=== PATIENT | male | born 1945 | race Caucasian/White ===

== ENCOUNTER 2016-04-04 10:36 | Emergency (ER) | payer OTHER, MEDICARE ==
[~2016-04-04] VITALS: Ht 185.4 cm; Wt 126.1 kg
[~2016-04-04 10:36] MED LIST: ACEPHEN650 MG PR; ALBUTEROL0.63 MG/3 INH/SOL; AMBIEN (MONOGRAP5 MG PO; AMBIEN10 M1 PO; AUGMENTIN 500M500 MG PO; AZITHROMYCIN250 M1 PO; CARBIDOPA AND L1 TA1 PO; CELEBREX200 M1 PO; CELEXA10 MG PO; COLACE100 M1 PO; COMTAN200 MG PO; COUMADIN 10 MG10 MG PO; COUMADIN 3 MG TA3 MG PO; COUMADIN 4MG TAB4 MG PO; COUMADIN 7.5 M7.5 MG PO; COUMADIN6 M1 PO; COUMADIN7.5 M1 PO; DILAUDID 4 MG TA4 MG PO; DILAUDID2 MG PO; DILAUDID4 MG PO; DULCOLAX10 MG PR; DULOXETINE HCL30 MG PO; DURAGESIC100 MCG TOP; FENOFIBRATE134 M1 PO; FLEET ENEMA 131 UNIT RC; FOLIC ACID 1 MG PO; FOLIC ACID1 M1 PO; FUROSEMIDE20 MG PO; GLUCAGON1 MG IV; GLUCOSE GEL15 GM TD; HYDROMORPHONE HC2 M1 PO; HYDROMORPHONE HC2 MG PO; HYDROMORPHONE HC4 M1 PO; KEFLEX 250MG C250 MG PO; KEPPRA250 M1 PO; LASIX20 M1 PO; LEVAQUIN500 MG PO; LEVEMIR 10100 UNITS/ SC; LEVEMIR FL100 UNIT/1 SC; LEVEMIR SC; LEVEMIR100 U/ML SC; LIDODERM 5% PAT1 PAT EXT; LIDODERM 5% PAT1 PAT TOP; LIPITOR 40MG40 MG PO; LIPITOR40 M1 PO; LOVENOX 10100 MG/1 M SC; LOVENOX 4040 MG/0.4 SC; LOVENOX 8080 MG/0.8 SC; LOVENOX SC; LOVENOX120 MG/0.8 SC; LYRICA100 M1 PO; MAG-OX 400400 MG PO; MAGNESIUM OXID400 MG PO; METFORMIN HCL500 MG PO; MILK OF MAGNESI30 ML PO; MIRALAX17 GM PO; MUCINEX ER600 MG PO; NASONEX0.05 MG/Ac INH; NEURONTIN600 M1 PO; NOVOLOG100 U/ML SC; OMEPRAZOLE40 M1 PO; OXYCONTIN15 MG PO; PERCOCET 325 MG1 TA2 PO; PREDNISONE10 M2 PO; PRILOSEC40 MG PO; PROPRANOLOL HCL20 M1 PO; ROXICODONE5 MG PO; SENNA8.6 M3 PO; SINEMET 10-1001 TAB PO; SINEMET 25-1001 EACH PO; SINEMET 25-1001 TAB PO; Senokot S PO; TESSALON PERLE100 MG PO; TOPROL XL50 M1 PO; TRAZODONE HCL50 M1 PO; TYLENOL TAB 32325 MG PO; VALIUM 10 MG. T10 MG PO; VANTIN200 MG PO; VITAMIN B650 MG PO; VITAMIN D1000 IU PO; VITAMIN D31000 UNI2 PO; WARFARIN SODIUM4 MG PO; ZOFRAN 4 MG TABL4 MG PO; ZOLOFT25 MG PO; ZOLPIDEM TARTRA10 MG PO
[2016-04-04] MEDS ORDERED: LYRICA50 M1 PO (11:09)
[2016-04-04] MEDS ORDERED: COLACE100 M1 PO (11:12)
[2016-04-04] MEDS ORDERED: SENNA8.6 M3 PO (11:13)
[2016-04-04] MEDS ORDERED: TOUJEO SOL300 UNIT/1 SC (11:17)
[2016-04-04] MEDS ORDERED: MIRALAX17 G1 PO (11:18)
[2016-04-04] MEDS ORDERED: TYLENOL325 M1 PO (11:19)
--- NOTE | 2016-04-04 12:08 | ED GI/GU/ABDOMINAL COMPLAINT ---
History of Present Illness General Chief Complaint: General Adult Stated Complaint: FALL/ABD PAIN Source: patient, old records Exam Limitations: no limitations Vital Signs & Intake/Output Vital Signs & Intake/Output Vital Signs Date Time Temp Pulse Resp B/P Pulse O2 O2 Flow FiO2 Ox Delivery Rate 04/04 1315 98.0 58 16 152/66 95 Room Air 04/04 1107 96 Room Air 04/04 1053 97.0 62 20 170/73 95 Room Air Allergies Coded Allergies: Penicillins (Intermediate, HIVES 05/03/15) morphine (Mild, PT SAYS IT "DOESNT BOTHER HIM" 05/03/15) Reconcile Medications Acetaminophen (Tylenol) 325 MG TABLET 2 TAB PO Q6-PRN PRN PAIN (Reported) Atorvastatin Calcium (Lipitor) 40 MG TABLET 1 TAB PO DAILY HYPERLIPIDEMIA ( Reported) Reason to Stop at ADM: DOSE INCREASED Carbidopa/Levodopa (Sinemet 25-100 MG Tablet) 25 MG-100 MG TABLET 1 TAB PO TID parkinsonism Celecoxib (Celebrex) 200 MG CAPSULE 1 CAP PO QHS PAIN CONTROL (Reported) Cholecalciferol (Vitamin D3) 1,000 UNIT TABLET 1 TAB PO DAILY BONE STRENGTH ( Reported) Docusate Sodium (Colace) 100 MG CAPSULE 1 CAP PO BID GI (Reported) Duloxetine HCl 60 MG CAPSULE.DR 1 CAP PO DAILY mood (Reported) Entacapone (Comtan) 200 MG TABLET 1 TAB PO TID PARKINSONS (Reported) Fenofibrate,Micronized (Fenofibrate) 134 MG CAPSULE 1 CAP PO DAILY TRIGLYCERIDES (Reported) Folic Acid 1 MG TABLET 1 TAB PO DAILY SUPPLEMENT (Reported) Furosemide (Lasix) 20 MG TABLET 1 TAB PO DAILY FLUID OVERLOAD (Reported) Gabapentin (Neurontin) 600 MG TABLET 1 TAB PO QPM NEUROPATHY (Reported) Hydromorphone HCl 2 MG TABLET 6 MG PO Q4-6 PRN PRN PAIN SCALE 7-10 (SEVERE) Insulin Aspart, Recombinant (Novolog) 100 U/ML MELIA 0 UNITS SC TIDAC/HS DM BEFORE MEALS Blood Insulin Sugar Units <80 0 81-100 6 101-120 6 121-150 6 151-200 7 201-250 8 251-300 10 301-350 12 351-400 14 >400 Call Doctor and give 16 units AT BEDTIME Blood Insulin Sugar Units <80 0 81-100 0 101-200 0 201-250 2 251-300 3 301-350 4 351-400 5 >400 Call Doctor Insulin Detemir (Levemir Flextouch) 100 UNIT/1 ML INSULN.PEN 40 U SC QPM DIABETES (Reported) Insulin Glargine,Hum.rec.anlog (Dwayne Segura) 300 UNIT/ML (1.5 ML) INSULN.PEN 30 U SC QPM DM (Reported) Levetiracetam (Keppra) 250 MG TABLET 1 TAB PO BID SEIZURES Metoprolol Succ XL (Toprol Xl 50MG Tab) 50 MG TAB.ER.24H 1 TAB PO QAM BLOOD PRESSURE (Reported) Omeprazole 40 MG CAPSULE.DR 1 CAP PO DAILY reflux (Reported) Polyethylene Glycol 3350 (Miralax) 17 GRAM POWD.PACK 1 PAC PO DAILY GI ( Reported) dissolve in water Pregabalin (Lyrica) 75 MG CAPSULE 1 CAP PO BID PAIN (Reported) Propranolol HCl 20 MG TABLET 1 TAB PO TID tremor titrate upwards as tolerated Sennosides (Senna) 8.6 MG TABLET 1 TAB PO BID GI (Reported) Trazodone HCl 50 MG TABLET 1 TAB PO QPM sleep disturbance (Reported) Warfarin Sodium (Coumadin) 6 MG TABLET 1 TAB PO DAILY blood thinner please check inr ON 01/19/2016 before dosing . Keep INR between 2-3 Zolpidem Tartrate (Ambien 10MG) 10 MG TABLET 1 TAB PO PRN SLEEP (Reported) Triage Note: 70 YEAR OLD MALE TO ER VIA AMBULANCE FROM [facility], PT STATES THAT HE HAS BEEN FALLING A LOT AND THAT HE WAS A [facility] FOR REHAB, HAS BEEN HOME FOR 3 WEEKS, PT HAS A PHYSICAL THERAPIST THAT COMES OUT TO HIS HOME 2X WEEK, STATES THAT ON FRIDAY HE TRIED TO WALK WITH CRUTCHES , HE SLIPPED AND FELL , STATES THAT WHEN HE FELL THE CRUTCH HANDLE PUSHED INTO HIS R SIDE GROIN, PT WAS ABLE TO GET UP ON OWN , WITH DIFFICULTY, STATES THAT HE LET THE NURSE KNOW. PT COMES IN TO ER TODAY DUE TO DIFFUSE ABD PAIN, NOTED WITH BRUISING TO R SIDE LOW ABD, ABD DISTENDED AND PAINFUL ON LIGHT PALPATION. PT WAS ON BLOOD THINNERS UP TO 4 DAYS AGO. DENIES URINARY PROBLEMS, DENIES BLOOD, STATES THAT LAST BM WAS 2 DAYS AGO AND DENIES BLOOD IN STOOL, STATES THAT HE HAS HAD A LOT OF FLATUS BUT THE PAIN IS UNBEARABLE WHEN HE PASSES GAS. COMPLAINS OF NAUSEA BUT DENIES VOMITTING, DENIES CP , NSR ON MONITOR WITH OCCASIONAL PVC NOTED, COMPLAINS OF SOB WHEN HE TAKES DEEP INSPIRATION, O2 SAT 96 % ON RA. PT IS IDDM , FS AT THIS TIME 240. PTS PHYSICAL THERAPIST CALLED AMBULANCE TODAY DUE TO PTS PAIN. PT STATES THAT HE TAKES DILAUDID 4MG EVERY 4-6 HOURS NEEDED FOR HIS CHRONIC BACK/NECK PAIN. LAST TOOK LAST PM. Triage Nurses Notes Reviewed? yes HPI: 70-year-old male with multiple medical comorbidities who is on Coumadin, last INR checked yesterday was 4.43 per patient, history of CVA who ambulates with crutches, had a mechanical slip and fall while using his crutches 4 days ago. The end of the crutch hit him in the right lower quadrant of the abdomen as he was falling. He has had pain in the right lower quadrant of the abdomen since and a hematoma in that area. He also injects insulin in that area as well and has bruising to both sides in various stages of healing. He denies any nausea or vomiting. He denies any urinary symptoms, no hematuria. He denies any shortness of breath or chest pain. He has chronic pain and usually takes Dilaudid for his pain 4 mg and he is requesting that at this time. His symptoms are moderate and worse with palpation of the lower abdomen region. No change in appetite. (HAMILTON BANSAL) Past History Travel History Traveled to [place] past 21 day No Medical History Any Pertinent Medical History? 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 Other Medical Hx: High cholesterol History of MRSA: Yes Active MRSA Infection: No History of VRE: No History of CDIFF: No Isolation History: Contact Tetanus Vaccine: 04/10/15 Surgical History Surgical History: knee replacement, laminectomy (L1 to L5), spinal fusion (C5 to C7), BICUSPID VALVE REPLACEMENT status post foot surgery status post hand surgery HAS STEEL PLATES R HAND Psychosocial History Who do you live with Patient/Self Services at Home Nursing, Physical Therapy What is your primary language Swedish Tobacco Use: Never used ETOH Use: denies use Illicit Drug Use: denies illicit drug use Family History Family History, If Any: MOTHER FH: myocardial infarction FATHER FH: myocardial infarction Hx Contributory? No (HAMILTON BANSAL) Review of Systems Review of Systems Constitutional: Reports: see HPI. EENTM: Reports: no symptoms. Respiratory: Reports: no symptoms. Cardiovascular: Reports: no symptoms. GI: Reports: see HPI. Genitourinary: Reports: no symptoms. Musculoskeletal: Reports: no symptoms. Skin: Reports: no symptoms. Neurological/Psychological: Reports: no symptoms. Hematologic/Endocrine: Reports: no symptoms. Immunologic/Allergic: Reports: no symptoms. All Other Systems: Reviewed and Negative (HAMILTON BANSAL) Physical Exam Physical Exam Gastrointestinal: normal bowel sounds Comments: Well-developed well-nourished no apparent distress. HEENT: Atraumatic, extraocular motion intact Neck: Supple, no lymphadenopathy, nontender Back: Nontender HEART: RRR NO MURMUR Respiratory: No respiratory distress clear to auscultation bilateral.Heart: Regular rate and rhythm no murmur abdomen: Morbidly Obese, focal area of tenderness to the right lower abdominal region. There is mild to moderate ecchymosis of the lower abdominal region bilaterally right greater than left with various stages of resolution. Extremities: No edema, full range of motion Neuro: Alert and oriented x3 Psych: Mood affect normal, normal memory normal judgment. Skin: Warm and dry, no rash on exposed skin Core Measures ACS in differential dx? No Severe Sepsis Present: No Septic Shock Present: No (HAMILTON BANSAL) Progress Differential Diagnosis: AAA, AMI, appendicitis, biliary colic, bowel obstruction , colon cancer, cholecystitis, diverticulitis, epididymitis, esophageal varices, gastritis, hepatitis, hernia, hemorrhoids, ischemic bowel, inflamm bowel dis, Renée-Suleman tear, orchitis, pancreatitis, prostatitis, peptic ulcer, PUD/GERD, perforated viscous, pyelonephritis, SBO, STD, testicular torsion, ureterolithiasis, urinary retention, urethritis, UTI/pyelo Plan of Care: Orders Procedure Date/time Status URINALYSIS 04/04 1214 Complete PROTHROMBIN TIME 04/04 113 Complete COMPREHENSIVE METABOLIC PANEL 04/04 113 Complete CBC WITHOUT DIFFERENTIAL 04/04 113 Complete Laboratory Tests 04/04/16 1215: Urinalysis LIGHT H, Urine Color YEL, Urine Clarity CLEAR, Urine pH 7.0, Ur Specific [place] 1.015, Urine Protein 100 H, Urine Ketones NEG, Urine Nitrite NEG, Urine Bilirubin NEG, Urine Urobilinogen 0.2, Ur Leukocyte Esterase NEG, Ur Microscopic SEDIMENT EXAMINED, Urine RBC 10-15 H, Urine Hemoglobin SMALL H, Urine Glucose >=1000 H 04/04/16 1150: Anion Gap 5, Estimated GFR 35 L, BUN/Creatinine Ratio 18.4, Glucose 202 H, Calcium 8.7, Total Bilirubin 0.6, AST 66 H, ALT 22, Alkaline Phosphatase 94, Total Protein 6.1 L, Albumin 3.5, Globulin 2.6, Albumin/Globulin Ratio 1.3, PT 43.1 *H, INR 4.16 *H, CBC w Diff NO MAN DIFF REQ, RBC 4.18 L, MCV 71.0 L, MCH 23.3 L, RDW 18.3 H, MPV 7.8, Gran % 71.2, Lymphocytes % 17.3 L, Monocytes % 9.9 H, Eosinophils % 1.3, Basophils % 0.3, Absolute Granulocytes 4.9, Absolute Lymphocytes 1.2, Absolute Monocytes 0.7 H, Absolute Eosinophils 0.1, Absolute Basophils 0, PUBS MCHC 32.8 L Diagnostic Imaging: Viewed by Me: CT Scan. Discussed w/RAD: CT Scan. Radiology Impression: PATIENT: DENNY VARGAS PRESENT AGE: 70 PATIENT ACCOUNT NO: [id number] : 45 LOCATION: [facility] ORDERING PHYSICIAN: HAMILTON BIRCH SERVICE DATE: 04/04/16 EXAM TYPE: CAT - CT ABD & PELVIS W/O IV CONTRAS EXAMINATION: CT ABDOMEN AND PELVIS WITHOUT CONTRAST CLINICAL INFORMATION: 70 year old male on Coumadin, history of fall, complaining of right lower abdominal pain. COMPARISON: CT of the abdomen and pelvis done on 01/15/2016. TECHNIQUE: Multidetector volumetric imaging was performed from the superior aspect of the liver through the pubic symphysis. Sagittal and coronal reformatted images were obtained on the technologist's workstation. DLP: 1453.01 mGy-cm. FINDINGS: The entire study is technically limited due to lack of intravenous contrast. Possibility of solid organ injury is, accordingly, not excluded. LUNG BASES: Persistent stable minimal compressive atelectatic changes versus pleural parenchymal scar-related changes are noted at left lung base. Atherosclerotic disease including coronary artery calcifications are noted, unchanged. LIVER, GALLBLADDER, AND BILIARY TREE: The liver is normal in size, shape, and attenuation. No focal hepatic lesion or biliary ductal dilatation is present. The gallbladder is unremarkable with no evidence of radiopaque gallstones, gallbladder wall thickening, or obvious pericholecystic inflammatory changes. PANCREAS: Calcifications are noted in the region of the tail of the pancreas, distal body and few scattered calcifications within the body and head, similar to prior study. SPLEEN: Unremarkable. ADRENAL GLANDS: Unremarkable. KIDNEYS AND URETERS: The kidneys are normal in size, shape, and attenuation. No hydronephrosis, hydroureter, or calculi seen. No perinephric stranding. BLADDER: The urinary bladder is markedly distended, possibly physiologic. GASTROINTESTINAL TRACT: The small and large bowel are unremarkable. The appendix is unremarkable. ABDOMINAL WALL: No significant hernia is appreciated. LYMPH NODES: Normal. VASCULAR: Diffuse atherosclerotic changes are noted within the aorta and its branches without aneurysm formation. PELVIC VISCERA: The prostate shows intraparenchymal macrocalcification, similar to prior study and measures approximately 4.6 x 3.8 cm, unchanged. There is no pelvic mass present. There is no free fluid and/or free air present. ADDITIONAL FINDINGS: Specifically, there is no evidence of any retroperitoneal, intrapelvic hematoma identified. OSSEOUS STRUCTURES: Stable post vertebral augmentation- related changes are noted at L1. Postop changes of laminectomy is noted at L3, L4 vertebral body level, unchanged. IMPRESSION: 1. The entire study is technically limited due to lack of intravenous contrast. Possibility of solid organ injury is not excluded. 2. The urinary bladder is markedly distended, new finding since prior study dated 01/15/2016, likely physiologic. 3. No other significant interval change is present since the prior noncontrast study dated 01/15/2016. 4. Specifically, no CT evidence of any intra-abdominal or intrapelvic hematoma is seen. DICTATED BY: LIDIA TOM MD DATE/TIME DICTATED :04/04/16 Initial ED EKG: none Comments: Patient given his usual dose of Dilaudid 4 mg and Zofran for nausea which she usually takes after the Dilaudid due to opiate-induced nausea. He was reevaluated and his pain has improved, he was resting comfortably with his eyes closed on the stretcher when I evaluated him. His laboratory values are unchanged from baseline, he has chronic anemia and chronic renal insufficiency which is unchanged. He states that he urinated after he returned from the CT scan machine which noted that he had an enlarged bladder however he has no other urinary symptoms. His CT scan was otherwise unremarkable for acute intra- abdominal trauma. His INR was still slightly elevated 4.1 I recommended that he not take his Coumadin for the next 2 days. He is stable for discharge home. (HAMILTON BANSAL) Departure Departure Disposition: HOME OR SELF CARE Condition: Stable Clinical Impression Primary Impression: Blunt trauma of abdominal wall Qualifiers: Encounter type: initial encounter Qualified Code: S39.81XA - Other specified injuries of abdomen, initial encounter Secondary Impressions: Supratherapeutic INR Referrals: KOFFI RODGERS MD (PCP/Family) Additional Instructions: Your INR was noted to be elevated to 4.1 today. Hold your Coumadin for the next 2 days, then restart regular normal dose Take your pain medication as needed. Return to the ER with worsening abdominal pain, nausea, vomiting. Departure Forms: Customer Survey General Discharge Information (HAMILTON BANSAL) PA/ANIMAL GROOMER Co-Sign Statement Statement: ED Attending supervision documentation- [x] I saw and evaluated the patient. I have also reviewed all the pertinent lab results and diagnostic results. I agree with the findings and the plan of care as documented in the PA's/ANIMAL GROOMER's documentation. [] I have reviewed the ED Record and agree with the PA's/ANIMAL GROOMER's documentation. [] Additions or exceptions (if any) to the PAs/ANIMAL GROOMER's note and plan are summarized below: [] (ARNEL VASQUES,JETHRO Painting)
[2016-04-04 12:16] LABS: PT 43.1 SEC (9.4-12.5)
[2016-04-04 12:21] LABS: ABSOLUTE BASOPHIL COUNT 0 /CUMM (0.0-0.2); ABSOLUTE EOSINOPHIL COUNT 0.1 /CUMM (0.0-0.7); ABSOLUTE GRANULOCYTE CT 4.9 /CUMM (1.4-6.5); ABSOLUTE LYMPH COUNT 1.2 /CUMM (1.2-3.4); ABSOLUTE MONOCYTE COUNT 0.7 /CUMM (0.10-0.60); BASOPHIL % 0.3 % (0.0-2.0); EOSINOPHIL % 1.3 % (0-5); GRANULOCYTE % 71.2 % (42.2-75.2); HEMATOCRIT 29.7 % (42-52); MEAN CORPUSCULAR HGB 23.3 PG (27.0-31.0); MEAN CORPUSCULAR HGB CONC 32.8 G/DL (33.0-37.0); MEAN PLATELET VOLUME 7.8 FL (7.4-10.4); PLATELET COUNT 323 /CUMM (130-400); RBC DISTRIBUTION WIDTH 18.3 % (11.5-14.5); RED BLOOD CELL CT 4.18 /CUMM (4.70-6.10); WHITE BLOOD CELL COUNT 6.9 /CUMM (4.8-10.8)
--- NOTE | 2016-04-04 12:29 | CT SCAN REPORT ---
EXAMINATION: CT ABDOMEN AND PELVIS WITHOUT CONTRAST CLINICAL INFORMATION: 70 year old male on Coumadin, history of fall, complaining of right lower abdominal pain. COMPARISON: CT of the abdomen and pelvis done on 01/15/2016. TECHNIQUE: Multidetector volumetric imaging was performed from the superior aspect of the liver through the pubic symphysis. Sagittal and coronal reformatted images were obtained on the technologist's workstation. DLP: 1453.01 mGy-cm. FINDINGS: The entire study is technically limited due to lack of intravenous contrast. Possibility of solid organ injury is, accordingly, not excluded. LUNG BASES: Persistent stable minimal compressive atelectatic changes versus pleural parenchymal scar-related changes are noted at left lung base. Atherosclerotic disease including coronary artery calcifications are noted, unchanged. LIVER, GALLBLADDER, AND BILIARY TREE: The liver is normal in size, shape, and attenuation. No focal hepatic lesion or biliary ductal dilatation is present. The gallbladder is unremarkable with no evidence of radiopaque gallstones, gallbladder wall thickening, or obvious pericholecystic inflammatory changes. PANCREAS: Calcifications are noted in the region of the tail of the pancreas, distal body and few scattered calcifications within the body and head, similar to prior study. SPLEEN: Unremarkable. ADRENAL GLANDS: Unremarkable. KIDNEYS AND URETERS: The kidneys are normal in size, shape, and attenuation. No hydronephrosis, hydroureter, or calculi seen. No perinephric stranding. BLADDER: The urinary bladder is markedly distended, possibly physiologic. GASTROINTESTINAL TRACT: The small and large bowel are unremarkable. The appendix is unremarkable. ABDOMINAL WALL: No significant hernia is appreciated. LYMPH NODES: Normal. VASCULAR: Diffuse atherosclerotic changes are noted within the aorta and its branches without aneurysm formation. PELVIC VISCERA: The prostate shows intraparenchymal macrocalcification, similar to prior study and measures approximately 4.6 x 3.8 cm, unchanged. There is no pelvic mass present. There is no free fluid and/or free air present. ADDITIONAL FINDINGS: Specifically, there is no evidence of any retroperitoneal, intrapelvic hematoma identified. OSSEOUS STRUCTURES: Stable post vertebral augmentation-related changes are noted at L1. Postop changes of laminectomy is noted at L3, L4 vertebral body level, unchanged. IMPRESSION: 1. The entire study is technically limited due to lack of intravenous contrast. Possibility of solid organ injury is not excluded. 2. The urinary bladder is markedly distended, new finding since prior study dated 01/15/2016, likely physiologic. 3. No other significant interval change is present since the prior noncontrast study dated 01/15/2016. 4. Specifically, no CT evidence of any intra-abdominal or intrapelvic hematoma is seen.
[2016-04-04 13:15] VITALS: BP 152/66
== END 2016-04-04 13:16 ==
LOC: ERH 10:36
PROVIDERS: Physician Assistant Surgical
DX: S39.91XA Unspecified injury of abdomen, initial encounter (principal); W01.0XXA Fall on same level from slipping, tripping and stumbling without subsequent striking against object, initial encounter; Z79.01 Long term (current) use of anticoagulants
CPT/HCPCS: 74176; 81001; J3101

== ENCOUNTER 2016-05-10 08:09 | Inpatient (IN) | payer OTHER, MEDICARE ==
[~2016-05-10] VITALS: Ht 185.4 cm; Wt 126.1 kg
[~2016-05-10 08:09] MED LIST changes: +LYRICA50 M1 PO; +MIRALAX17 G1 PO; +TOUJEO SOL300 UNIT/1 SC; +TYLENOL325 M1 PO
--- NOTE | 2016-05-10 08:12 | ED GENERAL ADULT ---
History of Present Illness General Chief Complaint: Fall Stated Complaint: BIBA FOR FALL Source: patient Exam Limitations: poor historian Vital Signs & Intake/Output Vital Signs & Intake/Output Vital Signs Date Time Temp Pulse Resp B/P Pulse O2 O2 Flow FiO2 Ox Delivery Rate 05/10 1841 Room Air Room Air 05/10 1836 98.9 65 20 143/70 93 Room Air 05/10 1736 97.2 68 18 135/64 95 Room Air Room Air 05/10 1433 97.0 70 20 133/62 94 Room Air 05/10 1115 56 20 141/66 94 Room Air 05/10 0827 Room Air Room Air 05/10 0812 96.8 58 22 139/92 93 Room Air Allergies Coded Allergies: Penicillins (Intermediate, HIVES 05/03/15) morphine (Mild, PT SAYS IT "DOESNT BOTHER HIM" 05/03/15) Reconcile Medications Acetaminophen (Tylenol) 325 MG TABLET 2 TAB PO Q6-PRN PRN PAIN (Reported) Albuterol Sulfate 2.5 MG/3 ML (0.083 %) VIAL.NEB 1 Vial INH/MELIA 4 TIMES/DAY BREATHING PROBLEMS (Reported) Atorvastatin Calcium (Lipitor) 40 MG TABLET 1 TAB PO DAILY HYPERLIPIDEMIA ( Reported) Reason to Stop at ADM: DOSE INCREASED Calcium Carbonate/Vitamin D3 (Calcium + Vitamin D Tablet) 600 MG-200 TABLET 1 TAB PO DAILY SUPPLEMENT (Reported) Carbidopa/Levodopa (Sinemet 25-100 MG Tablet) 25 MG-100 MG TABLET 1 TAB PO TID parkinsonism Celecoxib (Celebrex) 200 MG CAPSULE 1 CAP PO QHS PAIN CONTROL (Reported) Cholecalciferol (Vitamin D3) 1,000 UNIT TABLET 1 TAB PO DAILY BONE STRENGTH ( Reported) Docusate Sodium (Colace) 100 MG CAPSULE 1 CAP PO BID GI (Reported) Duloxetine HCl 30 MG CAPSULE.DR 1 CAP PO DAILY MOOD (Reported) Entacapone (Comtan) 200 MG TABLET 1 TAB PO TID PARKINSONS (Reported) Fenofibrate,Micronized (Fenofibrate) 134 MG CAPSULE 1 CAP PO DAILY TRIGLYCERIDES (Reported) Folic Acid 1 MG TABLET 1 TAB PO DAILY SUPPLEMENT (Reported) Furosemide (Lasix) 20 MG TABLET 1 TAB PO DAILY WATER PILL (Reported) Gabapentin (Neurontin) 600 MG TABLET 1 TAB PO TID NEUROPATHY (Reported) Hydromorphone HCl 2 MG TABLET 6 MG PO Q4-6 PRN PRN PAIN SCALE 7-10 (SEVERE) Insulin Aspart, Recombinant (Novolog Flexpen) (Unknown Strength) INSULN.PEN ( Unknown Dose) SEE SLIDING SCALE DIABETES (Reported) Insulin Detemir (Levemir Flextouch) 100 UNIT/ML (3 ML) INSULN.PEN 30 UNITS SC QPM DIABETES (Reported) Lidocaine (Lidoderm) 5 % ADH..PATCH 1 PAT TOP DAILY PAIN (Reported) may wear up to 12 hours Magnesium Oxide 400 MG TABLET 1 TAB PO DAILY SUPPLEMENT (Reported) Metoprolol Succ XL (Toprol Xl) 50 MG TAB 1 TAB PO DAILY BP (Reported) Omeprazole 40 MG CAPSULE.DR 1 CAP PO DAILY reflux (Reported) Polyethylene Glycol 3350 (Miralax) 17 GRAM POWD.PACK 1 PAC PO DAILY GI ( Reported) dissolve in water Pregabalin (Lyrica) 50 MG CAPSULE 1 CAP PO TID PAIN (Reported) Sennosides (Senna) 8.6 MG TABLET 1 TAB PO BID GI (Reported) Warfarin Sodium (Coumadin) 6 MG TABLET 1 TAB PO DAILY blood thinner please check inr ON 01/19/2016 before dosing . Keep INR between 2-3 Zolpidem Tartrate (Ambien) 10 MG TABLET 1 TAB PO QPMP PRN SLEEP (Reported) Triage Nurses Notes Reviewed? yes Onset: Abrupt Duration: hour(s): Timing: recent history HPI: 05/10/16 9 am 70-year-old man presents to the emergency department for a fall. The patient lives in assisted care and apparently felt weak and slid down today, he is complaining of severe right sided low back pain and right sided abdominal pain. He denies head injury. He does have a past medical history of valve replacement. He has a [employer] valve and is on Coumadin. The symptoms were abrupt, the duration was just today, the severity was significant as his symptoms required him to come to the emergency department for care Past medical history of pancreatitis, diabetes and Parkinson's disease also status post spinal fusion. Past History Travel History Traveled to [place] past 21 day No Medical History Any Pertinent Medical History? see below for history Neurological: CVA, Parkinson's disease, peripheral neuropathy, stroke 4 times after morphine EENT: NONE Cardiovascular: CAD, CHF, hypertension, [facility] [employer] VALVE Respiratory: PNA Gastrointestinal: GERD, pancreatitis, peptic ulcer disease, upper GI bleed Hepatic: NONE Renal: NONE Musculoskeletal: chronic back pain, osteoarthritis, osteoporosis, spinal fracture twice MRSA IN WOUND Psychiatric: depression Endocrine: diabetes, osteoporosis, vitamin D deficiency Blood Disorders: anemia Cancer(s): melanoma BACTERIOLOGIST SOIL/Reproductive: NONE Other Medical Hx: High cholesterol History of MRSA: Yes History of VRE: No History of CDIFF: No Tetanus Vaccine: 04/10/15 Surgical History Surgical History: knee replacement, laminectomy (L1 to L5), spinal fusion (C5 to C7), BICUSPID VALVE REPLACEMENT status post foot surgery status post hand surgery HAS STEEL PLATES R HAND Psychosocial History Who do you live with Patient/Self Services at Home Nursing, Physical Therapy What is your primary language Amharic Family History Family History, If Any: MOTHER FH: myocardial infarction FATHER FH: myocardial infarction Hx Contributory? No Review of Systems Review of Systems Constitutional: Denies: fever. EENTM: Denies: visual changes. Respiratory: Denies: short of breath. Cardiovascular: Denies: chest pain. GI: Reports: abdominal pain. Genitourinary: Reports: no symptoms. Musculoskeletal: Reports: back pain. Skin: Denies: rash. Neurological/Psychological: Denies: confusion. Hematologic/Endocrine: Denies: bruising, bleeding. Physical Exam Physical Exam General Appearance: alert, awake, anxious, moderate distress Head: atraumatic, normal appearance Eyes: Bilateral: normal appearance, PERRL, EOMI. Ears, Nose, Throat: normal pharynx, normal ENT inspection Neck: normal inspection, supple Respiratory: normal breath sounds, chest non-tender, no respiratory distress Cardiovascular: regular rate/rhythm Peripheral Pulses: 4+ radial (R), 4+ radial (L) Gastrointestinal: soft, tenderness, right upper quadrant Back: decreased range of motion, tenderness right lumbar Extremities: pedal edema Neurologic/Psych: awake, alert, oriented x 3, motor weakness, global weakness and tremors Skin: intact, normal color, warm/dry Core Measures ACS in differential dx? No CVA/TIA Diagnosis: No Severe Sepsis Present: No Septic Shock Present: No Progress Differential Diagnoses I considered the following diagnoses in my evaluation of the patient: [ Compression fracture, intra-abdominal injury, arthritis, disc herniation,] Plan of Care: Orders Procedure Date/time Status Consistent Carbohydrate 3 05/11 B Active PROTHROMBIN TIME 05/11 06 Active CBC WITHOUT DIFFERENTIAL 03/11 0600 Active BASIC ELECTROLYTES PLUS BUN&CR 05/11 0600 Active Heart Healthy Diet 05/10 D Complete Vital Signs 05/10 2013 Active Teach/Educate 05/10 2013 Active Pain Treatment and Response 05/10 2013 Active Nutritional Intake, Monitor 05/10 2013 Active Isolation 05/10 2013 Active Intake & Output 05/10 2013 Active Patient Care Conference 05/10 2013 Active Activity/Ambulation 05/10 2013 Active RT: Evaluation 05/10 1841 Active Add-on Test (ER Only) 05/10 1652 Active TRC EVALUATION (GEN) 05/10 1607 Complete PT Evaluate & Treat 05/10 1607 Active Pathway - chart 05/10 1607 Active House Staff 05/10 1607 Active Patient Data 05/10 1607 Active Code Status 05/10 1607 Active Admit to inpatient 05/10 1604 Active Vital Signs 05/10 1604 Complete Code Status 05/10 1604 Complete Add-on Test (ER Only) 05/10 1603 Active PROTHROMBIN TIME 05/10 1603 Active Patient Data 05/10 1534 Active Intake & Output 05/10 1525 Active EKG 05/10 1106 Active PROTHROMBIN TIME 05/10 1020 Complete VIT D 25 HYDROXY 05/10 1000 Complete FOLIC ACID 05/10 1000 Complete VITAMIN B12 05/10 1000 Complete TROPONIN LEVEL 05/10 0922 Complete COMPREHENSIVE METABOLIC PANEL 05/10 0922 Complete CBC WITHOUT DIFFERENTIAL 05/10 0922 Complete AMYLASE 05/10 0922 Complete THERAPIST ORDERS 05/10 UNK Complete VTE Mechanical Prophylaxis 05/10 UNK Active Vital Signs 05/10 UNK Active Precautions 05/10 UNK Active Heat/Cold Therapy 05/10 UNK Active FingerStick- Glucose 05/10 UNK Active Current Medications Sig/Leena Start time Last Medication Dose Stop Time Status Admin Atorvastatin Calcium 40 MG 1700 05/11 1700 AC (Lipitor) Duloxetine HCl 30 MG DAILY 05/11 1000 AC (Cymbalta) Fenofibrate 145 MG DAILY 05/11 1000 AC (Tricor) Furosemide 20 MG DAILY 05/11 1000 AC (Lasix) Metoprolol Succinate 50 MG DAILY 05/11 1000 AC (Toprol Xl) Polyethylene Glycol 17 GM DAILY 05/11 1000 AC (Miralax) Omeprazole 40 MG DAILY AC 05/11 0700 AC (Prilosec) Carbidopa/Levodopa 1 TAB TID 05/10 2200 AC (Sinemet 25/100MG) Docusate Sodium 100 MG BID 05/10 2199 AC (Colace) Entacapone 200 MG TID 05/10 2199 AC (Comtan) Gabapentin 600 MG TID 05/10 2199 AC (Neurontin) Insulin Detemir 30 UNITS AT BEDTIME 05/10 2199 AC (Levemir) Albuterol Sulfate 3 ML 4 TIMES/DAY 05/10 1800 AC (Proventil) Insulin Aspart 0 TIDAC 05/10 170 AC (NovoLOG) Acetaminophen 650 MG Q6P PRN 05/10 1614 AC (Tylenol) Oxycodone/ 1 TAB Q6P PRN 05/10 1614 AC Acetaminophen (Percocet) Senna/Docusate Sodium 1 TAB BID PRN 05/10 1614 AC (Senokot S) Zolpidem Tartrate 10 MG AT BEDTIME NEED.. 05/10 1614 AC (Ambien) Laboratory Tests 05/10/16 1020: PT 42.0 H, INR 4.06 *H 05/10/16 1000: Anion Gap 9, Estimated GFR 25 L, BUN/Creatinine Ratio 16.2, Glucose 83, Calcium 8.8, Total Bilirubin 0.4, AST 23, ALT 21, Alkaline Phosphatase 92, Troponin I 0.03, Total Protein 6.2 L, Albumin 3.6, Globulin 2.6, Albumin/Globulin Ratio 1.4, Amylase 58, Vitamin B12 423, 25-OH Vitamin D Total 34.0, Folate > 20.0 H, CBC w Diff MAN DIFF ORDERED, RBC 4.44 L, MCV 70.4 L, MCH 23.0 L, RDW 20.0 H, MPV 7.6, Gran % 73.5, Lymphocytes % 14.2 L, Monocytes % 8.3, Eosinophils % 3.5, Basophils % 0.5, Absolute Granulocytes 6.3, Absolute Lymphocytes 1.2, Absolute Monocytes 0.7 H, Absolute Eosinophils 0.3, Absolute Basophils 0, Platelet Estimate ADEQUATE, Hypochromic-Microcytic 1+, Poikilocytosis FEW, Anisocytosis 1 +, Microcytic Cells 2+, Elliptocytes 1+, PUBS MCHC 32.8 L Initial ED EKG: sinus bradycardia, no change from old Prior EKG: unchanged Comments: CT findings shown below PATIENT: DENNY VARGAS PRESENT AGE: 70 PATIENT ACCOUNT NO: [id number] : 45 LOCATION: [facility] ORDERING PHYSICIAN: JETHRO STAFFORD DO SERVICE DATE: 05/10/16 EXAM TYPE: CAT - CT LUMB SPINE WO IV CONTRAST EXAMINATION: CT LUMBAR SPINE WITHOUT CONTRAST CLINICAL INFORMATION: Fall with back pain. Evaluate for fracture. COMPARISON: Lumbar spine CT scan 09/04/2014. TECHNIQUE: Helical non-contrast CT images were obtained through the lumbar spine and 1.25 and 2.5 mm axial reconstructions were reviewed along with sagittal and coronal MPRs. DLP: 1288.87 mGy-cm FINDINGS: There are chronic postoperative changes of decompressive laminectomies at L3 and L4. There is slight grade 1 anterolisthesis of L3 on L4 and slight grade 1 anterolisthesis of L4 on L5 that appears be related to advanced facet degenerative changes at these 2 levels. There is a chronic wedge compression deformity of the L1 vertebral body with 50% vertebral body height loss anteriorly. There is a large Schmorl's node involving the upper T12 endplate that is new when compared to the most recent prior CT scan of the lumbar spine from 09/04/2014 that demonstrates chronic characteristics with sclerotic margins. There is no acute fracture. At T12-L1 there is a diffuse disc osteophyte complex that causes ventral flattening of the thecal sac. Advanced bilateral facet degenerative change. No canal or neuroforaminal compromise. At L1-L2 there is a diffusely bulging disc causing ventral flattening of the thecal sac. There is asymmetric ossification of the right ligamentum flavum. No canal stenosis. There is partial effacement of the perineural fat on the right side with no more than mild mass effect on the foraminal segment of the right L1 nerve root. At L2-L3 there is a diffusely bulging disc causing ventral flattening of the thecal sac. Advanced bilateral facet degenerative change with thickening of the ligamenta flava. Although the canal is not well assessed there is suspected to be at least moderate canal stenosis at this level. Moderate to severe compression of the foraminal segments of both L2 nerve roots. At L3-L4 the canal is decompressed. There is advanced bilateral facet degenerative change, greater on right side. Severe compression of the right L3 foraminal nerve root and moderate compression of the left L3 foraminal nerve root. At L4-L5 there is a diffuse annular bulge/pseudobulge causing ventral flattening of the thecal sac. Advanced bilateral facet degenerative change. The canal is not well assessed however it is suspected that there is at least mild canal stenosis at this level. There is severe compression of the left L4 foraminal nerve root and moderate compression of the right L4 foraminal nerve root. At L5-S1 there is a diffusely bulging disc. No canal or neuroforaminal compromise. Advanced bilateral facet degenerative change. Limited visualization of the retroperitoneal structures reveals no abnormal finding. Calcified atherosclerotic plaque involves the abdominal aorta and iliac vessels. Psoas and paraspinal muscle groups are grossly symmetric. IMPRESSION: There is multilevel degenerative spondylosis of the lumbar spine as described above with slight grade 1 anterolisthesis of L3 on L4 and slight grade 1 anterolisthesis of L4-L5 related to advanced facet degenerative changes at these 2 levels. Although the canal is not well assessed due to the absence of intrathecal contrast there is suspected to be at least moderate canal stenosis at the level of L2-L3 and mild canal stenosis at L4-L5. There are varying degrees of mass effect on the foraminal segments of the lumbar nerve roots as described above. No evidence of acute fracture. There is a chronic compression fracture of the L1 vertebral body with 50% loss of vertebral body height anteriorly. Chronic changes of a vertebral augmentation are noted at this level. There is also a prominent upper endplate disc herniation of the T12 vertebral body that demonstrates chronic characteristics but is new when compared to the lumbar spine CT scan from 09/04/2014. DICTATED BY: MELVIN WEBB MD DATE/TIME DICTATED:05/10/161102 LAMPS TESTER AND INSPECTOR:TYLER DATE/TIME TRANSCRIBED:05/10/161102 CONFIDENTIAL, DO NOT COPY WITHOUT APPROPRIATE AUTHORIZATION. <Electronically signed in Other Vendor System> SIGNED BY: MELVIN WEBB MD 05/10 1143 Departure Departure Disposition: HOME OR SELF CARE Condition: Stable Clinical Impression Primary Impression: Gait instability Secondary Impressions: Compression fracture, Intractable back pain, Parkinsons disease Referrals: KOFFI RODGERS MD (PCP/Family) Departure Forms: Customer Survey General Discharge Information Comments CT findings shown below PATIENT: DENNY VARGAS PRESENT AGE: 70 PATIENT ACCOUNT NO: [id number] : 45 LOCATION: [facility] ORDERING PHYSICIAN: JETHRO STAFFORD DO SERVICE DATE: 05/10/16 EXAM TYPE: CAT - CT LUMB SPINE WO IV CONTRAST EXAMINATION: CT LUMBAR SPINE WITHOUT CONTRAST CLINICAL INFORMATION: Fall with back pain. Evaluate for fracture. COMPARISON: Lumbar spine CT scan 09/04/2014. TECHNIQUE: Helical non-contrast CT images were obtained through the lumbar spine and 1.25 and 2.5 mm axial reconstructions were reviewed along with sagittal and coronal MPRs. DLP: 1288.87 mGy-cm FINDINGS: There are chronic postoperative changes of decompressive laminectomies at L3 and L4. There is slight grade 1 anterolisthesis of L3 on L4 and slight grade 1 anterolisthesis of L4 on L5 that appears be related to advanced facet degenerative changes at these 2 levels. There is a chronic wedge compression deformity of the L1 vertebral body with 50% vertebral body height loss anteriorly. There is a large Schmorl's node involving the upper T12 endplate that is new when compared to the most recent prior CT scan of the lumbar spine from 09/04/2014 that demonstrates chronic characteristics with sclerotic margins. There is no acute fracture. At T12-L1 there is a diffuse disc osteophyte complex that causes ventral flattening of the thecal sac. Advanced bilateral facet degenerative change. No canal or neuroforaminal compromise. At L1-L2 there is a diffusely bulging disc causing ventral flattening of the thecal sac. There is asymmetric ossification of the right ligamentum flavum. No canal stenosis. There is partial effacement of the perineural fat on the right side with no more than mild mass effect on the foraminal segment of the right L1 nerve root. At L2-L3 there is a diffusely bulging disc causing ventral flattening of the thecal sac. Advanced bilateral facet degenerative change with thickening of the ligamenta flava. Although the canal is not well assessed there is suspected to be at least moderate canal stenosis at this level. Moderate to severe compression of the foraminal segments of both L2 nerve roots. At L3-L4 the canal is decompressed. There is advanced bilateral facet degenerative change, greater on right side. Severe compression of the right L3 foraminal nerve root and moderate compression of the left L3 foraminal nerve root. At L4-L5 there is a diffuse annular bulge/pseudobulge causing ventral flattening of the thecal sac. Advanced bilateral facet degenerative change. The canal is not well assessed however it is suspected that there is at least mild canal stenosis at this level. There is severe compression of the left L4 foraminal nerve root and moderate compression of the right L4 foraminal nerve root. At L5-S1 there is a diffusely bulging disc. No canal or neuroforaminal compromise. Advanced bilateral facet degenerative change. Limited visualization of the retroperitoneal structures reveals no abnormal finding. Calcified atherosclerotic plaque involves the abdominal aorta and iliac vessels. Psoas and paraspinal muscle groups are grossly symmetric. IMPRESSION: There is multilevel degenerative spondylosis of the lumbar spine as described above with slight grade 1 anterolisthesis of L3 on L4 and slight grade 1 anterolisthesis of L4-L5 related to advanced facet degenerative changes at these 2 levels. Although the canal is not well assessed due to the absence of intrathecal contrast there is suspected to be at least moderate canal stenosis at the level of L2-L3 and mild canal stenosis at L4-L5. There are varying degrees of mass effect on the foraminal segments of the lumbar nerve roots as described above. No evidence of acute fracture. There is a chronic compression fracture of the L1 vertebral body with 50% loss of vertebral body height anteriorly. Chronic changes of a vertebral augmentation are noted at this level. There is also a prominent upper endplate disc herniation of the T12 vertebral body that demonstrates chronic characteristics but is new when compared to the lumbar spine CT scan from 09/04/2014. DICTATED BY: MELVIN WEBB MD DATE/TIME DICTATED:05/10/161102 LAMPS TESTER AND INSPECTOR:TYLER DATE/TIME TRANSCRIBED:05/10/161102 CONFIDENTIAL, DO NOT COPY WITHOUT APPROPRIATE AUTHORIZATION. <Electronically signed in Other Vendor System> SIGNED BY: MELVIN WEBB MD 05/10 1143 Admission Note Spoke With: KOFFI RODGERS MD Documentation of Exam: Documentation of any treatments & extenuating circumstances including Concerns Regarding Discharge (functional status, medication knowledge or non-compliance, living conditions, etc.) that warrant an admission rather than observation: [The patient needs admission as he is unable to ambulate without assistance, he fell again in the emergency department on attempts to ambulate, he has new findings on his CT scan concerning for disc herniation, he is requiring IV Dilaudid for pain control.] The patient has severe gait instability and this is a new change from his baseline. He is unable to function with his activities of daily living from this acute change. He will need case management and PT consultation. Critical Care Note Critical Care Note Critical Care Time: 30-74 min
[2016-05-10] MEDS ORDERED: ALBUTEROL2.5 MG/3 M INH/SOL (08:29)
[2016-05-10] MEDS ORDERED: MAGNESIUM OXID400 M1 PO (08:30)
[2016-05-10] MEDS ORDERED: LIDODERM1 EACH TOP (08:30)
[2016-05-10] MEDS ORDERED: CALCIUM + VITA1 EAC1 PO (08:31)
[2016-05-10] MEDS ORDERED: NOVOLOG FL100 UNIT/1 (08:32)
--- NOTE | 2016-05-10 10:03 | CT SCAN REPORT ---
EXAMINATION: CT HEAD WITHOUT CONTRAST CLINICAL INFORMATION: 70-year-old male status post fall. COMPARISON: CT head 01/15/2016 TECHNIQUE: Contiguous axial imaging was performed from the skull base to vertex without intravenous administration of contrast. Coronal reformatted images were provided. DLP: 115.35 mGy-cm FINDINGS: Slightly limited evaluation of the skull base secondary to streak artifact. There is no evidence of acute intracranial hemorrhage or territorial infarction. No abnormal mass effect or midline shift is seen. Thomas to white matter differentiation is well preserved. No extra-axial fluid collections are identified. Ventricles and sulci are prominent consistent with underlying atrophy. Mild patchy periventricular white matter hypodensities are nonspecific but likely representing chronic microvascular ischemic changes. The osseous structures and soft tissues are normal. The mastoid air cells and visualized portions of the paranasal sinuses are well aerated. Carotid siphon calcifications are present. IMPRESSION: No acute intracranial abnormality. No intracranial hemorrhage or mass effect.
--- NOTE | 2016-05-10 10:14 | RADIOLOGY REPORT ---
EXAMINATION: XR PORTABLE CHEST CLINICAL INFORMATION: 70-year-old male with right-sided pain status post fall. COMPARISON: None TECHNIQUE: Portable AP view of the chest was obtained. FINDINGS: Stable cardiomegaly. Patient status post median sternotomy. No focal consolidation, pleural effusions or pneumothorax. Partially imaged hardware noted within the proximal right humerus. Cervical fusion hardware is again seen. Old left-sided rib fractures again noted. No definite acute osseous abnormality. IMPRESSION: 1. No radiographic evidence of acute pulmonary disease. 2. Old left-sided rib fractures. No definite acute osseous abnormality identified.
[2016-05-10 10:16] LABS: ABSOLUTE BASOPHIL COUNT 0 /CUMM (0.0-0.2); ABSOLUTE EOSINOPHIL COUNT 0.3 /CUMM (0.0-0.7); ABSOLUTE GRANULOCYTE CT 6.3 /CUMM (1.4-6.5); ABSOLUTE LYMPH COUNT 1.2 /CUMM (1.2-3.4); ABSOLUTE MONOCYTE COUNT 0.7 /CUMM (0.10-0.60); BASOPHIL % 0.5 % (0.0-2.0); EOSINOPHIL % 3.5 % (0-5); GRANULOCYTE % 73.5 % (42.2-75.2); HEMATOCRIT 31.2 % (42-52); MEAN CORPUSCULAR HGB CONC 32.8 G/DL (33.0-37.0); MEAN CORPUSCULAR VOLUME 70.4 FL (80.0-94.0); MEAN PLATELET VOLUME 7.6 FL (7.4-10.4); PLATELET COUNT 370 /CUMM (130-400); RED BLOOD CELL CT 4.44 /CUMM (4.70-6.10); WHITE BLOOD CELL COUNT 8.6 /CUMM (4.8-10.8)
--- NOTE | 2016-05-10 10:53 | CT SCAN REPORT ---
EXAMINATION: ABDOMEN AND PELVIS WITHOUT CONTRAST CLINICAL INFORMATION: Right-sided pain status post fall. COMPARISON: Abdomen and pelvis 04/04/2016. Lumbar spine 09/04/2014. TECHNIQUE: Contiguous axial thin section helical images of the abdomen and pelvis were performed without contrast. The data set was reformatted in the coronal and sagittal planes and reviewed on an independent workstation DLP: 1598 mGy-cm FINDINGS ABDOMEN AND PELVIS: LUNG BASES: Heart is enlarged, predominately the left ventricle, lung bases are clear with minimal dependent atelectasis posteriorly. There is coronary and mitral annular calcification. LIVER AND SPLEEN: Unremarkable. PANCREAS GALLBLADDER AND BILIARY TREE: Unremarkable. KIDNEYS, URETERS, AND ADRENALS: Unremarkable. URINARY BLADDER: Unremarkable. GI TRACT: Stomach and small bowel appear unremarkable. Colon is stool-filled. Appendix is normal-appearing. PERITONEAL CAVITY: No intraperitoneal free fluid is identified. No focal masses or adenopathy. RETROPERITONEUM: No evidence of a retroperitoneal bleed, lymphadenopathy or aortic aneurysm. There is moderate atherosclerotic aortic calcification PELVIC ORGANS: Prostate remains mildly enlarged with central calcification. ANTERIOR ABDOMINAL WALL AND SOFT TISSUES: No significant hernia. No evidence of soft tissue hematoma. OSSEOUS STRUCTURES: No acute fractures. No focal destructive or sclerotic lesions are seen. There is a prominent Schmorl's node along the superior endplate of the T12 vertebral body unchanged from the most recent abdominal CT. This is new from the 2015 CT. L1 vertebroplasty changes appears stable. There are moderate to advanced degenerative with underlying postoperative changes in the spine. Please see separately dictated lumbar spine report for further information. IMPRESSION: No evidence of an acute process or fracture. Please see separately dictated lumbar spine CT report. No evidence of a soft tissue or retroperitoneal bleed.
--- NOTE | 2016-05-10 11:43 | CT SCAN REPORT ---
EXAMINATION: CT LUMBAR SPINE WITHOUT CONTRAST CLINICAL INFORMATION: Fall with back pain. Evaluate for fracture. COMPARISON: Lumbar spine CT scan 09/04/2014. TECHNIQUE: Helical non-contrast CT images were obtained through the lumbar spine and 1.25 and 2.5 mm axial reconstructions were reviewed along with sagittal and coronal MPRs. DLP: 1288.87 mGy-cm FINDINGS: There are chronic postoperative changes of decompressive laminectomies at L3 and L4. There is slight grade 1 anterolisthesis of L3 on L4 and slight grade 1 anterolisthesis of L4 on L5 that appears be related to advanced facet degenerative changes at these 2 levels. There is a chronic wedge compression deformity of the L1 vertebral body with 50% vertebral body height loss anteriorly. There is a large Schmorl's node involving the upper T12 endplate that is new when compared to the most recent prior CT scan of the lumbar spine from 09/04/2014 that demonstrates chronic characteristics with sclerotic margins. There is no acute fracture. At T12-L1 there is a diffuse disc osteophyte complex that causes ventral flattening of the thecal sac. Advanced bilateral facet degenerative change. No canal or neuroforaminal compromise. At L1-L2 there is a diffusely bulging disc causing ventral flattening of the thecal sac. There is asymmetric ossification of the right ligamentum flavum. No canal stenosis. There is partial effacement of the perineural fat on the right side with no more than mild mass effect on the foraminal segment of the right L1 nerve root. At L2-L3 there is a diffusely bulging disc causing ventral flattening of the thecal sac. Advanced bilateral facet degenerative change with thickening of the ligamenta flava. Although the canal is not well assessed there is suspected to be at least moderate canal stenosis at this level. Moderate to severe compression of the foraminal segments of both L2 nerve roots. At L3-L4 the canal is decompressed. There is advanced bilateral facet degenerative change, greater on right side. Severe compression of the right L3 foraminal nerve root and moderate compression of the left L3 foraminal nerve root. At L4-L5 there is a diffuse annular bulge/pseudobulge causing ventral flattening of the thecal sac. Advanced bilateral facet degenerative change. The canal is not well assessed however it is suspected that there is at least mild canal stenosis at this level. There is severe compression of the left L4 foraminal nerve root and moderate compression of the right L4 foraminal nerve root. At L5-S1 there is a diffusely bulging disc. No canal or neuroforaminal compromise. Advanced bilateral facet degenerative change. Limited visualization of the retroperitoneal structures reveals no abnormal finding. Calcified atherosclerotic plaque involves the abdominal aorta and iliac vessels. Psoas and paraspinal muscle groups are grossly symmetric. IMPRESSION: There is multilevel degenerative spondylosis of the lumbar spine as described above with slight grade 1 anterolisthesis of L3 on L4 and slight grade 1 anterolisthesis of L4-L5 related to advanced facet degenerative changes at these 2 levels. Although the canal is not well assessed due to the absence of intrathecal contrast there is suspected to be at least moderate canal stenosis at the level of L2-L3 and mild canal stenosis at L4-L5. There are varying degrees of mass effect on the foraminal segments of the lumbar nerve roots as described above. No evidence of acute fracture. There is a chronic compression fracture of the L1 vertebral body with 50% loss of vertebral body height anteriorly. Chronic changes of a vertebral augmentation are noted at this level. There is also a prominent upper endplate disc herniation of the T12 vertebral body that demonstrates chronic characteristics but is new when compared to the lumbar spine CT scan from 09/04/2014.
--- NOTE | 2016-05-10 15:52 | History & Physical ---
General Information and HPI MD Statement: I have seen and personally examined DENNY VARGAS and documented this H&P. The patient is a 70 year old M who presented with a patient stated chief complaint of [I fell and my back hurts]. Source of Information: patient, old records Exam Limitations: no limitations History of Present Illness: This is a 70-year-old gentleman with a history of hypertension, Parkinson's disease, frequent falls, history of TIA, multiple back surgeries, [facility] Peter's valve on Coumadin since 1996, hyperlipidemia, CKD and diabetes that presented to the emergency room with a chief complaint of a mechanical fall and back pain. Patient states that because of his advanced Parkinson's, his legs do give out at times and today while he was ambulating he felt like his knees buckled and he fell backwards in his right side hit the edge of the dresser. He denies any head strike or loss of consciousness. States he called the nursing aides as he lives at assisted living facility and was subsequently brought to the emergency room. At present his only complaint is musculoskeletal right lumbar pain. Denies any chest pain, shortness of breath, nausea, vomiting, diarrhea, fevers, chills, recent illnesses or sick contacts. Allergies/Medications Allergies: Coded Allergies: Penicillins (Intermediate, HIVES 05/03/15) morphine (Mild, PT SAYS IT "DOESNT BOTHER HIM" 05/03/15) Home Med list Acetaminophen (Tylenol) 325 MG TABLET 2 TAB PO Q6-PRN PRN PAIN (Reported) Albuterol Sulfate 2.5 MG/3 ML (0.083 %) VIAL.NEB 1 Vial INH/MELIA 4 TIMES/DAY BREATHING PROBLEMS (Reported) Atorvastatin Calcium (Lipitor) 40 MG TABLET 1 TAB PO DAILY HYPERLIPIDEMIA ( Reported) Reason to Stop at ADM: DOSE INCREASED Calcium Carbonate/Vitamin D3 (Calcium + Vitamin D Tablet) 600 MG-200 TABLET 1 TAB PO DAILY SUPPLEMENT (Reported) Carbidopa/Levodopa (Sinemet 25-100 MG Tablet) 25 MG-100 MG TABLET 1 TAB PO TID parkinsonism Celecoxib (Celebrex) 200 MG CAPSULE 1 CAP PO QHS PAIN CONTROL (Reported) Cholecalciferol (Vitamin D3) 1,000 UNIT TABLET 1 TAB PO DAILY BONE STRENGTH ( Reported) Docusate Sodium (Colace) 100 MG CAPSULE 1 CAP PO BID GI (Reported) Duloxetine HCl 30 MG CAPSULE.DR 1 CAP PO DAILY MOOD (Reported) Entacapone (Comtan) 200 MG TABLET 1 TAB PO TID PARKINSONS (Reported) Fenofibrate,Micronized (Fenofibrate) 134 MG CAPSULE 1 CAP PO DAILY TRIGLYCERIDES (Reported) Folic Acid 1 MG TABLET 1 TAB PO DAILY SUPPLEMENT (Reported) Furosemide (Lasix) 20 MG TABLET 1 TAB PO DAILY WATER PILL (Reported) Gabapentin (Neurontin) 600 MG TABLET 1 TAB PO TID NEUROPATHY (Reported) Hydromorphone HCl 2 MG TABLET 6 MG PO Q4-6 PRN PRN PAIN SCALE 7-10 (SEVERE) Insulin Aspart, Recombinant (Novolog Flexpen) (Unknown Strength) INSULN.PEN ( Unknown Dose) SEE SLIDING SCALE DIABETES (Reported) Insulin Detemir (Levemir Flextouch) 100 UNIT/1 ML INSULN.PEN 40 U SC QPM DIABETES (Reported) Lidocaine (Lidoderm) 5 % ADH..PATCH 1 PAT TOP DAILY PAIN (Reported) may wear up to 12 hours Magnesium Oxide 400 MG TABLET 1 TAB PO DAILY SUPPLEMENT (Reported) Metoprolol Succ XL (Toprol Xl) 50 MG TAB 1 TAB PO DAILY BP (Reported) Omeprazole 40 MG CAPSULE.DR 1 CAP PO DAILY reflux (Reported) Polyethylene Glycol 3350 (Miralax) 17 GRAM POWD.PACK 1 PAC PO DAILY GI ( Reported) dissolve in water Pregabalin (Lyrica) 50 MG CAPSULE 1 CAP PO TID PAIN (Reported) Sennosides (Senna) 8.6 MG TABLET 1 TAB PO BID GI (Reported) Warfarin Sodium (Coumadin) 6 MG TABLET 1 TAB PO DAILY blood thinner please check inr ON 01/19/2016 before dosing . Keep INR between 2-3 Zolpidem Tartrate (Ambien) 10 MG TABLET 1 TAB PO QPMP PRN SLEEP (Reported) Past History Travel History Traveled to [place] past 21 day No Medical History Neurological: CVA, Parkinson's disease, peripheral neuropathy, stroke 4 times after morphine EENT: NONE Cardiovascular: CAD, CHF, hypertension, [facility] PETER VALVE Respiratory: PNA Gastrointestinal: GERD, pancreatitis, peptic ulcer disease, upper GI bleed Hepatic: NONE Renal: NONE Musculoskeletal: chronic back pain, osteoarthritis, osteoporosis, spinal fracture twice MRSA IN WOUND Psychiatric: anxiety Endocrine: diabetes, osteoporosis, vitamin D deficiency Blood Disorders: anemia Cancer(s): melanoma ROVING FRAME TENDER/Reproductive: NONE Other Medical Hx: High cholesterol History of MRSA: Yes History of VRE: No History of CDIFF: No Tetanus Vaccine: 04/10/15 Surgical History Surgical History: knee replacement, laminectomy (L1 to L5), spinal fusion (C5 to C7), BICUSPID VALVE REPLACEMENT status post foot surgery status post hand surgery HAS STEEL PLATES R HAND Past Family/Social History Family History Relations & Conditions if any MOTHER FH: myocardial infarction FATHER FH: myocardial infarction Psychosocial History Who Do You Live With? self Services at Home: Nursing, Physical Therapy Primary Language: Khmer ETOH Use: denies use Illicit Drug Use: denies illicit drug use Power of General Accountant/HCP? yes Name of POA/HCP: dustin Holden Functional Ability ADLs Needs Assist: dressing, eating, toileting, bathing. Ambulation: cane, wheelchair bound IADLs Independent: telephone. Needs Assist: shopping, housework, finances, food prep, transportation, medication admin. Review of Systems Review of Systems Constitutional: Reports: see HPI. Exam & Diagnostic Data Last 24 Hrs of Vital Signs/I&O Vital Signs Date Time Temp Pulse Resp B/P Pulse O2 O2 Flow FiO2 Ox Delivery Rate 05/10 1433 97.0 70 20 133/62 94 Room Air 05/10 1115 56 20 141/66 94 Room Air 05/10 0827 Room Air Room Air 05/10 0812 96.8 58 22 139/92 93 Room Air Intake & Output 05/10 1600 05/10 0800 05/10 0000 Intake Total Output Total Balance Patient 280 lb Weight Physical Exam General Appearance Alert, Oriented X3, Cooperative HEENT Atraumatic, PERRLA, EOMI Cardiovascular Regular Rate, Normal S1, Normal S2, METALLIC VALVE CLICK APPRECIATED Lungs Clear to Auscultation, Normal Air Movement Abdomen Normal Bowel Sounds, Soft, No Tenderness, TENDERNESS TO PALPATION OVER RIGHT L-S REGION PARA-SPINAL Neurological Normal Speech, Strength at 5/5 X4 Ext, Sensation Intact, Cranial Nerves 3-12 NL, RESTING TREMORS B/L UE Extremities No Clubbing, No Cyanosis Diagnostic Data EKG Results Rate 55, NC 240, QRS 110, QTC 444 Sinus rhythm, first-degree AV block CXR Results IMPRESSION: 1. No radiographic evidence of acute pulmonary disease. 2. Old left-sided rib fractures. No definite acute osseous abnormality identified. Other Results CAT scan of the abdomen and pelvis IMPRESSION: No evidence of an acute process or fracture. Please see separately dictated lumbar spine CT report. No evidence of a soft tissue or retroperitoneal bleed. CAT scan of the lumbar spine IMPRESSION: There is multilevel degenerative spondylosis of the lumbar spine as described above with slight grade 1 anterolisthesis of L3 on L4 and slight grade 1 anterolisthesis of L4-L5 related to advanced facet degenerative changes at these 2 levels. Although the canal is not well assessed due to the absence of intrathecal contrast there is suspected to be at least moderate canal stenosis at the level of L2-L3 and mild canal stenosis at L4-L5. There are varying degrees of mass effect on the foraminal segments of the lumbar nerve roots as described above. No evidence of acute fracture. There is a chronic compression fracture of the L1 vertebral body with 50% loss of vertebral body height anteriorly. Chronic changes of a vertebral augmentation are noted at this level. There is also a prominent upper endplate disc herniation of the T12 vertebral body that demonstrates chronic characteristics but is new when compared to the lumbar spine CT scan from 09/04/2014. CAT scan of the head IMPRESSION: No acute intracranial abnormality. No intracranial hemorrhage or mass effect. Assessment/Plan Assessment: Assessment- 1. Mechanical fall 2. Parkinson's disease 3. Acute kidney injury on CKD 4. Chronic pancreatitis 5. Diabetes mellitus 6. Hypertension 7. Hyperlipidemia 8. GERD 9. Right flank pain, likely musculoskeletal secondary to the fall 10. History of [facility] metallic valve since 1996 on Coumadin 11. History of multiple back surgeries, spinal stenosis 12. History of diastolic heart failure Plan- GEN med admit Vitals per protocol PT evaluation and treatment IV fluids for one bag Check vitamin D, B12, folic acid Accu-Cheks, diabetic diet, insulin sliding scale Continue all other home meds DVT prophylaxis and addressed with Coumadin Pain pathway Full code As Ranked By This Provider Problem List: 1. Diabetes mellitus type 2 2. Dyslipidemia 3. GERD 4. Parkinsons disease Core Measures/Miscellaneous Acute Coronary Syndrome ACS Diagnosis: No Cerebrovascular Accident CVA/TIA Diagnosis: No Congestive Heart Failure CHF Diagnosis: No Venous Thromboembolism VTE Risk Factors: Age > 40 [facility] d/t: No contraindications No VTE Pharm Prophylaxis d/t: No contraindications VTE Diagnosis: No VTE Type: NONE VTE Confirmed by (Test): NONE Severe Sepsis Severe Sepsis Present: No Septic Shock Septic Shock Present: No Miscellaneous Documentation Attending Case Discussed With: DR. RODGERS Primary Care Physician: KOFFI RODGERS MD Patient sees these Specialists DR. ETHEL YOUSIF Level of Patient Care: General Medicine Resident Review Statement Resident Statement: examined this patient, discussed with customer marketing intern
--- NOTE | 2016-05-10 17:51 | Admission Certification ---
Admission Certification Certification Statement - As attending physician, I certify that at the time of - admission, based on clinical presentation, severity of - symptoms, need for further diagnostic testing and - therapeutic interventions, and risk of adverse outcomes - without in-hospital treatment, in my clinical assessment, - this patient requires an acute hospital stay for a minimum - of two nights or longer. I have also considered psychsocial - factors such as support system, advanced age, financial - issues, cognitive issues, and failed out-patient treatments, - past re-admission history, safety of patient, and lack of - compliance as applicable. Specific rationale supporting this admission is: MECHANICAL FALL,BACK PAIN UNABLE TO AMBULATE.
--- NOTE | 2016-05-10 17:57 | PN- Att Addend ---
Attending Addendum Attending Brief Note 70-year-old white male with many comorbidities one of them is parkinsonism. Had a mechanical fall. Could not get up and also started complaining of severe back pain came to the emergency room unable to ambulate also severe pain despite the pain medications x-rays apparently didn't show any acute fractures, but was admitted for pain management and physical therapy evaluation in the morning and he may need again short-term rehabilitation. Laboratory Tests 05/10 05/10 1020 1000 Chemistry Sodium (137 - 145 mmol/L) 139 Potassium (3.5 - 5.1 mmol/L) 5.2 H Chloride (98 - 107 mmol/L) 105 Carbon Dioxide (22 - 30 mmol/L) 25 Anion Gap (5 - 16) 9 BUN (9 - 20 mg/dL) 42 H Creatinine (0.7 - 1.2 mg/dL) 2.6 H Estimated GFR (>60 ml/min) 25 L BUN/Creatinine Ratio (7 - 25 %) 16.2 Glucose (65 - 99 mg/dL) 83 Calcium (8.4 - 10.2 mg/dL) 8.8 Total Bilirubin (0.2 - 1.3 mg/dL) 0.4 AST (17 - 59 U/L) 23 ALT (21 - 72 U/L) 21 Alkaline Phosphatase (< 127 U/L) 92 Troponin I (<0.11 ng/ml) 0.03 Total Protein (6.3 - 8.2 g/dL) 6.2 L Albumin (3.5 - 5.0 g/dL) 3.6 Globulin (1.9 - 4.2 gm/dL) 2.6 Albumin/Globulin Ratio (1.1 - 2.2 %) 1.4 Amylase (30 - 110 U/L) 58 Vitamin B12 (239 - 931 pg/mL) Pending 25-OH Vitamin D Total (30 - 100 ng/ml) Pending Folate (2.76 - 20.0 ng/mL) Pending Coagulation PT (9.4 - 12.5 SEC) 42.0 H INR (0.90 - 1.17) 4.06 *H Hematology CBC w Diff MAN DIFF ORDERED WBC (4.8 - 10.8 /CUMM) 8.6 RBC (4.70 - 6.10 /CUMM) 4.44 L Hgb (14.0 - 18.0 G/DL) 10.2 L Hct (42 - 52 %) 31.2 L MCV (80.0 - 94.0 FL) 70.4 L MCH (27.0 - 31.0 PG) 23.0 L RDW (11.5 - 14.5 %) 20.0 H Plt Count (130 - 400 /CUMM) 370 MPV (7.4 - 10.4 FL) 7.6 Gran % (42.2 - 75.2 %) 73.5 Lymphocytes % (20.5 - 51.1 %) 14.2 L Monocytes % (1.7 - 9.3 %) 8.3 Eosinophils % (0 - 5 %) 3.5 Basophils % (0.0 - 2.0 %) 0.5 Absolute Granulocytes (1.4 - 6.5 /CUMM) 6.3 Absolute Lymphocytes (1.2 - 3.4 /CUMM) 1.2 Absolute Monocytes (0.10 - 0.60 /CUMM) 0.7 H Absolute Eosinophils (0.0 - 0.7 /CUMM) 0.3 Absolute Basophils (0.0 - 0.2 /CUMM) 0 Platelet Estimate (ADEQUATE) ADEQUATE Hypochromic-Microcytic 1+ Poikilocytosis FEW Anisocytosis 1+ Microcytic Cells 2+ Elliptocytes 1+ PUBS MCHC (33.0 - 37.0 G/DL) 32.8 L Also monitor his INR is a little supratherapeutic.
[2016-05-10 18:36] VITALS: BP 143/70
[2016-05-10 23:11] VITALS: BP 179/91
[2016-05-11 04:08] VITALS: BP 160/76
[2016-05-11 07:31] VITALS: BP 160/81
--- NOTE | 2016-05-11 07:59 | PN- Housestaff ---
Subjective Follow-up For: Mechanical Fall Subjective: Mr. Escalona was seen and examined this morning. He was seated on the chair beside his bed. The patient appeared in mild distress and continued to complain of continued pain. Patient states that his pain was most prominent in the right hip area. Pain was rated at a 10 out of 10 in severity. Patient states that the pain is worse with ambulation and movement. Patient states that he feels that these pain medications have not been appropriately dose to ensure he has pain relief. Patient denies any fever, chills, nausea, vomiting. He is tolerating by mouth intake well. Review of Systems Constitutional: Reports: see HPI. Objective Last 24 Hrs of Vital Signs/I&O Vital Signs Date Time Temp Pulse Resp B/P Pulse O2 O2 Flow FiO2 Ox Delivery Rate 05/11 1406 98.2 71 20 150/70 97 Room Air 05/11 0955 96.8 65 20 160/81 05/11 0731 96.8 65 20 160/81 95 Room Air 05/11 0408 78 160/76 05/10 2311 98.8 70 20 179/91 96 Room Air 05/10 1841 Room Air Room Air 05/10 1836 98.9 65 20 143/70 93 Room Air 05/10 1736 97.2 68 18 135/64 95 Room Air Room Air Intake & Output 05/11 1600 05/11 0800 05/11 0000 Intake Total 950 840 480 Output Total 1000 550 350 Balance -50 290 130 Intake, IV 150 600 Intake, Oral 800 240 480 Number 1 Bowel Movements Output, Urine 1000 550 350 Patient 126.099 kg Weight Physical Exam General Appearance: Alert, Oriented X3, Cooperative Cardiovascular: Regular Rate, Normal S1, Normal S2 Lungs: Clear to Auscultation, Normal Air Movement Abdomen: Normal Bowel Sounds, Soft, No Tenderness Neurological: Normal Speech Current Medications: Current Medications Sig/Leena Start time Last Medication Dose Route Stop Time Status Admin Acetaminophen 650 MG Q6P PRN 05/10 1615 AC 05/11 PO 0406 Albuterol Sulfate 3 ML 4 TIMES/DAY 05/10 1800 AC INH Atorvastatin Calcium 40 MG 1700 05/11 1700 AC PO Carbidopa/Levodopa 1 TAB TID 05/10 2200 AC 05/11 PO 0955 Docusate Sodium 100 MG BID 05/10 220 AC 05/11 PO 0957 Duloxetine HCl 30 MG DAILY 05/11 1000 AC 05/11 PO 0955 Entacapone 200 MG TID 05/10 2200 AC 05/11 PO 0955 Fenofibrate 145 MG DAILY 05/11 1000 AC 05/11 PO 0955 Furosemide 20 MG DAILY 05/11 1000 AC 05/11 PO 0955 Gabapentin 600 MG TID 05/10 2200 AC 05/11 PO 0955 Hydromorphone HCl 1 MG Q4P PRN 05/11 1424 AC 05/11 IV 1428 Hydromorphone HCl 1 MG Q6P PRN 05/10 1615 DC 05/11 IV 1000 Insulin Aspart 1 UNITS ONCE ONE 05/10 2315 DC 05/10 SC 05/10 2316 2337 Insulin Aspart 0 TIDAC 05/10 1700 AC 05/11 SC 1206 Insulin Detemir 30 UNITS AT BEDTIME 05/10 2200 AC 05/10 SC 2238 Metoprolol Succinate 50 MG DAILY 05/11 1000 AC 05/11 PO 0955 Omeprazole 40 MG DAILY AC 05/11 0700 AC 05/11 PO 0655 Oxycodone/ 1 TAB Q6P PRN 05/10 1615 AC 05/11 Acetaminophen PO 0657 Polyethylene Glycol 17 GM DAILY 05/11 1000 AC 05/11 PO 0958 Senna/Docusate Sodium 1 TAB BID PRN 05/10 1615 AC PO Sodium Chloride 1,000 ML ONCE ONE 05/10 1615 DC 05/10 IV 05/11 0534 1600 Warfarin Sodium 7.5 MG COUMADIN 1700 ONE 05/11 1700 CAN PO 05/11 1701 Zolpidem Tartrate 10 MG AT BEDTIME NEED.. 05/10 1615 AC 05/10 PO 2337 Last 24 Hrs of Lab/Arpan Results Last 24 Hrs of Labs/Mics: Laboratory Tests 05/11/16 0635: Anion Gap 5, Estimated GFR 30 L, BUN/Creatinine Ratio 15.5, PT 25.3 H, INR 2.43 H, CBC w Diff NO MAN DIFF REQ, RBC 4.02 L, MCV 71.6 L, MCH 23.0 L, RDW 20.3 H, MPV 8.1, Gran % 65.4, Lymphocytes % 19.8 L, Monocytes % 11.3 H, Eosinophils % 3.0, Basophils % 0.5, Absolute Granulocytes 4.6, Absolute Lymphocytes 1.4, Absolute Monocytes 0.8 H, Absolute Eosinophils 0.2, Absolute Basophils 0, PUBS MCHC 32.2 L Assessment/Plan Assessment: This is a 70-year-old gentleman with past medical history of hypertension, Parkinson's disease and frequent falls who presented on 05/10 after a mechanical fall. Mechanical fall. Patient received IV fluids 1 bag. We had to readjust the patient's pain medication--> IV Dilaudid 1 mg every 4 hours as needed. Percocet 1 tab every 6 when necessary as needed for pain. Physical therapy evaluation and treatment. Check vitamin D, B12, folic acid History of Parkinson's disease Continue Sinemet Continue Comtan. History of diabetes Accu-Cheks, diabetic diet, insulin sliding scale Blood sugars ranging from 463 to 276. If still uncontrollable consider endocrinology consult consultation on Friday. Hemoglobin A1c for long-term glycemic control. Hyperkalemia Patient did have an elevated potassium level of 5.2. Repeat BEP shows level has been normalized. DVT prophylaxis INR today was 2.43 will dose Coumadin 5 mg. Check INR in the a.m. Maintain INR between 2.5 [address] [facility]'s valve. Code Full code Problem List: 1. Chronic back pain 2. H/O mitral valve replacement Pain Ratin Pain Location: Right Hip Pain Goal: Remain pain free Pain Plan: Dialudid Tomorrow's Labs & Rationales: INR: Coumadin Dosin BEP: Monitor Electrolytes Attending MD Review Statement Attending Statement Attending MD Statement: examined this patient, discuss w/resident/PA/TECHNICAL MANAGER, agreed w/resident/PA/TECHNICAL MANAGER, reviewed EMR data (avail), discussed with nursing, amended to note Attending Assessment/Plan: Mr. Escalona is complaining of breakthrough pain. I think we should adjust the frequency of his medications to every 4 hours and if that does not control his pain then we should consider parenteral analgesia. His other medication should be continued.
[2016-05-11 08:32] LABS: PT 25.3 SEC (9.4-12.5)
[2016-05-11 08:57] LABS: ABSOLUTE BASOPHIL COUNT 0 /CUMM (0.0-0.2); ABSOLUTE EOSINOPHIL COUNT 0.2 /CUMM (0.0-0.7); ABSOLUTE GRANULOCYTE CT 4.6 /CUMM (1.4-6.5); ABSOLUTE LYMPH COUNT 1.4 /CUMM (1.2-3.4); ABSOLUTE MONOCYTE COUNT 0.8 /CUMM (0.10-0.60); BASOPHIL % 0.5 % (0.0-2.0); GRANULOCYTE % 65.4 % (42.2-75.2); HEMATOCRIT 28.8 % (42-52); MEAN CORPUSCULAR HGB CONC 32.2 G/DL (33.0-37.0); MEAN CORPUSCULAR VOLUME 71.6 FL (80.0-94.0); MEAN PLATELET VOLUME 8.1 FL (7.4-10.4); PLATELET COUNT 317 /CUMM (130-400); RBC DISTRIBUTION WIDTH 20.3 % (11.5-14.5); RED BLOOD CELL CT 4.02 /CUMM (4.70-6.10); WHITE BLOOD CELL COUNT 7.1 /CUMM (4.8-10.8)
[2016-05-11 14:06] VITALS: BP 150/70
[2016-05-11 22:21] VITALS: BP 160/97
[2016-05-12 06:45] VITALS: BP 168/84
[2016-05-12 08:24] LABS: PT 19.5 SEC (9.4-12.5)
--- NOTE | 2016-05-12 08:38 | PN- Housestaff ---
RAKESH VASQUES,WILSON 05/12/16 0836: Subjective Follow-up For: Mechanical Fall intaractable pain Subjective: I saw and examined the patient today morning He is still in lot of pain and nausea. 12/10 between hip and back. no weakness, changes in urinary/bowel habits. Review of Systems Constitutional: Reports: see HPI. Comments: ROS negative except the above. Objective Last 24 Hrs of Vital Signs/I&O Vital Signs Date Time Temp Pulse Resp B/P Pulse O2 O2 Flow FiO2 Ox Delivery Rate 05/12 0645 98.6 60 20 168/84 93 05/11 2221 97.6 63 20 160/97 97 05/11 1406 98.2 71 20 150/70 97 Room Air 05/11 0955 96.8 65 20 160/81 Intake & Output 05/12 1600 05/12 0800 05/12 0000 Intake Total 400 Output Total 500 750 Balance -500 -350 Intake, Oral 400 Number 2 Bowel Movements Output, Urine 500 750 Physical Exam General Appearance: Alert, Oriented X3, Moderate Distress Skin: No Rashes, No Breakdown HEENT: Atraumatic, PERRLA Neck: Supple Cardiovascular: Normal S1, Normal S2 Lungs: Clear to Auscultation, Normal Air Movement Abdomen: Normal Bowel Sounds, Soft, No Tenderness Neurological: Normal Speech, Sensation Intact, decreased strength and tremulousness Extremities: No Clubbing, No Cyanosis, No Edema Vascular: Normal Pulses, Pulses Symmetrical Current Medications: Current Medications Sig/Leena Start time Last Medication Dose Route Stop Time Status Admin Acetaminophen 650 MG Q6P PRN 05/10 1615 AC 05/11 PO 0406 Albuterol Sulfate 3 ML 4 TIMES/DAY 05/10 1800 AC INH Atorvastatin Calcium 40 MG 1700 05/11 1700 AC 05/11 PO 1705 Carbidopa/Levodopa 1 TAB TID 05/10 2199 AC 05/11 PO 220 Docusate Sodium 100 MG BID 05/10 2199 AC 05/11 PO 2201 Duloxetine HCl 30 MG DAILY 05/11 1000 AC 05/11 PO 09 Entacapone 200 MG TID 05/10 2199 AC 05/11 PO 220 Fenofibrate 145 MG DAILY 05/11 1000 AC 05/11 PO 0955 Furosemide 20 MG DAILY 05/11 1000 AC 05/11 PO 09 Gabapentin 600 MG TID 05/10 2199 AC 05/11 PO 2202 Hydromorphone HCl 1 MG Q4P PRN 05/11 1424 AC 05/12 IV 0737 Hydromorphone HCl 1 MG Q6P PRN 05/10 1615 DC 05/11 IV 1000 Insulin Aspart 0 TIDAC 05/10 1700 AC 05/12 SC 0748 Insulin Detemir 30 UNITS AT BEDTIME 05/10 2200 AC 05/11 SC 2202 Metoprolol Succinate 50 MG DAILY 05/11 1000 AC 05/11 PO 0955 Omeprazole 40 MG DAILY AC 05/11 0700 AC 05/12 PO 0547 Oxycodone/ 1 TAB Q4 PRN 05/11 1824 AC 05/12 Acetaminophen PO 0548 Oxycodone/ 1 TAB Q6P PRN 05/10 1615 DC 05/11 Acetaminophen PO 1705 Polyethylene Glycol 17 GM DAILY 05/11 1000 AC 05/11 PO 0958 Senna/Docusate Sodium 1 TAB BID PRN 05/10 1615 AC PO Warfarin Sodium 7.5 MG COUMADIN 1700 ONE 05/11 1700 CAN PO 05/11 1701 Warfarin Sodium 5 MG COUMADIN 1700 ONE 05/11 1700 DC 05/11 PO 05/11 1701 1741 Zolpidem Tartrate 10 MG AT BEDTIME NEED.. 05/10 1615 AC 05/11 PO 2202 Last 24 Hrs of Lab/Arpan Results Last 24 Hrs of Labs/Mics: Laboratory Tests 05/12/16 0630: Anion Gap 8, Estimated GFR 35 L, BUN/Creatinine Ratio 16.3, PT 19.5 H, INR 1.87 H Assessment/Plan Assessment: This is a 70-year-old gentleman with past medical history of hypertension, Parkinson's disease and frequent falls who presented on 05/10 after a mechanical fall. Mechanical fall. Patient received IV fluids 1 bag. We had to readjust the patient's pain medication--> IV Dilaudid 1 mg every 4 hours as needed. Percocet 1 tab every 6 when necessary as needed for pain. He is in significant pain, requiring additional doses of dilaudid. Physical therapy evaluation and treatment. Check vitamin D, B12, folic acid History of Parkinson's disease Continue Sinemet Continue Comtan. History of diabetes Accu-Cheks, diabetic diet, insulin sliding scale Blood sugars ranging from 463 to 276. If still uncontrollable consider endocrinology consult consultation on Friday. Hemoglobin A1c for long-term glycemic control. Hyperkalemia Patient did have an elevated potassium level of 5.2. Repeat BEP shows level has been normalized. DVT prophylaxis INR today was 1.87 will dose Coumadin 7.5 mg. Check INR in the a.m. Maintain INR between 2.5 and 3[address] [facility] valve. Code Full code Problem List: 1. Compression fracture 2. H/O mitral valve replacement 3. Chronic back pain Pain Ratin Pain Location: back pain Pain Goal: Pain 4 or less Pain Plan: Dilaudid IV Q4 Percocet Q4 Tomorrow's Labs & Rationales: INR : coumadin dosing BEP : monitor electrolytes MELVIN MESSINA MD 05/12/16 1511: Attending MD Review Statement Attending Statement Attending MD Statement: examined this patient, discuss w/resident/PA/[employer], agreed w/resident/PA/[employer] OPER[employer], reviewed EMR data (avail), amended to note Attending Assessment/Plan: Mr. Escalona appears more comfortable at present. He is now receiving regular intravenous Dilaudid with when necessary parenteral doses. We have resolved his constipation. We should continue with her present pain management regimen. We should monitor to ensure that his constipation does not return. We are continuing a bed search.
[2016-05-12 14:59] VITALS: BP 160/98
[2016-05-12 22:38] VITALS: BP 120/62
--- NOTE | 2016-05-13 06:05 | PN- Housestaff ---
See Addendum Subjective Follow-up For: Mechanical Fall Parkinsons Disease Subjective: Mr. Escalona was seen and examined this morning. He was resting in bed. Patient continues to report continued pain. Pain is rated at 10 out of 10 in severity. Described as sharp pain more prominent at the right hip and right rib area. Patient states the pain is worse with movement. He does state that he receives occasional pain relief from medications and requests increase in these. Patient also endorses nausea. He denies any fever, chills. He reports a good appetite. He last had a bowel movement last evening. Review of Systems Constitutional: Reports: see HPI. Objective Last 24 Hrs of Vital Signs/I&O Vital Signs Date Time Temp Pulse Resp B/P Pulse O2 O2 Flow FiO2 Ox Delivery Rate 05/13 08 98.1 62 18 138/80 95 Room Air 05/13 0000 Room Air 05/12 2238 98.7 67 21 120/62 97 05/12 1459 98.1 62 18 160/98 93 Room Air 05/12 0937 60 168/84 Intake & Output 05/13 1600 05/13 0800 05/13 0000 Intake Total 200 800 Output Total 300 Balance -100 800 Intake, Oral 200 800 Output, Urine 300 Physical Exam General Appearance: Alert, Oriented X3, Mild Distress Cardiovascular: Regular Rate, Normal S1, Normal S2, No Murmurs Lungs: Clear to Auscultation Abdomen: Normal Bowel Sounds, Soft, No Tenderness Neurological: Normal Speech Extremities: No Clubbing, No Cyanosis Current Medications: Current Medications Sig/Leena Start time Last Medication Dose Route Stop Time Status Admin Acetaminophen 650 MG Q6P PRN 05/10 1615 AC 05/11 PO 0406 Albuterol Sulfate 3 ML 4 TIMES/DAY 05/10 1800 AC INH Atorvastatin Calcium 40 MG 1700 05/11 1700 AC 05/12 PO 1653 Carbidopa/Levodopa 1 TAB TID 05/10 2199 AC 05/12 PO 2114 Docusate Sodium 100 MG BID 05/10 2199 AC 05/12 PO 2114 Duloxetine HCl 30 MG DAILY 05/11 1000 AC 05/12 PO 936 Entacapone 200 MG TID 05/10 2199 AC 05/12 PO 2114 Fenofibrate 145 MG DAILY 05/11 1000 AC 05/12 PO 936 Furosemide 20 MG DAILY 05/11 1000 AC 05/12 PO 0937 Gabapentin 600 MG TID 05/10 2200 AC 05/12 PO 2115 Hydromorphone HCl 1 MG ONCE ONE 05/12 2215 DC 05/12 IV 05/12 2216 2213 Hydromorphone HCl 1 MG ONCE ONE 05/12 1230 DC 05/12 IV 05/12 1231 1228 Hydromorphone HCl 1 MG Q4P PRN 05/11 1424 AC 05/13 IV 0612 Insulin Aspart 0 TIDAC 05/10 1700 AC 05/13 SC 0822 Insulin Detemir 30 UNITS AT BEDTIME 05/10 2200 AC 05/12 SC 2115 Lidocaine 1 PAT DAILY 05/13 1000 UNVr EXT Metoprolol Succinate 50 MG DAILY 05/11 1000 AC 05/12 PO 0937 Omeprazole 40 MG DAILY AC 05/11 0700 AC 05/13 PO 0609 Ondansetron HCl 4 MG ONCE ONE 05/13 0715 DC 05/13 PO 05/13 0716 0714 Ondansetron HCl 4 MG ONCE ONE 05/12 0900 DC 05/12 PO 05/12 0901 0938 Oxycodone/ 1 TAB Q4 PRN 05/11 1824 AC 05/13 Acetaminophen PO 0823 Polyethylene Glycol 17 GM DAILY 05/11 1000 AC 05/12 PO 0937 Senna/Docusate Sodium 1 TAB BID PRN 05/10 1615 AC PO Trimethobenzamide HCl 200 MG ONCE PRN 05/12 1200 DC 05/12 IM 05/12 1201 1106 Warfarin Sodium 7.5 MG COUMADIN 1700 ONE 05/12 1700 DC 05/12 PO 05/12 1701 1653 Zolpidem Tartrate 10 MG AT BEDTIME NEED.. 05/10 1615 AC 05/11 PO 2202 Last 24 Hrs of Lab/Arpan Results Last 24 Hrs of Labs/Mics: Laboratory Tests 05/13/16 0730: Sodium Pending, Potassium Pending, Chloride Pending, Carbon Dioxide Pending, Anion Gap Pending, BUN Pending, Creatinine Pending, BUN/Creatinine Ratio Pending , PT Pending, INR Pending Orders Radiology Findings: IMPRESSION: - No evidence of an acute right rib fracture. - Cardiomegaly without pulmonary edema. - Surgical changes from open reduction and internal fixation of a displaced fracture of the proximal right humeral metadiaphysis. 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 DICTATED BY: OMAR SHAH MD Assessment/Plan Assessment: This is a 70-year-old gentleman with past medical history of hypertension, Parkinson's disease and frequent falls who presented on 05/10 after a mechanical fall. Mechanical fall. Patient received IV fluids 1 bag. We had to readjust the patient's pain medication--> IV Dilaudid 1 mg every 4 hours as needed (discontinued). Percocet 2 tab every 6 when necessary as needed for pain. Lidocaine Patch He is in significant pain, requiring additional doses of dilaudid. Physical therapy evaluation and treatment. Check vitamin D, B12, folic acid Right Rib X-ray has been ordered to rule out a fracture: No evidence of Fracture History of Parkinson's disease Continue Sinemet Continue Comtan. History of diabetes Accu-Cheks, diabetic diet, insulin sliding scale--> Medium Dose Blood sugars ranging from 463 to 276. Current Range: 248-->286-->275-->231 If still uncontrollable consider endocrinology consult consultation on Friday. Hemoglobin A1c for long-term glycemic control. Hyperkalemia Patient did have an elevated potassium level of 5.2-->4.9 Repeat BEP shows level has been normalized. DVT prophylaxis INR today was 2.32 will dose Coumadin 6.0 mg. Check INR in the a.m. Maintain INR between 2.5 and 3.[address] [facility] valve. Code Full code Problem List: 1. Chronic back pain Pain Ratin Pain Location: Right Rib Pain Goal: Remain pain free Pain Plan: Percocet and Lidoderm Tomorrow's Labs & Rationales: INR
[2016-05-13 08:13] VITALS: BP 138/80
[2016-05-13 08:41] LABS: PT 24.2 SEC (9.4-12.5)
--- NOTE | 2016-05-13 11:18 | PN- Att Addend ---
Attending Addendum Attending Brief Note Still in a lot of pain needed IV medications, sitting in thje chair PT eval pending Vital signs stable afebreile,no major changes nash physical. try to switch to PO analgesics and then send to STR again. 24 TOTALS 05/13 0000 05/12 0000 Intake Total 1040 2190 Output Total 750 2300 Balance 290 -110 Intake, IV 750 Intake, Oral 1040 1440 Number 1 2 Bowel Movements Output, Urine 750 2300 Current Medications Sig/Leena Start time Last Medication Dose Route Stop Time Status Admin Acetaminophen 650 MG Q6P PRN 05/10 1615 AC 05/11 PO 0406 Albuterol Sulfate 3 ML 4 TIMES/DAY 05/10 1800 AC INH Atorvastatin Calcium 40 MG 1700 05/11 1700 AC 05/12 PO 1653 Carbidopa/Levodopa 1 TAB TID 05/10 2200 AC 05/13 PO 0939 Docusate Sodium 100 MG BID 05/10 2200 AC 05/13 PO 0939 Duloxetine HCl 30 MG DAILY 05/11 1000 AC 05/13 PO 0939 Entacapone 200 MG TID 05/10 2200 AC 05/13 PO 0938 Fenofibrate 145 MG DAILY 05/11 1000 AC 05/13 PO 0939 Furosemide 20 MG DAILY 05/11 1000 AC 05/13 PO 0939 Gabapentin 600 MG TID 05/10 2200 AC 05/13 PO 0939 Hydromorphone HCl 1 MG ONCE ONE 05/12 2215 DC 05/12 IV 05/12 2216 2213 Hydromorphone HCl 1 MG ONCE ONE 05/12 1230 DC 05/12 IV 05/12 1231 1228 Hydromorphone HCl 1 MG Q4P PRN 05/11 1424 AC 05/13 IV 1031 Insulin Aspart 0 TIDAC 05/10 1700 AC 05/13 SC 0822 Insulin Detemir 30 UNITS AT BEDTIME 05/10 2200 AC 05/12 SC 2115 Lidocaine 1 PAT DAILY 05/13 1000 AC 05/13 EXT 1036 Metoprolol Succinate 50 MG DAILY 05/11 1000 AC 05/13 PO 0938 Omeprazole 40 MG DAILY AC 05/11 0700 AC 05/13 PO 0609 Ondansetron HCl 4 MG ONCE ONE 05/13 0715 DC 05/13 PO 05/13 0716 0714 Oxycodone/ 1 TAB Q4 PRN 05/11 1824 AC 05/13 Acetaminophen PO 0823 Polyethylene Glycol 17 GM DAILY 05/11 1000 AC 05/13 PO 0939 Senna/Docusate Sodium 1 TAB BID PRN 05/10 1615 AC PO Trimethobenzamide HCl 200 MG ONCE PRN 05/12 1200 DC 05/12 IM 05/12 1201 1106 Warfarin Sodium 7.5 MG COUMADIN 1700 ONE 05/12 1700 DC 05/12 PO 05/12 1701 1653 Zolpidem Tartrate 10 MG AT BEDTIME NEED.. 05/10 1615 05/11 PO 2202 Laboratory Tests 05/13/16 0730: Anion Gap 6, Estimated GFR 31 L, BUN/Creatinine Ratio 17.1, PT 24.2 H, INR 2.32 H 05/12/16 0630: Anion Gap 8, Estimated GFR 35 L, BUN/Creatinine Ratio 16.3, PT 19.5 H, INR 1.87 H
--- NOTE | 2016-05-13 12:17 | RADIOLOGY REPORT ---
EXAMINATION: XR RIBS, RIGHT CLINICAL INFORMATION: Pain after mechanical fall. COMPARISON: Chest radiograph from 05/10/2016 TECHNIQUE: Chest with right ribs, total of 5 views FINDINGS: Lungs are well expanded and clear. No acute pulmonary edema, focal consolidation, pleural effusion or pneumothorax. Stable cardiomegaly. Intact sternotomy wires in place. Again noted are multiple old, healed left rib fractures. No evidence of an acute, displaced right rib fracture. Old, comminuted fracture of the proximal metadiaphyseal region of the humerus with intact appearance of the visualized fixation plate-screws. There is a medially displaced butterfly fracture fragment. 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 No acute findings in the visualized proximal humerus compared to 01/15/2016. The visualized cervical spine fusion hardware is intact. IMPRESSION: - No evidence of an acute right rib fracture. - Cardiomegaly without pulmonary edema. - Surgical changes from open reduction and internal fixation of a displaced fracture of the proximal right humeral metadiaphysis. 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
--- NOTE | 2016-05-13 13:36 | Discharge Summary ---
See Addendum Visit Information Visit Dates Admission Date: 05/10/16 Discharge Date: 05/15/16 Hospital Course Course Attending Physician: KOFFI RODGERS MD Primary Care Physician: VISHAL VASQUES,KOFFI Hospital Course: This is a 70-year-old gentleman with a history of hypertension, Parkinson's disease, frequent falls, history of TIA, multiple back surgeries, [facility] Peter's valve on Coumadin since 1996, hyperlipidemia, CKD and diabetes that presented to the emergency room with a chief complaint of a mechanical fall and back pain. Vitals and admission blood pressure 139/72, respiration 22, pulse 58, temperature 96.8, oxygen saturation 93% on room air. Labs and admission: WBC 8.6, hemoglobin 10.2, hematocrit 31.2, platelets 370, sodium 139, potassium 5.2, BUN 42, creatinine 2.6 Imaging and admission: 1. CAT scan abdomen and pelvis without IV contrast: No evidence of an acute process or fracture. Please see separately dictated lumbar spine CT report. No evidence of a soft tissue or retroperitoneal bleed. 2. Chest x-ray: No radiographic evidence of acute pulmonary disease. Old left- sided rib fractures. 3. CT: No acute intracranial abnormality, no intracanal hemorrhage or mass effect 4. Lumbar spine CAT scan:There is multilevel degenerative spondylosis of the lumbar spine as described above with slight grade 1 anterolisthesis of L3 on L4 and slight grade 1 anterolisthesis of L4-L5 related to advanced facet degenerative changes at these 2 levels. Although the canal is not well assessed due to the absence of intrathecal contrast there is suspected to be at least moderate canal stenosis at the level of L2-L3 and mild canal stenosis at L4-L5. There are varying degrees of mass effect on the foraminal segments of the lumbar nerve roots as described above. No evidence of acute fracture. There is a chronic compression fracture of the L1 vertebral body with 50% loss of vertebral body height anteriorly. Chronic changes of a vertebral augmentation are noted at this level. There is also a prominent upper endplate disc herniation of the T12 vertebral body that demonstrates chronic characteristics but is new when compared to the lumbar spine CT scan from 09/04/2014. Hospital course 1. Mechanical fall: Patient was admitted to general medical floor. He was started on IV Dilaudid for pain control. X-ray did not show any evidence of acute fracture. His pain improved in severity after 40 dose of IV medications which was later transitioned to by mouth Dilaudid at his home dose. He was followed by physical therapist who recommended to continue therapy 2. Parkinson's disease: Stable He was continued on his home medications 3. Acute on chronic kidney injury: Creatinine improved to his baseline after mild hydration. Nephrotoxic medications were avoided and we will specific instructions to avoid NSAIDs in future. 4. Mechanical prosthetic aortic valve and patient was continued on his Coumadin to maintain an INR between 2-3. His INR was therapeutic and later stabilized to therapeutic range 5. Hypertension: Was continued on metoprolol 6. Diabetes mellitus: She was maintained on a NovoLog sliding scale and home dose of long-acting insulin. 7. Chronic back pain with history of multiple back surgeries: He was continued on home pain medications with better relief. Full CODE STATUS DVT prophylaxis with Coumadin Complications: None Allergies: Coded Allergies: Penicillins (Intermediate, HIVES 05/03/15) morphine (Mild, PT SAYS IT "DOESNT BOTHER HIM" 05/03/15) Significant Procedures: None Pertinent Lab Results: Laboratory Tests 05/15 05/14 05/13 0635 0655 0730 Chemistry Sodium (137 - 145 mmol/L) 137 136 L Potassium (3.5 - 5.1 mmol/L) 4.8 4.9 Chloride (98 - 107 mmol/L) 100 102 Carbon Dioxide (22 - 30 mmol/L) 27 27 Anion Gap (5 - 16) 9 6 BUN (9 - 20 mg/dL) 42 H 36 H Creatinine (0.7 - 1.2 mg/dL) 2.1 H 2.1 H Estimated GFR (>60 ml/min) 31 L 31 L BUN/Creatinine Ratio (7 - 25 %) 20.0 17.1 Coagulation PT (9.4 - 12.5 SEC) 39.4 H 29.9 H 24.2 H INR (0.90 - 1.17) 3.80 H 2.88 H 2.32 H Disposition Summary Disposition Principal Diagnosis: 1. Mechanical fall 2. Mechanical aortic valve Additional Diagnosis: 1. History of Parkinson's disease 2. History of diabetes mellitus 3. Chronic back pain Discharge Disposition: short-term rehabilitation Discharge Instructions General Discharge Information Code Status: Full Code Patient's Diet: Diabetic diet Patient's Activity: As tolerated with physical therapy Follow-Up Instructions/Appts: 1. Follow-up with your primary care physician a week upon discharge Medications at Discharge Discharge Medications: Continue taking these medications: Fenofibrate,Micronized (Fenofibrate) 134 MG CAPSULE 1 Capsule ORAL DAILY Comments: Last Taken:NOT GIVEN THIS ADMISSION Time: Folic Acid (Folic Acid) 1 MG TABLET 1 Tablet ORAL DAILY Metoprolol Succ XL (Toprol Xl) 50 MG TAB 1 Tablet ORAL DAILY Gabapentin (Neurontin) 600 MG TABLET 1 Tablet ORAL THREE TIMES DAILY Zolpidem Tartrate (Ambien) 10 MG TABLET 1 Tablet ORAL Every night as needed as needed for SLEEP Furosemide (Lasix) 20 MG TABLET 1 Tablet ORAL DAILY Atorvastatin Calcium (Lipitor) 40 MG TABLET 1 Tablet ORAL DAILY Instructions: Reason to Stop at ADM: DOSE INCREASED Comments: Last Taken:01/18/16 Time:8:47A.M Entacapone (Comtan) 200 MG TABLET 1 Tablet ORAL THREE TIMES DAILY Comments: TAKEN 12/14 AT 10AM Insulin Detemir (Levemir Flextouch) 100 UNIT/ML (3 ML) INSULN.PEN 30 Units Inject into fatty tissue Every night Comments: Last Taken:01/17/16 Time:10:12P.M Duloxetine HCl (Duloxetine HCl) 30 MG CAPSULE. 1 Capsule ORAL DAILY Comments: NOT GIVEN THIS ADMISSION Cholecalciferol (Vitamin D3) 1,000 UNIT TABLET 1 Tablet ORAL DAILY Comments: Last Taken:01/18/16 Time: 8:47A.M Hydromorphone HCl (Hydromorphone HCl) 2 MG TABLET 6 Milligram ORAL EVERY 4-6 HOURS NEEDED as needed for PAIN SCALE 7-10 ( SEVERE) Qty = 30 Comments: LAST TAKEN 01/18/16 AT 8:47A.M Celecoxib (Celebrex) 200 MG CAPSULE 1 Capsule ORAL TAKE AT BEDTIME Comments: Last Taken:NOT GIVEN THIS ADMISSION Time: Omeprazole (Omeprazole) 40 MG CAPSULE.DR 1 Capsule ORAL DAILY Qty = 90 Comments: Last Taken:01/18/16 Time:6:32A.M Carbidopa/Levodopa (Sinemet 25-100 MG Tablet) 25 MG-100 MG TABLET 1 Tablet ORAL THREE TIMES DAILY Qty = 90 Comments: Last Taken:01/18/16 Time: 8:47A.M Warfarin Sodium (Coumadin) 6 MG TABLET 1 Tablet ORAL DAILY Qty = 30 Instructions: please check inr ON 01/19/2016 before dosing . Keep INR between 2-3 Comments: Last Taken:01/18/16 Time: 13:17P.M Pregabalin (Lyrica) 50 MG CAPSULE 1 Capsule ORAL THREE TIMES DAILY Docusate Sodium (Colace) 100 MG CAPSULE 1 Capsule ORAL TWICE DAILY Sennosides (Senna) 8.6 MG TABLET 1 Tablet ORAL TWICE DAILY Polyethylene Glycol 3350 (Miralax) 17 GRAM POWD.PACK 1 Packet ORAL DAILY Instructions: dissolve in water Acetaminophen (Tylenol) 325 MG TABLET 2 Tablet ORAL EVERY 6 HOURS NEEDED as needed for PAIN Albuterol Sulfate (Albuterol Sulfate) 2.5 MG/3 ML (0.083 %) VIAL.NEB 1 Vial Inhale Solution 4 TIMES A DAY Magnesium Oxide (Magnesium Oxide) 400 MG TABLET 1 Tablet ORAL DAILY Lidocaine (Lidoderm) 5 % ADH..PATCH 1 Patch On the skin DAILY Instructions: may wear up to 12 hours Calcium Carbonate/Vitamin D3 (Calcium + Vitamin D Tablet) 600 MG-200 TABLET 1 Tablet ORAL DAILY Insulin Aspart, Recombinant (Novolog Flexpen) (Unknown Strength) INSULN.PEN Unknown Dose SEE SLIDING SCALE Copies To: VISHAL VASQUES,KOFIF
[2016-05-13 15:25] VITALS: BP 146/80
--- NOTE | 2016-05-13 18:26 | Patient Discharge Instructions ---
Discharge Instructions General Discharge Information You were seen/treated for: Aggrevation of Compression Fracture due to trauma Watch for these problems: Fever, nausea, vomiting, chills, weakness, increased generalized edema. Palpitations. Chest pain. Shortness of breath. If you have any adverse reactions from any of the medications prescribed please inform your primary care physician and you may be required to come back to the emergency department. Thank you for allowing us to be part of your care. Special Instructions: Please follow up with Dr Castellanos in one week. Please inform Dr Castellanos about the medication changes we have made. Diet Recommended Diet: Heart Healthy Activity Full Activity/No Limits: No Activity Self Limited: Yes (As Tolerated) Acute Coronary Syndrome Inclusion Criteria At DC or during hospital stay patient has or had the following: ACS DIAGNOSIS No Discharge Core Measures Meds if any: Prescribed or Continued at Discharge Meds if any: NOT Prescribed or Continued at Discharge Congestive Heart Failure Inclusion Criteria At DC or during hospital stay patient has or had the following: CHF DIAGNOSIS No Discharge Core Measures Meds if any: Prescribed or Continued at Discharge Meds if any: NOT Prescribed or Continued at Discharge Cerebrovascular accident Inclusion Criteria At DC or during hospital stay patient has or had the following: CVA/TIA Diagnosis No Discharge Core Measures Meds if any: Prescribed or Continued at Discharge Meds if any: NOT Prescribed or Continued at Discharge Venous thromboembolism Inclusion Criteria VTE Diagnosis No VTE Type NONE VTE Confirmed by (Test) NONE Discharge Core Measures - Per Current guidelines, there needs to be overlap - treatment for the first 5 days of Warfarin therapy. - If discharged on Warfarin prior to 5 days of - overlap therapy, the patient will need to be - assessed for post discharge needs including - *Post discharge parental anticoagulation - *Warfarin and/or parental anticoagulation education - *Follow up date to check INR post discharge At least 5 days overlap therapy as Inpatient No Meds if any: Prescribed or Continued at Discharge Note: Overlap Therapy is Warfarin and Anticoagulant Meds if any: NOT Prescribed or Continued at Discharge
[2016-05-13 21:55] VITALS: BP 160/100
[2016-05-14 07:05] VITALS: BP 147/76
--- NOTE | 2016-05-14 07:24 | PN- Housestaff ---
Subjective Follow-up For: Mechanical Fall Chronic pancreatitis Parkinson disease Chronic back pain Subjective: Patient was seen and examined, he is laying on bed looks relaxed uncomfortable, no acute overnight events reported. Patient still complaining of pain on the right lower back, he also reported feeling headache, the rest of review of systems was benign. Review of Systems Constitutional: Denies: chills, fever. Cardiovascular: Reports: no symptoms. Respiratory: Reports: no symptoms. Gastrointestinal: Reports: no symptoms. Genitourinary: Reports: no symptoms. Musculoskeletal: Reports: back pain (12/10). Objective Last 24 Hrs of Vital Signs/I&O Vital Signs Date Time Temp Pulse Resp B/P Pulse O2 O2 Flow FiO2 Ox Delivery Rate 05/14 0828 68 147/70 05/14 0705 97.7 68 18 147/76 92 Room Air 05/13 2155 98.2 62 20 160/100 96 05/13 1525 97.5 68 20 146/80 95 Room Air Intake & Output 05/14 1600 05/14 0800 05/14 0000 Intake Total 350 Output Total Balance 350 Intake, Oral 350 Physical Exam General Appearance: Alert, Oriented X3, Cooperative, Moderate Distress Skin: No Rashes HEENT: Atraumatic, PERRLA, EOMI, Mucous Membr. moist/pink Cardiovascular: Regular Rate, Normal S1, Normal S2, No Murmurs Lungs: decrease air-entry over lungs bilaterally Abdomen: mild diffuse tenderness since the fall Neurological: Normal Speech, decrease Rt LE ROM because of pain Extremities: No Clubbing, No Cyanosis, No Edema Current Medications: Current Medications Sig/Leena Start time Last Medication Dose Route Stop Time Status Admin Acetaminophen 650 MG Q6P PRN 05/10 1615 AC 05/14 PO 0824 Albuterol Sulfate 3 ML 4 TIMES/DAY 05/10 1800 DC INH Atorvastatin Calcium 40 MG 1700 05/11 1700 AC 05/13 PO 1633 Carbidopa/Levodopa 1 TAB TID 05/10 2199 AC 05/14 PO 0827 Docusate Sodium 100 MG BID 05/10 2199 AC 05/14 PO 0825 Duloxetine HCl 30 MG DAILY 05/11 1000 AC 05/14 PO 0826 Entacapone 200 MG TID 05/10 2199 AC 05/14 PO 0828 Fenofibrate 145 MG DAILY 05/11 1000 AC 05/14 PO 0826 Furosemide 20 MG DAILY 05/11 1000 AC 05/14 PO 0827 Gabapentin 600 MG TID 05/10 2200 AC 05/14 PO 0826 Hydromorphone HCl 4 MG Q3P PRN 05/14 1000 AC 05/14 PO 1040 Hydromorphone HCl 0.4 MG ONCE ONE 05/14 0915 DC 05/14 IV 05/14 0916 0912 Hydromorphone HCl 0.4 MG ONCE ONE 05/13 2130 DC 05/13 IV 05/13 2131 2140 Hydromorphone HCl 6 MG Q4-6 PRN PRN 05/13 1530 CAN PO Hydromorphone HCl 0.4 MG ONCE ONE 05/13 1530 DC 05/13 IV 05/13 1531 1631 Hydromorphone HCl 4 MG Q4P PRN 05/13 1445 DC 05/14 PO 0635 Hydromorphone HCl 1 MG Q4P PRN 05/11 1424 DC 05/13 IV 1031 Insulin Aspart 0 TIDAC 05/10 1700 AC 05/14 SC 0823 Insulin Detemir 30 UNITS AT BEDTIME 05/10 2200 AC 05/13 SC 2108 Lidocaine 2 PAT DAILY 05/14 1000 AC EXT Lidocaine 1 PAT DAILY 05/13 1000 DC 05/13 EXT 1036 Metoprolol Succinate 50 MG DAILY 05/11 1000 AC 05/14 PO 0828 Omeprazole 40 MG DAILY AC 05/11 0700 AC 05/14 PO 0635 Oxycodone/ 2 TAB Q6 05/13 1800 CAN Acetaminophen PO Oxycodone/ 1 TAB Q4 PRN 05/11 1824 DC 05/13 Acetaminophen PO 0823 Patient Medication 1 UNIT 1700 05/13 1700 [place] Teaching ED 05/13 1701 Patient Medication 1 ED .STK-MED ONE 05/13 1409 [place] Teaching ED 05/13 1410 Polyethylene Glycol 17 GM DAILY 05/11 1000 AC 05/13 PO 0939 Pregabalin 50 MG TID 05/14 1000 AC 05/14 PO 1041 Senna/Docusate Sodium 1 TAB BID PRN 05/10 1615 AC 05/14 PO 0826 Warfarin Sodium 6 MG COUMADIN 1700 05/13 1700 DC 05/13 PO 05/13 2359 1634 Zolpidem Tartrate 10 MG AT BEDTIME NEED.. 05/10 1615 AC 05/13 PO 2108 Last 24 Hrs of Lab/Arpan Results Last 24 Hrs of Labs/Mics: Laboratory Tests 05/14/16 0655: Anion Gap 9, Estimated GFR 31 L, BUN/Creatinine Ratio 20.0, PT 29.9 H, INR 2.88 H Assessment/Plan Assessment: This is a 70-year-old gentleman with past medical history of hypertension, Parkinson's disease and frequent falls who presented on May 10 after a mechanical fall. #Mechanical fall. CT ABDOMEN AND PELVIS on admission revealed No evidence of an acute process or fracture. Chest x-ray shows old left-sided rib fracture but no acute fractures. Head CT excluded intracranial abnormalities or hemorrhages. Lumbar spine CT shows chronic compression fracture on L1 vertebral body but no acute fractures. Patient pain was not controlled with 4 mg of Dilaudid every 4 * We will change 4 mg of Dilaudid to every 3 * We will continue Lidocaine Patch * He will receive 1 dose of IV Dilaudid 0.4 mg once #[facility] valve On warfarin with a target INR of 2.5-3.5. INR today is 2.88 * Will receive 5 mg of warfarin today. #History of Parkinson's disease * Continue Sinemet * Continue Comtan. History of diabetes Accu-Cheks, diabetic diet, insulin sliding scale--> Medium Dose * We'll continue current insulin sliding scale * We'll continue consistent Carbohydrate diet Hyperkalemia On admission potassium level was 5.2, now potassium within normal limits Diet consistent carbohydrate 3 DVT Ppx on Coumadin Full code Problem List: 1. Diabetes mellitus type 2 2. Back pain 3. Hip pain Pain Ratin Pain Location: left hip Pain Goal: Remain pain free Pain Plan: see A&P Tomorrow's Labs & Rationales: see A&P
[2016-05-14 08:23] LABS: PT 29.9 SEC (9.4-12.5)
--- NOTE | 2016-05-14 14:01 | PN- Att Addend ---
Attending Addendum Attending Brief Note Patient sitting in the chair. States that since the pain medications were adjusted this morning feels a little bit more comfortable with vital signs are stable no major changes on physical monitoring INRs. Continue pain management. If stable in a.m. then start disposition plans for short-term rehabilitation. Current Medications Sig/Leena Start time Last Medication Dose Route Stop Time Status Admin Acetaminophen 650 MG Q6P PRN 05/10 1615 AC 05/14 PO 0824 Albuterol Sulfate 3 ML 4 TIMES/DAY 05/10 1800 DC INH Atorvastatin Calcium 40 MG 1700 05/11 1700 AC 05/13 PO 1633 Carbidopa/Levodopa 1 TAB TID 05/10 2200 AC 05/14 PO 0827 Docusate Sodium 100 MG BID 05/10 2200 AC 05/14 PO 0825 Duloxetine HCl 30 MG DAILY 05/11 1000 AC 05/14 PO 0826 Entacapone 200 MG TID 05/10 2200 AC 05/14 PO 0828 Fenofibrate 145 MG DAILY 05/11 1000 AC 05/14 PO 0826 Furosemide 20 MG DAILY 05/11 1000 AC 05/14 PO 0827 Gabapentin 600 MG TID 05/10 2200 AC 05/14 PO 0826 Hydromorphone HCl 4 MG Q3P PRN 05/14 1000 AC 05/14 PO 1337 Hydromorphone HCl 0.4 MG ONCE ONE 05/14 0915 DC 05/14 IV 05/14 0916 0912 Hydromorphone HCl 0.4 MG ONCE ONE 05/13 2130 DC 05/13 IV 05/13 2131 2140 Hydromorphone HCl 6 MG Q4-6 PRN PRN 05/13 1530 CAN PO Hydromorphone HCl 0.4 MG ONCE ONE 05/13 1530 DC 05/13 IV 05/13 1531 1631 Hydromorphone HCl 4 MG Q4P PRN 05/13 1445 DC 05/14 PO 0635 Insulin Aspart 0 TIDAC 05/10 1700 AC 05/14 SC 1238 Insulin Detemir 30 UNITS AT BEDTIME 05/10 2200 AC 05/13 SC 2108 Lidocaine 2 PAT DAILY 05/14 1000 AC EXT Lidocaine 1 PAT DAILY 05/13 1000 DC 05/13 EXT 1036 Metoprolol Succinate 50 MG DAILY 05/11 1000 AC 05/14 PO 0828 Omeprazole 40 MG DAILY AC 05/11 0700 AC 05/14 PO 0635 Oxycodone/ 2 TAB Q6 05/13 1800 CAN Acetaminophen PO Patient Medication 1 UNIT 1700 05/13 1700 [place] Teaching ED 05/13 1701 Patient Medication 1 ED .STK-MED ONE 05/13 1409 [facility] ED 05/13 1410 Polyethylene Glycol 17 GM DAILY 05/11 1000 AC 05/13 PO 0939 Pregabalin 50 MG TID 05/14 1000 AC 05/14 PO 1041 Senna/Docusate Sodium 1 TAB BID PRN 05/10 1615 05/14 PO 0826 Warfarin Sodium 6 MG COUMADIN 1700 05/13 1700 CO 05/13 PO 05/13 2359 1634 Zolpidem Tartrate 10 MG AT BEDTIME NEED.. 05/10 1615 05/13 PO 2108 Laboratory Tests 05/14/16 0655: Anion Gap 9, Estimated GFR 31 L, BUN/Creatinine Ratio 20.0, PT 29.9 H, INR 2.88 H Vital Signs Date Time Temp Pulse Resp B/P Pulse O2 O2 Flow FiO2 Ox Delivery Rate 05/14 0828 68 147/70 05/14 0705 97.7 68 18 147/76 92 Room Air
[2016-05-14 14:28] VITALS: BP 151/102
[2016-05-14 15:51] VITALS: BP 138/90
[2016-05-14 23:10] VITALS: BP 140/73
[2016-05-15 07:15] VITALS: BP 156/97
--- NOTE | 2016-05-15 08:26 | PN- Housestaff ---
Subjective Follow-up For: Mechanical Fall Chronic pancreatitis Parkinson disease Chronic back pain Subjective: She was seen and examined, he is sitting eating breakfast and still complaining of right flank pain that started to radiate to his groin. He is also complaining of bad urine smell. He denies dysuria or hematuria. He pain medication Review of Systems Constitutional: Denies: chills, diaphoresis, fever. Cardiovascular: Denies: chest pain, orthopena, palpitations, peripheral edema. Respiratory: Denies: cough, short of breath, wheezing. Genitourinary: Reports: see HPI. Denies: discharge, dysuria. Musculoskeletal: Reports: back pain. Objective Last 24 Hrs of Vital Signs/I&O Vital Signs Date Time Temp Pulse Resp B/P Pulse O2 O2 Flow FiO2 Ox Delivery Rate 05/15 1426 98.0 71 20 142/64 93 Room Air 05/15 0715 97.8 67 18 156/97 94 Room Air 05/14 2310 98.9 67 20 140/73 94 Room Air Intake & Output 05/15 1600 05/15 0800 05/15 0000 Intake Total 450 Output Total Balance 450 Intake, Oral 450 Patient 126.099 kg Weight Physical Exam General Appearance: Alert, Oriented X3, Cooperative, Mild Distress Skin: No Rashes HEENT: Atraumatic, PERRLA, EOMI, Mucous Membr. moist/pink Cardiovascular: Regular Rate, Normal S1, Normal S2, No Murmurs Lungs: Clear to Auscultation, Normal Air Movement Abdomen: Soft, right lower quadrant tenderness Neurological: Normal Speech Other Physical Findings: Right flank tenderness Current Medications: Current Medications Sig/Leena Start time Last Medication Dose Route Stop Time Status Admin Acetaminophen 650 MG .STK-MED ONE 05/14 1936 DC PO 05/14 1937 Acetaminophen 650 MG Q6P PRN 05/10 1615 AC 05/14 PO 1950 Atorvastatin Calcium 40 MG 1700 05/11 1700 AC 05/15 PO 1601 Carbidopa/Levodopa 1 TAB TID 05/10 2199 AC 05/15 PO 1601 Docusate Sodium 100 MG BID 05/10 2199 AC 05/15 PO 0936 Duloxetine HCl 30 MG DAILY 05/11 1000 AC 05/15 PO 0936 Entacapone 200 MG TID 05/10 2199 AC 05/15 PO 1601 Fenofibrate 145 MG DAILY 03/11 1000 AC 05/15 PO 0936 Furosemide 20 MG DAILY 05/11 1000 AC 05/15 PO 0936 Gabapentin 600 MG TID 05/10 2200 AC 05/15 PO 1601 Hydromorphone HCl 0.2 MG ONCE ONE 05/15 1100 DC 05/15 IV 05/15 1101 1114 Hydromorphone HCl 0.4 MG ONCE ONE 05/14 1945 DC 05/14 IV 05/14 1946 1950 Hydromorphone HCl 4 MG Q3P PRN 05/14 1000 AC 05/15 PO 1523 Insulin Aspart 0 TIDAC 05/10 1700 AC 05/15 SC 1228 Insulin Detemir 30 UNITS AT BEDTIME 05/10 2200 AC 05/14 SC 2151 Lidocaine 2 PAT DAILY 05/14 1000 AC EXT Metoprolol Succinate 50 MG DAILY 05/11 1000 AC 05/15 PO 0936 Omeprazole 40 MG DAILY AC 05/11 0700 AC 05/15 PO 0625 Ondansetron HCl 4 MG .STK-MED ONE 05/15 1656 DC IV 05/15 1657 Ondansetron HCl 4 MG ONCE ONE 05/15 0800 DC 05/15 IV 05/15 0801 0809 Polyethylene Glycol 17 GM DAILY 05/11 1000 AC 05/15 PO 0941 Pregabalin 50 MG TID 05/14 1000 AC 05/15 PO 1601 Senna/Docusate Sodium 1 TAB BID PRN 05/10 1615 AC 05/14 PO 2149 Zolpidem Tartrate 10 MG AT BEDTIME NEED.. 05/10 1615 AC 05/14 PO 2150 Last 24 Hrs of Lab/Arpan Results Last 24 Hrs of Labs/Mics: Laboratory Tests 05/15/16 1020: Urinalysis LIGHT H, Urine Color YEL, Urine Clarity CLEAR, Urine pH 6.0, Ur Specific Jay 1.025, Urine Protein 100 H, Urine Ketones NEG, Urine Nitrite NEG, Urine Bilirubin NEG, Urine Urobilinogen 0.2, Ur Leukocyte Esterase NEG, Ur Microscopic SEDIMENT EXAMINED, Urine RBC 15-25 H, Urine WBC 3-5 H, Ur Epithelial Cells RARE, Urine Bacteria FEW H, Urine Mucus RARE, Urine Hemoglobin MOD H, Urine Glucose 500 H 05/15/16 0635: PT 39.4 H, INR 3.80 H Assessment/Plan Assessment: This is a 70-year-old gentleman with past medical history of hypertension, Parkinson's disease and frequent falls who presented on May 10 after a mechanical fall. #Mechanical fall. CT ABDOMEN AND PELVIS on admission revealed No evidence of an acute process or fracture. Chest x-ray shows old left-sided rib fracture but no acute fractures. Head CT excluded intracranial abnormalities or hemorrhages. Lumbar spine CT shows chronic compression fracture on L1 vertebral body but no acute fractures. * We will continue 4 mg of Dilaudid every 3 hours * We will continue Lidocaine Patch * Patient is safe to be discharged tomorrow morning for a short-term rehabilitation #Right flank pain Today patient is complaining of right flank pain that radiates to the abdominal right lower quadrant and right groin area. Patient also had a bad urine smell. Renal ultrasound;No evidence of nephrolithiasis or hydronephrosis. Urinalysis is negative for UTI * We will continue pain management as mentioned above #[facility] valve On warfarin with a target INR of 2.5-3.5. INR today is 3.8 * We will hold today warfarin dose * We will order INR for tomorrow and dose accordingly #History of Parkinson's disease * Continue Sinemet * Continue Comtan. History of diabetes Accu-Cheks, diabetic diet, insulin sliding scale--> Medium Dose * We'll continue current insulin sliding scale * We'll continue consistent Carbohydrate diet Diet consistent carbohydrate 3 DVT Ppx on Coumadin Full code Problem List: 1. Aortic valve prosthesis present 2. Supratherapeutic INR Pain Ratin Pain Location: Right flank radiated to the right lower quadrant abdomen Pain Goal: Pain 4 or less Pain Plan: See assessment and plan Tomorrow's Labs & Rationales: See assessment and plan
[2016-05-15 08:34] LABS: PT 39.4 SEC (9.4-12.5)
--- NOTE | 2016-05-15 10:28 | PN- Att Addend ---
Attending Addendum Attending Brief Note Patient states he had a bad night the pain was severe and now seems to be radiating anteriorly. Also was told that his urine is a little smelly and dark, will check the urine and also rule out that the pain is caused by a kidney stone , if all this is negative then will be able to start disposition plans to short- term rehabilitation . Continue analgesics. Current Medications Sig/Leena Start time Last Medication Dose Route Stop Time Status Admin Acetaminophen 650 MG .STK-MED ONE 05/14 193 DC PO 05/14 193 Acetaminophen 650 MG Q6P PRN 05/10 1615 AC 05/14 PO 1950 Atorvastatin Calcium 40 MG 1700 05/11 1700 AC 05/14 PO 1604 Carbidopa/Levodopa 1 TAB TID 05/10 2200 AC 05/15 PO 0935 Docusate Sodium 100 MG BID 05/10 2200 AC 05/15 PO 0936 Duloxetine HCl 30 MG DAILY 05/11 1000 AC 05/15 PO 0936 Entacapone 200 MG TID 05/10 2200 AC 05/15 PO 0936 Fenofibrate 145 MG DAILY 05/11 1000 AC 05/15 PO 0936 Furosemide 20 MG DAILY 05/11 1000 AC 05/15 PO 0936 Gabapentin 600 MG TID 05/10 2200 AC 05/15 PO 0936 Hydromorphone HCl 0.4 MG ONCE ONE 05/14 1945 DC 05/14 IV 05/14 1946 1950 Hydromorphone HCl 4 MG Q3P PRN 05/14 1000 AC 05/15 PO 0934 Insulin Aspart 0 TIDAC 05/10 1700 AC 05/15 SC 0939 Insulin Detemir 30 UNITS AT BEDTIME 05/10 2200 AC 05/14 SC 2151 Lidocaine 2 PAT DAILY 05/14 1000 AC EXT Metoprolol Succinate 50 MG DAILY 05/11 1000 AC 05/15 PO 0936 Omeprazole 40 MG DAILY AC 05/11 0700 AC 05/15 PO 0625 Ondansetron HCl 4 MG ONCE ONE 05/15 0800 DC 05/15 IV 05/15 0801 0809 Polyethylene Glycol 17 GM DAILY 05/11 1000 AC 05/15 PO 0941 Pregabalin 50 MG .STK-MED ONE 05/14 1033 DC PO 05/14 1034 Pregabalin 50 MG TID 05/14 1000 AC 05/15 PO 0936 Senna/Docusate Sodium 1 TAB BID PRN 05/10 161 AC 05/14 PO 2149 Warfarin Sodium 5 MG COUMADIN 1700 ONE 05/14 1700 DC 05/14 PO 05/14 1701 1819 Zolpidem Tartrate 10 MG AT BEDTIME NEED.. 05/10 161 AC 05/14 PO 2150 Laboratory Tests 05/15/16 0635: PT 39.4 H, INR 3.80 H Vital Signs Date Time Temp Pulse Resp B/P Pulse O2 O2 Flow FiO2 Ox Delivery Rate 05/15 0715 97.8 67 18 156/97 94 Room Air 05/14 2310 98.9 67 20 140/73 94 Room Air 05/14 1551 60 138/90 05/14 1428 98.1 101 20 151/102 97 Room Air Adjust the Coumadin INR a little bit supratherapeutic.
--- NOTE | 2016-05-15 12:38 | ULTRASOUND REPORT ---
EXAMINATION: US RETROPERITONEAL COMPLETE (RENAL) CLINICAL INFORMATION: Right flank pain radiating to the groin. Evaluate for kidney stone.. COMPARISON: Abdominal CT exams from 10/22/2014 and 05/10/2016. TECHNIQUE: Real-time imaging of the kidneys and bladder. FINDINGS: RIGHT KIDNEY: 10.2 x 5.3 x 5 cm (SAG x AP x TRV). The kidney is normal in size, contour, and echogenicity. Renal cortical thickness is normal. No calculi or focal parenchymal lesions. No hydronephrosis. LEFT KIDNEY: 10.8 x 5 x 5 cm (SAG x AP x TRV). There is a somewhat wedge-shaped area of chronic cortical atrophy/scarring at the upper pole of the left kidney. Otherwise, left kidney is unremarkable. No nephrolithiasis or hydronephrosis. BLADDER: Urinary bladder is completely empty and, therefore, suboptimally evaluated. IMPRESSION: No evidence of nephrolithiasis or hydronephrosis.
[2016-05-15 14:26] VITALS: BP 142/64
[2016-05-15 22:02] VITALS: BP 177/82
[2016-05-16 06:58] VITALS: BP 150/80
--- NOTE | 2016-05-16 07:40 | PN- Housestaff ---
Subjective Follow-up For: Mechanical Fall Chronic pancreatitis Parkinson disease Chronic back pain Subjective: Afebrile, no acute overnight events reported, patient is laying on bed looks mildly distressed because of right flank and groin pain. Patient reported that he did not had a bowel movement since May 12. He denies nausea, vomiting, or abdominal distention. However he is passing gas. Review of Systems Constitutional: Reports: see HPI. Denies: chills, diaphoresis, fever. Cardiovascular: Reports: see HPI. Denies: chest pain, orthopena, palpitations, peripheral edema. Respiratory: Denies: cough, hemoptysis, short of breath. Gastrointestinal: Reports: abdominal pain (RLQ), constipation. Denies: diarrhea, distention, nausea, vomiting. Genitourinary: Denies: dysuria. Musculoskeletal: Reports: back pain. Objective Last 24 Hrs of Vital Signs/I&O Vital Signs Date Time Temp Pulse Resp B/P Pulse O2 O2 Flow FiO2 Ox Delivery Rate 05/16 0812 69 150/80 05/16 0658 97.7 69 20 150/80 94 Room Air 05/15 2202 98.2 58 20 177/82 92 05/15 1426 98.0 71 20 142/64 93 Room Air Intake & Output 05/16 1600 05/16 0800 05/16 0000 Intake Total 840 Output Total Balance 840 Intake, Oral 840 Physical Exam General Appearance: Alert, Oriented X3, Cooperative, Mild Distress Skin: No Rashes HEENT: Atraumatic, PERRLA, EOMI, Mucous Membr. moist/pink Cardiovascular: Regular Rate, Normal S1, Normal S2, No Murmurs Lungs: Clear to Auscultation Abdomen: Soft, RLQ tenderness Neurological: Normal Speech Extremities: mild LE edema B/L Assessment/Plan Assessment: This is a 70-year-old gentleman with past medical history of hypertension, Parkinson's disease and frequent falls who presented on May 10 after a mechanical fall. #Mechanical fall. CT ABDOMINAL AND PELVIS on admission revealed No evidence of an acute process or fracture. Chest x-ray shows old left-sided rib fracture but no acute fractures. Head CT excluded intracranial abnormalities or hemorrhages. Lumbar spine CT shows chronic compression fracture on L1 vertebral body but no acute fractures. * We will continue 4 mg of Dilaudid every 3 hours * We will continue Lidocaine Patch * Patient is safe to be discharged today if he has a bowel movement #Right flank pain Yesterday patient is complaining of right flank pain that radiates to the abdominal right lower quadrant and right groin area. Patient also had a bad urine smell. Renal ultrasound;No evidence of nephrolithiasis or hydronephrosis. Urinalysis is negative for UTI * We will continue pain management as mentioned above #[facility] valve On warfarin with a target INR of 2.5-3.5. INR today is 3 * We will give 5 mg today * We will order INR for tomorrow and dose accordingly #History of Parkinson's disease * Continue Sinemet * Continue Comtan. History of diabetes Accu-Cheks, diabetic diet, insulin sliding scale--> Medium Dose * We'll continue current insulin sliding scale * We'll continue consistent Carbohydrate diet Diet consistent carbohydrate 3 DVT Ppx on Coumadin Full code Problem List: 1. Falling Pain Ratin Pain Location: Right flank and right lower quadrant that radiated to the groin Pain Goal: Pain 4 or less Pain Plan: See assessment and plan Tomorrow's Labs & Rationales: See assessment and plan
[2016-05-16 08:46] LABS: PT 31.2 SEC (9.4-12.5)
--- NOTE | 2016-05-16 12:23 | PN- Att Addend ---
Attending Addendum Attending Brief Note Patient's still in pain. Meds were adjusted yesterday. Has not had a bowel movement yet bowel regimen was started as soon as he has a bowel movement can go to short-term rehabilitation, where will follow him and see the discharge summary and C MR Current Medications Sig/Leena Start time Last Medication Dose Route Stop Time Status Admin Acetaminophen 650 MG Q6P PRN 05/10 1615 AC 05/14 PO 1950 Atorvastatin Calcium 40 MG 1700 05/11 1700 AC 05/15 PO 1601 Bisacodyl 10 MG DAILY NEEDED PRN 05/16 0845 AC FL Carbidopa/Levodopa 1 TAB TID 05/10 2200 AC 05/16 PO 0811 Docusate Sodium 100 MG BID 05/10 2200 AC 05/16 PO 0811 Duloxetine HCl 30 MG DAILY 05/11 1000 AC 05/16 PO 0810 Entacapone 200 MG TID 05/10 2200 AC 05/16 PO 0812 Fenofibrate 145 MG DAILY 05/11 1000 AC 05/16 PO 0812 Furosemide 20 MG DAILY 05/11 1000 AC 05/16 PO 0811 Gabapentin 600 MG TID 05/10 2200 AC 05/16 PO 0811 Hydromorphone HCl 4 MG Q3P PRN 05/14 1000 AC 05/16 PO 0933 Insulin Aspart 0 TIDAC 05/10 1700 AC 05/16 SC 0810 Insulin Detemir 30 UNITS AT BEDTIME 05/10 2200 AC 05/15 SC 2135 Lidocaine 2 PAT DAILY 05/14 1000 AC EXT Magnesium Hydroxide 30 ML ONE ONE 05/16 0845 DC 05/16 PO 05/16 0846 0934 Metoprolol Succinate 50 MG DAILY 05/11 1000 AC 05/16 PO 0812 Omeprazole 40 MG DAILY AC 05/11 0700 AC 05/16 PO 0613 Ondansetron HCl 4 MG .STK-MED ONE 05/15 1656 DC IV 05/15 1657 Polyethylene Glycol 17 GM DAILY 05/11 1000 AC 05/16 PO 0812 Pregabalin 50 MG TID 05/14 1000 AC 05/16 PO 0812 Senna/Docusate Sodium 1 TAB BID PRN 05/10 1615 AC 05/16 PO 0812 Zolpidem Tartrate 10 MG AT BEDTIME NEED.. 05/10 1615 AC 05/15 PO 2135 Laboratory Tests 05/16/16 0650: PT 31.2 H, INR 3.00 H Vital Signs Date Time Temp Pulse Resp B/P Pulse O2 O2 Flow FiO2 Ox Delivery Rate 05/16 0812 69 150/80 05/16 0658 97.7 69 20 150/80 94 Room Air
[2016-05-16 14:51] VITALS: BP 134/80
[2016-05-16 15:43] VITALS: BP 134/80
== END 2016-05-16 17:17 | DRG 552 ==
LOC: ENRESERVTM → ENRESERVDT → ERH 08:09 → ENPENDDIS 16:04 → ERHI 16:04 → 2NB 16:04
PROVIDERS: Emergency Medicine; Internal Medicine; Student in an Organized Health Care Education/Training Program; ADMIT Internal Medicine
DX: M54.9 Dorsalgia, unspecified (principal); N17.9 Acute kidney failure, unspecified; G20 Parkinson's disease; I13.0 Hypertensive heart and chronic kidney disease with heart failure and stage 1 through stage 4 chronic kidney disease, or unspecified chronic kidney disease; I50.32 Chronic diastolic (congestive) heart failure; M81.0 Age-related osteoporosis without current pathological fracture; E55.9 Vitamin D deficiency, unspecified; R26.81 Unsteadiness on feet; N18.9 Chronic kidney disease, unspecified; E87.5 Hyperkalemia; Z95.2 Presence of prosthetic heart valve; Z79.01 Long term (current) use of anticoagulants; E11.9 Type 2 diabetes mellitus without complications; Z79.4 Long term (current) use of insulin; W18.30XA Fall on same level, unspecified, initial encounter; Z91.81 History of falling; Y92.009 Unspecified place in unspecified non-institutional (private) residence as the place of occurrence of the external cause; E78.5 Hyperlipidemia, unspecified; K21.9 Gastro-esophageal reflux disease without esophagitis
CPT/HCPCS: 2NBP; 36415; 71100-RT; 74176; 76775; 81001; 82436; 93005; 93010; 96374; 96376; 97110-GO; 97116-GO; 97161-GP; 97530-GO; J1170; J2405; J3101; J3250

== ENCOUNTER 2016-06-24 14:14 | Emergency (ER) | payer OTHER, MEDICARE ==
[~2016-06-24] VITALS: Ht 185.4 cm; Wt 126.1 kg
[~2016-06-24 14:14] MED LIST changes: +ALBUTEROL2.5 MG/3 M INH/SOL; +CALCIUM + VITA1 EAC1 PO; +LIDODERM1 EACH TOP; +MAGNESIUM OXID400 M1 PO; +NOVOLOG FL100 UNIT/1
--- NOTE | 2016-06-24 14:21 | ED GENERAL ADULT ---
See Addendum History of Present Illness General Chief Complaint: Fall Stated Complaint: FALL Source: patient, EMS Exam Limitations: no limitations Allergies Coded Allergies: Penicillins (Intermediate, HIVES 05/03/15) morphine (Mild, PT SAYS IT "DOESNT BOTHER HIM" 05/03/15) Reconcile Medications Acetaminophen (Tylenol) 325 MG TABLET 2 TAB PO Q6-PRN PRN PAIN (Reported) Albuterol Sulfate 2.5 MG/3 ML (0.083 %) VIAL.NEB 1 Vial INH/MELIA 4 TIMES/DAY BREATHING PROBLEMS (Reported) Atorvastatin Calcium (Lipitor) 40 MG TABLET 1 TAB PO DAILY HYPERLIPIDEMIA ( Reported) Reason to Stop at ADM: DOSE INCREASED Calcium Carbonate/Vitamin D3 (Calcium + Vitamin D Tablet) 600 MG-200 TABLET 1 TAB PO DAILY SUPPLEMENT (Reported) Carbidopa/Levodopa (Sinemet 25-100 MG Tablet) 25 MG-100 MG TABLET 1 TAB PO TID parkinsonism Celecoxib (Celebrex) 200 MG CAPSULE 1 CAP PO QHS PAIN CONTROL (Reported) Cholecalciferol (Vitamin D3) 1,000 UNIT TABLET 1 TAB PO DAILY BONE STRENGTH ( Reported) Docusate Sodium (Colace) 100 MG CAPSULE 1 CAP PO BID GI (Reported) Duloxetine HCl 30 MG CAPSULE.DR 1 CAP PO DAILY MOOD (Reported) Entacapone (Comtan) 200 MG TABLET 1 TAB PO TID PARKINSONS (Reported) Fenofibrate,Micronized (Fenofibrate) 134 MG CAPSULE 1 CAP PO DAILY TRIGLYCERIDES (Reported) Folic Acid 1 MG TABLET 1 TAB PO DAILY SUPPLEMENT (Reported) Furosemide (Lasix) 20 MG TABLET 1 TAB PO DAILY WATER PILL (Reported) Gabapentin (Neurontin) 600 MG TABLET 1 TAB PO TID NEUROPATHY (Reported) Hydromorphone HCl 2 MG TABLET 6 MG PO Q4-6 PRN PRN PAIN SCALE 7-10 (SEVERE) Insulin Aspart, Recombinant (Novolog Flexpen) (Unknown Strength) INSULN.PEN ( Unknown Dose) SEE SLIDING SCALE DIABETES (Reported) Insulin Detemir (Levemir Flextouch) 100 UNIT/ML (3 ML) INSULN.PEN 40 UNITS SC QPM DIABETES (Reported) Insulin Glargine,Hum.rec.anlog (Toujeo Solostar) 300 UNIT/ML (1.5 ML) INSULN.PEN 30 U SC QPM DM (Reported) Lidocaine (Lidoderm) 5 % ADH..PATCH 1 PAT TOP DAILY PAIN (Reported) may wear up to 12 hours Magnesium Oxide 400 MG TABLET 1 TAB PO DAILY SUPPLEMENT (Reported) Metoprolol Succ XL (Toprol Xl) 50 MG TAB 1 TAB PO DAILY BP (Reported) Omeprazole 40 MG CAPSULE.DR 1 CAP PO DAILY reflux (Reported) Polyethylene Glycol 3350 (Miralax) 17 GRAM POWD.PACK 1 PAC PO DAILY GI ( Reported) dissolve in water Polyvinyl Alcohol (Artificial Tears) 1.4 % DROPS 1 DROP OP 4 TIMES/DAY EYE ( Reported) Pregabalin (Lyrica) 50 MG CAPSULE 1 CAP PO TID PAIN (Reported) Pyridoxine HCl (Vitamin B-6) 50 MG TABLET 1 TAB PO DAILY SUPPLEMENT (Reported ) Sennosides (Senna) 8.6 MG TABLET 1 TAB PO BID GI (Reported) Trazodone HCl 50 MG TABLET 1 TAB PO QPM SLEEP (Reported) Warfarin Sodium (Coumadin) 1 MG TABLET 6.5 MG PO 1700 BLOOD THINNER (Reported ) Zolpidem Tartrate (Ambien) 10 MG TABLET 1 TAB PO QPMP PRN SLEEP (Reported) Triage Note: BIBA FROM HOME, S/P FALL LAST PM, LOST BALANCE, FELL HIT R SIDE OF HEAD. C/O PAIN IN HEAD AND BACK. PT IS ON COUMADIN, FALLS FREQUENTY DUE TO PARKINSON TREMORS. Triage Nurses Notes Reviewed? yes Onset: Abrupt Duration: hour(s): Timing: recent history HPI: 06/24/16 3:18 PM This 70-year-old male presents to the emergency department by ambulance for a mechanical slip and fall. He fell backwards and hit his head. He says his legs go out secondary to his Parkinson's disease. The onset of the symptoms was abrupt, the duration was over the last several hours, the severity was significant as his symptoms required him to come to the emergency department for care. He has associated headache and neck pain. He says that he has chronic back pain but it was aggravated by the fall. He denies pain abdominal pain or other complaints (JETHRO STAFFORD DO) Vital Signs & Intake/Output Vital Signs & Intake/Output Vital Signs Date Time Temp Pulse Resp B/P B/P Pulse O2 O2 Flow FiO2 Mean Ox Delivery Rate 06/26 0537 96.0 60 16 170/70 96 Room Air 06/25 2200 97.7 52 22 152/78 93 06/25 1319 94 Room Air 06/25 1318 98.3 57 18 168/72 94 Room Air 06/25 1026 96.8 57 20 16806/25 0954 96.8 57 20 96 Room Air ED Intake and Output 06/26 0000 06/25 1200 Intake Total Output Total 650 1000 Balance -650 -1000 Output, Urine 650 1000 Past History Medical History Any Pertinent Medical History? 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 No (JETHRO STAFFORD DO) Review of Systems Review of Systems Constitutional: Denies: fever. EENTM: Denies: visual changes. Respiratory: Denies: short of breath. Cardiovascular: Denies: chest pain. GI: Denies: abdominal pain. Genitourinary: Reports: no symptoms. Musculoskeletal: Reports: see HPI. Skin: Denies: rash. Neurological/Psychological: Reports: headache. Hematologic/Endocrine: Denies: bruising, bleeding. (JETHRO STAFFORD DO) Review of Systems Immunologic/Allergic: Reports: no symptoms. All Other Systems: Reviewed and Negative (AMBREEN WILDER MD) Physical Exam Physical Exam General Appearance: alert, awake, anxious, moderate distress Head: normal appearance, tenderness (left occiput) Eyes: Bilateral: normal appearance, PERRL, EOMI. Ears, Nose, Throat: normal pharynx, normal ENT inspection Neck: supple, limited range of motion, no midline tenderness Respiratory: no respiratory distress Cardiovascular: regular rate/rhythm Peripheral Pulses: 4+ radial (R), 4+ radial (L) Gastrointestinal: soft, non-tender Back: decreased range of motion Extremities: pedal edema Neurologic/Psych: awake, alert, oriented x 3 (global weakness resting tremor) Skin: intact, normal color, warm/dry Core Measures ACS in differential dx? No CVA/TIA Diagnosis: No Severe Sepsis Present: No Septic Shock Present: No (JETHRO STAFFORD DO) Progress Differential Diagnoses I considered the following diagnoses in my evaluation of the patient: [ Exacerbation of Parkinson's disease, intracranial bleed, fracture, other occult trauma electrolyte derangement, anemia] Initial ED EKG: no ST T wave changes (JETHRO STAFFORD DO) Plan of Care: Orders Procedure Date/time Status Heart Healthy Diet 06/25 L Active Theraputic Activities 15 Min 06/25 UNK Complete Neuromuscular Re-Ed 15Min Ea 06/25 UNK Complete MOBILITY GOAL STATUS 06/25 UNK Complete MOBILITY CURRENT STATUS 06/25 UNK Complete PT EVAL MOD COMPLEX 30 MIN 06/25 UNK Complete Current Medications Sig/Leena Start time Last Medication Dose Stop Time Status Admin Zolpidem Tartrate 5 MG AT BEDTIME 06/25 2199 AC 06/25 (Ambien) 2207 Warfarin Sodium 6.5 MG 1700 06/25 1700 UNVr 06/25 (Coumadin) 1707 Magnesium Oxide 400 MG DAILY 06/25 1000 UNVr 06/25 (Mag-Ox) 1026 Metoprolol Succinate 50 MG DAILY 06/25 1000 UNVr 06/25 (Toprol Xl) 1026 Omeprazole 40 MG DAILY AC 06/25 0700 UNVr 06/26 (Prilosec) 0803 Celecoxib 200 MG QPM 06/24 2199 UNVr 06/25 (Celebrex 100MG) 220 Docusate Sodium 100 MG BID 06/24 2199 UNVr 06/25 (Colace) 2208 Entacapone 200 MG TID 06/24 2199 UNVr 06/25 (Comtan) 2208 Gabapentin 600 MG Q8 06/24 2199 UNVr 06/26 (Neurontin) 0535 Insulin Detemir 40 UNITS QPM 06/24 2199 UNVr 06/25 (Levemir) 2230 Pregabalin 50 MG TID 06/24 2199 AC 06/25 (Lyrica) 2207 Trazodone HCl 50 MG QPM 06/24 2199 UNVr 06/25 (Desyrel) 2207 Acetaminophen 650 MG Q6-PRN PRN 06/24 1944 AC (Tylenol) Albuterol Sulfate 3 ML 4 TIMES/DAY PRN 06/24 1944 AC (Proventil) Hydromorphone HCl 6 MG Q4-6 PRN PRN 06/24 1944 AC 06/26 (Dilaudid) 0535 Duloxetine HCl 30 MG DAILY 06/24 1932 UNVr 06/25 (Cymbalta) 102 Fenofibrate 145 MG DAILY 06/24 1932 UNVr 06/25 (Tricor) 1026 Folic Acid 1 MG DAILY 06/24 1932 UNVr 06/25 (Folic Acid) 1026 Furosemide 20 MG DAILY 06/24 1932 UNVr 06/25 (Lasix) 1026 Atorvastatin Calcium 40 MG DAILY 06/25 1931 UNVr 06/25 (Lipitor) 1026 Carbidopa/Levodopa 1 TAB TID 06/24 1634 UNVr 06/25 (Sinemet 25/100MG) 2207 Hand-Off Endorsed To: ARNEL VASQUES,JETHRO Painting Endorsed Time: 0700 Pending: consult (PT, CASE MANAGEMENT) (WILFRID VASQUES,DARRELL Roberts) Comments: 06/25/2016 7:10:37 AM patient signed out to me by Dr. 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 06/25/2016 5:36:54 PM patient has had an uneventful emergency department stay during the day shift. Case management is awaiting clearance by the [facility] for transfer to an extended care facility. 06/25/2016 7:12:13 PM patient signed out to Dr. 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 (ARNEL VASQUES,JETHRO Painting) Diagnostic Imaging: Viewed by Me: CT Scan. Discussed w/RAD: CT Scan. Comments: To [facility] for extended care. (MEÑO VASQUES,AMBREEN) Departure Departure Condition: Stable Referrals: KOFFI RODGERS MD (PCP/Family) Departure Forms: Customer Survey General Discharge Information Comments 06/24/16 4:[address] and neck CT are negative. He says he's been falling frequently. We will have the nurse walk him and I will check labs. 06/24/16 7:30 PM PATIENT SIGNED OUT TO DR HILLMAN PENDING CASE MANAGEMENT CONSULT.PATIENT: DENNY VARGAS PRESENT AGE: 70 PATIENT ACCOUNT NO: [id number] : 45 LOCATION: [facility] ORDERING PHYSICIAN: JETHRO STAFFORD DO SERVICE DATE: 06/24/16 EXAM TYPE: CAT - CT CERV SPINE WO IV CONTRAST; CT HEAD WO IV CONTRAST Indication: Trauma EXAMINATION: Noncontrast CT brain, noncontrast CT cervical spine. FINDINGS: CT brain Axial imaging. No hemorrhage. No midline shift. No mass effect. The basilar cisterns are patent. Posterior fossa risk grossly within normal limits. No extra-axial collection. No fracture is seen. There is atrophy and white matter ischemic change. Cervical spine Axial imaging with coronal and sagittal reformatted images. FINDINGS: Degenerative changes. Plate and screws anterior at C5-C6-C7. No acute fracture or dislocation. IMPRESSION: Negative acute noncontrast CT of the brain. Atrophy and white matter ischemia is noted. No acute fracture or dislocation cervical spine. Degenerative changes and hardware present. DICTATED BY: JETHRO CLAROS MD DATE/TIME DICTATED:06/24/161558 [employer] B[employer] CONSULTANT:TYLER DATE/TIME TRANSCRIBED:06/24/161558 CONFIDENTIAL, DO NOT COPY WITHOUT APPROPRIATE AUTHORIZATION. <Electronically signed in Other Vendor System> SIGNED BY: JETHRO CLAROS MD 06/24/16 1600 (JETHRO STAFFORD DO) Departure Time of Disposition: 902 Disposition: ACUTE REHAB FACILITY Clinical Impression Primary Impression: Head injury Qualifiers: Encounter type: initial encounter Qualified Code: S09.90XA - Unspecified injury of head, initial encounter Secondary Impressions: Fall Qualifiers: Encounter type: initial encounter Qualified Code: W19.XXXA - Unspecified fall, initial encounter Parkinson disease Weakness (AMBREEN WILDER MD) Critical Care Note Critical Care Note Critical Care Time: non-applicable (JETHRO STAFFORD DO) SIGNED BY: JETHRO CLAROS MD 06/24/16 1601 (JETHRO STAFFORD DO) Critical Care Note Critical Care Note Critical Care Time: non-applicable (JETHRO STAFFORD DO)
[2016-06-24] MEDS ORDERED: TRAZODONE HCL50 M1 PO (14:33)
[2016-06-24] MEDS ORDERED: ARTIFICIAL TEAR15 M8 OP (14:34)
[2016-06-24] MEDS ORDERED: TOUJEO SOL300 UNIT/1 SC (14:35)
[2016-06-24] MEDS ORDERED: VITAMIN B-650 M2 PO (14:37)
[2016-06-24] MEDS ORDERED: COUMADIN1 M1 PO (14:44)
--- NOTE | 2016-06-24 16:08 | CT SCAN REPORT ---
Indication: Trauma EXAMINATION: Noncontrast CT brain, noncontrast CT cervical spine. FINDINGS: CT brain Axial imaging. No hemorrhage. No midline shift. No mass effect. The basilar cisterns are patent. Posterior fossa risk grossly within normal limits. No extra-axial collection. No fracture is seen. There is atrophy and white matter ischemic change. Cervical spine Axial imaging with coronal and sagittal reformatted images. FINDINGS: Degenerative changes. Plate and screws anterior at C5-C6-C7. No acute fracture or dislocation. IMPRESSION: Negative acute noncontrast CT of the brain. Atrophy and white matter ischemia is noted. No acute fracture or dislocation cervical spine. Degenerative changes and hardware present.
[2016-06-24 17:00] LABS: ABSOLUTE BASOPHIL COUNT 0 /CUMM (0.0-0.2); ABSOLUTE EOSINOPHIL COUNT 0.2 /CUMM (0.0-0.7); ABSOLUTE GRANULOCYTE CT 4.8 /CUMM (1.4-6.5); ABSOLUTE LYMPH COUNT 1.6 /CUMM (1.2-3.4); ABSOLUTE MONOCYTE COUNT 0.8 /CUMM (0.10-0.60); BASOPHIL % 0.7 % (0.0-2.0); EOSINOPHIL % 2.1 % (0-5); GRANULOCYTE % 64.9 % (42.2-75.2); HEMATOCRIT 30.1 % (42-52); MEAN CORPUSCULAR HGB 22.8 PG (27.0-31.0); MEAN CORPUSCULAR HGB CONC 31.6 G/DL (33.0-37.0); MEAN CORPUSCULAR VOLUME 72.3 FL (80.0-94.0); MEAN PLATELET VOLUME 8.1 FL (7.4-10.4); PLATELET COUNT 318 /CUMM (130-400); RBC DISTRIBUTION WIDTH 20.2 % (11.5-14.5); RED BLOOD CELL CT 4.16 /CUMM (4.70-6.10); WHITE BLOOD CELL COUNT 7.3 /CUMM (4.8-10.8)
[2016-06-24 17:03] LABS: PT 22.2 SEC (9.4-12.5)
[2016-06-26 10:26] VITALS: BP 158/82
== END 2016-06-26 10:41 ==
LOC: ERH 14:14
PROVIDERS: Emergency Medicine
DX: S09.90XA Unspecified injury of head, initial encounter (principal); G20 Parkinson's disease; R53.1 Weakness; W19.XXXA Unspecified fall, initial encounter; Y92.9 Unspecified place or not applicable; Y93.9 Activity, unspecified; Z79.01 Long term (current) use of anticoagulants
CPT/HCPCS: 81001; 87086; 93005; 93010; 96372; 97112-GP; 97162-GP; 97530-GP; G8978-GP; G8979-GP

== ENCOUNTER 2016-08-03 10:41 | Emergency (ER) | payer OTHER, MEDICARE ==
[~2016-08-03] VITALS: Ht 185.4 cm; Wt 126.2 kg
[~2016-08-03 10:41] MED LIST changes: +ARTIFICIAL TEAR15 M8 OP; +COUMADIN1 M1 PO; +VITAMIN B-650 M2 PO
[2016-08-03 11:12] LABS: ABSOLUTE BASOPHIL COUNT 0 /CUMM (0.0-0.2); ABSOLUTE EOSINOPHIL COUNT 0.1 /CUMM (0.0-0.7); ABSOLUTE GRANULOCYTE CT 5.9 /CUMM (1.4-6.5); ABSOLUTE LYMPH COUNT 1.2 /CUMM (1.2-3.4); ABSOLUTE MONOCYTE COUNT 0.5 /CUMM (0.10-0.60); BASOPHIL % 0.4 % (0.0-2.0); EOSINOPHIL % 1.5 % (0-5); GRANULOCYTE % 75.9 % (42.2-75.2); HEMATOCRIT 30.7 % (42-52); MEAN CORPUSCULAR HGB 23.6 PG (27.0-31.0); MEAN CORPUSCULAR HGB CONC 32.3 G/DL (33.0-37.0); PLATELET COUNT 317 /CUMM (130-400); RBC DISTRIBUTION WIDTH 19.9 % (11.5-14.5); RED BLOOD CELL CT 4.21 /CUMM (4.70-6.10); WHITE BLOOD CELL COUNT 7.8 /CUMM (4.8-10.8)
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
[2016-08-03 12:02] LABS: PT 38.3 SEC (9.4-12.5); PTT 43 SEC (25-37)
[2016-08-03] MEDS ORDERED: NEURONTIN100 M1 PO (15:45)
[2016-08-03] MEDS ORDERED: CARBIDOPA-LEVO1 EAC7 PO (15:47)
[2016-08-03] MEDS ORDERED: COUMADIN7.5 M1 PO (15:47)
[2016-08-03] MEDS ORDERED: LEVEMIR FL100 UNIT/1 SC (15:49)
[2016-08-03] MEDS ORDERED: LISINOPRIL5 M1 PO (15:50)
[2016-08-03] MEDS ORDERED: OS-CAL 500+D31 EAC1 PO (15:52)
[2016-08-03] MEDS ORDERED: MILK OF MA400 MG/52 PO (15:58)
[2016-08-03] MEDS ORDERED: HYDROMORPHONE HC4 M1 PO (15:59)
[2016-08-03 16:32] VITALS: BP 172/80
== END 2016-08-03 16:50 ==
LOC: ERH 10:41
PROVIDERS: Nurse Practitioner Family
DX: R53.1 Weakness (principal); G20 Parkinson's disease; Z95.2 Presence of prosthetic heart valve; Z79.01 Long term (current) use of anticoagulants
CPT/HCPCS: 93005; 93010; 97161-GP; 97530-GP; G8978-GP; G8979-GP

== ENCOUNTER 2016-09-04 23:37 | Emergency (ER) | payer OTHER, MEDICARE ==
[~2016-09-04] VITALS: Ht 185.4 cm; Wt 130.6 kg
[~2016-09-04 23:37] MED LIST changes: +CARBIDOPA-LEVO1 EAC7 PO; +LISINOPRIL5 M1 PO; +MILK OF MA400 MG/52 PO; +NEURONTIN100 M1 PO; +OS-CAL 500+D31 EAC1 PO
--- NOTE | 2016-09-04 23:42 | ED MVC/FALL/TRAUMA COMPLAINT ---
History of Present Illness General Chief Complaint: Fall Stated Complaint: FALL, BUMP HEAD Source: patient Exam Limitations: no limitations Vital Signs & Intake/Output Vital Signs & Intake/Output Vital Signs Date Time Temp Pulse Resp B/P B/P Pulse O2 O2 Flow FiO2 Mean Ox Delivery Rate 09/05 0146 97.1 57 20 116/58 99 Room Air 09/04 2349 97 Room Air Room Air 09/04 2339 97.4 66 20 142/65 95 Room Air ED Intake and Output 09/05 0000 09/04 1200 Intake Total Output Total Balance Patient 288 lb Weight Allergies Coded Allergies: Penicillins (Intermediate, HIVES 05/03/15) levetiracetam (From [facility]) (UNKNOWN 08/03/16) morphine (Mild, PT SAYS IT "DOESNT BOTHER HIM" 05/03/15) Reconcile Medications Acetaminophen (Tylenol) 325 MG TABLET 2 TAB PO Q6-PRN PRN PAIN (Reported) Albuterol Sulfate 2.5 MG/3 ML (0.083 %) VIAL.NEB 1 Vial INH/MELIA 4 TIMES/DAY PRN WHEEZING (Reported) Atorvastatin Calcium (Lipitor) 40 MG TABLET 1 TAB PO DAILY HYPERLIPIDEMIA ( Reported) Calcium Carbonate/Vitamin D3 (Os-Jose 500+D3 Caplet) 500 MG-200 TABLET 1 TAB PO DAILY SUPPLEMENT (Reported) Carbidopa/Levodopa (Carbidopa-Levodopa 25-100 Tab) 25 MG-100 MG TABLET 1 TAB PO TID PARKINSONS (Reported) Celecoxib (Celebrex) 200 MG CAPSULE 1 CAP PO QHS PAIN CONTROL (Reported) Cholecalciferol (Vitamin D3) 1,000 UNIT TABLET 1 TAB PO DAILY BONE STRENGTH ( Reported) Docusate Sodium (Colace) 100 MG CAPSULE 1 CAP PO BID GI (Reported) Duloxetine HCl 30 MG CAPSULE.DR 60 MG PO DAILY MOOD (Reported) Entacapone (Comtan) 200 MG TABLET 1 TAB PO TID PARKINSONS (Reported) Fenofibrate,Micronized (Fenofibrate) 134 MG CAPSULE 1 CAP PO DAILY TRIGLYCERIDES (Reported) Folic Acid 1 MG TABLET 1 TAB PO DAILY SUPPLEMENT (Reported) Furosemide (Lasix) 20 MG TABLET 1 TAB PO DAILY WATER PILL (Reported) Gabapentin (Neurontin) 100 MG CAPSULE 700 MG PO TID PAIN (Reported) Hydromorphone HCl 4 MG TABLET 6 MG PO Q4P PRN PAIN (Reported) Insulin Aspart, Recombinant (Novolog Flexpen) (Unknown Strength) INSULN.PEN ( Unknown Dose) SEE SLIDING SCALE DIABETES (Reported) SLIDING SCALE: 150-200 4 UNITS 201-250 6 UNITS 251-300 8 UNITS 301-350 10 UNITS 351-400 12 UNITS OVER 400 CALL MD PER [facility] Insulin Detemir (Levemir Flextouch) 100 UNIT/ML (3 ML) INSULN.PEN 40 UNITS SC QPM DIABETES (Reported) Insulin Detemir (Levemir Flextouch) 100 UNIT/ML (3 ML) INSULN.PEN 35 UNITS SC QAM DIABETES (Reported) Lidocaine (Lidoderm) 5 % ADH..PATCH 1 PAT TOP DAILY PAIN (Reported) Lisinopril 5 MG TABLET 1 TAB PO DAILY HTN (Reported) Magnesium Hydroxide (Milk Of Magnesia) 400 MG/5 ML ORAL.SUSP 5 ML PO Q72 PRN CONSTIPATION (Reported) Magnesium Oxide 400 MG TABLET 1 TAB PO DAILY SUPPLEMENT (Reported) Metoprolol Succ XL (Toprol Xl) 50 MG TAB 1 TAB PO DAILY BP (Reported) Omeprazole 40 MG CAPSULE.DR 1 CAP PO DAILY reflux (Reported) Polyethylene Glycol 3350 (Miralax) 17 GRAM POWD.PACK 1 PAC PO DAILY GI ( Reported) Polyvinyl Alcohol (Artificial Tears) 1.4 % DROPS 1 DROP OP 4 TIMES/DAY EYE ( Reported) Pregabalin (Lyrica) 50 MG CAPSULE 1 CAP PO TID PAIN (Reported) Pyridoxine HCl (Vitamin B-6) 50 MG TABLET 1 TAB PO DAILY SUPPLEMENT (Reported ) Sennosides (Senna) 8.6 MG TABLET 1 TAB PO BID GI (Reported) Warfarin Sodium (Coumadin) 7.5 MG TABLET 1 TAB PO DAILY AFIB (Reported) Zolpidem Tartrate (Ambien) 10 MG TABLET 1 TAB PO QPMP PRN SLEEP (Reported) Triage Nurses Notes Reviewed? yes Onset: Abrupt Duration: hour(s): Timing: recent history Severity: mild, moderate Injuries/Fall Location: head Method of Injury: direct blow, fall Loss of Consciousness: no loss of consciousness Modifying Factors: Improves With: rest. Associated Symptoms: head ache HPI: 70yo gentleman, on coumadin for a st. keanu's valve h/o parkinson's, from assisted living, fell while walking with his walker to the bathroom. He hit his head. He states that he did not lose consciousness. He notes a mild headache. He notes that he has no other injury and is otherwise well. He had no chest pain or syncopal type symptoms. He is not dizzy. He states that he has trouble walking at baseline due to his Parkinson's disease. He walks with a walker and has good support at his assisted living facility. He would like to go home if his evaluation is negative. Past History Travel History Traveled to [place] past 21 day No Medical History Any Pertinent Medical History? 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 No Review of Systems Review of Systems Constitutional: Reports: no symptoms. Eyes: Reports: no symptoms. Ears, Nose, Throat, Mouth: Reports: no symptoms. Respiratory: Reports: no symptoms. Cardiovascular: Reports: no symptoms. Gastrointestinal/Abdominal: Reports: no symptoms. Genitourinary: Reports: no symptoms. Musculoskeletal: Reports: no symptoms. Skin: Reports: no symptoms. Neurological/Psychological: Reports: no symptoms. All Other Systems: Reviewed and Negative Physical Exam Physical Exam General Appearance: well developed/nourished, no apparent distress, alert, awake , comfortable Head: atraumatic, normal appearance, active bleeding Eyes: Bilateral: normal appearance, PERRL, EOMI, normal inspection. Neck: normal inspection, supple, full range of motion, normal alignment Respiratory: normal breath sounds, chest non-tender, no respiratory distress Cardiovascular: regular rate/rhythm Gastrointestinal: normal bowel sounds, soft, non-tender Back: normal inspection Extremities: normal range of motion Neurologic/Psych: no motor/sensory deficits, awake, alert, oriented x 3 Skin: intact, normal color, warm/dry Core Measures ACS in differential dx? No Severe Sepsis Present: No Septic Shock Present: No Progress Differential Diagnosis: C/T/L spine injury, ICH Plan of Care: Orders Procedure Date/time Status TROPONIN LEVEL 09/04 2341 Complete PARTIAL THROMBOPLASTIN TIME 09/04 2341 Complete PROTHROMBIN TIME 09/04 2341 Complete COMPREHENSIVE METABOLIC PANEL 09/04 2341 Complete CBC WITHOUT DIFFERENTIAL 09/04 2341 Complete EKG 09/04 2341 Active Laboratory Tests 09/05/16 0000: Anion Gap 4 L, Estimated GFR 25 L, BUN/Creatinine Ratio 25.0, Glucose 100 H, Calcium 8.5, Total Bilirubin 0.5, AST 48, ALT 19 L, Alkaline Phosphatase 59, Troponin I 0.06, Total Protein 5.4 L, Albumin 3.3 L, Globulin 2.1, Albumin/ Globulin Ratio 1.6, PT 27.7 H, INR 2.66 H, APTT 41 H, CBC w Diff MAN DIFF ORDERED, RBC 3.98 L, MCV 73.9 L, MCH 23.9 L, RDW 20.2 H, MPV 7.8, Gran % 84.5 H, Lymphocytes % 7.7 L, Monocytes % 7.0, Eosinophils % 0.6, Basophils % 0.2, Absolute Granulocytes 12.2 H, Segmented Neutrophils 75, Absolute Lymphocytes 1.1 L, Lymphocytes 12 L, Monocytes 11 H, Absolute Monocytes 1.0 H, Eosinophils 1, Absolute Eosinophils 0.1, Basophils 1, Absolute Basophils 0, Platelet Estimate ADEQUATE, Hypochromic-Microcytic 1+, Poikilocytosis 1+, Anisocytosis 1+, Microcytic Cells 1+, Ovalocytes 1+, PUBS MCHC 32.3 L, Fld Total RBCs Counted 100 Diagnostic Imaging: Viewed by Me: CT Scan. Discussed w/RAD: CT Scan. Radiology Impression: head/cervical ct.. no acute disease. Comments: PATIENT: DENNY VARGAS PRESENT AGE: 70 PATIENT ACCOUNT NO: [id number] : 45 LOCATION: [facility] ORDERING PHYSICIAN: CECILE HICKMAN MD SERVICE DATE: 09/04/164708 EXAM TYPE: CAT - CT CERV SPINE WO IV CONTRAST; CT HEAD WO IV CONTRAST EXAMINATION: CT HEAD WITHOUT CONTRAST CT CERVICAL SPINE WITHOUT CONTRAST CLINICAL INFORMATION: Head injury. On Coumadin. COMPARISON: CT head 05/10/2016 TECHNIQUE: Imaging was performed from the skull base to vertex without intravenous administration of contrast. In addition, helical noncontrast CT imaging was acquired through the cervical spine and source images were reviewed along with axial reconstructions and sagittal and coronal MPRs. DLP: 1037.52 mGy-cm FINDINGS: HEAD: No intracranial mass, hemorrhage, or midline shift is visualized. There is atrophy with prominence of the ventricles and the sulci and hypodensity of the periventricular white matter due to chronic small vessel ischemic disease. There is vascular calcifications of the internal carotid arteries bilaterally. No extra-axial collections are identified. The paranasal sinuses and mastoid air cells are well aerated. CERVICAL SPINE: There is no evidence of acute cervical spine fracture. Vertebral bodies are normal in height with no fracture. Status post fusion with orthopedic plate and screw C5-C7. Degenerative spondylosis of the spine with facet joint narrowing and spurring bilateral most pronounced at the upper cervical spine. No pre- or paravertebral soft tissue abnormality is identified. Limited assessment of the lung apices is unremarkable. IMPRESSION: 1. No acute intracranial pathology. 2. No CT evidence of acute cervical spine fracture or traumatic subluxation Status post fusion C5 C7. Degenerative spondylosis of cervical spine. DICTATED BY: UMANG PITT MD DATE/TIME DICTATED:09/05/1627 [employer] PROFESSOR:TYLER DATE/TIME TRANSCRIBED:09/05/1627 CONFIDENTIAL, DO NOT COPY WITHOUT APPROPRIATE AUTHORIZATION. <Electronically signed in Other Vendor System> SIGNED BY: UMANG PITT MD 09/05/16 0039 Departure Departure Disposition: HOME OR SELF CARE Condition: Stable Clinical Impression Primary Impression: Fall Secondary Impressions: Head injury Referrals: KOFFI RODGERS MD (PCP/Family) Departure Forms: Customer Survey General Discharge Information Comments Patient with benign labs and a benign head and neck CT scan. Patient safe for discharge back to his assisted living facility. Of note his INR is 2.6, therapeutic on his Coumadin.
[2016-09-05 00:14] LABS: ABSOLUTE BASOPHIL COUNT 0 /CUMM (0.0-0.2); ABSOLUTE EOSINOPHIL COUNT 0.1 /CUMM (0.0-0.7); ABSOLUTE GRANULOCYTE CT 12.2 /CUMM (1.4-6.5); ABSOLUTE LYMPH COUNT 1.1 /CUMM (1.2-3.4); BASOPHIL % 0.2 % (0.0-2.0); EOSINOPHIL % 0.6 % (0-5); GRANULOCYTE % 84.5 % (42.2-75.2); HEMATOCRIT 29.4 % (42-52); MEAN CORPUSCULAR HGB 23.9 PG (27.0-31.0); MEAN CORPUSCULAR HGB CONC 32.3 G/DL (33.0-37.0); MEAN CORPUSCULAR VOLUME 73.9 FL (80.0-94.0); MEAN PLATELET VOLUME 7.8 FL (7.4-10.4); PLATELET COUNT 292 /CUMM (130-400); RBC DISTRIBUTION WIDTH 20.2 % (11.5-14.5); RED BLOOD CELL CT 3.98 /CUMM (4.70-6.10); WHITE BLOOD CELL COUNT 14.4 /CUMM (4.8-10.8)
[2016-09-05 00:20] LABS: PT 27.7 SEC (9.4-12.5); PTT 41 SEC (25-37)
--- NOTE | 2016-09-05 00:39 | CT SCAN REPORT ---
EXAMINATION: CT HEAD WITHOUT CONTRAST CT CERVICAL SPINE WITHOUT CONTRAST CLINICAL INFORMATION: Head injury. On Coumadin. COMPARISON: CT head 05/10/2016 TECHNIQUE: Imaging was performed from the skull base to vertex without intravenous administration of contrast. In addition, helical noncontrast CT imaging was acquired through the cervical spine and source images were reviewed along with axial reconstructions and sagittal and coronal MPRs. DLP: 1037.52 mGy-cm FINDINGS: HEAD: No intracranial mass, hemorrhage, or midline shift is visualized. There is atrophy with prominence of the ventricles and the sulci and hypodensity of the periventricular white matter due to chronic small vessel ischemic disease. There is vascular calcifications of the internal carotid arteries bilaterally. No extra-axial collections are identified. The paranasal sinuses and mastoid air cells are well aerated. CERVICAL SPINE: There is no evidence of acute cervical spine fracture. Vertebral bodies are normal in height with no fracture. Status post fusion with orthopedic plate and screw C5-C7. Degenerative spondylosis of the spine with facet joint narrowing and spurring bilateral most pronounced at the upper cervical spine. No pre- or paravertebral soft tissue abnormality is identified. Limited assessment of the lung apices is unremarkable. IMPRESSION: 1. No acute intracranial pathology. 2. No CT evidence of acute cervical spine fracture or traumatic subluxation Status post fusion C5 C7. Degenerative spondylosis of cervical spine.
[2016-09-05 01:46] VITALS: BP 116/58
== END 2016-09-05 02:58 ==
LOC: ERH 23:37
PROVIDERS: Pediatrics
DX: S09.90XA Unspecified injury of head, initial encounter (principal); Z79.01 Long term (current) use of anticoagulants; W19.XXXA Unspecified fall, initial encounter; Y92.129 Unspecified place in nursing home as the place of occurrence of the external cause
CPT/HCPCS: 93005; 93010; J3101

== ENCOUNTER 2016-09-07 12:52 | Inpatient (IN) | payer OTHER, MEDICARE ==
[~2016-09-07] VITALS: Ht 185.4 cm; Wt 131.1 kg
--- NOTE | 2016-09-07 12:59 | ED DYSPNEA/ASTHMA COMPLAINT ---
History of Present Illness General Chief Complaint: Dyspnea (COPD, CHF, Other) Stated Complaint: BIBA FOR SOB, AMS Source: patient, old records, EMS Exam Limitations: clinical condition Vital Signs & Intake/Output Vital Signs & Intake/Output Vital Signs Date Time Temp Pulse Resp B/P B/P Pulse O2 O2 Flow FiO2 Mean Ox Delivery Rate 09/07 1508 94 BIPAP 35% 09/07 1505 94 09/07 1426 96 Nasal 3.0L Cannula 09/07 1256 97.6 77 22 142/66 97 Aerosol Mask Allergies Coded Allergies: Penicillins (Intermediate, HIVES 05/03/15) levetiracetam (From [facility]) (UNKNOWN 08/03/16) morphine (Mild, PT SAYS IT "DOESNT BOTHER HIM" 05/03/15) Reconcile Medications Atorvastatin Calcium (Lipitor) 40 MG TABLET 1 TAB PO DAILY HYPERLIPIDEMIA ( Reported) Calcium Carbonate (Oyster Shell Calcium) 500 MG CALCIUM (1,250 MG) TABLET 1 TAB PO DAILY SUPPLEMENT (Reported) Carbidopa/Levodopa (Carbidopa-Levodopa 25-100 Tab) 25 MG-100 MG TABLET 1 TAB PO TID PARKINSONS (Reported) Celecoxib (Celebrex) 200 MG CAPSULE 1 CAP PO QHS PAIN CONTROL (Reported) Docusate Sodium (Colace) 100 MG CAPSULE 1 CAP PO BID GI (Reported) Duloxetine HCl 30 MG CAPSULE.DR 60 MG PO DAILY MOOD (Reported) Entacapone (Comtan) 200 MG TABLET 1 TAB PO TID PARKINSONS (Reported) Fenofibrate,Micronized (Fenofibrate) 134 MG CAPSULE 1 CAP PO DAILY TRIGLYCERIDES (Reported) Folic Acid 1 MG TABLET 1 TAB PO DAILY SUPPLEMENT (Reported) Furosemide (Lasix) 20 MG TABLET 1 TAB PO DAILY WATER PILL (Reported) Gabapentin (Neurontin) 100 MG CAPSULE 700 MG PO TID PAIN (Reported) Insulin Aspart, Recombinant (Novolog Flexpen) (Unknown Strength) INSULN.PEN ( Unknown Dose) SEE SLIDING SCALE DIABETES (Reported) SLIDING SCALE: 150-200 4 UNITS 201-250 6 UNITS 251-300 8 UNITS 301-350 10 UNITS 351-400 12 UNITS OVER 400 CALL MD PER [facility] Insulin Detemir (Levemir Flextouch) 100 UNIT/ML (3 ML) INSULN.PEN 48 UNITS SC BID DIABETES (Reported) Lisinopril 5 MG TABLET 1 TAB PO DAILY HTN (Reported) Magnesium Oxide 400 MG TABLET 1 TAB PO DAILY SUPPLEMENT (Reported) Metoprolol Succ XL (Toprol Xl) 50 MG TAB 1 TAB PO DAILY BP (Reported) Omeprazole 40 MG CAPSULE.DR 1 CAP PO DAILY reflux (Reported) Polyethylene Glycol 3350 (Miralax) 17 GRAM POWD.PACK 1 PAC PO DAILY GI ( Reported) Polyvinyl Alcohol (Artificial Tears) 1.4 % DROPS 1 DROP OP 4 TIMES/DAY EYE ( Reported) Pregabalin (Lyrica) 50 MG CAPSULE 1 CAP PO TID PAIN (Reported) Pyridoxine HCl (Vitamin B-6) 50 MG TABLET 1 TAB PO DAILY SUPPLEMENT (Reported ) Sennosides (Senna) 8.6 MG TABLET 1 TAB PO BID GI (Reported) Warfarin Sodium (Coumadin) 7.5 MG TABLET 1 TAB PO DAILY AFIB (Reported) Zolpidem Tartrate (Ambien) 10 MG TABLET 1 TAB PO QPM SLEEP (Reported) Triage Nurses Notes Reviewed? yes Onset: Abrupt Duration: day(s):, getting worse Timing: recent history Severity: moderate, severe HPI: 70-year-old male comes into emergency room by EMS for shortness of breath. Patient comes from a assisted living facility. He has been short of breath and coughing for the past few days getting progressively worse. Sweating. He denies any chest pain. He usually is very alert and oriented 3 but the facility reports he's been mildly confused. Ambulance reports that he was hypotensive upon arrival as well as 02 SATURATION in the 80s and tachypnea. He was given a DuoNeb en route in a line was started and a liter of fluid was given. (WILI CHAND) Past History Travel History Traveled to [place] past 21 day No Medical History Any Pertinent Medical History? 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 No (WILI CHAND) Review of Systems Review of Systems Constitutional: Reports: see HPI. EENTM: Reports: see HPI. Respiratory: Reports: see HPI. Cardiovascular: Reports: no symptoms. GI: Reports: no symptoms. Genitourinary: Reports: no symptoms. Musculoskeletal: Reports: no symptoms. Skin: Reports: no symptoms. Neurological/Psychological: Reports: no symptoms. Hematologic/Endocrine: Reports: no symptoms. Immunologic/Allergic: Reports: no symptoms. All Other Systems: Reviewed and Negative (WILI CHAND) Physical Exam Physical Exam General Appearance: alert, awake, moderate distress Head: atraumatic, normal appearance Eyes: Bilateral: normal appearance, EOMI. Ears, Nose, Throat: normal ENT inspection, hearing grossly normal Neck: normal inspection Respiratory: decreased breath sounds, rhonchi, wheezing, respiratory distress ( moderate) Cardiovascular: regular rate/rhythm Gastrointestinal: soft, non-tender Extremities: normal inspection, normal range of motion, no edema Neurologic/Psych: awake, alert, oriented x 3, normal gait Skin: intact, normal color Core Measures ACS in differential dx? Yes Severe Sepsis Present: No Septic Shock Present: No (WILI CHAND) Progress Differential Diagnosis: asthma, AMI, bronchitis, costochondritis, CHF, COPD, musculoskeletal pain, pericarditis, pulmonary embolism, pneumonia, pneumothorax, rib fracture, unstable angina Plan of Care: Orders Procedure Date/time Status LACTIC ACID 09/07 1558 Active Admit to inpatient 09/07 1532 Active Patient Data 09/07 1513 Active BIPAP 09/07 1428 Active Workman, Insertion/Removal/Asses 09/07 1404 Active CULTURE,URINE 09/07 1404 Active Add-on Test (ER Only) 09/07 1309 Active ARTERIAL BLOOD GAS (GEN) 09/07 1258 Complete BLOOD CULTURE 09/07 1258 Active URINALYSIS 09/07 125 Complete TROPONIN LEVEL 09/07 125 Complete PROTHROMBIN TIME 09/07 125 Complete LIPASE 09/07 125 Complete LACTIC ACID 09/07 1257 Complete COMPREHENSIVE METABOLIC PANEL 09/07 125 Complete CBC WITHOUT DIFFERENTIAL 09/07 1257 Complete B-TYPE NATRIURETIC PEP (BNP) 09/07 125 Complete AMYLASE 09/07 125 Complete EKG 09/07 125 Active Laboratory Tests 09/07/16 1410: Urine Color YEL, Urine Clarity CLEAR, Urine pH 6.0, Ur Specific [place] 1.025, Urine Protein 100 H, Urine Ketones NEG, Urine Nitrite NEG, Urine Bilirubin NEG, Urine Urobilinogen 0.2, Ur Leukocyte Esterase NEG, Ur Microscopic SEDIMENT EXAMINED, Urine RBC 10-15 H, Urine WBC RARE, Ur Epithelial Cells FEW, Urine Bacteria RARE H, Urine Mucus FEW, Urine Hemoglobin TRACE-LYSED H, Urine Glucose NEG 09/07/16 1330: pH 7.29 *L, pCO2 56 H, pO2 77 L, HCO3 26, ABG O2 Sat (Measured) 93.0 L, P-50 (Temp Corrected) N, Carboxyhemoglobin 0.8 L, O2 Concentration % 4L, Temperature 97.6, O2 Delivery Method N/C, Phlebotomy Draw Site LEFT RADIAL 09/07/16 1306: Anion Gap 7, Estimated GFR 19 L, BUN/Creatinine Ratio 21.6, Glucose 207 H, Lactic Acid < 0.5 L, Calcium 7.7 L, Total Bilirubin 0.4, AST 33, ALT 13 L, Alkaline Phosphatase 61, Troponin I 0.05, Nsw-F-Euxpgajxeiu Pept 2100 H, Total Protein 5.2 L, Albumin 3.0 L, Globulin 2.2, Albumin/Globulin Ratio 1.4, Amylase 55, Lipase 43, CBC w Diff NO MAN DIFF REQ, RBC 3.67 L, MCV 76.1 L, MCH 23.8 L, RDW 20.9 H, MPV 7.5, Gran % 77.2 H, Lymphocytes % 11.2 L, Monocytes % 10.1 H, Eosinophils % 1.2, Basophils % 0.3, Absolute Granulocytes 5.9, Absolute Lymphocytes 0.9 L, Absolute Monocytes 0.8 H, Absolute Eosinophils 0.1 , Absolute Basophils 0, PUBS MCHC 31.3 L 09/07/16 1258: PT 67.9 *H, INR 6.59 *H Microbiology 09/07 1420 BLOOD: Blood Culture - RECD 09/07 1410 URINE ROUT: Urine Culture - RECD 09/07 1306 BLOOD: Blood Culture - RECD Diagnostic Imaging: Viewed by Me: Radiology Read. Discussed w/RAD: Radiology Read. Radiology Impression: PATIENT: DENNY VARGAS PRESENT AGE: 70 PATIENT ACCOUNT NO: [id number] : 45 LOCATION: [facility] ORDERING PHYSICIAN: WILI BIRCH SERVICE DATE: 09/07/16 EXAM TYPE: RAD - XRY-PORTABLE CHEST XRAY EXAMINATION: XR PORTABLE CHEST CLINICAL INFORMATION: Shortness of breath COMPARISON: Previous chest x-ray May 2009 TECHNIQUE: Portable frontal view of the chest was obtained. FINDINGS: The cardiac silhouette is enlarged but stable. There are median sternotomy wires. Hilar and mediastinal contours are unremarkable. The lungs are clear. There is no pleural effusion or pneumothorax. There is evidence of surgery to the right proximal humerus. The right glenohumeral distance appears slightly prominent. This could be better evaluated with the right shoulder x-ray if clinically indicated. There are degenerative changes of the spine. There is evidence of previous surgery to the cervical spine. IMPRESSION: Stable enlargement of the cardiac silhouette. Question widened right glenohumeral joint. This could be further evaluated with the right shoulder x-ray if clinically indicated. DICTATED BY: JULIAN ECHOLS MD DATE/TIME DICTATED:09/07/161420 LABEL TACKER:TYLER DATE/TIME TRANSCRIBED:09/07/161420 CONFIDENTIAL, DO NOT COPY WITHOUT APPROPRIATE AUTHORIZATION. <Electronically signed in Other Vendor System> SIGNED BY: JULIAN ECHOLS MD 09/07/161426 Initial ED EKG: normal intervals, normal p-waves, normal sinus rhythm (75), first-degree heart block, (WILI CHAND) Departure Departure Disposition: STILL A PATIENT Condition: Stable Clinical Impression Primary Impression: Respiratory failure Secondary Impressions: Bronchitis, Hypoxia Referrals: KOFFI RODGERS MD (PCP/Family) Departure Forms: Customer Survey General Discharge Information Admission Note Spoke With: KOFFI RODGERS MD Documentation of Exam: Documentation of any treatments & extenuating circumstances including Concerns Regarding Discharge (functional status, medication knowledge or non-compliance, living conditions, etc.) that warrant an admission rather than observation: Patient will require IV steroids. Regular breathing treatments. Supplemental oxygen. BiPAP. Pulmonary consult. High risk. Patient would do poorly as an outpatient. (WILI CHAND) PA/STAFF RADIOLOGIST Co-Sign Statement Statement: ED Attending supervision documentation- [X] I saw and evaluated the patient. I have also reviewed all the pertinent lab results and diagnostic results. I agree with the findings and the plan of care as documented in the PA's/STAFF RADIOLOGIST's documentation. [] I have reviewed the ED Record and agree with the PA's/STAFF RADIOLOGIST's documentation. [] Additions or exceptions (if any) to the PAs/STAFF RADIOLOGIST's note and plan are summarized below: [] (ARNEL VASQUES,JETHRO Painting) Critical Care Note Critical Care Note Critical Care Time: 30-74 min (35) (WILI CHAND)
--- NOTE | 2016-09-07 13:12 | NUR ---
FREDDY FROM [facility]. PT WAS FOUND HPOGLYCEMIC IN LOW 60'S GIVEN 15GM GLUCOSE PRIOR TO EMS ARRIVAL. UPON EMS ARRIVAL PT WAS STILL IN LOW 60'S AN AMP OF D50 GIVEN. PT BS WAS 103. PT ALSO FOUND TO BE HYPOCAPNIC AND HYPOTENSIVE. PT WITH HX OF PARKINSONS. PT ARRIVED WITH BREATHING TX IN PROGRESS. PT FS HERE READ LESS THAN 50. AMP OF D50 GIVEN. PT PLACED ON MONITOR. EYAL RASHEED IN FOR EVAL. EKG DONE.
--- NOTE | 2016-09-07 13:12 | NUR ---
PER EMS FACILITY REPORTED PT HAS HAD NON PRODUCTIVE COUGH X 4 DAYS WITH RHONCIROUS BREATH SOUNDS.
[2016-09-07 13:18] LABS: ABSOLUTE BASOPHIL COUNT 0 /CUMM (0.0-0.2); ABSOLUTE EOSINOPHIL COUNT 0.1 /CUMM (0.0-0.7); ABSOLUTE GRANULOCYTE CT 5.9 /CUMM (1.4-6.5); ABSOLUTE LYMPH COUNT 0.9 /CUMM (1.2-3.4); ABSOLUTE MONOCYTE COUNT 0.8 /CUMM (0.10-0.60); BASOPHIL % 0.3 % (0.0-2.0); EOSINOPHIL % 1.2 % (0-5); GRANULOCYTE % 77.2 % (42.2-75.2); HEMATOCRIT 27.9 % (42-52); MEAN CORPUSCULAR HGB 23.8 PG (27.0-31.0); MEAN CORPUSCULAR HGB CONC 31.3 G/DL (33.0-37.0); MEAN CORPUSCULAR VOLUME 76.1 FL (80.0-94.0); MEAN PLATELET VOLUME 7.5 FL (7.4-10.4); PLATELET COUNT 261 /CUMM (130-400); RBC DISTRIBUTION WIDTH 20.9 % (11.5-14.5); RED BLOOD CELL CT 3.67 /CUMM (4.70-6.10); WHITE BLOOD CELL COUNT 7.7 /CUMM (4.8-10.8)
--- NOTE | 2016-09-07 13:25 | NUR ---
BLOOD DRAWN AND SENT- 1ST BC, LAV,SST,BLUE,GARCIA. RESP AT BEDSIDE FOR TX, SUCTIONING, AND ABG.
--- NOTE | 2016-09-07 13:35 | NUR ---
CRITICAL TEST RESULTS [id number] DENNY VARGAS 70 M TESTS AND RESULTS: INR 6.59 Results received and read back by: BENITO DOSHI Results received date and time: 09/07/16 1335 The following provider was notified of the results, and read the results back: EYAL TEJADA Notified date and time: 09/07/16 at 1336
[2016-09-07 13:36] LABS: PT 67.9 SEC (9.4-12.5)
--- NOTE | 2016-09-07 14:09 | NUR ---
RAD TO BEDSIDE FOR CHEST XRAY.
--- NOTE | 2016-09-07 14:18 | NUR ---
URINE TRIO SENT
--- NOTE | 2016-09-07 14:24 | NUR ---
LASIX 60MG IV ADMINISTERED ORDERD. 2ND SET OF CULTURE SENT.
[2016-09-07] MEDS ORDERED: OYSTER SHELL C500 M2 PO (14:27)
--- NOTE | 2016-09-07 14:27 | RADIOLOGY REPORT ---
EXAMINATION: XR PORTABLE CHEST CLINICAL INFORMATION: Shortness of breath COMPARISON: Previous chest x-ray May 2009 TECHNIQUE: Portable frontal view of the chest was obtained. FINDINGS: The cardiac silhouette is enlarged but stable. There are median sternotomy wires. Hilar and mediastinal contours are unremarkable. The lungs are clear. There is no pleural effusion or pneumothorax. There is evidence of surgery to the right proximal humerus. The right glenohumeral distance appears slightly prominent. This could be better evaluated with the right shoulder x-ray if clinically indicated. There are degenerative changes of the spine. There is evidence of previous surgery to the cervical spine. IMPRESSION: Stable enlargement of the cardiac silhouette. Question widened right glenohumeral joint. This could be further evaluated with the right shoulder x-ray if clinically indicated.
--- NOTE | 2016-09-07 14:28 | NUR ---
MD ARNEL AT BEDSIDE FOR PT EVAL.
--- NOTE | 2016-09-07 14:48 | NUR ---
RT AT BEDSIDE WITH BIPAP. SOLUMEDROL ADMINISTERED ORDERED. PT DAUGHTER AT BEDSIDE.
--- NOTE | 2016-09-07 15:36 | Admission Certification ---
Admission Certification Certification Statement - As attending physician, I certify that at the time of - admission, based on clinical presentation, severity of - symptoms, need for further diagnostic testing and - therapeutic interventions, and risk of adverse outcomes - without in-hospital treatment, in my clinical assessment, - this patient requires an acute hospital stay for a minimum - of two nights or longer. I have also considered psychsocial - factors such as support system, advanced age, financial - issues, cognitive issues, and failed out-patient treatments, - past re-admission history, safety of patient, and lack of - compliance as applicable. Specific rationale supporting this admission is: SOB weakness lethargy CO2 retention acute bronchitis.
--- NOTE | 2016-09-07 15:42 | PN- Att Addend ---
Attending Addendum Attending Brief Note 70 year old male just returned from short term rehabilitation to assisted living , 2 days of some cough and wheezes this am unable to get up weak coughing sent to the ER found to have poor ABGs hypercarbic, lethargic started on By pap getting better. will admit treat respiratory problems. CXR no acute infiltrates. WBC 7.7 Also supratherapeutic INR to monitor. Laboratory Tests 09/07 09/07 1410 1330 Blood Gas pH (7.35 - 7.45 PH) 7.29 *L pCO2 (35 - 45 TORR) 56 H pO2 (80 - 100 TORR) 77 L HCO3 (21 - 28 MEQ/L) 26 ABG O2 Sat (Measured) (>96.0 %) 93.0 L P-50 (Temp Corrected) N Carboxyhemoglobin (1.5 - 5.0 %) 0.8 L O2 Concentration % 4L Temperature (97.0 - 100.0 FARH) 97.6 O2 Delivery Method N/C Miscellaneous Phlebotomy Draw Site LEFT RADIAL Urines Urine Color (YEL,AMB,STR) YEL Urine Clarity (CLEAR) CLEAR Urine pH (5.0 - 8.0) 6.0 Ur Specific [place] (1.001 - 1.035) 1.025 Urine Protein (NEG,<30 MG/DL) 100 H Urine Ketones (NEG) NEG Urine Nitrite (NEG) NEG Urine Bilirubin (NEG) NEG Urine Urobilinogen (0.1 - 1.0 EU/dl) 0.2 Ur Leukocyte Esterase (NEG) NEG Ur Microscopic SEDIMENT EXAMINED Urine RBC (0 - 5 /HPF) 10-15 H Urine WBC (0 - 2 /HPF) RARE Ur Epithelial Cells (NONE,FEW) FEW Urine Bacteria (NEG/NONE) RARE H Urine Mucus (FEW,NONE) FEW Urine Hemoglobin (NEG) TRACE-LYSED H Urine Glucose (N MG/DL) NEG 09/07 09/07 1306 1258 Chemistry Sodium (137 - 145 mmol/L) 138 Potassium (3.5 - 5.1 mmol/L) 5.0 Chloride (98 - 107 mmol/L) 103 Carbon Dioxide (22 - 30 mmol/L) 28 Anion Gap (5 - 16) 7 BUN (9 - 20 mg/dL) 69 H Creatinine (0.7 - 1.2 mg/dL) 3.2 H Estimated GFR (>60 ml/min) 19 L BUN/Creatinine Ratio (7 - 25 %) 21.6 Glucose (65 - 99 mg/dL) 207 H Lactic Acid (0.7 - 2.1 mmol/L) < 0.5 L Calcium (8.4 - 10.2 mg/dL) 7.7 L Total Bilirubin (0.2 - 1.3 mg/dL) 0.4 AST (17 - 59 U/L) 33 ALT (21 - 72 U/L) 13 L Alkaline Phosphatase (< 127 U/L) 61 Troponin I (<0.11 ng/ml) 0.05 Och-N-Avoamndvepc Pept (<125 pg/mL) 2100 H Total Protein (6.3 - 8.2 g/dL) 5.2 L Albumin (3.5 - 5.0 g/dL) 3.0 L Globulin (1.9 - 4.2 gm/dL) 2.2 Albumin/Globulin Ratio (1.1 - 2.2 %) 1.4 Amylase (30 - 110 U/L) 55 Lipase (23 - 300 U/L) 43 Coagulation PT (9.4 - 12.5 SEC) 67.9 *H INR (0.90 - 1.17) 6.59 *H Hematology CBC w Diff NO MAN DIFF REQ WBC (4.8 - 10.8 /CUMM) 7.7 RBC (4.70 - 6.10 /CUMM) 3.67 L Hgb (14.0 - 18.0 G/DL) 8.7 L Hct (42 - 52 %) 27.9 L MCV (80.0 - 94.0 FL) 76.1 L MCH (27.0 - 31.0 PG) 23.8 L RDW (11.5 - 14.5 %) 20.9 H Plt Count (130 - 400 /CUMM) 261 MPV (7.4 - 10.4 FL) 7.5 Gran % (42.2 - 75.2 %) 77.2 H Lymphocytes % (20.5 - 51.1 %) 11.2 L Monocytes % (1.7 - 9.3 %) 10.1 H Eosinophils % (0 - 5 %) 1.2 Basophils % (0.0 - 2.0 %) 0.3 Absolute Granulocytes (1.4 - 6.5 /CUMM) 5.9 Absolute Lymphocytes (1.2 - 3.4 /CUMM) 0.9 L Absolute Monocytes (0.10 - 0.60 /CUMM) 0.8 H Absolute Eosinophils (0.0 - 0.7 /CUMM) 0.1 Absolute Basophils (0.0 - 0.2 /CUMM) 0 PUBS MCHC (33.0 - 37.0 G/DL) 31.3 L
--- NOTE | 2016-09-07 16:12 | History & Physical ---
General Information and HPI MD Statement: I have seen and personally examined DENNY VARGAS and documented this H&P. The patient is a 70 year old M who presented with a patient stated chief complaint of [hypoxia]. Source of Information: patient Exam Limitations: no limitations History of Present Illness: This is a 70-year-old gentleman with a history of hypertension, Parkinson's disease, frequent falls, history of TIA, multiple back surgeries, [facility] valve on Coumadin since 1996, hyperlipidemia, CKD and diabetes the patient was brought by ambulance to emergency room from intermediate facility after she was found to be hypoglycemic and upon further evaluation hypoxic and hypotensive. Patient denies any history of cough, shortness of breath, palpitation or dizziness prior to be brought to the hospital. He denies any sick contactS, fevers or chills. On arrival in the ER the patient was saturating well at 97% on oxygen mask. Patient has chronic lower limb edema for which she takes Lasix and he has been taking continuously without any problems. He denies any paroxysmal nocturnal dyspnea or orthopnea or worsening of the lower limb edema. Allergies/Medications Allergies: Coded Allergies: Penicillins (Intermediate, HIVES 05/03/15) [facility] ([facility]) (UNKNOWN 08/03/16) Home Med list Atorvastatin Calcium (Lipitor) 40 MG TABLET 1 TAB PO DAILY HYPERLIPIDEMIA ( Reported) Calcium Carbonate (Oyster Shell Calcium) 500 MG CALCIUM (1,250 MG) TABLET 1 TAB PO DAILY SUPPLEMENT (Reported) Carbidopa/Levodopa (Carbidopa-Levodopa 25-100 Tab) 25 MG-100 MG TABLET 1 TAB PO TID PARKINSONS (Reported) Celecoxib (Celebrex) 200 MG CAPSULE 1 CAP PO QHS PAIN CONTROL (Reported) Docusate Sodium (Colace) 100 MG CAPSULE 1 CAP PO BID GI (Reported) Duloxetine HCl 30 MG CAPSULE.DR 60 MG PO DAILY MOOD (Reported) Entacapone (Comtan) 200 MG TABLET 1 TAB PO TID PARKINSONS (Reported) Fenofibrate,Micronized (Fenofibrate) 134 MG CAPSULE 1 CAP PO DAILY TRIGLYCERIDES (Reported) Folic Acid 1 MG TABLET 1 TAB PO DAILY SUPPLEMENT (Reported) Furosemide (Lasix) 20 MG TABLET 1 TAB PO DAILY WATER PILL (Reported) Gabapentin (Neurontin) 100 MG CAPSULE 300 MG PO TID PAIN (Reported) Insulin Aspart, Recombinant (Novolog Flexpen) (Unknown Strength) INSULN.PEN ( Unknown Dose) SEE SLIDING SCALE DIABETES (Reported) SLIDING SCALE: 150-200 4 UNITS 201-250 6 UNITS 251-300 8 UNITS 301-350 10 UNITS 351-400 12 UNITS OVER 400 CALL MD PER [facility] Insulin Detemir (Levemir Flextouch) 100 UNIT/ML (3 ML) INSULN.PEN 48 UNITS SC BID DIABETES (Reported) Lisinopril 5 MG TABLET 1 TAB PO DAILY HTN (Reported) Magnesium Oxide 400 MG TABLET 1 TAB PO DAILY SUPPLEMENT (Reported) Metoprolol Succ XL (Toprol Xl) 50 MG TAB 1 TAB PO DAILY BP (Reported) Omeprazole 40 MG CAPSULE.DR 1 CAP PO DAILY reflux (Reported) Polyethylene Glycol 3350 (Miralax) 17 GRAM POWD.PACK 1 PAC PO DAILY GI ( Reported) Polyvinyl Alcohol (Artificial Tears) 1.4 % DROPS 1 DROP OP 4 TIMES/DAY EYE ( Reported) Pregabalin (Lyrica) 50 MG CAPSULE 1 CAP PO TID PAIN (Reported) Pyridoxine HCl (Vitamin B-6) 50 MG TABLET 1 TAB PO DAILY SUPPLEMENT (Reported ) Sennosides (Senna) 8.6 MG TABLET 1 TAB PO BID GI (Reported) Warfarin Sodium (Coumadin) 7.5 MG TABLET 1 TAB PO DAILY AFIB (Reported) Zolpidem Tartrate (Ambien) 10 MG TABLET 1 TAB PO QPM SLEEP (Reported) Past History Travel History Traveled to [place] past 21 day No Medical History Neurological: CVA, Parkinson's disease, peripheral neuropathy, stroke 4 times after morphine EENT: NONE Cardiovascular: CAD, CHF, hypertension, [facility] PET[facility] VALVE Respiratory: PNA Gastrointestinal: GERD, pancreatitis, peptic ulcer disease, upper GI bleed Hepatic: NONE Renal: NONE Musculoskeletal: chronic back pain, osteoarthritis, osteoporosis, spinal fracture twice MRSA IN WOUND Psychiatric: anxiety Endocrine: diabetes, osteoporosis, vitamin D deficiency Blood Disorders: anemia Cancer(s): melanoma DIAL PRINTER/Reproductive: NONE Other Medical Hx: High cholesterol History of MRSA: Yes History of VRE: No History of CDIFF: No Tetanus Vaccine: 04/10/15 Surgical History Surgical History: knee replacement, laminectomy (L1 to L5), spinal fusion (C5 to C7), BICUSPID VALVE REPLACEMENT status post foot surgery status post hand surgery HAS STEEL PLATES R HAND Past Family/Social History Family History Relations & Conditions if any MOTHER FH: myocardial infarction FATHER (Myocardial infarction). Psychosocial History Who Do You Live With? self Services at Home: Nursing, Physical Therapy Primary Language: Citizen Of [place] Power of Recreation Leader/HCP? yes Name of POA/HCP: dustin Holden Functional Ability ADLs Needs Assist: dressing, eating, toileting, bathing. Ambulation: cane, wheelchair bound IADLs Independent: telephone. Needs Assist: shopping, housework, finances, food prep, transportation, medication admin. Review of Systems Review of Systems Constitutional: Denies: chills, fever. Cardiovascular: Denies: chest pain, palpitations. Respiratory: Denies: cough, short of breath. GI: Denies: abdominal pain, nausea, vomiting. Genitourinary: Denies: no symptoms. Musculoskeletal: Denies: no symptoms. Skin: Denies: no symptoms. Neurological/Psychological: Reports: tremors. Exam & Diagnostic Data Last 24 Hrs of Vital Signs/I&O Vital Signs Date Time Temp Pulse Resp B/P B/P Pulse O2 O2 Flow FiO2 Mean Ox Delivery Rate 09/07 1619 96.7 61 12 117/66 98 BIPAP 09/07 1508 94 BIPAP 35% 09/07 1505 94 09/07 1455 97.5 69 18 136/72 92 Nasal 4.0L Cannula 09/07 1426 96 Nasal 3.0L Cannula 09/07 1256 97.6 77 22 142/66 97 Aerosol Mask Intake & Output 09/07 1600 07/08 0800 0708 0000 Intake Total 1000 Output Total Balance 1000 Intake, IV 1000 Patient 289 lb Weight Weight Reported by Patient Measurement Method Physical Exam General Appearance Alert, Oriented X3, Cooperative, No Acute Distress Skin No Rashes Skin Temp/Moisture Exam: Warm/Dry Sepsis Skin Exam (color): Normal for Ethnicity HEENT Atraumatic, Mucous Membr. moist/pink Neck Supple, No JVD Cardiovascular Regular Rate, Normal S1, Normal S2 Lungs Clear to Auscultation, Normal Air Movement Neurological Normal Speech, Normal Tone Extremities No Clubbing, No Cyanosis, mild edema +1 Last 24 Hrs of Labs/Arpan: Laboratory Tests 09/07/16 1410: Urine Color YEL, Urine Clarity CLEAR, Urine pH 6.0, Ur Specific [place] 1.025, Urine Protein 100 H, Urine Ketones NEG, Urine Nitrite NEG, Urine Bilirubin NEG, Urine Urobilinogen 0.2, Ur Leukocyte Esterase NEG, Ur Microscopic SEDIMENT EXAMINED, Urine RBC 10-15 H, Urine WBC RARE, Ur Epithelial Cells FEW, Urine Bacteria RARE H, Urine Mucus FEW, Urine Hemoglobin TRACE-LYSED H, Urine Glucose NEG 09/07/16 1330: pH 7.29 *L, pCO2 56 H, pO2 77 L, HCO3 26, ABG O2 Sat (Measured) 93.0 L, P-50 (Temp Corrected) N, Carboxyhemoglobin 0.8 L, O2 Concentration % 4L, Temperature 97.6, O2 Delivery Method N/C, Phlebotomy Draw Site LEFT RADIAL 09/07/16 1306: Anion Gap 7, Estimated GFR 19 L, BUN/Creatinine Ratio 21.6, Glucose 207 H, Lactic Acid < 0.5 L, Calcium 7.7 L, Total Bilirubin 0.4, AST 33, ALT 13 L, Alkaline Phosphatase 61, Troponin I 0.05, Rnu-R-Iqxsgpsvctx Pept 2100 H, Total Protein 5.2 L, Albumin 3.0 L, Globulin 2.2, Albumin/Globulin Ratio 1.4, Amylase 55, Lipase 43, CBC w Diff NO MAN DIFF REQ, RBC 3.67 L, MCV 76.1 L, MCH 23.8 L, RDW 20.9 H, MPV 7.5, Gran % 77.2 H, Lymphocytes % 11.2 L, Monocytes % 10.1 H, Eosinophils % 1.2, Basophils % 0.3, Absolute Granulocytes 5.9, Absolute Lymphocytes 0.9 L, Absolute Monocytes 0.8 H, Absolute Eosinophils 0.1 , Absolute Basophils 0, PUBS MCHC 31.3 L 09/07/16 1258: PT 67.9 *H, INR 6.59 *H Microbiology 09/07 1420 BLOOD: Blood Culture - RECD 09/07 1410 URINE ROUT: Urine Culture - RECD 09/07 1306 BLOOD: Blood Culture - RECD Diagnostic Data CXR Results Stable enlargement of the cardiac silhouette. Question widened right glenohumeral joint. This could be further evaluated with the right shoulder x-ray if clinically indicated. Assessment/Plan Assessment: This is a 70-year-old gentleman with a history of hypertension, Parkinson's disease, frequent falls, history of TIA, multiple back surgeries, [facility]'s valve on Coumadin since 1996, hyperlipidemia, CKD and diabetes the patient was brought by ambulance to emergency room from intermediate facility after she was found to be hypoglycemic and upon further evaluation hypoxic and hypotensive. On presentation patient blood gas analysis showed hypercarbic respiratory failure with respiratory acidosis. Patient was lethargic and was started on BiPAP through which patient showed significant improvement in mental status. This patient has no history of COPD and is presenting with new episode of hypoxic respiratory failure not associated with eating to suggest possible aspiration. Initial blood work does not show any evidence of infection with normal white count and almost normal UA. Patient is improving on BiPAP responding and, nicotine well at his baseline. He responded to course of IV Solu-Medrol. The picture is of an acute hypoxic respiratory failure, this patient is reporting that his Parkinson disease has been acting up lately and probably could have exacerbating him to. Of apnea and hence the hypercarbia and hypoxia. Problem list Acute hypoxic respiratory failure Hypoglycemia Acute on chronic renal failure Supratherapeutic INR on Coumadin at home Chronic iron deficiency anemia Plan Admit the patient to general medicine floor Continue with TRC with BiPAP as tolerated till after repeat ABG if with seeing baseline values will discontinue and give oxygen to maintain pulse ox above 94% Patient will continue on IV Solu-Medrol 40 mg every 8 from tomorrow Gentle hydration with normal saline 100 mL per hour, 2 bags This patient creatinine increased from baseline of 2.6-3.2 will hold nephrotoxic medications as well as kidney impairing medication of lisinopril and Lasix Given episode of hypoglycemia will hold long acting insulin and keep the patient on insulin sliding scale pending evaluation of fingerstick valuea and restart off Levemir a.m. Patient has supratherapeutic INR we will hold Coumadin and continue to follow INR daily, start warfarin when INR between 2 and 3 Consistent carbohydrate 3 diet Patient is full code As Ranked By This Provider Problem List: 1. Supratherapeutic INR 2. Hypoxia 3. Diabetes 4. Chronic renal insufficiency 5. Hypertension 6. Dyslipidemia Core Measures/Miscellaneous Acute Coronary Syndrome ACS Diagnosis: No Cerebrovascular Accident CVA/TIA Diagnosis: No Congestive Heart Failure CHF Diagnosis: No VTE (View Protocol) VTE Risk Factors: Acute medical illness, Age > 40 [facility] prophylaxis d/t: No contraindications No VTE Pharm Prophylaxis d/t: Blood coag disorder VTE Diagnosis: No VTE Type: NONE VTE Confirmed by (Test): NONE Sepsis (View Protocol) Severe Sepsis Present: No Septic Shock Septic Shock Present: No Miscellaneous Documentation Attending Case Discussed With: KOFFI RODGERS MD Primary Care Physician: KOFFI RODGERS MD Patient sees these Specialists None Level of Patient Care: General Medicine Resident Review Statement Resident Statement: examined this patient, My review and plan as above
--- NOTE | 2016-09-07 17:09 | NUR ---
ABG OBTAINED BY RT
--- NOTE | 2016-09-07 17:31 | NUR ---
PT HAS BED ASSIGNMENT 234-1. RN NOTIFIED.
--- NOTE | 2016-09-07 18:14 | NUR ---
REPORT GIVEN TO ROBERTA AVILA ON 234. D50 ADNINSTERED ORDERED 2/2 BLOOD GLUCOSE LEVEL OF 78 MG/DL. BIPAP ON STANDBY, 6L O2 NC MAINTAINING 100% SAT PT CONSUMED 50% OF MEAL. MONITORING MAINTAINED
--- NOTE | 2016-09-07 18:28 | NUR ---
BLOOD GLUCOSE 146MG/DL
[2016-09-07 19:41] VITALS: BP 140/70
--- NOTE | 2016-09-07 21:58 | NUR ---
NURSING NOTE: PT ARRIVED TO 2NA VIA STRETCHER @ 1849. PT DROWSY/AROUSABLE. ORIENTED TO SELF. INTERMITTENT CONFUSION/FORGETFULNESS. EXTREME TREMORS BUE/BLE. PER PT - HX PARKINSON, TREMORS CURRENTLY EXACERBATED SINCE THIS MORNING. GONZALES IN PLACE, DRAINING CLEAR/YELLOW URINE AT BEDSIDE. BLOOD SUGAR 131 @ 1914. PT ORIENTED TO STAFF, ROOM, AND CALL SEALS. FALL PRECAUTION SIGNS AT DOOR, RED WRIST BAND IN PLACE, RED SOCKS APPLIED TO PT. PT REFUSING BED ALARM. PT EDUCATED ON NEED FOR BED ALARM DUE TO CONFUSION, RECENT FALLS, AND TREMORS. PER PT " I HAVE THE RIGHT TO REFUSE A BED ALARM. I PROMISE YOU I WILL NOT GET OUT OF BED WITHOUT CALLING. WHEN I GIVE YOU MY WORD, I KEEP IT. DO NOT PUT A BED ALARM ON ME". PT CURRENTLY ON 4L NC. RESPIRAOTRY PAGED TO BEDSIDE PT SUPPOSED TO BE ON BIPAP. CURRENTLY O2SAT 97% ON 4L.
[2016-09-08 06:35] VITALS: BP 120/60
[2016-09-08 08:08] LABS: ABSOLUTE BASOPHIL COUNT 0 /CUMM (0.0-0.2); ABSOLUTE EOSINOPHIL COUNT 0 /CUMM (0.0-0.7); ABSOLUTE GRANULOCYTE CT 5.6 /CUMM (1.4-6.5); ABSOLUTE LYMPH COUNT 0.7 /CUMM (1.2-3.4); ABSOLUTE MONOCYTE COUNT 0.6 /CUMM (0.10-0.60); BASOPHIL % 0 % (0.0-2.0); EOSINOPHIL % 0.1 % (0-5); GRANULOCYTE % 81.6 % (42.2-75.2); MEAN CORPUSCULAR HGB 24.2 PG (27.0-31.0); MEAN CORPUSCULAR VOLUME 75.8 FL (80.0-94.0); MEAN PLATELET VOLUME 8.2 FL (7.4-10.4); PLATELET COUNT 260 /CUMM (130-400); RBC DISTRIBUTION WIDTH 20.9 % (11.5-14.5); RED BLOOD CELL CT 3.83 /CUMM (4.70-6.10); WHITE BLOOD CELL COUNT 6.9 /CUMM (4.8-10.8)
--- NOTE | 2016-09-08 09:11 | NUR ---
pt states need to use the bathroom, pt has florentino in place and has exacerbated tremors related to parkinsons, pt has been offered the bed rouse several times and refuses stating " bathroom or nothing" pt has been offered the bed side commode as well and continues to state "bathroom or nothing". due to patients weakend condition and high risk for falls the bedpan is the safest option until pt is seen by physical therapy. awaiting physical therapy evaluation will continue to offer bed rouse
--- NOTE | 2016-09-08 11:38 | NUR ---
PT DAUGHTER KIRILL CONTACTED R/T PT DENTURES, DAUGHTER STATES SHE WILL GET THEM FROM PT APPARTMENT BEFORE COMING IN
[2016-09-08 14:00] VITALS: BP 120/60
--- NOTE | 2016-09-08 15:46 | PN- Att Addend ---
Attending Addendum Attending Brief Note Patient in bed alert oriented today. Patient states he cannot remember what happened all last night and yesterday. Is not short of breath at rest is a febrile no major changes on physical maybe the legs have a trace edema will continue present treatment monitor O2 saturations, follow-up labs and PT/INRs and continue respiratory therapy get out of bed as soon as possible and he might need again short-term rehabilitation. 24 TOTALS 09/08 0000 09/07 0000 Intake Total 1440 Output Total 2150 Balance -710 Intake, IV 1200 Intake, Oral 240 Output, Urine 2150 Patient 289 lb Weight Weight Reported by Patient Measurement Method Current Medications Sig/Leena Start time Last Medication Dose Route Stop Time Status Admin Artificial Tears 2 GTT 4 TIMES/DAY 09/07 1800 AC 09/08 OPH 0811 Atorvastatin Calcium 40 MG DAILY 09/08 1000 AC 09/08 PO 0810 Carbidopa/Levodopa 1 TAB TID 09/070 AC 09/08 PO 1540 Dextrose 25 GM ONCE ONE 09/07 1745 DC 09/07 IV 09/07 1746 1746 Docusate Sodium 100 MG BID 09/07 2199 AC 09/08 PO 0810 Duloxetine HCl 60 MG DAILY 09/08 1000 AC 09/08 PO 0810 Entacapone 200 MG TID 09/07 2200 AC 09/08 PO 1540 Fenofibrate 145 MG DAILY 09/08 1000 AC 09/08 PO 0810 Folic Acid 1 MG DAILY 09/08 1000 AC 09/08 PO 0810 Gabapentin 300 MG TID 09/07 2200 AC 09/08 PO 1540 Insulin Aspart 0 AC & AT BEDTIME 09/07 2200 AC 09/08 SC 0812 Magnesium Oxide 400 MG DAILY 09/08 1000 AC 09/08 PO 0810 Metoprolol Succinate 50 MG DAILY 09/08 1000 AC 09/08 PO 0815 Omeprazole 40 MG DAILY AC 09/08 0700 AC 09/08 PO 0619 Polyethylene Glycol 17 GM DAILY 09/08 1000 AC 09/08 PO 0810 Pregabalin 50 MG TID 09/07 2200 AC 09/08 PO 1540 Pyridoxine HCl 50 MG DAILY 09/08 1000 AC 09/08 PO 0810 Senna/Docusate Sodium 1 TAB BID 09/07 220 AC 09/08 PO 0810 Sodium Chloride 1,000 ML Q10H 09/07 1745 DC 09/08 IV 09/08 1344 0619 Zolpidem Tartrate 10 MG QPM 09/07 2199 AC 09/07 PO 2240 Laboratory Tests 09/08/16 0706: Anion Gap 9, Estimated GFR 23 L, BUN/Creatinine Ratio 23.7, CBC w Diff NO MAN DIFF REQ, RBC 3.83 L, MCV 75.8 L, MCH 24.2 L, RDW 20.9 H, MPV 8.2, Gran % 81.6 H, Lymphocytes % 10.0 L, Monocytes % 8.3, Eosinophils % 0.1, Basophils % 0 L, Absolute Granulocytes 5.6, Absolute Lymphocytes 0.7 L, Absolute Monocytes 0.6, Absolute Eosinophils 0, Absolute Basophils 0, PUBS MCHC 32.0 L 09/07/162047: Lactic Acid 0.7 09/07/16 1720: pH 7.32 L, pCO2 53 H, pO2 110 H, HCO3 27, ABG O2 Sat (Measured) 96.0, P-50 ( Temp Corrected) Y, Carboxyhemoglobin 0.3 L, O2 Concentration % 35%, Temperature 97.4, Respiration Rate 26, O2 Delivery Method BIPAP, Vent Mode ST, Expiratory Pressure 6, Inspiratory Pressure 18, Phlebotomy Draw Site RIGHT RADIAL 09/07/16 1410: Urine Color YEL, Urine Clarity CLEAR, Urine pH 6.0, Ur Specific [place] 1.025, Urine Protein 100 H, Urine Ketones NEG, Urine Nitrite NEG, Urine Bilirubin NEG, Urine Urobilinogen 0.2, Ur Leukocyte Esterase NEG, Ur Microscopic SEDIMENT EXAMINED, Urine RBC 10-15 H, Urine WBC RARE, Ur Epithelial Cells FEW, Urine Bacteria RARE H, Urine Mucus FEW, Urine Hemoglobin TRACE-LYSED H, Urine Glucose NEG 09/07/16 1330: pH 7.29 *L, pCO2 56 H, pO2 77 L, HCO3 26, ABG O2 Sat (Measured) 93.0 L, P-50 (Temp Corrected) N, Carboxyhemoglobin 0.8 L, O2 Concentration % 4L, Temperature 97.6, O2 Delivery Method N/C, Phlebotomy Draw Site LEFT RADIAL 09/07/16 1306: Anion Gap 7, Estimated GFR 19 L, BUN/Creatinine Ratio 21.6, Glucose 207 H, Lactic Acid < 0.5 L, Calcium 7.7 L, Total Bilirubin 0.4, AST 33, ALT 13 L, Alkaline Phosphatase 61, Troponin I 0.05, Pbn-M-Lomjhlizixb Pept 2100 H, Total Protein 5.2 L, Albumin 3.0 L, Globulin 2.2, Albumin/Globulin Ratio 1.4, Amylase 55, Lipase 43, CBC w Diff NO MAN DIFF REQ, RBC 3.67 L, MCV 76.1 L, MCH 23.8 L, RDW 20.9 H, MPV 7.5, Gran % 77.2 H, Lymphocytes % 11.2 L, Monocytes % 10.1 H, Eosinophils % 1.2, Basophils % 0.3, Absolute Granulocytes 5.9, Absolute Lymphocytes 0.9 L, Absolute Monocytes 0.8 H, Absolute Eosinophils 0.1 , Absolute Basophils 0, PUBS MCHC 31.3 L 09/07/16 1258: PT 67.9 *H, INR 6.59 *H Vital Signs Date Time Temp Pulse Resp B/P B/P Pulse O2 O2 Flow FiO2 Mean Ox Delivery Rate 09/08 1400 98.7 88 20 120/60 96 09/08 0800 92 Nasal 2.0L Cannula 09/08 0635 98.4 73 17 120/60 97 Nasal 2.0L Cannula 09/08 0142 94 Nasal 2.0L Cannula 09/07 2230 93 Nasal Cannula 09/07 2146 93 Nasal 2.0L Cannula 09/07 1941 98.7 61 12 140/70 95 Nasal Cannula 09/07 1727 81 98 09/07 1619 96.7 61 12 117/66 98 BIPAP
--- NOTE | 2016-09-08 16:48 | PN- Housestaff ---
Subjective Follow-up For: Acute hypoxic hypercarbic respiratory distress, Supratherapeutic INR, Acute on Chronic Renal Failure Subjective: I saw and examined the patient today. Patient was doing better than previous night. States he did not remember what happened in the ED when he was brought in. Pt was distraught, stating that he does not understand what is wrong with him as he just went back to assisted living recently from the rehab facility. Pt denies SOB, chest pain, cough, chest pain, n/v, fever or chills. Review of Systems Constitutional: Denies: see HPI. Objective Last 24 Hrs of Vital Signs/I&O Vital Signs Date Time Temp Pulse Resp B/P B/P Pulse O2 O2 Flow FiO2 Mean Ox Delivery Rate 09/09 1600 98 Nasal 2.0L Cannula 09/09 1531 Nasal 2.0L Cannula 09/09 1430 98.2 82 20 120/72 96 09/09 0927 77 20 160/72 09/09 0652 97.8 66 22 160/74 97 Nasal Cannula 09/09 0000 96 Nasal 2.0L Cannula 09/08 2229 98.2 62 20 152/70 96 Nasal Cannula Intake & Output 09/09 1600 09/09 0800 09/09 0000 Intake Total 600 500 Output Total 2375 1250 1025 Balance -2375 -650 -525 Intake, Oral 600 500 Output, Urine 2375 1250 1025 Physical Exam General Appearance: Alert, Oriented X3, Cooperative, No Acute Distress HEENT: Atraumatic, PERRLA, EOMI, Mucous Membr. moist/pink Cardiovascular: Regular Rate, Normal S1, Normal S2 Lungs: bilateral expiratory wheezing, course breath sounds in upper lobes bilaterally Abdomen: Normal Bowel Sounds, Soft, No Tenderness Extremities: Normal Pulses, trace pitting edema bilaterally Assessment/Plan Assessment: Patient is 70 y/o male w/PMH of HTN, Parkinson's disease, frequent falls, history of TIA, multiple back surgeries, [facility] Peter's Valve (on Coumadin since ), hyperlipidemia, CKD and diabetes brought ambulance to emergency room from assisted living after he was found to be hypoglycemic and upon further evaluation hypoxic and hypotensive. On presentation ABG showed hypercarbic respiratory failure with respiratory acidosis. Patient was lethargic and was started on BiPAP through which patient showed significant improvement in mental status. This patient has no history of COPD and is presenting with new episode of hypoxic respiratory failure not associated with eating to suggest possible aspiration. Initial blood work does not show any evidence of infection with normal white count and almost normal UA. Patient is improving on BiPAP responding and, nicotine well at his baseline. He responded to course of IV Solu-Medrol. The picture is of an acute hypoxic respiratory failure, this patient is reporting that his Parkinson disease has been acting up lately and probably could have exacerbating him to. Of apnea and hence the hypercarbia and hypoxia. Patient was admitted to the general medicine floor for management of the followin. Acute hypoxic respiratory failure - initial ABG: pH: 7.29/pCO2: 56/ pO2: 77 - 2 hours after placing on BiPAP and giving IV Solumedrol: - ABG: pH: 7.33/pCO2: 53/pO2: 110 - today patient is saturating in the 90's on 2L NC - CXR: did not show any lung pathology - blood and urine cultures have been negative to date - UA negative for leukocyte esterase and nitrites - will give patient IV solumederol 40 BID today 2. Hypoglycemia, H/O DM - patient was found to have glucose of 50 prior to admission - glucose in ED: 207 - continue to monitor glucose - on sliding scale insulin 3. Acute on chronic renal failure - baseline creatinine: 2.1 - creatinine trending down from 3.2 to 2.7 - will hold lasix and lisinopril - given gentle hydration 4. Supratherapeutic INR - on Coumadin at home - continue to hold coumadin - continue monitoring INR 5. Chronic iron deficiency anemia - H/H today 9.3/29.0 up from 8.7/27.9 6. H/O Parkinsonism - continue carbidopa/levodopa - continue entacapone 7. H/O Back Pain - dilaudid held due to respiratory distress DVT PPx: ALPs Diet: Consistent carbohydrate 3 Code: Full Problem List: 1. Diabetes mellitus type 2 Pain Ratin Pain Location: back pain Pain Goal: Pain 4 or less Pain Plan: holding dilaudid temporarily due to respiratory distress tylenol Tomorrow's Labs & Rationales: cbc bep
[2016-09-08 22:29] VITALS: BP 152/70
[2016-09-09 06:52] VITALS: BP 160/74
[2016-09-09 11:14] LABS: PT 48.5 SEC (9.4-12.5)
--- NOTE | 2016-09-09 11:15 | PN- Att Addend ---
Attending Addendum Attending Brief Note Patient alert complaining that his chronic pain is bad needs increase in his pain medication to his baseline dose. Not short of breath alert and oriented 3 , vital signs are stable no fever oxygenation improved with no major changes on physical continue all treatments and adjust pain medication patient my need short-term rehabilitation again. Current Medications Sig/Leena Start time Last Medication Dose Route Stop Time Status Admin Acetaminophen 1,000 MG ONCE PRN 09/08 1730 DC 09/08 IV 09/08 2330 1807 Artificial Tears 2 GTT 4 TIMES/DAY 09/07 1800 AC 09/09 OPH 28 Atorvastatin Calcium 40 MG DAILY 09/08 1000 AC 09/09 PO 0928 Carbidopa/Levodopa 1 TAB TID 09/07 2199 AC 09/08 PO 210 Docusate Sodium 100 MG BID 09/07 2199 AC 09/09 PO 927 Duloxetine HCl 60 MG DAILY 09/08 1000 AC 09/09 PO 0928 Entacapone 200 MG TID 09/07 2200 AC 09/09 PO 0928 Fenofibrate 145 MG DAILY 09/08 1000 AC 09/09 PO 0923 Folic Acid 1 MG DAILY 09/08 1000 AC 09/09 PO 0928 Gabapentin 300 MG TID 09/07 2200 AC 09/09 PO 0928 Hydromorphone HCl 2 MG Q6P PRN 09/08 2130 AC 09/09 PO 0636 Insulin Aspart 0 AC & AT BEDTIME 09/07 2200 AC 09/09 SC 0859 Magnesium Oxide 400 MG DAILY 09/08 1000 AC 09/09 PO 0928 Methylprednisolone 40 MG Q12 09/08 2200 AC 09/09 IV 09 Metoprolol Succinate 50 MG DAILY 09/08 1000 AC 09/09 PO 0927 Morphine Sulfate 4 MG ONCE ONE 09/08 2130 DC 09/08 IV 09/08 2131 2143 Omeprazole 40 MG DAILY AC 09/08 07 AC 09/09 PO 0517 Polyethylene Glycol 17 GM DAILY 09/08 1000 AC 09/08 PO 0810 Pregabalin 50 MG TID 09/07 2200 AC 09/09 PO 0929 Pyridoxine HCl 50 MG DAILY 09/08 1000 AC 09/09 PO 0923 Senna/Docusate Sodium 1 TAB BID 09/07 2200 AC 09/08 PO 210 Sodium Chloride 1,000 ML Q10H 09/07 1745 DC 09/08 IV 09/08 1344 0619 Zolpidem Tartrate 10 MG QPM 09/07 2200 AC 09/08 PO 2109 Vital Signs Date Time Temp Pulse Resp B/P B/P Pulse O2 O2 Flow FiO2 Mean Ox Delivery Rate 09/09 0827 77 20 160/72 09/09 0652 97.8 66 22 160/74 97 Nasal Cannula 09/09 0000 96 Nasal 2.0L Cannula 09/08 2229 98.2 62 20 152/70 96 Nasal Cannula 09/08 1600 94 Nasal 2.0L Cannula 09/08 1400 98.7 88 20 120/60 96 Intake & Output 09/09 1600 09/09 0800 09/09 0000 Intake Total 600 500 Output Total 1250 1025 Balance -650 -525 Intake, Oral 600 500 Output, Urine 1250 1025
[2016-09-09 11:23] LABS: ABSOLUTE BASOPHIL COUNT 0 /CUMM (0.0-0.2); ABSOLUTE EOSINOPHIL COUNT 0 /CUMM (0.0-0.7); ABSOLUTE GRANULOCYTE CT 6.5 /CUMM (1.4-6.5); ABSOLUTE LYMPH COUNT 0.9 /CUMM (1.2-3.4); ABSOLUTE MONOCYTE COUNT 0.6 /CUMM (0.10-0.60); BASOPHIL % 0.1 % (0.0-2.0); EOSINOPHIL % 0.1 % (0-5); GRANULOCYTE % 81.3 % (42.2-75.2); HEMATOCRIT 29.8 % (42-52); MEAN CORPUSCULAR HGB 24.3 PG (27.0-31.0); MEAN PLATELET VOLUME 7.7 FL (7.4-10.4); PLATELET COUNT 289 /CUMM (130-400); RBC DISTRIBUTION WIDTH 20.1 % (11.5-14.5); RED BLOOD CELL CT 3.92 /CUMM (4.70-6.10)
[2016-09-09 14:30] VITALS: BP 120/72
--- NOTE | 2016-09-09 20:21 | PN- Housestaff ---
Subjective Follow-up For: Hypoxia, ISAAC on CKD, Supratherapeutic INR Subjective: Pt was doing well this morning. Breathing has improved. Continues to require 2L NC. Pt states that he is on chronic pain meds at outpatient and continues to have pain. Denies chest pain, fever, chills, n/v. Review of Systems Constitutional: Denies: see HPI. Objective Last 24 Hrs of Vital Signs/I&O Vital Signs Date Time Temp Pulse Resp B/P B/P Pulse O2 O2 Flow FiO2 Mean Ox Delivery Rate 09/09 1600 98 Nasal 2.0L Cannula 09/09 1531 Nasal 2.0L Cannula 09/09 1430 98.2 82 20 120/72 96 09/09 0927 77 20 160/72 09/09 0652 97.8 66 22 160/74 97 Nasal Cannula 09/09 0000 96 Nasal 2.0L Cannula 09/08 2229 98.2 62 20 152/70 96 Nasal Cannula Intake & Output 09/09 1600 09/09 0800 09/09 0000 Intake Total 600 500 Output Total 2375 1250 1025 Balance -2375 -650 -525 Intake, Oral 600 500 Output, Urine 2375 1250 1025 Physical Exam General Appearance: Alert, Oriented X3, Cooperative, No Acute Distress Cardiovascular: Regular Rate, Normal S1, Normal S2 Lungs: bilateral expiratory wheezing improved from previous day Abdomen: Normal Bowel Sounds, Soft, No Tenderness Extremities: Normal Pulses Assessment/Plan Assessment: Patient is 70 y/o male w/PMH of HTN, Parkinson's disease, frequent falls, history of TIA, multiple back surgeries, [facility]. Peter's Valve (on Coumadin since ), hyperlipidemia, CKD and diabetes brought ambulance to emergency room from assisted living after he was found to be hypoglycemic and upon further evaluation hypoxic and hypotensive. On presentation ABG showed hypercarbic respiratory failure with respiratory acidosis. Patient was lethargic and was started on BiPAP through which patient showed significant improvement in mental status. This patient has no history of COPD and is presenting with new episode of hypoxic respiratory failure not associated with eating to suggest possible aspiration. Initial blood work does not show any evidence of infection with normal white count and almost normal UA. Patient is improving on BiPAP responding and, nicotine well at his baseline. He responded to course of IV Solu-Medrol. The picture is of an acute hypoxic respiratory failure, this patient is reporting that his Parkinson disease has been acting up lately and probably could have exacerbating him to. Of apnea and hence the hypercarbia and hypoxia. Patient was admitted to the general medicine floor for management of the followin. Acute hypoxic hypercarbic respiratory failure, now stable on 2L NC - initial ABG: pH: 7.29/pCO2: 56/ pO2: 77 - 2 hours after placing on BiPAP and giving IV Solumedrol: - ABG: pH: 7.33/pCO2: 53/pO2: 110 - today patient is saturating in the 90's on 2L NC - CXR: did not show any lung pathology - blood and urine cultures have been negative to date - UA negative for leukocyte esterase and nitrites - changed to PO prednisone today at a 60 taper - patient continues to be afebrile, with normal WBC, saturating in the mid-90s on 2L NC 2. Hypoglycemia, H/O DM - patient was found to have glucose of 50 prior to admission - glucose in ED: 207 - continue to monitor glucose - on sliding scale insulin 3. Acute on chronic renal failure - baseline creatinine: 2.1 - creatinine trending down now 2.2 - lasix and lisinopril held, will restart tomorrow - given gentle hydration 4. Supratherapeutic INR - on Coumadin at home - continue to hold coumadin - continue monitoring INR 5. Chronic iron deficiency anemia - H/H today 9.3/29.0 up from 8.7/27.9 6. H/O Parkinsonism - continue carbidopa/levodopa - continue entacapone 7. H/O Back Pain - pt no longer in respiratory distress - restarted dilaudid overnight DVT PPx: ALPs Diet: Consistent carbohydrate 3 Code: Full Problem List: 1. Supratherapeutic INR 2. Acute renal failure 3. CKD (chronic kidney disease) 4. Diabetes 5. Chronic back pain 6. Hypoxia Pain Ratin Pain Location: back pain Pain Goal: Pain 4 or less Pain Plan: dilaudid 4mg q4h PRN Tomorrow's Labs & Rationales: cbc bep
[2016-09-09 22:34] VITALS: BP 152/82
[2016-09-10 06:47] VITALS: BP 176/82
--- NOTE | 2016-09-10 07:22 | PN- Housestaff ---
Subjective Follow-up For: Acute hypoxic hypercarbic respiratory distress, Supratherapeutic INR, Acute on Chronic Renal Failure Subjective: I saw and examined the patient today. He is doing well, saturating in the mid90s on room air. Pt states his breathing has improved. Is complaining of chronic back pain. Was on dilaudid 8mg at home. Discussed with the patient the reason to stop the was due to his altered mental status and poor respiratory status. Pt understands this. Pt denies SOB, chest pain, n/v, fever or chills. As per nursing: no acute overnight events. Review of Systems Constitutional: Denies: see HPI. Objective Last 24 Hrs of Vital Signs/I&O Vital Signs Date Time Temp Pulse Resp B/P B/P Pulse O2 O2 Flow FiO2 Mean Ox Delivery Rate 09/10 0951 Nasal 2.0L Cannula 09/10 0912 58 174/80 09/10 08 96 Room Air 09/10 0647 97.7 57 20 176/82 94 Room Air 09/10 0000 98 Nasal 2.0L Cannula 09/09 2234 98.1 55 20 152/82 97 Nasal Cannula 09/09 1600 98 Nasal 2.0L Cannula 09/09 1531 Nasal 2.0L Cannula 09/09 1430 98.2 82 20 120/72 96 Intake & Output 09/10 1600 09/10 0800 09/10 0000 Intake Total 490 260 Output Total 950 377 Balance -460 -117 Intake, IV 10 20 Intake, Oral 480 240 Output, Stool 2 Output, Urine 950 375 Physical Exam General Appearance: Alert, Oriented X3, Cooperative, No Acute Distress Cardiovascular: Regular Rate, Normal S1, Normal S2 Lungs: Clear to Auscultation Abdomen: Normal Bowel Sounds, Soft, No Tenderness Extremities: Normal Pulses Assessment/Plan Assessment: Patient is 70 y/o male w/PMH of HTN, Parkinson's disease, frequent falls, history of TIA, multiple back surgeries, [facility]. Peter's Valve (on Coumadin since ), hyperlipidemia, CKD and diabetes brought ambulance to emergency room from assisted living after he was found to be hypoglycemic and upon further evaluation hypoxic and hypotensive. On presentation ABG showed hypercarbic respiratory failure with respiratory acidosis. Patient was lethargic and was started on BiPAP through which patient showed significant improvement in mental status. This patient has no history of COPD and is presenting with new episode of hypoxic respiratory failure not associated with eating to suggest possible aspiration. Initial blood work does not show any evidence of infection with normal white count and almost normal UA. Patient is improving on BiPAP responding and, nicotine well at his baseline. He responded to course of IV Solu-Medrol. The picture is of an acute hypoxic respiratory failure, this patient is reporting that his Parkinson disease has been acting up lately and probably could have exacerbating him to. Of apnea and hence the hypercarbia and hypoxia. Patient was admitted to the general medicine floor for management of the followin. Acute hypoxic hypercarbic respiratory failure - resolved, likely secondary to a combination of taking more medication than was prescribed and recent treatment for acute bronchitis prior to admission treated with steroids and outpatient antibiotics. Pt also came in hypoglycemic and supratherapeutic which indicates that he may have accidentally taken more medication than prescribed. - initial ABG: pH: 7.29/pCO2: 56/ pO2: 77 - 2 hours after placing on BiPAP and giving IV Solumedrol: - ABG: pH: 7.33/pCO2: 53/pO2: 110 - today patient is saturating in the 90's on 2L NC - CXR: did not show any lung pathology - blood and urine cultures have been negative to date - UA negative for leukocyte esterase and nitrites - on PO prednisone taper starting at 60 - patient continues to be afebrile, with normal lung exam, normal WBC, saturating in the mid-90s on room air 2. Hypoglycemia resolved, H/O DM, poorly controlled, last HbA1c in Aug 2016: 9.9 this however is an improvement from his previous readings which have been as high as 16.2. - patient was found to have glucose of 50 prior to admission. Pt is on insulin detemir 48units BID and aspart at home. - glucose in ED: 207, today was >300, AM: 370, Lunch: 308, Dinner: 378 - pt states is BG has been as high as the 500s. - continue to monitor glucose - added levemir 20 units and placed on medium sliding scale today - consulted endocrinology. Appreciate recommendations 3. Acute on chronic renal failure- resolved, now at baseline creatinine - baseline creatinine: 2.1 - creatinine trending down now 2.0 - lasix and lisinopril restarted 4. Supratherapeutic INR - on Coumadin at home for a [facility] Peter's valve - continue monitoring INR, today: 4.05 - continue to hold coumadin and recheck INR tomorrow 5. Chronic iron deficiency anemia - H/H stable 6. H/O Parkinsonism - continue carbidopa/levodopa - continue entacapone 7. H/O Back Pain - pt no longer in respiratory distress - restarted dilaudid overnight DVT PPx: ALPs Diet: Consistent carbohydrate 3 Code: Full Dispo: possible discharge tomorrow pending endocrinology input, likely discharge to [facility] Problem List: 1. Diabetes mellitus type 2 2. Hypoglycemia 3. Chronic renal insufficiency 4. Supratherapeutic INR Pain Ratin Pain Location: back pain Pain Goal: Pain 7 or less Pain Plan: dilaudid increased from 4mg to 6mg Tomorrow's Labs & Rationales: CBC BEP INR
[2016-09-10 08:47] LABS: ABSOLUTE BASOPHIL COUNT 0 /CUMM (0.0-0.2); ABSOLUTE EOSINOPHIL COUNT 0 /CUMM (0.0-0.7); ABSOLUTE GRANULOCYTE CT 7.9 /CUMM (1.4-6.5); ABSOLUTE LYMPH COUNT 0.7 /CUMM (1.2-3.4); ABSOLUTE MONOCYTE COUNT 0.4 /CUMM (0.10-0.60); BASOPHIL % 0.1 % (0.0-2.0); EOSINOPHIL % 0 % (0-5); HEMATOCRIT 31.1 % (42-52); MEAN CORPUSCULAR HGB 24.5 PG (27.0-31.0); MEAN CORPUSCULAR HGB CONC 32.5 G/DL (33.0-37.0); MEAN CORPUSCULAR VOLUME 75.3 FL (80.0-94.0); MEAN PLATELET VOLUME 8.1 FL (7.4-10.4); PLATELET COUNT 294 /CUMM (130-400); RBC DISTRIBUTION WIDTH 20.4 % (11.5-14.5); RED BLOOD CELL CT 4.14 /CUMM (4.70-6.10)
[2016-09-10 09:51] LABS: GRANULOCYTE % 87.7 % (42.2-75.2)
[2016-09-10 09:52] LABS: PT 41.9 SEC (9.4-12.5)
--- NOTE | 2016-09-10 15:00 | Discharge Summary ---
Visit Information Visit Dates Admission Date: 09/07/16 Discharge Date: 09/11/2016 Hospital Course Course Attending Physician: KOFFI RODGERS MD Primary Care Physician: VISHAL VASQUES,KOFFI Hospital Course: This is a 70 y/o male w/PMH of HTN, Parkinson's disease, frequent falls, history of TIA, multiple back surgeries, [facility] Peter's Valve (on Coumadin since ), hyperlipidemia, CKD and diabetes brought from assisted living after found to be hypoglycemic, hypoxic and hypotensive. IN ED: Required Bipap, ABG showed hypercarbic respiratory failure with respiratory acidosis. Initial blood work does not show any evidence of infection with normal white count/ afebrile. Initial ABG: pH: 7.29/pCO2: 56/ pO2: 77 Patient was admitted to the general medicine floor for management of the followin. Acute hypoxic hypercarbic respiratory failure - Resolved. Likely secondary to combo of over medication. * Continue Prednisone taper * patient continues to be afebrile, with normal lung exam, normal WBC, saturating in the mid-90s on room air 2. Hypoglycemia resolved: patient was found to have glucose of 50 prior to admission. Pt is on insulin detemir 48units BID and aspart at home. Endocrinology onboard for management of DM. * last HbA1c in Aug 2016: 9.9 this however is an improvement from his previous readings which have been as high as 16.2. * During admission glucose increased>300 * Levemir 20u BID 3. Acute on chronic renal failure-Pt came in at * baseline creatinine: 2.1; now back at baseline * lasix and lisinopril restarted 4. Supratherapeutic INR :on Coumadin at home for a [facility] Peter's valve * continue to hold coumadin and recheck INR tomorrow * Con't home regimen and monitor closely 5. H/O Parkinsonism * continue carbidopa/levodopa * continue entacapone 6. H/O Back Pain: pt takes 8 mg dilaudid 2q4 prn pain * started on 6mg q4 as he came in respiratory failure Complications: Hyposic respiratory failure requiring bipap Allergies: Coded Allergies: Penicillins (Intermediate, HIVES 05/03/15) levetiracetam (From [facility]) (UNKNOWN 08/03/16) Pertinent Lab Results: Laboratory Tests 09/11 09/10 09/10 0730 0982 0755 Chemistry Sodium (137 - 145 mmol/L) 135 L Potassium (3.5 - 5.1 mmol/L) 5.7 H Chloride (98 - 107 mmol/L) 101 Carbon Dioxide (22 - 30 mmol/L) 26 Anion Gap (5 - 16) 8 BUN (9 - 20 mg/dL) 51 H Creatinine (0.7 - 1.2 mg/dL) 2.0 H Estimated GFR (>60 ml/min) 33 L BUN/Creatinine Ratio (7 - 25 %) 25.5 H Coagulation PT (9.4 - 12.5 SEC) 27.7 H 41.9 H INR (0.90 - 1.17) 2.66 H 4.05 *H Hematology CBC w Diff NO MAN DIFF REQ WBC (4.8 - 10.8 /CUMM) 9.0 RBC (4.70 - 6.10 /CUMM) 4.14 L Hgb (14.0 - 18.0 G/DL) 10.1 L Hct (42 - 52 %) 31.1 L MCV (80.0 - 94.0 FL) 75.3 L MCH (27.0 - 31.0 PG) 24.5 L RDW (11.5 - 14.5 %) 20.4 H Plt Count (130 - 400 /CUMM) 294 MPV (7.4 - 10.4 FL) 8.1 Gran % (42.2 - 75.2 %) 87.7 H Lymphocytes % (20.5 - 51.1 %) 7.7 L Monocytes % (1.7 - 9.3 %) 4.5 Eosinophils % (0 - 5 %) 0 Basophils % (0.0 - 2.0 %) 0.1 Absolute Granulocytes (1.4 - 6.5 /CUMM) 7.9 H Absolute Lymphocytes (1.2 - 3.4 /CUMM) 0.7 L Absolute Monocytes (0.10 - 0.60 /CUMM) 0.4 Absolute Eosinophils (0.0 - 0.7 /CUMM) 0 Absolute Basophils (0.0 - 0.2 /CUMM) 0 PUBS MCHC (33.0 - 37.0 G/DL) 32.5 L 10 1047 Chemistry Sodium (137 - 145 mmol/L) 136 L Potassium (3.5 - 5.1 mmol/L) 4.8 Chloride (98 - 107 mmol/L) 105 Carbon Dioxide (22 - 30 mmol/L) 27 Anion Gap (5 - 16) 5 BUN (9 - 20 mg/dL) 61 H Creatinine (0.7 - 1.2 mg/dL) 2.2 H Estimated GFR (>60 ml/min) 30 L BUN/Creatinine Ratio (7 - 25 %) 27.7 H Coagulation PT (9.4 - 12.5 SEC) 48.5 *H INR (0.90 - 1.17) 4.69 *H Hematology CBC w Diff NO MAN DIFF REQ WBC (4.8 - 10.8 /CUMM) 8.0 RBC (4.70 - 6.10 /CUMM) 3.92 L Hgb (14.0 - 18.0 G/DL) 9.5 L Hct (42 - 52 %) 29.8 L MCV (80.0 - 94.0 FL) 76.0 L MCH (27.0 - 31.0 PG) 24.3 L RDW (11.5 - 14.5 %) 20.1 H Plt Count (130 - 400 /CUMM) 289 MPV (7.4 - 10.4 FL) 7.7 Gran % (42.2 - 75.2 %) 81.3 H Lymphocytes % (20.5 - 51.1 %) 11.5 L Monocytes % (1.7 - 9.3 %) 7.0 Eosinophils % (0 - 5 %) 0.1 Basophils % (0.0 - 2.0 %) 0.1 Absolute Granulocytes (1.4 - 6.5 /CUMM) 6.5 Absolute Lymphocytes (1.2 - 3.4 /CUMM) 0.9 L Absolute Monocytes (0.10 - 0.60 /CUMM) 0.6 Absolute Eosinophils (0.0 - 0.7 /CUMM) 0 Absolute Basophils (0.0 - 0.2 /CUMM) 0 PUBS MCHC (33.0 - 37.0 G/DL) 32.0 L Disposition Summary Disposition Principal Diagnosis: acute hypoxic respiratory failure Additional Diagnosis: hypoglycemia Discharge Disposition: SNF Discharge Instructions General Discharge Information Code Status: Full Code Patient's Diet: diabetic diet Patient's Activity: as tolerated Follow-Up Instructions/Appts: see above Medications at Discharge Discharge Medications: Stop taking the following medications: Insulin Detemir (Levemir Flextouch) 100 UNIT/ML (3 ML) INSULN.PEN Inject into fatty tissue TWICE DAILY Continue taking these medications: Fenofibrate,Micronized (Fenofibrate) 134 MG CAPSULE 1 Capsule ORAL DAILY Comments: Last Taken: 09/11/16 Time: 9AM Folic Acid (Folic Acid) 1 MG TABLET 1 Tablet ORAL DAILY Comments: Last Taken: 09/11/16 Time: 9AM Metoprolol Succ XL (Toprol Xl) 50 MG TAB 1 Tablet ORAL DAILY Comments: Last Taken: 09/11/16 Time: 9AM Zolpidem Tartrate (Ambien) 10 MG TABLET 1 Tablet ORAL Every night Comments: Last Taken: 09/10/16 Time: 9PM Furosemide (Lasix) 20 MG TABLET 1 Tablet ORAL DAILY Comments: Last Taken: 08/1216 Time: 9AM Atorvastatin Calcium (Lipitor) 40 MG TABLET 1 Tablet ORAL DAILY Comments: Last Taken: 09/11/16 Time: 9AM Entacapone (Comtan) 200 MG TABLET 1 Tablet ORAL THREE TIMES DAILY Comments: Last Taken: 09/11/16 Time: 9AM Duloxetine HCl (Duloxetine HCl) 30 MG CAPSULE. 60 Milligram ORAL DAILY Comments: Last Taken: 09/11/16 Time: 9AM Celecoxib (Celebrex) 200 MG CAPSULE 1 Capsule ORAL TAKE AT BEDTIME Comments: NOT GIVEN WHILE IN HOSPITAL Omeprazole (Omeprazole) 40 MG CAPSULE.DR 1 Capsule ORAL DAILY Qty = 90 Comments: NOT GIVEN WHILE IN HOSPITAL Pregabalin (Lyrica) 50 MG CAPSULE 1 Capsule ORAL THREE TIMES DAILY Comments: Last Taken: 09/11/16 Time: 9AM Docusate Sodium (Colace) 100 MG CAPSULE 1 Capsule ORAL TWICE DAILY Comments: Last Taken: 09/11/16 Time: 9AM Sennosides (Senna) 8.6 MG TABLET 1 Tablet ORAL TWICE DAILY Comments: Last Taken: 09/11/16 Time: 9AM Polyethylene Glycol 3350 (Miralax) 17 GRAM POWD.PACK 1 Packet ORAL DAILY Comments: NOT GIVEN WHILE IN HOSPITAL Magnesium Oxide (Magnesium Oxide) 400 MG TABLET 1 Tablet ORAL DAILY Comments: Last Taken: 09/11/16 Time: 9AM Insulin Aspart, Recombinant (Novolog Flexpen) (Unknown Strength) INSULN.PEN Unknown Dose SEE SLIDING SCALE Instructions: SLIDING SCALE: 150-200 4 UNITS 201-250 6 UNITS 251-300 8 UNITS 301-350 10 UNITS 351-400 12 UNITS OVER 400 CALL MD PER [facility] Comments: Last Taken: 09/11/16 Time: 8AM Polyvinyl Alcohol (Artificial Tears) 1.4 % DROPS 1 DROP OPHTHALMIC 4 TIMES A DAY Comments: Last Taken: 09/11/16 Time: 9AM Pyridoxine HCl (Vitamin B-6) 50 MG TABLET 1 Tablet ORAL DAILY Comments: Last Taken: 09/11/16 Time: 9AM Gabapentin (Neurontin) 100 MG CAPSULE 300 Milligram ORAL THREE TIMES DAILY Comments: Last Taken: 09/11/16 Time: 9AM Carbidopa/Levodopa (Carbidopa-Levodopa 25-100 Tab) 25 MG-100 MG TABLET 1 Tablet ORAL THREE TIMES DAILY Comments: Last Taken: 09/11/16 Time: 9AM Warfarin Sodium (Coumadin) 7.5 MG TABLET 1 Tablet ORAL DAILY Comments: HELD FOR ELEVATED INR Lisinopril (Lisinopril) 5 MG TABLET 1 Tablet ORAL DAILY Comments: Last Taken: 09/11/16 Time: 9AM Calcium Carbonate (Oyster Shell Calcium) 500 MG CALCIUM (1,250 MG) TABLET 1 Tablet ORAL DAILY Comments: NOT GIVEN WHILE IN HOSPITAL Hydromorphone HCl (Dilaudid) 8 MG TABLET 1 Tablet ORAL Every 4 hours as needed for Back pain Qty = 30 Comments: Last Taken: 09/11/16 Time: 2PM Start taking the following new medications: Insulin Detemir (Levemir) 100 UNIT/ML VIAL 20 Units Inject into fatty tissue TWICE DAILY Qty = 2 No Refills Comments: Last Taken: 09/11/16 Time: 9AM Copies To: VISHAL VASQUES,KOFFI
--- NOTE | 2016-09-10 17:29 | PN- Att Addend ---
Attending Addendum Attending Brief Note Patient looking and feeling better, there still has some pain which is chronic. His breathing has improved. Vital signs are stable no fever. No major changes on physical patient walked to the [facility] with a walker. INR is still slightly supratherapeutic. No other major changes are continue present treatment and when stable he would need short-term rehab. Again. Current Medications Sig/Leena Start time Last Medication Dose Route Stop Time Status Admin Artificial Tears 2 GTT 4 TIMES/DAY 09/07 1800 AC 09/10 OPH 1727 Atorvastatin Calcium 40 MG DAILY 09/08 1000 AC 09/10 PO 0912 Carbidopa/Levodopa 1 TAB TID 09/07 2200 AC 09/10 PO 1559 Docusate Sodium 100 MG BID 09/07 2200 AC 09/10 PO 0912 Duloxetine HCl 60 MG DAILY 09/08 1000 AC 09/10 PO 0912 Entacapone 200 MG TID 09/07 2200 AC 09/10 PO 1559 Fenofibrate 145 MG DAILY 09/08 1000 AC 09/10 PO 0912 Folic Acid 1 MG DAILY 09/08 1000 AC 09/10 PO 0912 Furosemide 20 MG DAILY 09/10 1000 AC 09/10 PO 0930 Gabapentin 300 MG TID 09/07 2200 AC 09/10 PO 1559 Hydromorphone HCl 6 MG Q4P PRN 09/10 1200 AC 09/10 PO 1558 Hydromorphone HCl 4 MG Q4P PRN 09/09 1415 DC 09/10 PO 0749 Insulin Aspart 0 TIDAC/HS 09/10 1700 AC 09/10 SC 1727 Insulin Aspart 0 TIDAC 09/10 1200 DC 09/10 SC 1158 Insulin Aspart 0 AC & AT BEDTIME 09/07 2200 DC 09/10 SC 0749 Insulin Detemir 20 UNITS BID 09/10 1143 AC 09/10 SC 1158 Lisinopril 5 MG DAILY 09/10 1000 AC 09/10 PO 0930 Magnesium Oxide 400 MG DAILY 09/08 1000 AC 09/10 PO 0912 Methylprednisolone 40 MG Q12 09/08 2200 DC 09/09 IV 09/10 0600 2146 Metoprolol Succinate 50 MG DAILY 09/08 1000 AC 09/10 PO 0912 Omeprazole 40 MG DAILY AC 09/08 0700 AC 09/10 PO 0553 Polyethylene Glycol 17 GM DAILY 09/08 1000 AC 09/08 PO 0810 Prednisone 60 MG ONCE ONE 09/10 06 DC 09/10 PO 09/10 0601 0553 Pregabalin 50 MG TID 09/07 2199 AC 09/10 PO 1559 Pyridoxine HCl 50 MG DAILY 09/08 1000 AC 09/10 PO 0912 Senna/Docusate Sodium 1 TAB BID 09/07 2199 AC 09/08 PO 210 Zolpidem Tartrate 10 MG QPM 09/07 2199 AC 09/09 PO 2146 Laboratory Tests 09/10/16 0907: PT 41.9 H, INR 4.05 *H 09/10/16 0755: Anion Gap 8, Estimated GFR 33 L, BUN/Creatinine Ratio 25.5 H, CBC w Diff NO MAN DIFF REQ, RBC 4.14 L, MCV 75.3 L, MCH 24.5 L, RDW 20.4 H, MPV 8.1, Gran % 87.7 H, Lymphocytes % 7.7 L, Monocytes % 4.5, Eosinophils % 0, Basophils % 0.1, Absolute Granulocytes 7.9 H, Absolute Lymphocytes 0.7 L, Absolute Monocytes 0.4, Absolute Eosinophils 0, Absolute Basophils 0, PUBS MCHC 32.5 L 09/09/16 1047: Anion Gap 5, Estimated GFR 30 L, BUN/Creatinine Ratio 27.7 H, PT 48.5 *H, INR 4.69 *H, CBC w Diff NO MAN DIFF REQ, RBC 3.92 L, MCV 76.0 L, MCH 24.3 L, RDW 20.1 H, MPV 7.7, Gran % 81.3 H, Lymphocytes % 11.5 L, Monocytes % 7.0, Eosinophils % 0.1, Basophils % 0.1, Absolute Granulocytes 6.5, Absolute Lymphocytes 0.9 L, Absolute Monocytes 0.6, Absolute Eosinophils 0, Absolute Basophils 0, PUBS MCHC 32.0 L 09/08/16 0706: Anion Gap 9, Estimated GFR 23 L, BUN/Creatinine Ratio 23.7, CBC w Diff NO MAN DIFF REQ, RBC 3.83 L, MCV 75.8 L, MCH 24.2 L, RDW 20.9 H, MPV 8.2, Gran % 81.6 H, Lymphocytes % 10.0 L, Monocytes % 8.3, Eosinophils % 0.1, Basophils % 0 L, Absolute Granulocytes 5.6, Absolute Lymphocytes 0.7 L, Absolute Monocytes 0.6, Absolute Eosinophils 0, Absolute Basophils 0, PUBS MCHC 32.0 L 09/07/162047: Lactic Acid 0.7
[2016-09-10 18:38] VITALS: BP 140/76
[2016-09-10 21:53] VITALS: BP 142/70
--- NOTE | 2016-09-10 22:14 | Cons- Endocrinology ---
General Information and HPI Consulting Request Date of Consult: 09/10/16 Requested By: Medical team Reason for Consult: management of DM type 2 Source of Information: patient, old records Exam Limitations: no limitations History of Present Illness: 70 y/o male, hx of DM type 2 uncontrolled complicated with renal insufficiency, was admitted for SOB. He was on Solumedrol and then prednisone which was discontinued today. His FSGs were 300s. I was asked to see him for DM management. Currently he was put on Levemir 20 units twice a day, Novolog coverage before meals. His breathing has been better. Allergies/Medications Allergies: Coded Allergies: Penicillins (Intermediate, HIVES 05/03/15) [facility] ([facility]) (UNKNOWN 08/03/16) Home Med List: Atorvastatin Calcium (Lipitor) 40 MG TABLET 1 TAB PO DAILY HYPERLIPIDEMIA ( Reported) Calcium Carbonate (Oyster Shell Calcium) 500 MG CALCIUM (1,250 MG) TABLET 1 TAB PO DAILY SUPPLEMENT (Reported) Carbidopa/Levodopa (Carbidopa-Levodopa 25-100 Tab) 25 MG-100 MG TABLET 1 TAB PO TID PARKINSONS (Reported) Celecoxib (Celebrex) 200 MG CAPSULE 1 CAP PO QHS PAIN CONTROL (Reported) Docusate Sodium (Colace) 100 MG CAPSULE 1 CAP PO BID GI (Reported) Duloxetine HCl 30 MG CAPSULE.DR 60 MG PO DAILY MOOD (Reported) Entacapone (Comtan) 200 MG TABLET 1 TAB PO TID PARKINSONS (Reported) Fenofibrate,Micronized (Fenofibrate) 134 MG CAPSULE 1 CAP PO DAILY TRIGLYCERIDES (Reported) Folic Acid 1 MG TABLET 1 TAB PO DAILY SUPPLEMENT (Reported) Furosemide (Lasix) 20 MG TABLET 1 TAB PO DAILY WATER PILL (Reported) Gabapentin (Neurontin) 100 MG CAPSULE 300 MG PO TID PAIN (Reported) Insulin Aspart, Recombinant (Novolog Flexpen) (Unknown Strength) INSULN.PEN ( Unknown Dose) SEE SLIDING SCALE DIABETES (Reported) SLIDING SCALE: 150-200 4 UNITS 201-250 6 UNITS 251-300 8 UNITS 301-350 10 UNITS 351-400 12 UNITS OVER 400 CALL MD PER [facility] Insulin Detemir (Levemir Flextouch) 100 UNIT/ML (3 ML) INSULN.PEN 48 UNITS SC BID DIABETES (Reported) Lisinopril 5 MG TABLET 1 TAB PO DAILY HTN (Reported) Magnesium Oxide 400 MG TABLET 1 TAB PO DAILY SUPPLEMENT (Reported) Metoprolol Succ XL (Toprol Xl) 50 MG TAB 1 TAB PO DAILY BP (Reported) Omeprazole 40 MG CAPSULE.DR 1 CAP PO DAILY reflux (Reported) Polyethylene Glycol 3350 (Miralax) 17 GRAM POWD.PACK 1 PAC PO DAILY GI ( Reported) Polyvinyl Alcohol (Artificial Tears) 1.4 % DROPS 1 DROP OP 4 TIMES/DAY EYE ( Reported) Pregabalin (Lyrica) 50 MG CAPSULE 1 CAP PO TID PAIN (Reported) Pyridoxine HCl (Vitamin B-6) 50 MG TABLET 1 TAB PO DAILY SUPPLEMENT (Reported ) Sennosides (Senna) 8.6 MG TABLET 1 TAB PO BID GI (Reported) Warfarin Sodium (Coumadin) 7.5 MG TABLET 1 TAB PO DAILY AFIB (Reported) Zolpidem Tartrate (Ambien) 10 MG TABLET 1 TAB PO QPM SLEEP (Reported) Review of Systems Review of Systems Constitutional: Reports: see HPI. Cardiovascular: Denies: chest pain. Respiratory: Denies: short of breath. GI: Denies: abdominal pain. Musculoskeletal: Denies: back pain. Hematologic/Endocrine: Denies: polyuria, polydipsia. Past History Travel History Traveled to [place] past 21 day No Medical History Blood Transfusion Hx: Yes Neurological: CVA, Parkinson's disease, peripheral neuropathy, stroke 4 times after morphine EENT: NONE Cardiovascular: CAD, CHF, hypertension, [facility] LA[facility]A VALVE Respiratory: PNA Gastrointestinal: GERD, pancreatitis, peptic ulcer disease, upper GI bleed Hepatic: NONE Renal: NONE Musculoskeletal: chronic back pain, osteoarthritis, osteoporosis, spinal fracture twice MRSA IN WOUND Psychiatric: anxiety Endocrine: diabetes, osteoporosis, vitamin D deficiency Blood Disorders: anemia Cancer(s): melanoma ALLERGIST/MD/Reproductive: NONE Other Medical Hx: High cholesterol Surgical History Surgical History: knee replacement, laminectomy (L1 to L5), spinal fusion (C5 to C7), BICUSPID VALVE REPLACEMENT status post foot surgery status post hand surgery HAS STEEL PLATES R HAND Family History Relations & Conditions If Any: MOTHER FH: myocardial infarction FATHER (Myocardial infarction). Psychosocial History Where Do You Live? Assisted Living Who Do You Live With? self Services at Home: Nursing, Physical Therapy Primary Language: [place] Islander Smoking Status: Never Smoked Power of Pattern Assembler/HCP? yes Name of POA/HCP: dustin Holden Functional Ability ADLs Needs Assist: dressing, eating, toileting, bathing. Ambulation: cane, wheelchair bound IADLs Independent: telephone. Needs Assist: shopping, housework, finances, food prep, transportation, medication admin. Exam & Diagnostic Data Last 24 Hrs of Vital Signs/I&O Vital Signs Date Time Temp Pulse Resp B/P B/P Pulse O2 O2 Flow FiO2 Mean Ox Delivery Rate 09/103 98.4 55 18 142/70 95 09/10 1838 98.3 64 20 140/76 96 Room Air 09/10 0951 Nasal 2.0L Cannula 09/10 0912 58 174/80 09/10 0800 96 Room Air 09/10 0647 97.7 57 20 176/82 94 Room Air 09/10 0000 98 Nasal 2.0L Cannula 09/09 2234 98.1 55 20 152/82 97 Nasal Cannula Intake & Output 09/10 1600 09/10 0800 09/10 0000 Intake Total 600 490 260 Output Total 950 377 Balance 600 -460 -117 Intake, IV 10 20 Intake, Oral 600 480 240 Number 2 Bowel Movements Output, Stool 2 Output, Urine 950 375 Physical Exam General Appearance: no apparent distress Neck: normal inspection Respiratory: lungs clear Cardiovascular: regular rate/rhythm Gastrointestinal: non-tender Extremities: no edema Labs/Arpan Results: Laboratory Tests 09/10 09/10 0907 0755 Chemistry Sodium (137 - 145 mmol/L) 135 L Potassium (3.5 - 5.1 mmol/L) 5.7 H Chloride (98 - 107 mmol/L) 101 Carbon Dioxide (22 - 30 mmol/L) 26 Anion Gap (5 - 16) 8 BUN (9 - 20 mg/dL) 51 H Creatinine (0.7 - 1.2 mg/dL) 2.0 H Estimated GFR (>60 ml/min) 33 L BUN/Creatinine Ratio (7 - 25 %) 25.5 H Coagulation PT (9.4 - 12.5 SEC) 41.9 H INR (0.90 - 1.17) 4.05 *H Hematology CBC w Diff NO MAN DIFF REQ WBC (4.8 - 10.8 /CUMM) 9.0 RBC (4.70 - 6.10 /CUMM) 4.14 L Hgb (14.0 - 18.0 G/DL) 10.1 L Hct (42 - 52 %) 31.1 L MCV (80.0 - 94.0 FL) 75.3 L MCH (27.0 - 31.0 PG) 24.5 L RDW (11.5 - 14.5 %) 20.4 H Plt Count (130 - 400 /CUMM) 294 MPV (7.4 - 10.4 FL) 8.1 Gran % (42.2 - 75.2 %) 87.7 H Lymphocytes % (20.5 - 51.1 %) 7.7 L Monocytes % (1.7 - 9.3 %) 4.5 Eosinophils % (0 - 5 %) 0 Basophils % (0.0 - 2.0 %) 0.1 Absolute Granulocytes (1.4 - 6.5 /CUMM) 7.9 H Absolute Lymphocytes (1.2 - 3.4 /CUMM) 0.7 L Absolute Monocytes (0.10 - 0.60 /CUMM) 0.4 Absolute Eosinophils (0.0 - 0.7 /CUMM) 0 Absolute Basophils (0.0 - 0.2 /CUMM) 0 PUBS MCHC (33.0 - 37.0 G/DL) 32.5 L Laboratory Tests 09/10 09/10 0907 0755 Chemistry Sodium (137 - 145 mmol/L) 135 L Potassium (3.5 - 5.1 mmol/L) 5.7 H Chloride (98 - 107 mmol/L) 101 Carbon Dioxide (22 - 30 mmol/L) 26 Anion Gap (5 - 16) 8 BUN (9 - 20 mg/dL) 51 H Creatinine (0.7 - 1.2 mg/dL) 2.0 H Estimated GFR (>60 ml/min) 33 L BUN/Creatinine Ratio (7 - 25 %) 25.5 H Coagulation PT (9.4 - 12.5 SEC) 41.9 H INR (0.90 - 1.17) 4.05 *H Hematology CBC w Diff NO MAN DIFF REQ WBC (4.8 - 10.8 /CUMM) 9.0 RBC (4.70 - 6.10 /CUMM) 4.14 L Hgb (14.0 - 18.0 G/DL) 10.1 L Hct (42 - 52 %) 31.1 L MCV (80.0 - 94.0 FL) 75.3 L MCH (27.0 - 31.0 PG) 24.5 L RDW (11.5 - 14.5 %) 20.4 H Plt Count (130 - 400 /CUMM) 294 MPV (7.4 - 10.4 FL) 8.1 Gran % (42.2 - 75.2 %) 87.7 H Lymphocytes % (20.5 - 51.1 %) 7.7 L Monocytes % (1.7 - 9.3 %) 4.5 Eosinophils % (0 - 5 %) 0 Basophils % (0.0 - 2.0 %) 0.1 Absolute Granulocytes (1.4 - 6.5 /CUMM) 7.9 H Absolute Lymphocytes (1.2 - 3.4 /CUMM) 0.7 L Absolute Monocytes (0.10 - 0.60 /CUMM) 0.4 Absolute Eosinophils (0.0 - 0.7 /CUMM) 0 Absolute Basophils (0.0 - 0.2 /CUMM) 0 PUBS MCHC (33.0 - 37.0 G/DL) 32.5 L Assessment/Plan Assessment/Plan 70 y/o male, hx of DM type 2 uncontrolled complicated with renal insufficiency, was admitted for SOB. He was on Solumedrol and then prednisone which was discontinued today. His FSGs were 300s. I was asked to see him for DM management. 1. continue Levemir 20 units twice a day; 2. adjust Novolog coverage before meals and add Novolog coverage at bedtime; detail see the inpatient DM orders. 3. monitor FSGs, will follow. Inpatient Diabetes Orders Before Each Meal: Bolus Insulin: Novolog < 80 mg/dl: no coverage 80-100 mg/dl: 4 units 101-120 mg/dl: 4 units 121-150 mg/dl: 4 units 151-200 mg/dl: 6 units 201-250 mg/dl: 8 units 251-300 mg/dl: 10 units 301-350 mg/dl: 12 units 351-400 mg/dl: 14 units > 400 mg/dl: 16 units Bedtime: Bolus Insulin: Novolog < 80 mg/dl: no coverage 80-100 mg/dl: no coverage 101-120 mg/dl: no coverage 121-150 mg/dl: no coverage 151-200 mg/dl: no coverage 201-250 mg/dl: no coverage 251-300 mg/dl: 2 units 301-350 mg/dl: 3 units 351-400 mg/dl: 4 units > 400 mg/dl: 5 units Consult Acknowledgment - Thank you for your consult request.
[2016-09-11 06:00] VITALS: BP 144/76
[2016-09-11] MEDS ORDERED: LEVEMIR100 UNIT/1 SC (08:10)
[2016-09-11 08:35] LABS: PT 27.7 SEC (9.4-12.5)
--- NOTE | 2016-09-11 08:42 | PN- Diabetes ---
Assessment/Plan Assessment: 70 y/o male, hx of DM type 2 uncontrolled complicated with renal insufficiency, was admitted for SOB. He was on Solumedrol and then prednisone which was discontinued today. His FSGs were 300s. I was asked to see him for DM management. He is on Levemir 20 units twice a day; Novolog coverage before meals was adjusted. His FSGs were 378, 227 and 202. Most likely he will go to rehab today. Plan: continue the currrent insulin regimen; monitor FSGs; the discharge plan for DM will be the same insulin regimen as inpatient; f/u in office after discharge. Subjective Subjective: He feels well this morning. Objective Last 24 Hrs of Vital Signs/I&O Vital Signs Date Time Temp Pulse Resp B/P B/P Pulse O2 O2 Flow FiO2 Mean Ox Delivery Rate 09/11 0600 98.1 58 18 144/76 96 Room Air 09/11 0000 95 Room Air 09/10 2153 98.4 55 18 142/70 95 09/10 1838 98.3 64 20 140/76 96 Room Air 09/10 0951 Nasal 2.0L Cannula 09/10 0912 58 174/80 Intake & Output 09/11 1600 09/11 0800 09/11 0000 Intake Total 350 350 Output Total Balance 350 350 Intake, Oral 350 350 Findings Pertinent Lab/Arpan Results: Laboratory Tests 09/11 09/10 0730 0907 Coagulation PT (9.4 - 12.5 SEC) 27.7 H 41.9 H INR (0.90 - 1.17) 2.66 H 4.05 *H
--- NOTE | 2016-09-11 08:58 | Patient Discharge Instructions ---
Discharge Instructions General Discharge Information You were seen/treated for: Hypoglycemia and fall You had these procedures: optimization of your medications Watch for these problems: fever headache chest pain shortness of breath Diet Recommended Diet: Regular Activity Activity Self Limited: Yes Acute Coronary Syndrome Inclusion Criteria At DC or during hospital stay patient has or had the following: ACS DIAGNOSIS No Discharge Core Measures Meds if any: Prescribed or Continued at Discharge Meds if any: NOT Prescribed or Continued at Discharge Congestive Heart Failure Inclusion Criteria At DC or during hospital stay patient has or had the following: CHF DIAGNOSIS No Discharge Core Measures Meds if any: Prescribed or Continued at Discharge Meds if any: NOT Prescribed or Continued at Discharge Cerebrovascular accident Inclusion Criteria At DC or during hospital stay patient has or had the following: CVA/TIA Diagnosis No Discharge Core Measures Meds if any: Prescribed or Continued at Discharge Meds if any: NOT Prescribed or Continued at Discharge Venous thromboembolism Inclusion Criteria VTE Diagnosis No VTE Type NONE VTE Confirmed by (Test) NONE Discharge Core Measures - Per Current guidelines, there needs to be overlap - treatment for the first 5 days of Warfarin therapy. - If discharged on Warfarin prior to 5 days of - overlap therapy, the patient will need to be - assessed for post discharge needs including - *Post discharge parental anticoagulation - *Warfarin and/or parental anticoagulation education - *Follow up date to check INR post discharge At least 5 days overlap therapy as Inpatient No Meds if any: Prescribed or Continued at Discharge Note: Overlap Therapy is Warfarin and Anticoagulant Meds if any: NOT Prescribed or Continued at Discharge
--- NOTE | 2016-09-11 11:47 | PN- Housestaff ---
Subjective Follow-up For: Acute hypoxic hypercarbic respiratory distress, Supratherapeutic INR, Acute on Chronic Renal Failure Subjective: I saw and examined the patient today. Pt denies SOB, chest pain, palpitations, n /v, fever/chills. Pt continues to have back pain rates at 10/10. Pain is chronic and is on dilaudid. Review of Systems Constitutional: Denies: see HPI. Objective Last 24 Hrs of Vital Signs/I&O Vital Signs Date Time Temp Pulse Resp B/P B/P Pulse O2 O2 Flow FiO2 Mean Ox Delivery Rate 09/11 0911 140/70 07/ 0911 58 140/70 09/11 0800 Room Air 09/11 0600 98.1 58 18 144/76 96 Room Air 09/11 0000 95 Room Air 09/10 2153 98.4 55 18 142/70 95 / 1838 98.3 64 20 140/76 96 Room Air Intake & Output 09/11 1600 09/11 0800 09/11 0000 Intake Total 350 350 Output Total Balance 350 350 Intake, Oral 350 350 Physical Exam General Appearance: Alert, Oriented X3, Cooperative, No Acute Distress HEENT: Atraumatic, Mucous Membr. moist/pink Cardiovascular: Regular Rate, Normal S1, Normal S2 Lungs: Clear to Auscultation Abdomen: Normal Bowel Sounds, Soft, No Tenderness Vascular: Normal Pulses Assessment/Plan Assessment: Patient is 70 y/o male w/PMH of HTN, Parkinson's disease, frequent falls, history of TIA, multiple back surgeries, [facility]'s Valve (on Coumadin since ), hyperlipidemia, CKD and diabetes brought ambulance to emergency room from assisted living after he was found to be hypoglycemic and upon further evaluation hypoxic and hypotensive. On presentation ABG showed hypercarbic respiratory failure with respiratory acidosis. Patient was lethargic and was started on BiPAP through which patient showed significant improvement in mental status. This patient has no history of COPD and is presenting with new episode of hypoxic respiratory failure not associated with eating to suggest possible aspiration. Initial blood work does not show any evidence of infection with normal white count and almost normal UA. Patient is improving on BiPAP responding and, nicotine well at his baseline. He responded to course of IV Solu-Medrol. The picture is of an acute hypoxic respiratory failure, this patient is reporting that his Parkinson disease has been acting up lately and probably could have exacerbating him to. Of apnea and hence the hypercarbia and hypoxia. Patient was admitted to the general medicine floor for management of the followin. Acute hypoxic hypercarbic respiratory failure - resolved, likely secondary to a combination of taking more medication than was prescribed and recent treatment for acute bronchitis prior to admission treated with steroids and outpatient antibiotics. Pt also came in hypoglycemic and supratherapeutic which indicates that he may have accidentally taken more medication than prescribed. - initial ABG: pH: 7.29/pCO2: 56/ pO2: 77 - 2 hours after placing on BiPAP and giving IV Solumedrol: - ABG: pH: 7.33/pCO2: 53/pO2: 110 - today patient is saturating in the 90's on 2L NC - CXR: did not show any lung pathology - blood and urine cultures have been negative to date - UA negative for leukocyte esterase and nitrites - on PO prednisone starting at 60 yesterday, will give 50 today and discharge on a taper - patient continues to be afebrile, with normal lung exam, normal WBC, saturating in the mid-90s on room air 2. Hypoglycemia resolved, H/O DM, poorly controlled, last HbA1c in Aug 2016: 9.9 this however is an improvement from his previous readings which have been as high as 16.2. - patient was found to have glucose of 50 prior to admission. Pt is on insulin detemir 48units BID and aspart at home. - glucose in ED: 207, today was >300, AM: 370, Lunch: 308, Dinner: 378 - pt states is BG has been as high as the 500s. - continue to monitor glucose - added levemir 20 units and placed on medium sliding scale today - consulted endocrinology. Appreciate recommendations - As per Dr. Cooley: will give levemir 20 BID and novolog coverage prior to meals - patient will follow up with endocrinology outpatient 3. Acute on chronic renal failure, stage 3- acute renal failure resolved, now at baseline creatinine - baseline creatinine: 2.1 - creatinine trending down now 2.0 - lasix and lisinopril restarted 4. Supratherapeutic INR - resolved, now in a therapeutic range - on Coumadin at home for a [facility] Peter's valve - INR, today: 2.66 from 6.59 on admission 5. Chronic iron deficiency anemia - H/H stable 6. H/O Parkinsonism - continue carbidopa/levodopa - continue entacapone 7. H/O Back Pain - pt no longer in respiratory distress - restarted dilaudid overnight DVT PPx: ALPs Diet: Consistent carbohydrate 3 Code: Full Dispo: discharge today to [facility] Problem List: 1. Diabetes mellitus type 2 2. Chronic renal disease, stage 3, moderately decreased glomerular filtration rate between 30-59 mL/min/1.73 square meter 3. Supratherapeutic INR 4. Hypoglycemia 5. Supratherapeutic INR Pain Ratin Pain Location: back Pain Goal: Pain 7 or less Pain Plan: dilaudid Tomorrow's Labs & Rationales: none
[2016-09-11] MEDS ORDERED: DILAUDID8 M1 PO (13:55)
[2016-09-11 13:58] VITALS: BP 140/70
[2016-09-11] MEDS ORDERED: DELTASONE20 MG PO (14:42)
--- NOTE | 2016-09-11 18:45 | PN- Att Addend ---
Attending Addendum Attending Brief Note Patient looks and feels much better, his vital signs are stable. His all dressed and ready to go back to short-term rehabilitation. Discharge and I will follow him at [facility], see the discharge summary and W 10. Intake & Output 09/11 1600 09/11 0400 09/10 1600 09/10 0400 09/09 1600 09/09 0400 Intake Total 4274 150 9876 260 600 500 Output Total 052 475 6241 1025 Balance 1550 350 540 -517 -3025 -525 Intake, IV 10 20 Intake, Oral 7694 326 2007 240 600 500 Number 1 2 Bowel Movements Output, Stool 2 Output, Urine 049 474 3321 1025 Current Medications Sig/Leena Start time Last Medication Dose Route Stop Time Status Admin Artificial Tears 2 GTT 4 TIMES/DAY 09/07 1800 DCD 09/11 OPH 1301 Atorvastatin Calcium 40 MG DAILY 09/08 1000 DCD 09/11 PO 0911 Carbidopa/Levodopa 1 TAB TID 09/07 2200 DCD 09/11 PO 0911 Docusate Sodium 100 MG BID 09/07 2200 DCD 09/11 PO 0911 Duloxetine HCl 60 MG DAILY 09/08 1000 DCD 09/11 PO 0911 Entacapone 200 MG TID 09/07 2200 DCD 09/11 PO 0910 Fenofibrate 145 MG DAILY 09/08 1000 DCD 09/11 PO 0910 Folic Acid 1 MG DAILY 09/08 1000 DCD 09/11 PO 0911 Furosemide 20 MG DAILY 09/10 1000 DCD 09/11 PO 0911 Gabapentin 300 MG TID 09/07 2200 DCD 09/11 PO 0911 Guaifenesin 10 ML .STK-MED ONE 09/11 0829 DC PO 09/11 0830 Guaifenesin/ 10 ML Q6P PRN 09/11 0830 DCD Dextromethorphan PO Hydromorphone HCl 6 MG Q4P PRN 09/10 1200 DCD 09/11 PO 1353 Insulin Aspart 0 TIDAC/HS 09/10 1700 DCD 09/11 SC 0743 Insulin Detemir 20 UNITS BID 09/10 1143 DCD 09/11 SC 0911 Lisinopril 5 MG DAILY 09/10 1000 DCD 09/11 PO 0911 Magnesium Oxide 400 MG DAILY 09/08 1000 DCD 09/11 PO 0911 Metoprolol Succinate 50 MG DAILY 09/08 1000 DCD 09/11 PO 0911 Omeprazole 40 MG DAILY AC 09/08 07 DCD 09/11 PO 0605 Polyethylene Glycol 17 GM DAILY 09/08 1000 DCD 09/08 PO 08 Prednisone 50 MG ONCE ONE 09/11 829 DC 09/11 PO 09/11 0831 0937 Pregabalin 50 MG TID 09/070 DCD 09/11 PO 09 Pyridoxine HCl 50 MG DAILY 09/08 1000 DCD 09/11 PO 0910 Senna/Docusate Sodium 1 TAB BID 09/07 2199 DCD 09/11 PO 0923 Zolpidem Tartrate 10 MG QPM 09/07 2199 DCD 09/10 PO 2144 Laboratory Tests 09/11/16 0730: PT 27.7 H, INR 2.66 H 09/10/16 0907: PT 41.9 H, INR 4.05 *H 09/10/16 0755: Anion Gap 8, Estimated GFR 33 L, BUN/Creatinine Ratio 25.5 H, CBC w Diff NO MAN DIFF REQ, RBC 4.14 L, MCV 75.3 L, MCH 24.5 L, RDW 20.4 H, MPV 8.1, Gran % 87.7 H, Lymphocytes % 7.7 L, Monocytes % 4.5, Eosinophils % 0, Basophils % 0.1, Absolute Granulocytes 7.9 H, Absolute Lymphocytes 0.7 L, Absolute Monocytes 0.4, Absolute Eosinophils 0, Absolute Basophils 0, PUBS MCHC 32.5 L 09/09/16 1047: Anion Gap 5, Estimated GFR 30 L, BUN/Creatinine Ratio 27.7 H, PT 48.5 *H, INR 4.69 *H, CBC w Diff NO MAN DIFF REQ, RBC 3.92 L, MCV 76.0 L, MCH 24.3 L, RDW 20.1 H, MPV 7.7, Gran % 81.3 H, Lymphocytes % 11.5 L, Monocytes % 7.0, Eosinophils % 0.1, Basophils % 0.1, Absolute Granulocytes 6.5, Absolute Lymphocytes 0.9 L, Absolute Monocytes 0.6, Absolute Eosinophils 0, Absolute Basophils 0, PUBS MCHC 32.0 L
== END 2016-09-11 15:19 | DRG 917 ==
LOC: ERH 12:52 → 2NA 15:32 → ERHI 15:32 → ENRESERV 17:08 → ENTRNSPT 17:49 → EDTRNSPT 18:36 → EDTRNSPTSTS 18:36 → 2NA 18:47 → CMPTRNSPT 19:13 → ENPENDDIS 09-11 10:20 → 2NA 09-11 15:19
PROVIDERS: Physician Assistant Medical; Preventive Medicine Public Health & General Preventive Medicine; ADMIT Internal Medicine
PROC: 5A09357 Assistance with Respiratory Ventilation, Less than 24 Consecutive Hours, Continuous Positive Airway Pressure (ICD-10-PCS; principal; 2016-09-07)
DX: T50.901A Poisoning by unspecified drugs, medicaments and biological substances, accidental (unintentional), initial encounter (principal); J96.01 Acute respiratory failure with hypoxia; J96.02 Acute respiratory failure with hypercapnia; N17.9 Acute kidney failure, unspecified; E87.2 Acidosis; I13.0 Hypertensive heart and chronic kidney disease with heart failure and stage 1 through stage 4 chronic kidney disease, or unspecified chronic kidney disease; E11.649 Type 2 diabetes mellitus with hypoglycemia without coma; G20 Parkinson's disease; E11.42 Type 2 diabetes mellitus with diabetic polyneuropathy; E11.22 Type 2 diabetes mellitus with diabetic chronic kidney disease; I50.9 Heart failure, unspecified; N18.3 Chronic kidney disease, stage 3 (moderate); Z79.01 Long term (current) use of anticoagulants; E78.5 Hyperlipidemia, unspecified; Z79.4 Long term (current) use of insulin; I25.10 Atherosclerotic heart disease of native coronary artery without angina pectoris; K21.9 Gastro-esophageal reflux disease without esophagitis; D50.9 Iron deficiency anemia, unspecified; M54.9 Dorsalgia, unspecified; M81.0 Age-related osteoporosis without current pathological fracture; Z86.73 Personal history of transient ischemic attack (TIA), and cerebral infarction without residual deficits; Z95.2 Presence of prosthetic heart valve; Y92.009 Unspecified place in unspecified non-institutional (private) residence as the place of occurrence of the external cause
CPT/HCPCS: 2NAP; 36415; 81001; 82436; 87040; 87086; 93005; 93010; 96374; 96375; 97116-GO; 97161-GP; 99291; J0131; J1940; J2920; J2930; J3490

== ENCOUNTER 2017-09-02 16:17 | Emergency (ER) | payer OTHER, MEDICARE ==
[~2017-09-02] VITALS: Ht 185.4 cm; Wt 109.3 kg
[~2017-09-02 16:17] MED LIST changes: +COUMADIN2 M1 PO; +DELTASONE20 MG PO; +DILAUDID8 M1 PO; +DIVALPROEX SOD250 M3 PO; -LASIX20 M1 PO; +LASIX40 M1 PO; +LEVEMIR100 UNIT/1 SC; +LEXAPRO10 M1 PO; +LISINOPRIL10 M1 PO; -LISINOPRIL5 M1 PO; -NEURONTIN100 M1 PO; +OMEPRAZOLE20 M2 PO; -OMEPRAZOLE40 M1 PO; +OYSTER SHELL C500 M2 PO
--- NOTE | 2017-09-02 16:38 | ED MVC/FALL/TRAUMA COMPLAINT ---
History of Present Illness General Chief Complaint: Fall Stated Complaint: BIBA FOR FALL Source: patient Exam Limitations: no limitations Vital Signs & Intake/Output Vital Signs & Intake/Output Vital Signs Date Time Temp Pulse Resp B/P B/P Pulse O2 O2 Flow FiO2 Mean Ox Delivery Rate 09/02 1913 98.3 88 19 145/59 95 09/02 1625 97.9 76 20 141/60 93 Room Air ED Intake and Output 09/03 0000 09/02 1200 Intake Total Output Total 300 Balance -300 Output, Urine 300 Patient 241 lb Weight Allergies Coded Allergies: Penicillins (Intermediate, HIVES 05/03/15) Reconcile Medications Atorvastatin Calcium (Lipitor) 40 MG TABLET 1 TAB PO DAILY HYPERLIPIDEMIA ( Reported) Calcium Carbonate (Oyster Shell Calcium) 500 MG CALCIUM (1,250 MG) TABLET 1 TAB PO DAILY SUPPLEMENT (Reported) Carbidopa/Levodopa (Carbidopa-Levodopa 25-100 Tab) 25 MG-100 MG TABLET 1 TAB PO TID PARKINSONS (Reported) Celecoxib (Celebrex) 200 MG CAPSULE 1 CAP PO QHS PAIN CONTROL (Reported) Divalproex Sodium (Divalproex Sodium ER) 250 MG TAB.ER.24H 1 TAB PO QPM SLEEP (Reported) Docusate Sodium (Colace) 100 MG CAPSULE 1 CAP PO BID GI (Reported) Duloxetine HCl 30 MG CAPSULE.DR 60 MG PO DAILY MOOD (Reported) Entacapone (Comtan) 200 MG TABLET 1 TAB PO TID PARKINSONS (Reported) Escitalopram Oxalate (Lexapro) 10 MG TABLET 1 TAB PO DAILY MENTAL HEALTH ( Reported) Fenofibrate,Micronized (Fenofibrate) 134 MG CAPSULE 1 CAP PO DAILY TRIGLYCERIDES (Reported) Folic Acid 1 MG TABLET 1 TAB PO DAILY SUPPLEMENT (Reported) Furosemide (Lasix) 20 MG TABLET 1 TAB PO DAILY WATER PILL (Reported) Gabapentin (Neurontin) 100 MG CAPSULE 300 MG PO TID PAIN (Reported) Hydromorphone HCl (Dilaudid) 8 MG TABLET 1 TAB PO Q4 PRN Back pain (Reported) Insulin Aspart, Recombinant (Novolog Flexpen) (Unknown Strength) INSULN.PEN ( Unknown Dose) SEE SLIDING SCALE DIABETES (Reported) SLIDING SCALE: 150-200 4 UNITS 201-250 6 UNITS 251-300 8 UNITS 301-350 10 UNITS 351-400 12 UNITS OVER 400 CALL MD PER [facility] Insulin Detemir (Levemir Flextouch) 100 UNIT/ML (3 ML) INSULN.PEN 24 UNITS SC DAILY DIABETES (Reported) Insulin Detemir (Levemir) 100 UNIT/ML VIAL 20 UNITS SC BID diabetes Lisinopril 10 MG TABLET 1 TAB PO DAILY HTN (Reported) Magnesium Oxide 400 MG TABLET 1 TAB PO DAILY SUPPLEMENT (Reported) Metoprolol Succ XL (Toprol Xl) 50 MG TAB 1 TAB PO DAILY BP (Reported) Omeprazole 40 MG CAPSULE.DR 1 CAP PO DAILY reflux (Reported) Polyethylene Glycol 3350 (Miralax) 17 GRAM POWD.PACK GI (Reported) Polyvinyl Alcohol (Artificial Tears) 1.4 % DROPS 1 DROP OP 4 TIMES/DAY EYE ( Reported) Pregabalin (Lyrica) 50 MG CAPSULE 1 CAP PO TID PAIN (Reported) Pyridoxine HCl (Vitamin B-6) 50 MG TABLET 1 TAB PO DAILY SUPPLEMENT (Reported ) Sennosides (Senna) 8.6 MG TABLET 1 TAB PO DAILY CONSTIPATION (Reported) Trazodone HCl 50 MG TABLET 0.25 TAB PO QPM PRN SLEEP (Reported) Warfarin Sodium (Coumadin) 5 MG TABLET 1 TAB PO 1700 BLOOD THINNER (Reported) Zolpidem Tartrate (Ambien) 10 MG TABLET 1 TAB PO QPM SLEEP (Reported) Triage Note: BIBA FROM ASSISTED LIVING WITH C/O FALL WITH HEADSTRIKE. PATIENT ARRIVES ALERT, ORIENTED, C-COLLAR IN PLACE, PATIENT STATES HIS LEFT HIP, LOW BACK AND OCCIPITAL ASPECT OF HEAD ARE PAINFUL ON PALPATION. FALL PRECAUTIONS APPLIED. PATIENT DENIES DIZZINESS, SOB, OR CHEST PAIN. AWAITING PROVIDER EVAL. Triage Nurses Notes Reviewed? yes Onset: Abrupt Duration: hour(s): (1), constant, continues in ED, getting worse Timing: single episode today Severity: mild, moderate Severity Numbers: 6 Injuries/Fall Location: head, neck, chest, back, pelvis, lower extremity Method of Injury: fall Loss of Consciousness: no loss of consciousness No Modifying Factors: none HPI: 71-year-old male history of Parkinson's disease, CVA, coronary artery disease, CHF, chronic back pain presents for evaluation after a fall. Patient is essentially wheelchair bound. He spends most of his time either in the wheelchair or his bed. He states today he was sitting on his couch and became very stiff so he wanted to try to stand up to stretch. Upon standing up he reports his legs gave out causing him to fall onto his left side hitting the left posterior part of his head left hip and left ribs on the ground. There was no loss of consciousness. Patient lives in assisted living and was able to call for help immediately. He is not on blood thinners. He does not walk at baseline. There is no dizziness lightheadedness chest pain shortness of breath before the fall. No changes in vision no vomiting. (Feliciano Forte) Past History Travel History Traveled to [place] past 21 day No Medical History Any Pertinent Medical History? see below for history Neurological: CVA, Parkinson's disease, peripheral neuropathy, stroke 4 times after morphine EENT: NONE Cardiovascular: CAD, CHF, hypertension, [facility] A[facility] LAURA VALVE Respiratory: PNA Gastrointestinal: GERD, pancreatitis, peptic ulcer disease, upper GI bleed Hepatic: NONE Renal: NONE Musculoskeletal: chronic back pain, osteoarthritis, osteoporosis, spinal fracture twice MRSA IN WOUND Psychiatric: anxiety Endocrine: diabetes, osteoporosis, vitamin D deficiency Blood Disorders: anemia Cancer(s): melanoma CHEMIST HELPER/Reproductive: NONE Other Medical Hx: High cholesterol History of MRSA: Yes History of VRE: No History of CDIFF: No Tetanus Vaccine: 04/10/15 Surgical History Surgical History: knee replacement, laminectomy (L1 to L5), spinal fusion (C5 to C7), BICUSPID VALVE REPLACEMENT status post foot surgery status post hand surgery HAS STEEL PLATES R HAND Psychosocial History Who do you live with Patient/Self Services at Home Nursing, Physical Therapy What is your primary language [place]guillan Tobacco Use: Quit >30 days ago ETOH Use: denies use Illicit Drug Use: denies illicit drug use Family History Family History, If Any: MOTHER FH: myocardial infarction FATHER (Myocardial infarction). Hx Contributory? No (Feliciano Forte) Review of Systems Review of Systems Constitutional: Reports: no symptoms. Eyes: Reports: no symptoms. Ears, Nose, Throat, Mouth: Reports: no symptoms. Respiratory: Reports: no symptoms. Cardiovascular: Reports: no symptoms. Gastrointestinal/Abdominal: Reports: no symptoms. Genitourinary: Reports: no symptoms. Musculoskeletal: Reports: see HPI, back pain, joint pain, muscle pain, muscle stiffness, neck pain. Skin: Reports: no symptoms. Neurological/Psychological: Reports: headache. All Other Systems: Reviewed and Negative (Feliciano Forte) Physical Exam Physical Exam General Appearance: well developed/nourished, no apparent distress, alert, awake Head: atraumatic, normal appearance, occipital scalp is tender to palpation there is no bruising or lacerations or abrasions no domingo signs or raccoon eyes Eyes: Bilateral: normal appearance, PERRL, EOMI. Ears, Nose, Throat, Mouth: moist mucous membrane Neck: C collar is in place. There is bilateral paraspinal tenderness to palpation without midline tenderness step offs or deformities. Respiratory: normal breath sounds, no respiratory distress, lungs clear, left lateral ribs are tender to palpation no bruising or abrasions Cardiovascular: regular rate/rhythm, normal peripheral pulses Peripheral Pulses: 2+ radial (R), 2+ radial (L), 2+ femoral (R), 2+ femoral (L), 2+ dorsalis pedis (R), 2+ dorsalis pedis (L) Gastrointestinal: normal bowel sounds, soft, non-tender, no organomegaly Back: normal inspection, normal range of motion, lumbar spine and paraspinal muscles tenderness palpation bilaterally no step-offs or deformities no midline tenderness no bruising swelling or abrasions Extremities: the left lateral hip is tender to palpation no bruising swelling or abrasions range of motion of the hip is reduced due to pain. there is a contusion to the medial aspect of the left knee. Full range of motion of the knee is intact. The area is tender to palpation no gross deformity No other joint swelling or pain patient is moving remaining showed easy-going Neurologic/Psych: no motor/sensory deficits, awake, alert, oriented x 3 Skin: intact, normal color, warm/dry Core Measures ACS in differential dx? No CVA/TIA Diagnosis No Sepsis Present: No Sepsis Focused Exam Completed? No (Joshua BIRCH,Feliciano) Progress Differential Diagnosis: abd injury, C/T/L spine injury, ext injury, ICH, pelvis injury, fracture, contusion, sprain Plan of Care: Orders Procedure Date/time Status Regular Diet 09/03 B Active Patient is here after a fall. He usually is in a wheelchair and does not walk. He attempted to stand up today in order to stretch and his legs gave out. He did not get dizzy or lightheaded there is no chest pain or shortness of breath. He did not lose conscious. No blood thinners. He reports pain in his head and neck left lateral ribs and left hip. He also has some bruising around the left knee. CT scans of the head cervical spine chest and pelvis ordered. Left knee x-ray ordered. Patient medicated with Dilaudid. He is on chronic opioid medications for his chronic back pain which is part of why he does not walk. Imaging does not show any signs of trauma. There is noted an ascending aortic aneurysm which has not been noted in prior studies. Patient has no chest pain. There is no indication think there is a dissecting aneurysm. Discussed results with patient. He is feeling much better after medication. Advised him to follow-up with his primary care doctor and vascular surgeon for further evaluation of the incidental aneurysm. Return immediately with chest pain radiating to the back or any other concerns. Case discussed with Dr. chen he agrees. Diagnostic Imaging: Viewed by Me: Radiology Read, CT Scan. Discussed w/RAD: Radiology Read, CT Scan. Radiology Impression: PATIENT: DENNY VARGAS PRESENT AGE: 71 PATIENT ACCOUNT NO: [id number] : 45 LOCATION: [facility] ORDERING PHYSICIAN: Feliciano BIRCH SERVICE DATE: 09/02/17 EXAM TYPE: RAD - XRY- KNEE COMPLETE LEFT EXAMINATION: XR KNEE, LEFT CLINICAL INFORMATION: Left knee pain after fall COMPARISON: 01/15/2016 TECHNIQUE: Four views of the left knee. FINDINGS: There is a unicompartmental arthroplasty at the medial compartment. Hardware appears intact. Alignment is maintained. Small marginal osteophytes at the lateral and patellofemoral compartments. Small joint effusion noted. No evidence of acute fracture or malalignment. Diffuse vascular calcifications. IMPRESSION: No evidence of acute fracture or malalignment. There is a small joint effusion present. Unicompartmental medial compartment arthroplasty appears intact. DICTATED BY: Gurdeep VASQUES,Daren DATE/TIME DICTATED:09/02/171657 COMMISSARY OFFICER:TYLER DATE/TIME TRANSCRIBED:09/02/171657 CONFIDENTIAL, DO NOT COPY WITHOUT APPROPRIATE AUTHORIZATION., PATIENT: DENNY VARGAS PRESENT AGE: 71 PATIENT ACCOUNT NO: [id number] : 45 LOCATION: [facility] ORDERING PHYSICIAN: Feliciano BIRCH SERVICE DATE: 09/02/17 EXAM TYPE: CAT - CT CERV SPINE WO IV CONTRAST; CT HEAD WO IV CONTRAST EXAMINATION: CT HEAD WITHOUT CONTRAST CT CERVICAL SPINE WITHOUT CONTRAST CLINICAL INFORMATION: Trauma. Fall. Neck pain. COMPARISON: Head CT from 2016. TECHNIQUE: Contiguous axial imaging was performed from the skullbase to vertex without intravenous administration of contrast. Multidetector helical imaging was performed through the cervical spine. DLP: 1035.6 mGy-cm. FINDINGS: HEAD: There is no evidence of acute intracranial hemorrhage or territorial infarction. No abnormal mass effect or midline shift is seen. Thomas to white matter differentiation is well preserved. No extra-axial fluid collections are identified. Generalized parenchymal volume loss noted. The ventricles are normal in size. Encephalomalacia from a chronic infarct is noted in the dorsal right basal ganglia. The osseous structures and soft tissues are normal. The mastoid air cells and visualized portions of the paranasal sinuses are well aerated. CERVICAL SPINE: No acute fracture or dislocation is identified in the cervical spine. Multilevel facet arthropathy present. The patient is status post prior anterior cervical discectomies and fusion with hardware instrumentation from the C5-C7 levels. Solid interbody fusion changes are present at C5-C6 and C6-C7. The atlantoaxial articulation is normally maintained. The paraspinal soft tissues are normal. The lung apices are clear. Sternotomy wires are partially seen. IMPRESSION: 1. No acute intracranial pathology. Chronic infarct in the right basal ganglia. Diffuse parenchymal volume loss. 2. No evidence of acute cervical spine traumatic injury. Anterior cervical fusion hardware in place from C5-C7. Significant multilevel facet arthropathy with varying degrees of foraminal encroachment. DICTATED BY: Denis Frank MD DATE/TIME DICTATED:09/02/171755 COMMISSARY OFFICER:TYLER DATE/TIME TRANSCRIBED:09/02/171755 CONFIDENTIAL, DO NOT COPY WITHOUT APPROPRIATE AUTHORIZATION. <Electronically signed in Other Vendor System> SIGNED BY: Denis Frank MD 09/02/17 658 (Feliciano Forte) Departure Departure Disposition: HOME OR SELF CARE Condition: Stable Clinical Impression Primary Impression: Fall Qualifiers: Encounter type: initial encounter Qualified Code: W19.XXXA - Unspecified fall, initial encounter Referrals: Bryn Castellanos MD (PCP/Family) Ankit Esquivel MD Additional Instructions: Continue to take all medications as directed. Rest avoid excessive physical activity. Apply ice for 15-20 MIN every few hours. Make a follow-up with YOUr primary care doctor to review all results of today's visit. Also follow-up with provided vascular surgeon for further evaluation of aortic aneurysm. Return with severe chest pain back pain or any other concerns. Monitor symptoms return with any concerns. Please go over all results of today's visit with your primary care doctor. Contact your primary care doctor to let them know you were here in the emergency room. There may be nonspecific findings which may not be related to your visit today here in the emergency room but may require further evaluation and chronic monitoring by your primary care doctor. If you had a laceration today the chance of foreign body always remains. You should follow-up with your primary care doctor for recheck in 3-5 days for a wound check. If you had an x-ray done there is a chance that a fracture could have been missed on initial read and you should follow-up with your primary care doctor for repeat x-rays if symptoms persist. If your blood pressure was elevated here in the emergency room please have rechecked by her primary care doctor within the next 48 hours by your primary care doctor. If you were prescribed a narcotic here in the emergency room or any type of controlled substances you're not allowed to drive while taking this medication or operate any type of heavy machinery. Narcotics can make you feel lightheaded dizziness nausea and can cause constipation. You may need to bead picker a stool softener. Thank you for choosing [facility] emergency room. Please return to the emergency room immediately if you have any other concerns worsening of symptoms. Departure Forms: Customer Survey General Discharge Information (Feliciano Forte) PA/WORKERS COMPENSATION EXAMINER Co-Sign Statement Statement: ED Attending supervision documentation- x I saw and evaluated the patient. I have also reviewed all the pertinent lab results and diagnostic results. I agree with the findings and the plan of care as documented in the PA's/WORKERS COMPENSATION EXAMINER's documentation. [] I have reviewed the ED Record and agree with the PA's/WORKERS COMPENSATION EXAMINER's documentation. [] Additions or exceptions (if any) to the PAs/WORKERS COMPENSATION EXAMINER's note and plan are summarized below: [] (Laxmi VASQUES,Sebastián)
--- NOTE | 2017-09-02 17:05 | RADIOLOGY REPORT ---
EXAMINATION: XR KNEE, LEFT CLINICAL INFORMATION: Left knee pain after fall COMPARISON: 01/15/2016 TECHNIQUE: Four views of the left knee. FINDINGS: There is a unicompartmental arthroplasty at the medial compartment. Hardware appears intact. Alignment is maintained. Small marginal osteophytes at the lateral and patellofemoral compartments. Small joint effusion noted. No evidence of acute fracture or malalignment. Diffuse vascular calcifications. IMPRESSION: No evidence of acute fracture or malalignment. There is a small joint effusion present. Unicompartmental medial compartment arthroplasty appears intact.
--- NOTE | 2017-09-02 18:26 | CT SCAN REPORT ---
EXAMINATION: CT HEAD WITHOUT CONTRAST CT CERVICAL SPINE WITHOUT CONTRAST CLINICAL INFORMATION: Trauma. Fall. Neck pain. COMPARISON: Head CT from 02/09/2017. TECHNIQUE: Contiguous axial imaging was performed from the skullbase to vertex without intravenous administration of contrast. Multidetector helical imaging was performed through the cervical spine. DLP: 1035.6 mGy-cm. FINDINGS: HEAD: There is no evidence of acute intracranial hemorrhage or territorial infarction. No abnormal mass effect or midline shift is seen. Thomas to white matter differentiation is well preserved. No extra-axial fluid collections are identified. Generalized parenchymal volume loss noted. The ventricles are normal in size. Encephalomalacia from a chronic infarct is noted in the dorsal right basal ganglia. The osseous structures and soft tissues are normal. The mastoid air cells and visualized portions of the paranasal sinuses are well aerated. CERVICAL SPINE: No acute fracture or dislocation is identified in the cervical spine. Multilevel facet arthropathy present. The patient is status post prior anterior cervical discectomies and fusion with hardware instrumentation from the C5-C7 levels. Solid interbody fusion changes are present at C5-C6 and C6-C7. The atlantoaxial articulation is normally maintained. The paraspinal soft tissues are normal. The lung apices are clear. Sternotomy wires are partially seen. IMPRESSION: 1. No acute intracranial pathology. Chronic infarct in the right basal ganglia. Diffuse parenchymal volume loss. 2. No evidence of acute cervical spine traumatic injury. Anterior cervical fusion hardware in place from C5-C7. Significant multilevel facet arthropathy with varying degrees of foraminal encroachment.
--- NOTE | 2017-09-02 18:39 | CT SCAN REPORT ---
EXAMINATION: CT CHEST, ABDOMEN AND PELVIS WITHOUT CONTRAST CLINICAL INFORMATION: Trauma.. Fall with left abdominal and hip pain. COMPARISON: None TECHNIQUE: 5 mm thin axial and reformatted 3 minutes in sagittal coronal images of chest, abdomen and pelvis were obtained without contrast. DLP: 1297 mGy-cm FINDINGS: CHEST: LUNGS: Lungs are well-expanded and clear acute pneumonic process. There is a 4 mm nodule right lower lobe axial image 372, 356, series 5. There is focal atelectatic changes in the lingula and in both lung bases. Mediastinum: The thyroid lobes are symmetrical. The central trachea and bronchi widely patent. Heart size is normal. The ascending aortic aneurysm measuring 5.2 x 4.9 cm. It is best measured on axial image 47, series 2. There is coronary artery calcifications. No pericardial effusion seen. No abnormal mediastinal or hilar lymph nodes seen. Pleura: There is minimal posterior pleural thickening. No effusion or calcified pleural plaque seen. Axilla: There are no abnormal-sized lymph nodes. The chest wall appears unremarkable. There are median sternotomy sutures from previous intervention. ABDOMEN AND PELVIS: LIVER, GALLBLADDER, AND BILIARY TREE: The liver is normal in size, shape, and attenuation. No focal hepatic lesion or biliary ductal dilatation is present. The gallbladder is unremarkable with no evidence of radiopaque gallstones, gallbladder wall thickening, or obvious pericholecystic inflammatory changes. PANCREAS: Unremarkable. SPLEEN: Unremarkable. ADRENAL GLANDS: Unremarkable. KIDNEYS AND URETERS: The kidneys are normal in size, shape, and attenuation. No hydronephrosis, hydroureter, or calculi seen. There is mild bilateral perinephric stranding. There is a small cortical defect upper pole left kidney likely scar. BLADDER: Unremarkable. GASTROINTESTINAL TRACT: There is scattered stool seen throughout the colon without any significant distention. The small bowel loops are normal caliber. No free air or free fluid seen. There is no inflammatory process seen in the abdomen. ABDOMINAL WALL: No significant hernia is appreciated. LYMPH NODES: Normal. VASCULAR: Atherosclerotic changes of abdominal aorta are noted without aneurysmal dilatation. PELVIC VISCERA: The prostate gland is normal size. No free fluid or abnormal lymphadenopathy seen. OSSEOUS STRUCTURES: There are degenerative disc changes L2-L3, L4-L5 disc levels with bilateral L4-L5 facet joint arthropathy. L3 and L4 laminectomy changes. Old L1 compression fracture with kyphoplasty changes are noted. Suspect acute compression fracture T3 vertebra. Moderate spondylosis mid and lower dorsal spine is noted. IMPRESSION: No acute lung contusion or consolidation. No effusion. Aneurysmal dilatation of abdominal aorta. No pericardial effusion. No abnormal mediastinal mass or lymphadenopathy. Atherosclerotic changes of coronary artery. Two pulmonary nodules seen in right lower lobe. Recommend follow-up as per Fleischner guidelines. The solid abdominal organs are intact. No laceration, hematoma or free air seen. There is an acute T3 compression fracture suspected. Old L1 compression fracture with kyphoplasty noted. There are degenerative disc changes and spondylosis as described above.
[2017-09-02 19:13] VITALS: BP 145/59
== END 2017-09-02 19:33 ==
LOC: ERH 16:17
DX: S09.90XA Unspecified injury of head, initial encounter (principal); S79.912A Unspecified injury of left hip, initial encounter; S29.9XXA Unspecified injury of thorax, initial encounter; M25.562 Pain in left knee; W19.XXXA Unspecified fall, initial encounter; Y93.89 Activity, other specified; Y92.129 Unspecified place in nursing home as the place of occurrence of the external cause
CPT/HCPCS: 73562-LT; 74176

== ENCOUNTER 2017-09-11 10:45 | Inpatient (IN) | payer OTHER, MEDICARE ==
[~2017-09-11] VITALS: Ht 185.4 cm; Wt 112.3 kg
[~2017-09-11 10:45] MED LIST changes: -DIVALPROEX SOD250 M3 PO; -LEXAPRO10 M1 PO; -LISINOPRIL10 M1 PO
--- NOTE | 2017-09-11 10:55 | ED NEURO DEFICIT/STROKE ---
History of Present Illness General Chief Complaint: Headache Stated Complaint: BIBGilbert, JOHANNA Source: patient, old records, EMS Exam Limitations: no limitations Vital Signs & Intake/Output Vital Signs & Intake/Output Vital Signs Date Time Temp Pulse Resp B/P B/P Pulse O2 O2 Flow FiO2 Mean Ox Delivery Rate 09/11 1249 98.4 09/11 1218 98.4 55 18 118/56 98 Room Air 09/11 1121 98 Room Air 09/11 1120 124/84 09/11 1048 98.3 58 19 122/60 93 Room Air Allergies Coded Allergies: Penicillins (Intermediate, HIVES 05/03/15) Reconcile Medications Amlodipine Besylate 10 MG TABLET 1 TAB PO DAILY HEART (Reported) Atorvastatin Calcium (Lipitor) 40 MG TABLET 1 TAB PO DAILY HYPERLIPIDEMIA ( Reported) Calcium Carbonate (Oyster Shell Calcium) 500 MG CALCIUM (1,250 MG) TABLET 1 TAB PO DAILY SUPPLEMENT (Reported) Carbidopa/Levodopa (Carbidopa-Levodopa 25-100 Tab) 25 MG-100 MG TABLET 2 TAB PO TID PARKINSONS (Reported) Celecoxib (Celebrex) 200 MG CAPSULE 1 CAP PO DAILY PAIN CONTROL (Reported) Cholecalciferol (Vitamin D3) 1,000 UNIT TABLET 1 TAB PO DAILY VITAMIN SUPPORT (Reported) Diclofenac Sodium 3 % GEL..GRAM. 4 GM TOP TID PRN PAIN (Reported) Divalproex Sodium (Divalproex Sodium ER) 250 MG TAB.ER.24H 1 TAB PO QPM SLEEP (Reported) Docusate Sodium (Colace) 100 MG CAPSULE 1 CAP PO BID GI (Reported) Duloxetine HCl 30 MG CAPSULE.DR 60 MG PO DAILY MOOD (Reported) Entacapone (Comtan) 200 MG TABLET 1 TAB PO TID PARKINSONS (Reported) Escitalopram Oxalate (Lexapro) 10 MG TABLET 1 TAB PO DAILY MENTAL HEALTH ( Reported) Fenofibrate,Micronized (Fenofibrate) 134 MG CAPSULE 1 CAP PO DAILY TRIGLYCERIDES (Reported) Ferrous Sulfate 325 MG (65 MG IRON) TABLET 1 TAB PO BID IRON, VITAMIN ( Reported) Folic Acid 1 MG TABLET 1 TAB PO DAILY SUPPLEMENT (Reported) Furosemide (Lasix) 40 MG TABLET 1 TAB PO DAILY WATER RETENTION (Reported) Gabapentin (Neurontin) 600 MG TABLET 1 TAB PO TID PAIN (Reported) Hydromorphone HCl (Dilaudid) 8 MG TABLET 1 TAB PO Q4 PRN Back pain (Reported) Insulin Aspart, Recombinant (Novolog Flexpen) (Unknown Strength) INSULN.PEN ( Unknown Dose) SEE SLIDING SCALE DIABETES (Reported) SLIDING SCALE: 150-200 4 UNITS 201-250 6 UNITS 251-300 8 UNITS 301-350 10 UNITS 351-400 12 UNITS OVER 400 CALL MD PER [facility] Insulin Glargine,Hum.rec.anlog (Lantus Solostar) 100 UNIT/ML (3 ML) INSULN.PEN 20 UNIT SC QPM DIABETES (Reported) Labetalol HCl 300 MG TABLET 1 TAB PO TID HEART (Reported) Levetiracetam (Keppra) 250 MG TABLET 1 TAB PO BID SEIZURES (Reported) Lisinopril 10 MG TABLET 1 TAB PO DAILY HTN (Reported) Magnesium Oxide 400 MG TABLET 1 TAB PO DAILY SUPPLEMENT (Reported) Metoprolol Succ XL (Toprol Xl) 50 MG TAB 1 TAB PO DAILY BP (Reported) Omeprazole 20 MG CAPSULE.DR 1 CAP PO DAILY ACID REFLUX (Reported) Polyethylene Glycol 3350 (Miralax) 17 GRAM POWD.PACK GI (Reported) Polyvinyl Alcohol (Artificial Tears) 1.4 % DROPS 1 DROP OP 4 TIMES/DAY EYE ( Reported) Pregabalin (Lyrica) 50 MG CAPSULE 1 CAP PO TID PAIN (Reported) Sennosides (Senna) 8.6 MG TABLET 1 TAB PO DAILY CONSTIPATION (Reported) Sertraline HCl 25 MG TABLET 1 TAB PO DAILY MENTAL HEALTH (Reported) Trazodone HCl 50 MG TABLET 0.25 TAB PO QPM PRN SLEEP (Reported) Warfarin Sodium (Coumadin) 2 MG TABLET 4.5 MG PO 1700 BLOOD THINNER (Reported ) Zolpidem Tartrate (Ambien) 10 MG TABLET 1 TAB PO QPM SLEEP (Reported) Triage Nurses Notes Reviewed? yes HPI: Patient states that he went to bed at approximately 11:00 last night. Patient states he woke up at 3:00 in the morning and had a frontal headache. Patient states he had a similar headache in the past when he had had a stroke. Patient then waited for his visiting nurse to come in this morning. The headache is constant. The headache is frontal and is throbbing in nature. There is no radiation. There are no aggravating or mitigating factors. He rates the pain at 4 out of 10. There is no blurry vision. Patient states that he is now getting weakness in his right arm and left leg. Patient states that when he had his stroke before he was weak in his right leg. Patient also states that he fell on September 02 and injured his left hip. Patient states that since then he has had to ambulate with a walker and has felt weak. Patient is unsure if the left leg weakness is from the hip pain or foot is something new. Past History Travel History Traveled to [place] past 21 day No Medical History Any Pertinent Medical History? see below for history Neurological: CVA, Parkinson's disease, peripheral neuropathy, stroke 4 times after morphine EENT: NONE Cardiovascular: CAD, CHF, hypertension, [facility] ANA LAURA VALVE Respiratory: PNA Gastrointestinal: GERD, pancreatitis, peptic ulcer disease, upper GI bleed Hepatic: NONE Renal: NONE Musculoskeletal: chronic back pain, osteoarthritis, osteoporosis, spinal fracture twice MRSA IN WOUND Psychiatric: anxiety Endocrine: diabetes, osteoporosis, vitamin D deficiency Blood Disorders: anemia Cancer(s): melanoma VALVE STEAMER/Reproductive: NONE Other Medical Hx: High cholesterol History of MRSA: Yes History of VRE: No History of CDIFF: No Tetanus Vaccine: 04/10/15 Surgical History Surgical History: knee replacement, laminectomy (L1 to L5), spinal fusion (C5 to C7), BICUSPID VALVE REPLACEMENT status post foot surgery status post hand surgery HAS STEEL PLATES R HAND Psychosocial History Who do you live with Patient/Self Services at Home Nursing, Physical Therapy What is your primary language [place] Tobacco Use: Quit >30 days ago ETOH Use: denies use Illicit Drug Use: denies illicit drug use Family History Family History, If Any: MOTHER FH: myocardial infarction FATHER (Myocardial infarction). Hx Contributory? No Review of Systems Review of Systems Constitutional: Reports: no symptoms. EENTM: Reports: no symptoms. Respiratory: Reports: no symptoms. Cardiovascular: Reports: no symptoms. GI: Reports: no symptoms. Genitourinary: Reports: no symptoms. Musculoskeletal: Reports: no symptoms. Skin: Reports: no symptoms. Neurological/Psychological: Reports: see HPI, headache, unable to move lower ext, unable to move upper ext. Hematologic/Endocrine: Reports: no symptoms. Immunologic/Allergic: Reports: no symptoms. All Other Systems: Reviewed and Negative Physical Exam Physical Exam General Appearance: well developed/nourished, alert, awake, mild distress Head: atraumatic, normal appearance Eyes: Bilateral: PERRL, EOMI. Ears, Nose, Throat: normal ENT inspection, moist mucous membrane, hearing grossly normal Neck: normal inspection, supple, full range of motion Respiratory: normal breath sounds, chest non-tender, no respiratory distress, lungs clear Cardiovascular: regular rate/rhythm, normal peripheral pulses Gastrointestinal: normal bowel sounds, soft, non-tender, no organomegaly Back: normal inspection, normal range of motion Extremities: normal range of motion Psychiatric: awake, alert, oriented x 3 Cranial Nerves: normal hearing, normal speech, PERRL Coordination/Gait: ABN nose to finger (R) Motor/Sensory: motor deficit, pronator drift (R), weak motor strength RUE, weak motor strength LLE Lymphatic: no anterior cervical chris Core Measures CVA/TIA Diagnosis: Yes NIH Stroke Scale NIH Stroke Scale Response Value Level of Consciousness alert 0 LOC Questions answers both correctly 0 LOC Commands obeys both correctly 0 Best Gaze normal 0 Visual Mcghee no visual loss 0 Facial Paresis normal 0 Motor Arm - Left no drift 0 Motor Arm - Right drift 1 Motor Leg - Left drift 1 Motor Leg - Right no drift 0 Limb Ataxia present in one limb 1 Sensory normal 0 Best Language no aphasia 0 Dysarthria normal articulation 0 Extinction and Inattention no neglect 0 Total 3 Date Last Known Well: 09/10/17 Time Last Known Well: 230 Symptom Start Date: 09/10/17 Symptom Start Time: 2299 tPA Risk/Benefit discussion I have discussed the risks, benefits, and alternatives of Alteplase treatment including: - If given promptly, can resolve or have major improvement in stroke symptoms. - Bleeding (hemorrhage) is the most common risk that can occur. - Bleeding may occur into the brain and cause~nursing home serious disability~ including - this is rare, affecting about 1% of patients. - Alternative treatments with proven benefit for patients with stroke include aspirin and care in a specialized unit where staff members pay careful attention to a variety of basic aspects of care. tPA given? No Reason tPA not given Medical Contraindication Swallow Evaluation Pass Swallow eval date 09/11/17 Swallow eval time 1254 Sepsis Present: No Sepsis Focused Exam Completed? No Progress Differential Diagnosis: electrolyte imbalance, intracranial Hem., intracranial mass/tumor, seizure disorder Plan of Care: Orders Procedure Date/time Status Heart Healthy Diet 09/11 D Active Patient Data 09/11 1325 Active Telemetry/Manager Of Global 09/11 1106 Active URINALYSIS 09/11 1105 Complete TROPONIN LEVEL 09/11 1105 Complete COMPREHENSIVE METABOLIC PANEL 09/11 1105 Complete CBC WITHOUT DIFFERENTIAL 09/11 1105 Complete EKG 09/11 1105 Active Laboratory Tests 09/11/17 1224: Urine Color YEL, Urine Clarity CLEAR, Urine pH 6.0, Ur Specific Watson 1.020, Urine Protein 30 H, Urine Ketones NEG, Urine Nitrite NEG, Urine Bilirubin NEG, Urine Urobilinogen 0.2, Ur Leukocyte Esterase NEG, Ur Microscopic SEDIMENT EXAMINED, Urine RBC 3-5, Urine WBC RARE, Ur Epithelial Cells RARE, Urine Bacteria RARE H, Hyaline Casts RARE H, Urine Hemoglobin SMALL H, Urine Glucose 500 H 09/11/17 1109: Anion Gap 11, Estimated GFR 28 L, BUN/Creatinine Ratio 19.6, Glucose 158 H, Calcium 9.1, Total Bilirubin 0.9, AST 16 L, ALT 7 L, Alkaline Phosphatase 125, Troponin I 0.05, Total Protein 6.3, Albumin 3.8, Globulin 2.5, Albumin/Globulin Ratio 1.5, CBC w Diff MAN DIFF ORDERED, RBC 3.89 L, MCV 87.2, MCH 30.2, MCHC 34.6, RDW 14.5, MPV 7.7, Gran % 84.9 H, Lymphocytes % 7.2 L, Monocytes % 6.3, Eosinophils % 1.1, Basophils % 0.5, Absolute Granulocytes 9.7 H, Absolute Lymphocytes 0.8 L, Absolute Monocytes 0.7 H, Absolute Eosinophils 0.1, Absolute Basophils 0.1, Platelet Estimate ADEQUATE, Anisocytosis 1+ Diagnostic Imaging: Viewed by Me: CT Scan. Discussed w/RAD: CT Scan. Radiology Impression: PATIENT: DENNY VARGAS PRESENT AGE: 71 PATIENT ACCOUNT NO: [id number] : 45 LOCATION: [facility] ORDERING PHYSICIAN: Denis Hillman MD SERVICE DATE: 09/11/17 EXAM TYPE: RAD - CT HEAD WO IV CONTRAST; XRY-HIP 2-3 VIEWS, LEFT EXAMINATION: CT HEAD WITHOUT CONTRAST X-ray LEFT HIP CLINICAL INFORMATION: Evaluate for stroke. Status post fall. Left hip pain. COMPARISON: CT head dated 09/02/2017 and x-ray left hip dated 07/21/2017 TECHNIQUE: CT HEAD Contiguous axial imaging was performed from the skull base to vertex without intravenous administration of contrast. DLP: 629.07 mGy-cm LEFT HIP 2 views FINDINGS: CT HEAD There is no evidence of acute intra-axial or extra-axial hemorrhage. There is no acute mass effect or midline shift. No acute loss of white-white differentiation.. The ventricles are normal in size. Old infarct and encephalomalacia right basal ganglia noted again. The osseous structures and soft tissues are normal. The mastoid air cells and visualized portions of the paranasal sinuses are well aerated. LEFT HIP Bony osteopenia. No evidence of acute fracture or dislocation. Degenerative changes left hip joint. Atherosclerotic disease with intimal calcification of the left femoral artery and branches. IMPRESSION: No acute intracranial pathology. Stable chronic changes. No acute osseous abnormality left hip. DICTATED BY: Lolis Vasquez MD DATE/TIME DICTATED:09/11/171205 BUTTON RIVETER:TYLER DATE/TIME TRANSCRIBED:09/11/171205 CONFIDENTIAL, DO NOT COPY WITHOUT APPROPRIATE AUTHORIZATION. <Electronically signed in Other Vendor System> SIGNED BY: Lolis Vasquez MD 09/11/17 1222 Initial ED EKG: NSR, nonspecific ST T wave chg Prior EKG: unchanged Rhythm Strip: normal sinus rhythm Comments: Discussed with Dr. Hill, he will consult. Departure Departure Disposition: STILL A PATIENT Condition: Stable Clinical Impression Primary Impression: CVA (cerebral vascular accident) Referrals: Bryn Castellanos MD (PCP/Family) Departure Forms: Customer Survey General Discharge Information Admission Note Spoke With: Bryn Castellanos MD Documentation of Exam: Documentation of any treatments & extenuating circumstances including Concerns Regarding Discharge (functional status, medication knowledge or non-compliance, living conditions, etc.) that warrant an admission rather than observation: [ Telemetry monitoring, serial enzymes, neurology consultation, physical therapy evaluation, patient has had multiple frequent falls and will most likely. Here for greater than 24-48 hours.]
[2017-09-11 11:18] LABS: ABSOLUTE BASOPHIL COUNT 0.1 /CUMM (0.0-0.2); ABSOLUTE EOSINOPHIL COUNT 0.1 /CUMM (0.0-0.7); ABSOLUTE GRANULOCYTE CT 9.7 /CUMM (1.4-6.5); ABSOLUTE LYMPH COUNT 0.8 /CUMM (1.2-3.4); ABSOLUTE MONOCYTE COUNT 0.7 /CUMM (0.10-0.60); BASOPHIL % 0.5 % (0.0-2.0); EOSINOPHIL % 1.1 % (0-5); GRANULOCYTE % 84.9 % (42.2-75.2); HEMATOCRIT 33.9 % (42-52); MEAN CORPUSCULAR HGB 30.2 PG (27.0-31.0); MEAN CORPUSCULAR HGB CONC 34.6 G/DL (33.0-37.0); MEAN CORPUSCULAR VOLUME 87.2 FL (80.0-94.0); MEAN PLATELET VOLUME 7.7 FL (7.4-10.4); PLATELET COUNT 262 /CUMM (130-400); RBC DISTRIBUTION WIDTH 14.5 % (11.5-14.5); RED BLOOD CELL CT 3.89 /CUMM (4.70-6.10); WHITE BLOOD CELL COUNT 11.4 /CUMM (4.8-10.8)
[2017-09-11] MEDS ORDERED: AMLODIPINE BESY10 M1 PO (11:24)
[2017-09-11] MEDS ORDERED: VITAMIN D31000 UNI2 PO (11:27)
[2017-09-11] MEDS ORDERED: DICLOFENAC SOD100 GM TOP (11:28)
[2017-09-11] MEDS ORDERED: FERROUS SULFAT325 M3 PO (11:29)
[2017-09-11] MEDS ORDERED: LANTUS SOL100 UNIT/1 SC (11:32)
[2017-09-11] MEDS ORDERED: LABETALOL HCL300 M1 PO (11:33)
[2017-09-11] MEDS ORDERED: KEPPRA250 M1 PO (11:34)
[2017-09-11] MEDS ORDERED: SERTRALINE HCL25 MG PO (11:36)
--- NOTE | 2017-09-11 12:22 | RADIOLOGY REPORT ---
EXAMINATION: CT HEAD WITHOUT CONTRAST X-ray LEFT HIP CLINICAL INFORMATION: Evaluate for stroke. Status post fall. Left hip pain. COMPARISON: CT head dated 09/02/2017 and x-ray left hip dated 07/21/2017 TECHNIQUE: CT HEAD Contiguous axial imaging was performed from the skull base to vertex without intravenous administration of contrast. DLP: 629.07 mGy-cm LEFT HIP 2 views FINDINGS: CT HEAD There is no evidence of acute intra-axial or extra-axial hemorrhage. There is no acute mass effect or midline shift. No acute loss of white-white differentiation.. The ventricles are normal in size. Old infarct and encephalomalacia right basal ganglia noted again. The osseous structures and soft tissues are normal. The mastoid air cells and visualized portions of the paranasal sinuses are well aerated. LEFT HIP Bony osteopenia. No evidence of acute fracture or dislocation. Degenerative changes left hip joint. Atherosclerotic disease with intimal calcification of the left femoral artery and branches. IMPRESSION: No acute intracranial pathology. Stable chronic changes. No acute osseous abnormality left hip.
--- NOTE | 2017-09-11 13:38 | History & Physical ---
See Addendum Michi Brannon 09/11/17 1338: General Information and HPI MD Statement: I have seen and personally examined DENNY VARGAS and documented this H&P. The patient is a 71 year old M who presented with a patient stated chief complaint of headache. Source of Information: patient History of Present Illness: Patient is a 71 year old male with past medical history of Parkinsons disease ( 12 years ago), multiple CVAs (Last Jan 2017-Hemorrhagic), CAD, CHF, Hypertension , GERD, Pancreatitis, spinal fractures, bicuspid valve replacement on warfarin. Patient presented to ED for increasing headache. In addition he was found to have increased blood sugars prior to and at admission ranging from 495-525. The headache began at 3AM this morning. The pain is located on the frontal aspect of the head and the patient claims it is similar to his stroke in 2017. The pain was described to be sharp and a 10/10 at 3am and 9/10 on admission. He is coming from a group home rehab and was given tylenol that morning with no signficant improvement. Patient was able to fall asleep for a short time but woke up again with the headache. He denied any chest pain, shortness of breath or palpitations during this event. No report of trauma or falls reported. He did however note nausea. In addition patient has noticed weakness in his right upper extremity/ hand and increasing tremor most likely due to his Parkinsons disease. He claims that his speach has been increasingly getting worse but is able to speak full sentences during the interview. Patient last at [facility] in January 2017 where he had a hemorrhagic stroke on CT. He was transferred to [facility] and spent 17 days in the ICU as per the patient. No further information of procedures or surgeries at that time was attainable. Patient follows Dr. Hill for neurology in the outpatient setting. Dr. Hill was examining the patient at the time of the interview and noted he normally has right sided weakness and deficits due to previous strokes, peripheral neuropathy and parkinons disease. Dr. Hill was concerned of patient claiming he has increasing right sided weakness and agrees to admit patient for further monitoring. Patient was out of window for TPA. Allergies/Medications Allergies: Coded Allergies: Penicillins (Intermediate, HIVES 05/03/15) Home Med list Amlodipine Besylate 10 MG TABLET 1 TAB PO DAILY HEART (Reported) Atorvastatin Calcium (Lipitor) 40 MG TABLET 1 TAB PO DAILY HYPERLIPIDEMIA ( Reported) Calcium Carbonate (Oyster Shell Calcium) 500 MG CALCIUM (1,250 MG) TABLET 1 TAB PO DAILY SUPPLEMENT (Reported) Carbidopa/Levodopa (Carbidopa-Levodopa 25-100 Tab) 25 MG-100 MG TABLET 2 TAB PO TID PARKINSONS (Reported) Celecoxib (Celebrex) 200 MG CAPSULE 1 CAP PO DAILY PAIN CONTROL (Reported) Cholecalciferol (Vitamin D3) 1,000 UNIT TABLET 1 TAB PO DAILY VITAMIN SUPPORT (Reported) Diclofenac Sodium 3 % GEL..GRAM. 4 GM TOP TID PRN PAIN (Reported) Docusate Sodium (Colace) 100 MG CAPSULE 1 CAP PO BID GI (Reported) Duloxetine HCl 30 MG CAPSULE.DR 60 MG PO DAILY MOOD (Reported) Entacapone (Comtan) 200 MG TABLET 1 TAB PO TID PARKINSONS (Reported) Fenofibrate,Micronized (Fenofibrate) 134 MG CAPSULE 1 CAP PO DAILY TRIGLYCERIDES (Reported) Ferrous Sulfate 325 MG (65 MG IRON) TABLET 1 TAB PO BID IRON, VITAMIN ( Reported) Folic Acid 1 MG TABLET 1 TAB PO DAILY SUPPLEMENT (Reported) Furosemide (Lasix) 40 MG TABLET 1 TAB PO DAILY WATER RETENTION (Reported) Gabapentin (Neurontin) 600 MG TABLET 1 TAB PO TID PAIN (Reported) Hydromorphone HCl (Dilaudid) 8 MG TABLET 1 TAB PO Q4 PRN Back pain (Reported) Insulin Aspart, Recombinant (Novolog Flexpen) (Unknown Strength) INSULN.PEN ( Unknown Dose) SEE SLIDING SCALE DIABETES (Reported) SLIDING SCALE: 150-200 4 UNITS 201-250 6 UNITS 251-300 8 UNITS 301-350 10 UNITS 351-400 12 UNITS OVER 400 CALL MD PER [facility] Insulin Glargine,Hum.rec.anlog (Lantus Solostar) 100 UNIT/ML (3 ML) INSULN.PEN 20 UNIT SC QPM DIABETES (Reported) Labetalol HCl 300 MG TABLET 1 TAB PO TID HEART (Reported) Levetiracetam (Keppra) 250 MG TABLET 1 TAB PO BID SEIZURES (Reported) Magnesium Oxide 400 MG TABLET 1 TAB PO DAILY SUPPLEMENT (Reported) Metoprolol Succ XL (Toprol Xl) 50 MG TAB 1 TAB PO DAILY BP (Reported) Omeprazole 20 MG CAPSULE.DR 1 CAP PO DAILY ACID REFLUX (Reported) Polyethylene Glycol 3350 (Miralax) 17 GRAM POWD.PACK GI (Reported) Polyvinyl Alcohol (Artificial Tears) 1.4 % DROPS 1 DROP OP 4 TIMES/DAY EYE ( Reported) Pregabalin (Lyrica) 50 MG CAPSULE 1 CAP PO TID PAIN (Reported) Sennosides (Senna) 8.6 MG TABLET 1 TAB PO DAILY CONSTIPATION (Reported) Sertraline HCl 25 MG TABLET 1 TAB PO DAILY MENTAL HEALTH (Reported) Warfarin Sodium (Coumadin) 2 MG TABLET 4.5 MG PO 1700 BLOOD THINNER (Reported ) Zolpidem Tartrate (Ambien) 10 MG TABLET 1 TAB PO QPM SLEEP (Reported) Past History Travel History Traveled to [place] past 21 day No Medical History Neurological: CVA, Parkinson's disease, peripheral neuropathy, stroke 4 times after morphine EENT: NONE Cardiovascular: CAD, CHF, hypertension, [facility] VALVE Respiratory: PNA Gastrointestinal: GERD, pancreatitis, peptic ulcer disease, upper GI bleed Hepatic: NONE Renal: NONE Musculoskeletal: chronic back pain, osteoarthritis, osteoporosis, spinal fracture twice MRSA IN WOUND Psychiatric: anxiety Endocrine: diabetes, osteoporosis, vitamin D deficiency Blood Disorders: anemia Cancer(s): melanoma PETROLEUM SAMPLER/Reproductive: NONE Other Medical Hx: High cholesterol History of MRSA: Yes History of VRE: No History of CDIFF: No Tetanus Vaccine: 04/10/15 Surgical History Surgical History: knee replacement, laminectomy (L1 to L5), spinal fusion (C5 to C7), BICUSPID VALVE REPLACEMENT status post foot surgery status post hand surgery HAS STEEL PLATES R HAND Past Family/Social History Family History Relations & Conditions if any MOTHER FH: myocardial infarction FATHER (Myocardial infarction). Psychosocial History Who Do You Live With? 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 Ambulation: cane, wheelchair bound IADLs Independent: telephone. Needs Assist: shopping, housework, finances, food prep, transportation, medication admin. Review of Systems Review of Systems Constitutional: Denies: see HPI. Exam & Diagnostic Data Last 24 Hrs of Vital Signs/I&O Vital Signs Date Time Temp Pulse Resp B/P B/P Pulse O2 O2 Flow FiO2 Mean Ox Delivery Rate 09/11 1552 Room Air 09/11 1433 98.6 76 18 124/88 98 Room Air 09/11 1249 98.4 09/11 1218 98.4 55 18 118/56 98 Room Air 09/11 1121 98 Room Air 09/11 1120 124/84 09/11 1048 98.3 58 19 122/60 93 Room Air Intake & Output 09/11 1600 09/11 0800 09/11 0000 Intake Total 0 Output Total Balance 0 Intake, Oral 0 Patient 250 lb Weight Weight Bed scale Measurement Method Physical Exam General Appearance Alert, Oriented X3, Cooperative, Mild Distress HEENT Atraumatic, PERRLA, EOMI, Mucous Membr. moist/pink Cardiovascular Regular Rate, Normal S1, Normal S2 Lungs Clear to Auscultation, Normal Air Movement Neurological Patients strength 4/5 in bilateral lower extremtities RUE 3/5 vs LUE 4/5 Reflexes hyporeflexive most likely secondary to peripheral neuropathy CN intact Gait-unassessed on exam; noted wheelchair at baseline Extremities No Clubbing, No Cyanosis, No Edema, Normal Pulses Vascular Normal Pulses, Pulses Symmetrical Last 24 Hrs of Labs/Arpan: Laboratory Tests 09/11/17 1630: Troponin I Pending, PT Pending, INR Pending 09/11/17 1224: Urine Color YEL, Urine Clarity CLEAR, Urine pH 6.0, Ur Specific Hickman 1.020, Urine Protein 30 H, Urine Ketones NEG, Urine Nitrite NEG, Urine Bilirubin NEG, Urine Urobilinogen 0.2, Ur Leukocyte Esterase NEG, Ur Microscopic SEDIMENT EXAMINED, Urine RBC 3-5, Urine WBC RARE, Ur Epithelial Cells RARE, Urine Bacteria RARE H, Hyaline Casts RARE H, Urine Hemoglobin SMALL H, Urine Glucose 500 H 09/11/17 1109: Anion Gap 11, Estimated GFR 28 L, BUN/Creatinine Ratio 19.6, Glucose 158 H, Hemoglobin A1c Pending, Calcium 9.1, Total Bilirubin 0.9, AST 16 L, ALT 7 L, Alkaline Phosphatase 125, Troponin I 0.05, Total Protein 6.3, Albumin 3.8, Globulin 2.5, Albumin/Globulin Ratio 1.5, Triglycerides 76, Cholesterol 120, LDL Cholesterol, Calc 57 L, HDL Cholesterol 48, Cholesterol/HDL Ratio 3, CBC w Diff MAN DIFF ORDERED, RBC 3.89 L, MCV 87.2, MCH 30.2, MCHC 34.6, RDW 14.5, MPV 7.7, Gran % 84.9 H, Lymphocytes % 7.2 L, Monocytes % 6.3, Eosinophils % 1.1, Basophils % 0.5, Absolute Granulocytes 9.7 H, Absolute Lymphocytes 0.8 L, Absolute Monocytes 0.7 H, Absolute Eosinophils 0.1, Absolute Basophils 0.1, Platelet Estimate ADEQUATE, Anisocytosis 1+ Diagnostic Data EKG Results Sinus, 1 degree AV block, LVH CXR Results CT HEAD There is no evidence of acute intra-axial or extra-axial hemorrhage. There is no acute mass effect or midline shift. No acute loss of white-white differentiation. The ventricles are normal in size. Old infarct and encephalomalacia right basal ganglia noted again. The osseous structures and soft tissues are normal. The mastoid air cells and visualized portions of the paranasal sinuses are well aerated. LEFT HIP Bony osteopenia. No evidence of acute fracture or dislocation. Degenerative changes left hip joint. Atherosclerotic disease with intimal calcification of the left femoral artery and branches. IMPRESSION: No acute intracranial pathology. Stable chronic changes. No acute osseous abnormality left hip. Assessment/Plan Assessment: Patient is a 71 year old male with past medical history of Parkinsons disease ( 12 years ago), multiple CVAs (Last Jan 2017-Hemorrhagic), CAD, diastolic CHF, Hypertension, GERD, Pancreatitis, spinal fractures, bicuspid valve replacement on warfarin. Patient presented to ED for increasing headache. Patients head CT was negative. Patient seen by Dr. Hill in the ER. Vitals: 98.3, 58, 19, 122/60, 93% RA Exam: Mild dysarthria. Visual ronquillo suggest a left inferior quadrantanopsia. Motor exam reveals 4/5 power of the right hand policy intern, downward drift. Power in the right leg is also 4+/5, power on left normal. Moderately severe resting tremor which persists on movement affecting the right side, intermittent mild tremor on the left. Tone increased bilaterally right more than left. Tendon reflexes suppressed, plantar response silent. Sensation reduced to touch over the right arm and leg Negative Head CT. PROBLEM LIST: 1. Stroke 2. Diabetes Mellitus 4. Hypertension 5. Parkinsons Disease 6. CHF with Diastolic Dysfunction 7. Peripheral Neuropathy 8. Depression 9. Insomnia 10. Seizures 11. GERD 12. Subtherapeutic INR 13. CKD STROKE * Admit to telemetry; continue monitoring * serial tropnin and EKG * neurocheck q4 hours; fall precautions; PT/OT; speech/swallow * ECHO; Carotid US * Continue aspirin 81 daily; Lipitor 40 daily; Follow HbA1c and lipid panel * follow neuro recs Diabetes mellitus * Accu-Cheks * Insulin sliding scale * Levemir 20 units at bedtime Hypertension * We will start home medications amlodipine 10 mg daily, labetalol 200 twice daily, metoprolol 50 daily from tomorrow. * Maintain permissive hypertension Hyperlipidemia * Continue Lipitor 40 daily Parkinson's disease * Continue home dose of carbidopa L-dopa 2 tabs 3 times daily * Entacapone 200 mg 3 times daily Depression * Continue duloxetine 60 daily * Continue Zoloft 25 daily Insomnia * Continue Ambien 10 mg daily CHF with diastolic dysfunction * Continue home dose of Lasix 40 daily Peripheral neuropathy * Continue Lyrica 50 3 times daily * Continue gabapentin 600 3 times daily Seizures * Continue Keppra 250 twice daily GERD * Continue omeprazole 20 daily Supratherapeutic INR * [facility] mechanical aortic valve * takes warfarin 4.5 mg, INR 4.24 will hold warfarin dose today * Daily INR and warfarin dose Chronic kidney disease * Patient has stage IV CKD with baseline creatinine 2.1. Code Status: Full Code DVT PPx: Warfarin Tanvir pathway: Tylenol, Dilaudid 8mg q6 (home med) As Ranked By This Provider Problem List: 1. STROKE 2. Diabetes mellitus type 2 3. CHF (congestive heart failure) Core Measures/Misc (11/17) Acute Coronary Syndrome ACS Diagnosis: No Congestive Heart Failure Congestive Heart Failure Diagnosis No Cerebrovascular Accident CVA/TIA Diagnosis: Yes NIH Stroke Scale: Total 3 Date Last Known Well: 09/10/17 Time Last Known Well: 2300 Symptom Start Date: 09/10/17 Symptom Start Time: 2300 tPA Risk/Benefit discussion I have discussed the risks, benefits, and alternatives of Alteplase treatment including: - If given promptly, can resolve or have major improvement in stroke symptoms. - Bleeding (hemorrhage) is the most common risk that can occur. 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 - Alternative treatments with proven benefit for patients with stroke include aspirin and care in a specialized unit where staff members pay careful attention to a variety of basic aspects of care. tPA given? No Reason tPA not ordered Medical Contraindication Swallow Evaluation Pass Current/Past Hx AFib/AFlutter Yes No Antithrombotic d/t Medical Contraindication No Anticoagulant d/t Medical Contraindication No Statin d/t Medical Contraindication VTE (View Protocol) VTE Risk Factors Age>40 No Mechanical VTE Prophylaxis d/t N/A MechProphylax Ordered No VTE Pharm Prophylaxis d/t NA PharmProphylax ordered Sepsis (View protocol) Sepsis Present: No If YES complete Sepsis Event Note If YES complete Sepsis Event Note David Hackett 09/11/17 1725: Core Measures/Misc (11/17) Sepsis (View protocol) If YES complete Sepsis Event Note If YES complete Sepsis Event Note Resident Review Statement Resident Statement: examined this patient, discussed with purchasing internship, agreed with purchasing internship, discussed with family, reviewed EMR data (avail), discussed with nursing , discussed with case mgmt, reviewed images, amended to note Other Findings: This is 71-year-old male with past medical history significant for Parkinson's disease, diabetes mellitus, hypertension, hyperlipidemia, insomnia, anxiety, depression, chronic back pain, diastolic heart failure, peripheral neuropathy, seizures, GERD, peptic ulcer disease, mechanical aortic valve replacement on warfarin, multiple CVA stroke 4 times, hemorrhagic stroke in 2017, osteoarthritis, osteoporosis, spine fractures, MRSA wound infections, constipation was brought in by ambulance from [facility] for evaluation of ongoing headache since last night. Patient reports that he has sudden onset of headache around 3 AM this morning. The pain is located on the frontal aspect of the head, claims that he has similar type of headache in 2017 when he was diagnosed with stroke. He was given Tylenol with no significant improvement. He woke up again this morning with headache associated with weakness in the right upper extremity with increased tremors. Offnote patient has baseline Parkinson's disease with the tremor. He also mentioned that he has right sided weakness since his last stroke in 2017 where he was transferred to [facility] for hemorrhagic stroke. Other than right upper extremity weakness and headache he denied any other sensory changes, numbness, tingling, speech changes, gait changes, vision disturbances. Denied any chest pain, short of breath, cough, fever, chills, recent travel history no sick contacts. Vitals afebrile, heart rate 55, respiratory rate 18, blood pressure 118/50, saturating at 98 on room air On exam HEENT within normal limits, no dysarthria, alert awake and oriented to time place and person Attention, recall grossly intact Visual field left inferior anopsia. Motor exam 4 x 5 power right hand policy intern, no drift, right leg 4/5, other extremities 5/5, no sensory deficits, tone increased bilaterally right more than left. S1-S2 normal limits, bilateral lung sounds normal, abdomen soft nontender nondistended Labs WBC 11.4, hemoglobin 11.8, hematocrit 33, platelets 262 BEP normal limits, creatinine 2.3 baseline is 2.[address] no acute intracranial abnormality was found Left hip x-ray no acute fracture was found EKG sinus rhythm, rate 54, first-degree AV block, no acute ST-T wave changes Stroke Patient presented with frontal headache associated with right arm and leg weakness. Of note he reports that he has residual right-sided weakness from prior stroke. However given his worsening weakness and frontal headache and neuro exams, there might be a possibility of left hemispheric stroke with increased right-sided weakness. CAT scan head was done which showed no intracranial hemorrhage or mass or infarct. * Admit to telemetry * Continuous telemetry monitoring * Serial troponin and EKG * Neurochecks every 4 hours * Fall precautions * Echocardiogram * Carotid ultrasound * PTOT * Speech and swallow * Continue aspirin 81 daily * Continue Lipitor 40 daily * Follow-up neuro recommendations * Follow-up HbA1c and lipid panel Status post fall patient also states that he fell on September 02 and injured his left hip. Patient states that since then he has had to ambulate with a walker and has felt weak. Patient is unsure if the left leg weakness is from the hip pain or foot is something new. However left hip x-ray was done which showed no acute fractures Reactive leukocytosis WBC 11.4. No fever, no source of infection was found. Diabetes mellitus Accu-Cheks Insulin sliding scale Levemir 20 units at bedtime Hypertension We will start home medications amlodipine 10 mg daily, labetalol 200 twice daily , metoprolol 50 daily from tomorrow. Maintain permissive hypertension Hyperlipidemia Continue Lipitor 40 daily Parkinson's disease Continue home dose of carbidopa L-dopa 2 tabs 3 times daily Entacapone 200 mg 3 times daily Depression Continue duloxetine 60 daily Continue Zoloft 25 daily Insomnia Continue Ambien 10 mg daily CHF with diastolic dysfunction Continue home dose of Lasix 40 daily Peripheral neuropathy Continue Lyrica 50 3 times daily Continue gabapentin 600 3 times daily Seizures Continue Keppra 250 twice daily GERD Continue omeprazole 20 daily Supratherapeutic INR [place] mechanical aortic valve takes warfarin 4.5 mg, INR 4.24 will hold warfarin dose today Daily INR and warfarin dose Chronic kidney disease Patient has stage IV CKD with baseline creatinine 2.1. DVT prophylaxis warfarin Regular diet Pain pathway Tylenol, patient takes Dilaudid 8 mg every 6 hours Full code
--- NOTE | 2017-09-11 15:28 | Cons- Neurology ---
General Information and HPI Consulting Request Date of Consult: 09/11/17 Requested By: Bryn Castellanos MD Reason for Consult: Sudden headache, increased right side weakness Source of Information: patient, old records, ER MD Exam Limitations: clinical condition History of Present Illness: 71-year-old man followed for Parkinson's disease and with a prior stroke several years ago developed a sudden severe headache "like the one when I had my stroke " accompanied by increased weakness of the right arm and slurring of speech. Out of the time window for TPA. Headache persists at this time, he denies associated problem with vision and has no difficulty understanding spoken language. He does admit to numbness through the right body. Parkinson's disease dates back around 12-15 years, his tremor dominant with a rather severe coarse tremor on the right and some gait instability which he attributes more to a peripheral neuropathy. Allergies/Medications Allergies: Coded Allergies: Penicillins (Intermediate, HIVES 05/03/15) Home Med List: Amlodipine Besylate 10 MG TABLET 1 TAB PO DAILY HEART (Reported) Atorvastatin Calcium (Lipitor) 40 MG TABLET 1 TAB PO DAILY HYPERLIPIDEMIA ( Reported) Calcium Carbonate (Oyster Shell Calcium) 500 MG CALCIUM (1,250 MG) TABLET 1 TAB PO DAILY SUPPLEMENT (Reported) Carbidopa/Levodopa (Carbidopa-Levodopa 25-100 Tab) 25 MG-100 MG TABLET 2 TAB PO TID PARKINSONS (Reported) Celecoxib (Celebrex) 200 MG CAPSULE 1 CAP PO DAILY PAIN CONTROL (Reported) Cholecalciferol (Vitamin D3) 1,000 UNIT TABLET 1 TAB PO DAILY VITAMIN SUPPORT (Reported) Diclofenac Sodium 3 % GEL..GRAM. 4 GM TOP TID PRN PAIN (Reported) Divalproex Sodium (Divalproex Sodium ER) 250 MG TAB.ER.24H 1 TAB PO QPM SLEEP (Reported) Docusate Sodium (Colace) 100 MG CAPSULE 1 CAP PO BID GI (Reported) Duloxetine HCl 30 MG CAPSULE.DR 60 MG PO DAILY MOOD (Reported) Entacapone (Comtan) 200 MG TABLET 1 TAB PO TID PARKINSONS (Reported) Escitalopram Oxalate (Lexapro) 10 MG TABLET 1 TAB PO DAILY MENTAL HEALTH ( Reported) Fenofibrate,Micronized (Fenofibrate) 134 MG CAPSULE 1 CAP PO DAILY TRIGLYCERIDES (Reported) Ferrous Sulfate 325 MG (65 MG IRON) TABLET 1 TAB PO BID IRON, VITAMIN ( Reported) Folic Acid 1 MG TABLET 1 TAB PO DAILY SUPPLEMENT (Reported) Furosemide (Lasix) 40 MG TABLET 1 TAB PO DAILY WATER RETENTION (Reported) Gabapentin (Neurontin) 600 MG TABLET 1 TAB PO TID PAIN (Reported) Hydromorphone HCl (Dilaudid) 8 MG TABLET 1 TAB PO Q4 PRN Back pain (Reported) Insulin Aspart, Recombinant (Novolog Flexpen) (Unknown Strength) INSULN.PEN ( Unknown Dose) SEE SLIDING SCALE DIABETES (Reported) SLIDING SCALE: 150-200 4 UNITS 201-250 6 UNITS 251-300 8 UNITS 301-350 10 UNITS 351-400 12 UNITS OVER 400 CALL MD PER [facility] Insulin Glargine,Hum.rec.anlog (Lantus Solostar) 100 UNIT/ML (3 ML) INSULN.PEN 20 UNIT SC QPM DIABETES (Reported) Labetalol HCl 300 MG TABLET 1 TAB PO TID HEART (Reported) Levetiracetam (Keppra) 250 MG TABLET 1 TAB PO BID SEIZURES (Reported) Lisinopril 10 MG TABLET 1 TAB PO DAILY HTN (Reported) Magnesium Oxide 400 MG TABLET 1 TAB PO DAILY SUPPLEMENT (Reported) Metoprolol Succ XL (Toprol Xl) 50 MG TAB 1 TAB PO DAILY BP (Reported) Omeprazole 20 MG CAPSULE.DR 1 CAP PO DAILY ACID REFLUX (Reported) Polyethylene Glycol 3350 (Miralax) 17 GRAM POWD.PACK GI (Reported) Polyvinyl Alcohol (Artificial Tears) 1.4 % DROPS 1 DROP OP 4 TIMES/DAY EYE ( Reported) Pregabalin (Lyrica) 50 MG CAPSULE 1 CAP PO TID PAIN (Reported) Sennosides (Senna) 8.6 MG TABLET 1 TAB PO DAILY CONSTIPATION (Reported) Sertraline HCl 25 MG TABLET 1 TAB PO DAILY MENTAL HEALTH (Reported) Trazodone HCl 50 MG TABLET 0.25 TAB PO QPM PRN SLEEP (Reported) Warfarin Sodium (Coumadin) 2 MG TABLET 4.5 MG PO 1700 BLOOD THINNER (Reported ) Zolpidem Tartrate (Ambien) 10 MG TABLET 1 TAB PO QPM SLEEP (Reported) Current Medications: Current Medications Sig/Leena Start time Last Medication Dose Route Stop Time Status Admin Acetaminophen 650 MG Q6P PRN 09/11 1500 UNVr PO Acetaminophen 0 .STK-MED ONE 09/11 1247 DC IV Acetaminophen 1,000 MG ONCE ONE 09/11 1245 DC 09/11 N/A 1 UNIT IV 09/11 1259 1249 Aspirin 0 .STK-MED ONE 09/11 1301 DC PO Aspirin 325 MG ONCE ONE 09/11 1300 DC 09/11 PO 09/11 1301 1301 Insulin Aspart 0 TIDAC 09/11 1445 UNVr 09/11 SC 1501 Review of Systems Review of Systems: On the complete medical ROS pertinent findings are the absence of chest pain or palpitations, dyspnea. He does report pain in the shoulder numbness in both feet and constipation. No unusual bruising or bleeding. Other systems negative or noncontributory Past History Travel History Traveled to [place] past 21 day No Medical History Neurological: CVA, Parkinson's disease, peripheral neuropathy, stroke 4 times after morphine EENT: NONE Cardiovascular: CAD, CHF, hypertension, [facility] LA[facility]A VALVE Respiratory: PNA Gastrointestinal: GERD, pancreatitis, peptic ulcer disease, upper GI bleed Hepatic: NONE Renal: NONE Musculoskeletal: chronic back pain, osteoarthritis, osteoporosis, spinal fracture twice MRSA IN WOUND Psychiatric: anxiety Endocrine: diabetes, osteoporosis, vitamin D deficiency Blood Disorders: anemia Cancer(s): melanoma 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 Psychosocial History Who Do You Live With? 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 Ambulation: cane, wheelchair bound IADLs Independent: telephone. Needs Assist: shopping, housework, finances, food prep, transportation, medication admin. Exam & Diagnostic Data Vital Signs and I&O Vital Signs Date Time Temp Pulse Resp B/P B/P Pulse O2 O2 Flow FiO2 Mean Ox Delivery Rate 09/11 1433 98.6 76 18 124/88 98 Room Air 09/11 1249 98.4 09/11 1218 98.4 55 18 118/56 98 Room Air 09/11 1121 98 Room Air 09/11 1120 124/84 09/11 1048 98.3 58 19 122/60 93 Room Air Intake & Output 09/11 1600 09/11 0800 09/11 0000 Intake Total 0 Output Total Balance 0 Intake, Oral 0 Patient 221 lb Weight Weight Reported by Patient Measurement Method Physical Exam: On exam he is overweight but appeared comfortable and in no distress. Skin color good. Neurologically alert and attentive, no language errors. Mild dysarthria. Attention, recall and general fund of knowledge grossly intact Visual ronquillo suggest a left inferior quadrantanopsia with extinction in that region on DSS. Pupils are small, round and equal, unable to visualize fundi. Eye movements conjugate and full including fairly well-preserved upward gaze.. Tongue protrusion midline. Motor exam reveals 4/5 power of the right hand fire lookout, downward drift. Power in the right leg is also 4+/5, power on left normal. Moderately severe resting tremor which persists on movement affecting the right side, intermittent mild tremor on the left. Tone increased bilaterally right more than left. Tendon reflexes suppressed, plantar response silent. Sensation reduced to touch over the right arm and leg Last 48 Hours of Lab Results: Laboratory Tests 09/11 09/11 1224 1109 Chemistry Sodium (137 - 145 mmol/L) 138 Potassium (3.5 - 5.1 mmol/L) 4.1 Chloride (98 - 107 mmol/L) 98 Carbon Dioxide (22 - 30 mmol/L) 29 Anion Gap (5 - 16) 11 BUN (9 - 20 mg/dL) 45 H Creatinine (0.7 - 1.2 mg/dL) 2.3 H Estimated GFR (>60 ml/min) 28 L BUN/Creatinine Ratio (7 - 25 %) 19.6 Glucose (65 - 99 mg/dL) 158 H Calcium (8.4 - 10.2 mg/dL) 9.1 Total Bilirubin (0.2 - 1.3 mg/dL) 0.9 AST (17 - 59 U/L) 16 L ALT (21 - 72 U/L) 7 L Alkaline Phosphatase (< 127 U/L) 125 Troponin I (<0.11 ng/ml) 0.05 Total Protein (6.3 - 8.2 g/dL) 6.3 Albumin (3.5 - 5.0 g/dL) 3.8 Globulin (1.9 - 4.2 gm/dL) 2.5 Albumin/Globulin Ratio (1.1 - 2.2 %) 1.5 Hematology CBC w Diff MAN DIFF ORDERED WBC (4.8 - 10.8 /CUMM) 11.4 H RBC (4.70 - 6.10 /CUMM) 3.89 L Hgb (14.0 - 18.0 G/DL) 11.8 L Hct (42 - 52 %) 33.9 L MCV (80.0 - 94.0 FL) 87.2 MCH (27.0 - 31.0 PG) 30.2 MCHC (33.0 - 37.0 G/DL) 34.6 RDW (11.5 - 14.5 %) 14.5 Plt Count (130 - 400 /CUMM) 262 MPV (7.4 - 10.4 FL) 7.7 Gran % (42.2 - 75.2 %) 84.9 H Lymphocytes % (20.5 - 51.1 %) 7.2 L Monocytes % (1.7 - 9.3 %) 6.3 Eosinophils % (0 - 5 %) 1.1 Basophils % (0.0 - 2.0 %) 0.5 Absolute Granulocytes (1.4 - 6.5 /CUMM) 9.7 H Absolute Lymphocytes (1.2 - 3.4 /CUMM) 0.8 L Absolute Monocytes (0.10 - 0.60 /CUMM) 0.7 H Absolute Eosinophils (0.0 - 0.7 /CUMM) 0.1 Absolute Basophils (0.0 - 0.2 /CUMM) 0.1 Platelet Estimate (ADEQUATE) ADEQUATE Anisocytosis 1+ Urines Urine Color (YEL,AMB,STR) YEL Urine Clarity (CLEAR) CLEAR Urine pH (5.0 - 8.0) 6.0 Ur Specific [place] (1.001 - 1.035) 1.020 Urine Protein (NEG,<30 MG/DL) 30 H Urine Ketones (NEG) NEG Urine Nitrite (NEG) NEG Urine Bilirubin (NEG) NEG Urine Urobilinogen (0.1 - 1.0 EU/dl) 0.2 Ur Leukocyte Esterase (NEG) NEG Ur Microscopic SEDIMENT EXAMINED Urine RBC (0 - 5 /HPF) 3-5 Urine WBC (0 - 2 /HPF) RARE Ur Epithelial Cells (NONE,FEW) RARE Urine Bacteria (NEG/NONE) RARE H Hyaline Casts (0/LPF) RARE H Urine Hemoglobin (NEG) SMALL H Urine Glucose (N MG/DL) 500 H Imaging/Other Studies: CT HEAD: No intracranial mass, hemorrhage, or midline shift is visualized. There is atrophy with prominence of the ventricles and the sulci and hypodensity of the periventricular white matter due to chronic small vessel ischemic disease. There is vascular calcifications of the internal carotid arteries bilaterally. No extra-axial collections are identified. The paranasal sinuses and mastoid air cells are well aerated. Assessment/Plan Assessment: Stroke, left hemispheric with increased right weakness, sensory loss and slurred speech Parkinson's disease, tremor dominant, rather severe tremor of the right dominant side, on Sinemet Recommendations: Admit Telemetry Carotid Doppler studies Echocardiogram PT and OT consultations Aspirin 81 mg EC daily Atorvastatin 40 mg daily Continue Sinemet 50/200 3 times daily Consult Acknowledgment - Thank you for your consult request.
[2017-09-11 15:50] VITALS: BP 122/70
[2017-09-11 17:24] LABS: PT 46.9 SEC (9.4-12.5)
--- NOTE | 2017-09-11 18:59 | Admission Certification ---
Admission Certification Certification Statement - As attending physician, I certify that at the time of - admission, based on clinical presentation, severity of - symptoms, need for further diagnostic testing and - therapeutic interventions, and risk of adverse outcomes - without in-hospital treatment, in my clinical assessment, - this patient requires an acute hospital stay for a minimum - of two nights or longer. I have also considered psychsocial - factors such as support system, advanced age, financial - issues, cognitive issues, and failed out-patient treatments, - past re-admission history, safety of patient, and lack of - compliance as applicable. Specific rationale supporting this admission is: hEADACHE, POSSIBLE [place], SUPRATHERAPEUTIC inr AND HYPERGLYCEMIA.
--- NOTE | 2017-09-11 19:05 | PN- Att Addend ---
Attending Addendum Attending Brief Note 71-year-old white male with many comorbidities again living at assisted living. The nurse called earlier stating that his blood sugars has been high and after he complained to her about severe headache and was sent to the emergency room apparently is also some weakness on the right side with a history of previous CVAs the patient was evaluated had a CAT scan of the head and was admitted to telemetry for observation evaluation workup neurology consult will have a carotid ultrasounds will be on telemetry. Monitor his INR which was a little bit supratherapeutic. Get PT and OT consults. Once he is stable he may need again short-term rehab Current Medications Sig/Leena Start time Last Medication Dose Route Stop Time Status Admin Acetaminophen 650 MG Q6P PRN 09/11 1500 AC PO Acetaminophen 0 .STK-MED ONE 09/11 1247 DC IV Acetaminophen 1,000 MG ONCE ONE 09/11 1245 DC 09/11 N/A 1 UNIT IV 09/11 1259 1249 Amlodipine Besylate 10 MG DAILY 09/12 899 AC PO Aspirin 81 MG DAILY 09/12 899 AC PO Aspirin 0 .STK-MED ONE 09/11 1301 DC PO Aspirin 325 MG ONCE ONE 09/11 1300 DC 09/11 PO 09/11 1301 1301 Atorvastatin Calcium 40 MG 1700 09/11 1700 AC 09/11 PO 1733 Calcium Carbonate 1,250 MG DAILY 09/12 899 AC PO Carbidopa/Levodopa 2 TAB TID 09/11 1549 AC 09/11 PO 1733 Duloxetine HCl 60 MG DAILY 09/11 1549 AC 09/11 PO 1732 Entacapone 200 MG TID 09/11 1550 AC 09/11 PO 1733 Furosemide 40 MG DAILY 09/12 899 AC PO Gabapentin 600 MG Q8 09/11 2200 AC PO Hydromorphone HCl 8 MG Q6P PRN 09/11 1600 AC 09/11 PO 1619 Insulin Aspart 0 TIDAC 09/11 1445 AC 09/11 SC 1733 Insulin Detemir 20 UNITS QPM 09/11 2100 AC SC Labetalol HCl 300 MG TID 09/12 899 AC PO Levetiracetam 250 MG BID 09/11 2100 AC PO Metoprolol Succinate 50 MG DAILY 09/12 899 AC PO Omeprazole 20 MG DAILY 09/12 899 AC PO Pregabalin 50 MG TID 07/12 2100 AC PO Sertraline HCl 25 MG DAILY 09/12 0900 AC PO Zolpidem Tartrate 10 MG QPM 09/11 2099 AC PO Vital Signs Date Time Temp Pulse Resp B/P B/P Pulse O2 O2 Flow FiO2 Mean Ox Delivery Rate 09/11 1552 Room Air 09/11 1550 97.6 56 18 122/70 92 Room Air 09/11 1433 98.6 76 18 124/88 98 Room Air 09/11 1249 98.4 09/11 1218 98.4 55 18 118/56 98 Room Air 09/11 1121 98 Room Air 09/11 1120 124/84 Intake & Output 09/11 1600 Intake Total 0 Output Total Balance 0 Intake, Oral 0 Patient 250 lb Weight Weight Bed scale Measurement Method
--- NOTE | 2017-09-11 19:22 | ULTRASOUND REPORT ---
EXAMINATION: US DUPLEX CAROTID AND VERTEBRAL CLINICAL INFORMATION: Right arm weakness. COMPARISON: None available. TECHNIQUE: Real-time ultrasound and Doppler techniques (integrating B-mode 2D vascular images, Doppler spectral analysis and color flow Doppler imaging) were utilized to interrogate the extracranial carotid and vertebral arteries bilaterally. The degree of stenosis determined by criteria similar to NASCET. FINDINGS: Right common carotid artery peak systolic velocity is 114 cm/s with a maximal end-diastolic velocity of 25 cm/s. Right internal carotid artery peak systolic velocity is 54.6 cm/s with maximal end-diastolic velocity of 13.8 cm/s. There is antegrade flow within the right vertebral artery. There is atherosclerotic disease involving the right carotid bifurcation. Left common carotid artery peak systolic velocity is 131 cm/s with maximal end-diastolic velocity of 15.7 cm/s. Left internal carotid artery peak systolic velocity is 76.2 cm/s with maximal end-diastolic velocity of 25.2 cm/s. There is antegrade flow within the left vertebral artery. IMPRESSION: - There is a less than 50% stenosis involving the right internal carotid artery. - The left carotid bifurcation is normal.
[2017-09-11 22:09] VITALS: BP 130/70
[2017-09-12 06:54] VITALS: BP 134/74
--- NOTE | 2017-09-12 06:58 | PN- Housestaff ---
Subjective Follow-up For: TIA/STROKE HEADACHE Tele-Events Since Last Visit: SB/1AVB, 55, PVC/PAC Subjective: Patient seen and examined at bedside this morning. He continues to complain of frontal headache pain that is sharp and a 10/10. Patient receiving dilaudid and tylenol prn for pain control. He also noted right knee pain and new bruising not noticed yesterday. He denies any signficant chest pain, shortness of breath or palpitations at the time. He claims he feels weaker and was not able to get out of bed as per PT/OT. However, as per assessment, patients physical exam was similar to on admission and patient was eating and drinking fine. Nurse this morning noticed that he may have been drooling water. Will follow up with MRI and x-ray of knee. Review of Systems Constitutional: Denies: see HPI. Objective Last 24 Hrs of Vital Signs/I&O Vital Signs Date Time Temp Pulse Resp B/P B/P Pulse O2 O2 Flow FiO2 Mean Ox Delivery Rate 09/12 1016 62 140/62 09/12 1015 62 140/62 09/12 0918 62 140/62 09/12 0654 97.7 52 18 134/74 96 Room Air 09/11 2209 99.3 58 20 130/70 91 09/11 1552 Room Air 09/11 1550 97.6 56 18 122/70 92 Room Air 09/11 1433 98.6 76 18 124/88 98 Room Air 09/11 1249 98.4 09/11 1218 98.4 55 18 118/56 98 Room Air 09/11 1121 98 Room Air 09/11 1120 124/84 Intake & Output 09/12 1600 09/12 0800 09/12 0000 Intake Total 175 50 Output Total 500 350 Balance -325 -300 Intake, Oral 175 50 Number 1 Bowel Movements Output, Urine 500 350 Patient 244 lb Weight Weight Bed scale Measurement Method Physical Exam General Appearance: Alert, Oriented X3, Cooperative, Mild Distress Neck: Supple, No JVD Cardiovascular: Regular Rate, Normal S1, Normal S2, No Murmurs Lungs: Clear to Auscultation, Normal Air Movement Abdomen: Normal Bowel Sounds, Soft, No Tenderness Neurological: Strength 3/5 right upper/lower extremity with tremors Strength 4/5 in left upper/lower extremity Normal Tone Reflexes hypoactive CN2-12 intact Extremities: Left knee pain on palpation and bruising noticed Vascular: Normal Pulses, Pulses Symmetrical Current Medications: Current Medications Sig/Leena Start time Last Medication Dose Route Stop Time Status Admin Acetaminophen 650 MG Q6P PRN 09/11 1500 AC PO Acetaminophen 0 .STK-MED ONE 09/11 1247 DC IV Acetaminophen 1,000 MG ONCE ONE 09/11 1245 DC 09/11 N/A 1 UNIT IV 09/11 1259 1249 Amlodipine Besylate 10 MG DAILY 09/12 09 AC 09/12 PO 0918 Aspirin 81 MG DAILY 09/12 09 AC 09/12 PO 0919 Aspirin 0 .STK-MED ONE 09/11 1301 DC PO Aspirin 325 MG ONCE ONE 09/11 1300 DC 09/11 PO 09/11 1301 1301 Atorvastatin Calcium 40 MG 1700 09/11 1700 AC 09/11 PO 1733 Calcium Carbonate 1,250 MG DAILY 09/12 0900 AC 09/12 PO 0919 Carbidopa/Levodopa 2 TAB TID 09/11 1549 AC 09/12 PO 0919 Duloxetine HCl 60 MG DAILY 09/11 1549 AC 09/12 PO 0916 Entacapone 200 MG TID 09/11 1550 AC 09/12 PO 0916 Furosemide 40 MG DAILY 09/12 0900 AC 09/12 PO 1016 Gabapentin 600 MG Q8 09/11 2200 AC 09/12 PO 0615 Hydromorphone HCl 8 MG Q4-6 PRN PRN 09/12 1015 AC 09/12 PO 1017 Hydromorphone HCl 8 MG Q6P PRN 09/11 1600 DC 09/12 PO 0432 Insulin Aspart 0 TIDAC 09/11 1445 AC 09/11 SC 1733 Insulin Detemir 20 UNITS QPM 09/11 2100 AC 09/11 SC 2041 Labetalol HCl 300 MG TID 09/12 09 AC PO Levetiracetam 250 MG BID 09/11 2100 AC 09/12 PO 0921 Metoprolol Succinate 50 MG DAILY 09/12 09 AC PO Omeprazole 20 MG DAILY 09/12 0900 AC 09/12 PO 0919 Pregabalin 50 MG TID 09/11 2100 AC 09/12 PO 0915 Sertraline HCl 25 MG DAILY 09/12 0900 AC 09/12 PO 0919 Warfarin Sodium 4 MG COUMADIN 1700 09/12 1700 AC PO 09/12 2358 Zolpidem Tartrate 10 MG QPM 09/11 2099 AC 09/11 PO 2038 Zolpidem Tartrate 5 MG .STK-MED ONE 09/11 1950 DC PO 09/11 1950 Last 24 Hrs of Lab/Arpan Results Last 24 Hrs of Labs/Mics: Laboratory Tests 09/12/17 0605: Anion Gap 7, Estimated GFR 26 L, BUN/Creatinine Ratio 17.6, PT 32.6 H, INR 2.96 H, CBC w Diff NO MAN DIFF REQ, RBC 3.80 L, MCV 88.8, MCH 30.3, MCHC 34.1, RDW 15.1 H, MPV 7.7, Gran % 67.2, Lymphocytes % 19.9 L, Monocytes % 9.7 H, Eosinophils % 2.7, Basophils % 0.5, Absolute Granulocytes 4.2, Absolute Lymphocytes 1.3, Absolute Monocytes 0.6, Absolute Eosinophils 0.2, Absolute Basophils 0 09/11/17 2225: Troponin I 0.05 09/11/17 1630: Troponin I 0.04, PT 46.9 *H, INR 4.24 *H 09/11/17 1224: Urine Color YEL, Urine Clarity CLEAR, Urine pH 6.0, Ur Specific [place] 1.020, Urine Protein 30 H, Urine Ketones NEG, Urine Nitrite NEG, Urine Bilirubin NEG, Urine Urobilinogen 0.2, Ur Leukocyte Esterase NEG, Ur Microscopic SEDIMENT EXAMINED, Urine RBC 3-5, Urine WBC RARE, Ur Epithelial Cells RARE, Urine Bacteria RARE H, Hyaline Casts RARE H, Urine Hemoglobin SMALL H, Urine Glucose 500 H Assessment/Plan Assessment: A/P: Patient is a 71 year old male with past medical history signfiicant of multiple CVAs last seen in January 2017 for a intracerebral hemorrhage, Parkinsons diseae, CAD, CHF, HTN, GERD, pancreatitis, spinal fractures and a bicuspid valve replacement on warfarin. Patient came to the ED for increasing frontal headache and right sided weakness. Patient had increasing headache and was noted by nurse to be drooling upon drinking water. PT/OT noticed increased weakness as patient was not able to transfer from bed to chair as he was yesterday with assist x1. STROKE * MRI and ECHO done today 09/12 will follow up -Nurse concern of patient being weaker than yesterday and drooling with water consumption; patient continues to have frontal headache * Continue fall precautions; speech/swallow * Carotid US: negative for any signfiicant stenosis * Continue aspirin 81 daily; Lipitor 40 daily * HbA1C: 10.2; sugars controlled (122, 150) * Follow up neuro recommendations (Dr. Hill) * INR now 2.96 will resume Warfarin home dose: [place] mechanical aortic valve Diabetes mellitus * Accu-Cheks * Insulin sliding scale * Levemir 20 units at bedtime * HbA1C: 10.2; sugars controlled (122, 150) Hypertension * We will hold amlodipine 10 mg daily, labetalol 200 twice daily, metoprolol 50 daily for now until MRI results * Maintain permissive hypertension Hyperlipidemia * Continue Lipitor 40 daily Parkinson's disease * Continue home dose of carbidopa L-dopa 2 tabs 3 times daily * Entacapone 200 mg 3 times daily Depression * Continue duloxetine 60 daily * Continue Zoloft 25 daily Insomnia * Continue Ambien 10 mg daily CHF with diastolic dysfunction * Continue home dose of Lasix 40 daily Peripheral neuropathy * Continue Lyrica 50 3 times daily * Continue gabapentin 600 3 times daily Seizures * Continue Keppra 250 twice daily GERD * Continue omeprazole 20 daily Code Status: Full Code DVT PPx: [place] Diet: Consistent Carbohydrate 3 Problem List: 1. STROKE 2. Diabetes mellitus type 2 3. Parkinsons disease 4. Diastolic CHF with preserved left ventricular function, NYHA class 2 5. Headache Pain Ratin Pain Location: Frontal Headache Pain Goal: Pain 7 or less Pain Plan: Patient receives Dilaudid scheduled and tylenol prn Tomorrow's Labs & Rationales: CBC BEP INR DVT/Prophylaxis: pharmacological
[2017-09-12 07:53] LABS: ABSOLUTE BASOPHIL COUNT 0 /CUMM (0.0-0.2); ABSOLUTE EOSINOPHIL COUNT 0.2 /CUMM (0.0-0.7); ABSOLUTE GRANULOCYTE CT 4.2 /CUMM (1.4-6.5); ABSOLUTE LYMPH COUNT 1.3 /CUMM (1.2-3.4); ABSOLUTE MONOCYTE COUNT 0.6 /CUMM (0.10-0.60); BASOPHIL % 0.5 % (0.0-2.0); EOSINOPHIL % 2.7 % (0-5); GRANULOCYTE % 67.2 % (42.2-75.2); HEMATOCRIT 33.8 % (42-52); MEAN CORPUSCULAR HGB 30.3 PG (27.0-31.0); MEAN CORPUSCULAR HGB CONC 34.1 G/DL (33.0-37.0); MEAN CORPUSCULAR VOLUME 88.8 FL (80.0-94.0); MEAN PLATELET VOLUME 7.7 FL (7.4-10.4); PLATELET COUNT 255 /CUMM (130-400); RBC DISTRIBUTION WIDTH 15.1 % (11.5-14.5); WHITE BLOOD CELL COUNT 6.3 /CUMM (4.8-10.8)
[2017-09-12 08:16] LABS: PT 32.6 SEC (9.4-12.5)
--- NOTE | 2017-09-12 10:48 | PN- Att Addend ---
Attending Addendum Attending Brief Note Patient states his right arm is still weak and was unable to get up, still has his pains, also mentioned that he has some "difficulty swallowing". Patient is alert oriented 3 His vital signs are stable no fever no major changes on physical examination. His INR is 2.96 and he will get his daily dose of Coumadin. Patient is going for an MRI of the head today also will have a swallowing evaluation PT OT He still may need short-term rehab again. Intake & Output 09/12 1600 09/12 0800 09/12 0000 09/11 1600 09/11 0809/11 0000 Intake Total 175 50 0 Output Total 500 350 Balance -325 -300 0 Intake, Oral 175 50 0 Number 1 Bowel Movements Output, Urine 500 350 Patient 244 lb 250 lb Weight Weight Bed scale Bed scale Measurement Method Current Medications Sig/Leena Start time Last Medication Dose Route Stop Time Status Admin Acetaminophen 650 MG Q6P PRN 09/11 1500 AC PO Acetaminophen 0 .STK-MED ONE 09/11 1247 DC IV Acetaminophen 1,000 MG ONCE ONE 09/11 1245 DC 09/11 N/A 1 UNIT IV 09/11 1259 1249 Amlodipine Besylate 10 MG DAILY 09/12 09 AC 09/12 PO 0918 Aspirin 81 MG DAILY 09/12 09 AC 09/12 PO 0919 Aspirin 0 .STK-MED ONE 09/11 1301 DC PO Aspirin 325 MG ONCE ONE 09/11 1300 DC 09/11 PO 09/11 1301 1301 Atorvastatin Calcium 40 MG 1700 09/11 1700 AC 09/11 PO 1733 Calcium Carbonate 1,250 MG DAILY 09/12 09 AC 09/12 PO 0919 Carbidopa/Levodopa 2 TAB TID 09/11 1549 AC 09/12 PO 0919 Duloxetine HCl 60 MG DAILY 09/11 1549 AC 09/12 PO 0916 Entacapone 200 MG TID 09/11 1550 AC 09/12 PO 0916 Furosemide 40 MG DAILY 09/12 09 AC 09/12 PO 1016 Gabapentin 600 MG Q8 09/11 2200 AC 09/12 PO 0615 Hydromorphone HCl 8 MG Q4-6 PRN PRN 09/12 1015 AC 09/12 PO 1017 Hydromorphone HCl 8 MG Q6P PRN 09/11 1600 DC 09/12 PO 0432 Insulin Aspart 0 TIDAC 09/11 1445 09/11 LA 1733 Insulin Detemir 20 UNITS QPM 09/11 2099 09/11 LA 2041 Labetalol HCl 300 MG TID 09/12 899 AC PO Levetiracetam 250 MG BID 09/11 2099 AC 09/12 PO 0921 Metoprolol Succinate 50 MG DAILY 09/12 899 AC PO Omeprazole 20 MG DAILY 09/12 09 AC 09/12 PO 0919 Pregabalin 50 MG TID 09/11 2099 AC 09/12 PO 0915 Sertraline HCl 25 MG DAILY 09/12 899 AC 09/12 PO 0919 Warfarin Sodium 4 MG COUMADIN 1700 09/12 1700 AC PO 09/12 2359 Zolpidem Tartrate 10 MG QPM 09/11 2099 AC 09/11 PO 203 Zolpidem Tartrate 5 MG .STK-MED ONE 09/11 1950 [facility] 09/11 1950 Laboratory Tests 09/12/17 0605: Anion Gap 7, Estimated GFR 26 L, BUN/Creatinine Ratio 17.6, PT 32.6 H, INR 2.96 H, CBC w Diff NO MAN DIFF REQ, RBC 3.80 L, MCV 88.8, MCH 30.3, MCHC 34.1, RDW 15.1 H, MPV 7.7, Gran % 67.2, Lymphocytes % 19.9 L, Monocytes % 9.7 H, Eosinophils % 2.7, Basophils % 0.5, Absolute Granulocytes 4.2, Absolute Lymphocytes 1.3, Absolute Monocytes 0.6, Absolute Eosinophils 0.2, Absolute Basophils 0 09/11/17 2225: Troponin I 0.05 09/11/17 1630: Troponin I 0.04, PT 46.9 *H, INR 4.24 *H 09/11/17 1224: Urine Color YEL, Urine Clarity CLEAR, Urine pH 6.0, Ur Specific Leslie 1.020, Urine Protein 30 H, Urine Ketones NEG, Urine Nitrite NEG, Urine Bilirubin NEG, Urine Urobilinogen 0.2, Ur Leukocyte Esterase NEG, Ur Microscopic SEDIMENT EXAMINED, Urine RBC 3-5, Urine WBC RARE, Ur Epithelial Cells RARE, Urine Bacteria RARE H, Hyaline Casts RARE H, Urine Hemoglobin SMALL H, Urine Glucose 500 H 09/11/17 1109: Anion Gap 11, Estimated GFR 28 L, BUN/Creatinine Ratio 19.6, Glucose 158 H, Hemoglobin A1c 10.2 H, Calcium 9.1, Total Bilirubin 0.9, AST 16 L, ALT 7 L, Alkaline Phosphatase 125, Troponin I 0.05, Total Protein 6.3, Albumin 3.8, Globulin 2.5, Albumin/Globulin Ratio 1.5, Triglycerides 76, Cholesterol 120, LDL Cholesterol, Calc 57 L, HDL Cholesterol 48, Cholesterol/HDL Ratio 3, CBC w Diff MAN DIFF ORDERED, RBC 3.89 L, MCV 87.2, MCH 30.2, MCHC 34.6, RDW 14.5, MPV 7.7, Gran % 84.9 H, Lymphocytes % 7.2 L, Monocytes % 6.3, Eosinophils % 1.1, Basophils % 0.5, Absolute Granulocytes 9.7 H, Absolute Lymphocytes 0.8 L, Absolute Monocytes 0.7 H, Absolute Eosinophils 0.1, Absolute Basophils 0.1, Platelet Estimate ADEQUATE, Anisocytosis 1+ Vital Signs Date Time Temp Pulse Resp B/P B/P Pulse O2 O2 Flow FiO2 Mean Ox Delivery Rate 09/12 1016 62 140/62 09/12 1015 62 140/62 09/12 0918 62 140/62 09/12 0654 97.7 52 18 134/74 96 Room Air 09/11 2209 99.3 58 20 130/70 91 09/11 1552 Room Air 09/11 1550 97.6 56 18 122/70 92 Room Air 09/11 1433 98.6 76 18 124/88 98 Room Air 09/11 1249 98.4 09/11 1218 98.4 55 18 118/56 98 Room Air 09/11 1121 98 Room Air 09/11 1120 124/84 09/11 1048 98.3 58 19 122/60 93 Room Air
--- NOTE | 2017-09-12 12:52 | RADIOLOGY REPORT ---
EXAMINATION: XR KNEE, LEFT CLINICAL INFORMATION: Left knee pain. Fall. COMPARISON: X-ray left knee dated 09/02/2017 TECHNIQUE: Four views of the left knee. FINDINGS: Medial compartment arthroplasty. Intact hardware. Stable cortical irregularity medial tibial plateau. Severe arthritic changes medial tibiofemoral compartment. Interval increase in joint effusion and soft tissue swelling medial knee. IMPRESSION: Stable cortical irregularity medial tibial plateau. However, it appears more pronounced compared to remote x-rays dated 01/15/2016. Subtle nondisplaced fracture cannot be excluded. Postoperative changes. Joint effusion.
[2017-09-12] MEDS ORDERED: ASPIRIN81 M4 PO (13:36)
--- NOTE | 2017-09-12 13:40 | Patient Discharge Instructions ---
Discharge Instructions General Discharge Information You were seen/treated for: stroke supratherapeutic INR Special Instructions: Follow-up PCP in 1 week after discharge. Follow-up with the neurologist in 1 week after discharge Please return to hospital if you develop weakness, sensory changes, headache, strokelike symptoms Diet Continue normal diet: Yes Activity Full Activity/No Limits: Yes Acute Coronary Syndrome Inclusion Criteria At DC or during hospital stay patient has or had the following: ACS DIAGNOSIS No Discharge Core Measures Meds if any: Prescribed or Continued at Discharge Meds if any: NOT Prescribed or Continued at Discharge Congestive Heart Failure Inclusion Criteria At DC or during hospital stay patient has or had the following: CHF DIAGNOSIS No Discharge Core Measures Meds if any: Prescribed or Continued at Discharge Meds if any: NOT Prescribed or Continued at Discharge Cerebrovascular accident Inclusion Criteria At DC or during hospital stay patient has or had the following: CVA/TIA Diagnosis Yes Discharge Core Measures Meds if any: Prescribed or Continued at Discharge Meds if any: NOT Prescribed or Continued at Discharge Venous thromboembolism Inclusion Criteria VTE Diagnosis No VTE Type NONE VTE Confirmed by (Test) NONE Discharge Core Measures - Per Current guidelines, there needs to be overlap - treatment for the first 5 days of Warfarin therapy. - If discharged on Warfarin prior to 5 days of - overlap therapy, the patient will need to be - assessed for post discharge needs including - *Post discharge parental anticoagulation - *Warfarin and/or parental anticoagulation education - *Follow up date to check INR post discharge At least 5 days overlap therapy as Inpatient No Meds if any: Prescribed or Continued at Discharge Note: Overlap Therapy is Warfarin and Anticoagulant Meds if any: NOT Prescribed or Continued at Discharge
[2017-09-12 14:51] VITALS: BP 124/72
--- NOTE | 2017-09-12 15:12 | Discharge Summary ---
Visit Information Visit Dates Admission Date: 09/11/17 Discharge Date: 09/16/2017 Hospital Course Course Attending Physician: Bryn Castellanos MD Primary Care Physician: Emanuel VASQUES,Bryn Hospital Course: This is 71-year-old male with past medical history significant for Parkinson's disease, diabetes mellitus, hypertension, hyperlipidemia, insomnia, anxiety, depression, chronic back pain, diastolic heart failure, peripheral neuropathy, seizures, GERD, peptic ulcer disease, mechanical aortic valve replacement on warfarin, multiple CVA stroke 4 times, hemorrhagic stroke in 2017, osteoarthritis, osteoporosis, spine fractures, MRSA wound infections, constipation was brought in by ambulance from [facility] for evaluation of ongoing headache for 1 day. Patient reports that he has sudden onset of headache around 3 AM this morning. The pain is located on the frontal aspect of the head, claims that he has similar type of headache in 2017 when he was diagnosed with stroke. He was given Tylenol with no significant improvement. He woke up again this morning with headache associated with weakness in the right upper extremity with increased tremors. Offnote patient has baseline Parkinson's disease with the tremor. He also mentioned that he has right sided weakness since his last stroke in 2017 where he was transferred to [facility] for hemorrhagic stroke. Vitals afebrile, heart rate 55, respiratory rate 18, blood pressure 118/50, saturating at 98 on room air Labs WBC 11.4, hemoglobin 11.8, hematocrit 33, platelets 262 BEP normal limits, creatinine 2.3 baseline is 2.[address] no acute intracranial abnormality was found Left hip x-ray no acute fracture was found EKG sinus rhythm, rate 54, first-degree AV block, no acute ST-T wave changes Stroke Patient presented with frontal headache associated with right arm and leg weakness. Of note he reports that he has residual right-sided weakness from prior stroke. However given his worsening weakness and frontal headache and neuro exams, there might be a possibility of left hemispheric stroke with increased right-sided weakness. CAT scan head was done which showed no intracranial hemorrhage or mass or infarct. MRI brain was ordered however could not complete the test because of tremors. He was admitted to telemetry for continuous telemetry monitoring. Serial troponin and EKG were negative. Monitored closely for any worsening stroke symptoms. Neurochecks every 4 hours. MRI was ordered however could not get that because of his tremors. Carotid ultrasound was done which was normal. Echocardiogram showed normal ejection fraction 50% with no wall motion abnormalities He was continued on aspirin 81, Plavix 75, statin 40 daily. PT OT, speech and swallow evaluation was done. Followed up with Dr. Hill. Status post fall patient also states that he fell on September 02 and injured his left hip. Patient states that since then he has had to ambulate with a walker and has felt weak. Patient is unsure if the left leg weakness is from the hip pain or foot is something new. However left hip x-ray was done which showed no acute fractures. Left knee x-ray showed no acute abnormality found except for effusion. Reactive leukocytosis WBC 11.4. No fever, no source of infection was found. WBC count came down to 6.3 Diabetes mellitus Accu-Cheks Insulin sliding scale Levemir 10 units twice daily Hypertension Continued home medications amlodipine 10 mg daily, labetalol 200 twice daily, metoprolol 50 daily Hyperlipidemia Continued Lipitor 40 daily Parkinson's disease Continued home dose of carbidopa L-dopa 2 tabs 3 times daily Entacapone 200 mg 3 times daily Started Zonasimide 50 mg daily for Parkinson's tremors by neurologist Depression Continued duloxetine 60 daily Continued Zoloft 25 daily Insomnia Continued Ambien 10 mg daily CHF with diastolic dysfunction Continued home dose of Lasix 40 daily Peripheral neuropathy Continued Lyrica 50 3 times daily Continued gabapentin 600 3 times daily Seizures Continued Keppra 250 twice daily GERD Continued omeprazole 20 daily Supratherapeutic INR [place] mechanical aortic valve takes warfarin 4.5 mg Dosed warfarin daily based on INR Chronic kidney disease Patient has stage IV CKD with baseline creatinine 2.1. DVT prophylaxis warfarin Regular diet Pain pathway Tylenol, patient takes Dilaudid 8 mg every 6 hours Full code Allergies: Coded Allergies: Penicillins (Intermediate, HIVES 05/03/15) Pertinent Lab Results: CT HEAD There is no evidence of acute intra-axial or extra-axial hemorrhage. There is no acute mass effect or midline shift. No acute loss of white-white differentiation.. The ventricles are normal in size. Old infarct and encephalomalacia right basal ganglia noted again. The osseous structures and soft tissues are normal. The mastoid air cells and visualized portions of the paranasal sinuses are well aerated. LEFT HIP Bony osteopenia. No evidence of acute fracture or dislocation. Degenerative changes left hip joint. Atherosclerotic disease with intimal calcification of the left femoral artery and branches. IMPRESSION: No acute intracranial pathology. Stable chronic changes. No acute osseous abnormality left hip. FINDINGS: Right common carotid artery peak systolic velocity is 114 cm/s with a maximal end-diastolic velocity of 25 cm/s. Right internal carotid artery peak systolic velocity is 54.6 cm/s with maximal end-diastolic velocity of 13.8 cm/s. There is antegrade flow within the right vertebral artery. There is atherosclerotic disease involving the right carotid bifurcation. Left common carotid artery peak systolic velocity is 131 cm/s with maximal end-diastolic velocity of 15.7 cm/s. Left internal carotid artery peak systolic velocity is 76.2 cm/s with maximal end-diastolic velocity of 25.2 cm/s. There is antegrade flow within the left vertebral artery. IMPRESSION: - There is a less than 50% stenosis involving the right internal carotid artery. - The left carotid bifurcation is normal. FINDINGS: Medial compartment arthroplasty. Intact hardware. Stable cortical irregularity medial tibial plateau. Severe arthritic changes medial tibiofemoral compartment. Interval increase in joint effusion and soft tissue swelling medial knee. IMPRESSION: Stable cortical irregularity medial tibial plateau. However, it appears more pronounced compared to remote x-rays dated 01/15/2016. Subtle nondisplaced fracture cannot be excluded. Postoperative changes. Joint effusion. Disposition Summary Disposition Principal Diagnosis: STROKE Parkinsons tremors Additional Diagnosis: LEUKOCYTOSIS Discharge Disposition: SNF Discharge Instructions General Discharge Information Code Status: Full Code Patient's Diet: As tolerated Patient's Activity: As tolerated Follow-Up Instructions/Appts: Please follow-up with PCP in 1 week after discharge Please follow-up with the neurologist in 1 week after discharge Medications at Discharge Discharge Medications: Stop taking the following medications: Lisinopril (Lisinopril) 10 MG TABLET ORAL DAILY Escitalopram Oxalate (Lexapro) 10 MG TABLET ORAL DAILY Trazodone HCl (Trazodone HCl) 50 MG TABLET ORAL Every night as needed for SLEEP Divalproex Sodium (Divalproex Sodium ER) 250 MG TAB.ER.24H ORAL Every night Qty = 31 Continue taking these medications: Fenofibrate,Micronized (Fenofibrate) 134 MG CAPSULE 1 Capsule ORAL DAILY Comments: Folic Acid (Folic Acid) 1 MG TABLET 1 Tablet ORAL DAILY Metoprolol Succ XL (Toprol Xl) 50 MG TAB 1 Tablet ORAL DAILY Zolpidem Tartrate (Ambien) 10 MG TABLET 1 Tablet ORAL Every night Furosemide (Lasix) 40 MG TABLET 1 Tablet ORAL DAILY Atorvastatin Calcium (Lipitor) 40 MG TABLET 1 Tablet ORAL DAILY Entacapone (Comtan) 200 MG TABLET 1 Tablet ORAL THREE TIMES DAILY Comments: Duloxetine HCl (Duloxetine HCl) 30 MG CAPSULE.DR 60 Milligram ORAL DAILY Comments: Celecoxib (Celebrex) 200 MG CAPSULE 1 Capsule ORAL DAILY Comments: Omeprazole (Omeprazole) 20 MG CAPSULE.DR 1 Capsule ORAL DAILY Comments: Pregabalin (Lyrica) 50 MG CAPSULE 1 Capsule ORAL THREE TIMES DAILY Docusate Sodium (Colace) 100 MG CAPSULE 1 Capsule ORAL TWICE DAILY Sennosides (Senna) 8.6 MG TABLET 1 Tablet ORAL DAILY Comments: Polyethylene Glycol 3350 (Miralax) 17 GRAM POWD.PACK Packet ORAL DAILY Comments: Magnesium Oxide (Magnesium Oxide) 400 MG TABLET 1 Tablet ORAL DAILY Insulin Aspart, Recombinant (Novolog Flexpen) (Unknown Strength) INSULN.PEN Unknown Dose SEE SLIDING SCALE Instructions: SLIDING SCALE: 150-200 4 UNITS 201-250 6 UNITS 251-300 8 UNITS 301-350 10 UNITS 351-400 12 UNITS OVER 400 CALL MD PER [facility] Comments: Polyvinyl Alcohol (Artificial Tears) 1.4 % DROPS 1 DROP OPHTHALMIC 4 TIMES A DAY Gabapentin (Neurontin) 600 MG TABLET 1 Tablet ORAL THREE TIMES DAILY Comments: Carbidopa/Levodopa (Carbidopa-Levodopa 25-100 Tab) 25 MG-100 MG TABLET 2 Tablet ORAL THREE TIMES DAILY Warfarin Sodium (Coumadin) 2 MG TABLET 4.5 Milligram ORAL 5 PM Calcium Carbonate (Oyster Shell Calcium) 500 MG CALCIUM (1,250 MG) TABLET 1 Tablet ORAL DAILY Hydromorphone HCl (Dilaudid) 8 MG TABLET 1 Tablet ORAL Every 4 hours as needed for Back pain Qty = 30 Amlodipine Besylate (Amlodipine Besylate) 10 MG TABLET 1 Tablet ORAL DAILY Qty = 28 Cholecalciferol (Vitamin D3) 1,000 UNIT TABLET 1 Tablet ORAL DAILY Diclofenac Sodium (Diclofenac Sodium) 3 % GEL..GRAM. 4 Gram On the skin THREE TIMES DAILY as needed for PAIN Qty = 300 Ferrous Sulfate (Ferrous Sulfate) 325 MG (65 MG IRON) TABLET 1 Tablet ORAL TWICE DAILY Insulin Glargine,Hum.rec.anlog (Lantus Solostar) 100 UNIT/ML (3 ML) INSULN.PEN 20 Unit SC Every night Labetalol HCl (Labetalol HCl) 300 MG TABLET 1 Tablet ORAL THREE TIMES DAILY Qty = 84 Levetiracetam (Keppra) 250 MG TABLET 1 Tablet ORAL TWICE DAILY Qty = 56 Sertraline HCl (Sertraline HCl) 25 MG TABLET 1 Tablet ORAL DAILY Start taking the following new medications: Aspirin (Aspirin*) 81 MG TAB.CHEW 1 Tablet ORAL DAILY Qty = 30 No Refills Zonisamide (Zonisamide) 50 MG CAPSULE 1 Tablet ORAL DAILY Qty = 30 No Refills Copies To: Emanuel VASQUES,Bryn
[2017-09-12 23:04] VITALS: BP 138/82
[2017-09-13 07:01] VITALS: BP 140/76
[2017-09-13 08:13] LABS: PT 21.2 SEC (9.4-12.5)
[2017-09-13 08:21] LABS: ABSOLUTE BASOPHIL COUNT 0 /CUMM (0.0-0.2); ABSOLUTE EOSINOPHIL COUNT 0.1 /CUMM (0.0-0.7); ABSOLUTE GRANULOCYTE CT 4.8 /CUMM (1.4-6.5); ABSOLUTE LYMPH COUNT 1.1 /CUMM (1.2-3.4); ABSOLUTE MONOCYTE COUNT 0.7 /CUMM (0.10-0.60); BASOPHIL % 0.6 % (0.0-2.0); EOSINOPHIL % 2.2 % (0-5); GRANULOCYTE % 70.2 % (42.2-75.2); HEMATOCRIT 35.6 % (42-52); MEAN CORPUSCULAR HGB 29.9 PG (27.0-31.0); MEAN CORPUSCULAR HGB CONC 33.8 G/DL (33.0-37.0); MEAN CORPUSCULAR VOLUME 88.3 FL (80.0-94.0); PLATELET COUNT 280 /CUMM (130-400); RBC DISTRIBUTION WIDTH 14.6 % (11.5-14.5); RED BLOOD CELL CT 4.03 /CUMM (4.70-6.10); WHITE BLOOD CELL COUNT 6.8 /CUMM (4.8-10.8)
--- NOTE | 2017-09-13 09:02 | PN- Housestaff ---
Subjective Follow-up For: Headache, ruling out TIA/stroke Complaints: headache, low back pain Tele-Events Since Last Visit: Sinus bradycardia, first-degree AV block, heart rate ranging from 55-63, with some PVCs and bigeminy Subjective: I followed up and examined the patient today. He was resting comfortably in bed , but did complain of back pain and intermittent headache, this is not associated with any recent changes, or other focal neurologic deficit. He continues to have right upper extremity tremors, but in general, does not have any new complaints. Vital signs have remained stable with constant bradycardia. Telemetry as noted above. Awaiting neurology recommendations today. Review of Systems Constitutional: Reports: see HPI. Objective Last 24 Hrs of Vital Signs/I&O Vital Signs Date Time Temp Pulse Resp B/P B/P Pulse O2 O2 Flow FiO2 Mean Ox Delivery Rate 09/13 0701 98.1 61 18 140/76 95 09/12 2304 98.0 57 20 138/82 94 09/12 2053 56 132/86 09/12 1539 Room Air 09/12 1532 Room Air 09/12 1451 98.0 61 20 124/72 95 Room Air 09/12 1354 60 124/72 09/12 1016 62 140/62 09/12 1015 62 140/62 09/12 0918 62 140/62 Intake & Output 09/13 1600 09/13 0800 09/13 0000 Intake Total 120 120 Output Total 1350 Balance 120 -1230 Intake, Oral 120 120 Output, Urine 1350 Patient 111.13 kg Weight Physical Exam General Appearance: Alert, Oriented X3, Cooperative, No Acute Distress Other Physical Findings: Neck: Supple, No JVD Cardiovascular: Regular Rate, Normal S1, Normal S2, Murmurs+ Lungs: Clear to Auscultation, Normal Air Movement Abdomen: Normal Bowel Sounds, Soft, No Tenderness Neurological: Strength 3/5 right upper/lower extremity with tremors, Strength 4/ 5 in left upper/lower extremity, otherwise WNL Extremities: Left knee pain on palpation and bruising noticed Vascular: Normal Pulses, Pulses Symmetrical Current Medications: Current Medications Sig/Leena Start time Last Medication Dose Route Stop Time Status Admin Acetaminophen 650 MG Q6P PRN 09/11 1500 AC PO Amlodipine Besylate 10 MG DAILY 09/12 899 AC 09/12 PO 917 Aspirin 81 MG DAILY 09/12 899 AC 09/12 PO 0919 Atorvastatin Calcium 40 MG 1700 09/11 1700 AC 09/12 PO 1554 Calcium Carbonate 1,250 MG DAILY 09/12 0900 AC 09/12 PO 0919 Carbidopa/Levodopa 2 TAB TID 09/11 1549 AC 09/12 PO 2049 Duloxetine HCl 60 MG DAILY 09/11 1549 AC 09/12 PO 0916 Entacapone 200 MG TID 09/11 1550 AC 09/12 PO 205 Furosemide 40 MG DAILY 09/12 0900 DC 09/12 PO 1016 Gabapentin 600 MG Q8 09/11 2200 AC 09/13 PO 0523 Hydromorphone HCl 8 MG Q4-6 PRN PRN 09/12 1015 AC 09/13 PO 0524 Hydromorphone HCl 8 MG Q6P PRN 09/11 1600 DC 09/12 PO 0432 Insulin Aspart 0 TIDAC 09/11 1445 AC 09/12 NE 1659 Insulin Detemir 10 UNITS BID 09/12 2099 AC 09/12 SC 2050 Insulin Detemir 20 UNITS QPM 09/11 2100 DC 09/11 SC 204 Labetalol HCl 300 MG TID 09/12 0900 AC 09/12 PO 2052 Levetiracetam 250 MG BID 09/11 2100 AC 09/12 PO 2050 Metoprolol Succinate 50 MG DAILY 09/12 0900 PO Omeprazole 20 MG DAILY 09/12 0900 AC 09/12 PO 0919 Patient Medication 1 ED ONE ONE 09/12 1330 DC Teaching ED 09/12 1331 Pregabalin 50 MG TID 09/11 2100 AC 09/12 PO 2049 Sertraline HCl 25 MG DAILY 09/12 0900 AC 09/12 PO 0919 Warfarin Sodium 4 MG COUMADIN 1700 09/12 1700 DC 09/12 PO 09/12 2359 1554 Zolpidem Tartrate 10 MG QPM 09/11 2100 AC 09/12 PO 2049 Last 24 Hrs of Lab/Arpan Results Last 24 Hrs of Labs/Mics: Laboratory Tests 09/13/17 0640: Anion Gap 9, Estimated GFR 31 L, BUN/Creatinine Ratio 21.4, PT 21.2 H, INR 1.93 H, CBC w Diff Pending, WBC Pending, RBC Pending, Hgb Pending, Hct Pending, MCV Pending, MCH Pending, MCHC Pending, RDW Pending, Plt Count Pending, MPV Pending Assessment/Plan Assessment: Patient is a 71 year old male with past medical history signfiicant of multiple CVAs last seen in January 2017 for a intracerebral hemorrhage, Parkinsons diseae, CAD, CHF, HTN, GERD, pancreatitis, spinal fractures and a bicuspid valve replacement on warfarin. Patient came to the ED for increasing frontal headache and right sided weakness. Patient had increasing headache and was noted by nurse to be drooling upon drinking water. PT/OT noticed increased weakness as patient was not able to transfer from bed to chair as he was yesterday with assist x1. ? STROKE vs Advance Parkinson's * ? MRI reports * Continue fall precautions; speech/swallow * Carotid US: negative for any signfiicant stenosis * Continue aspirin 81 daily; Lipitor 40 daily * Neuro recommendations, appreciated * Zonisamide 50 mg ordered per neuro recs, but not sure if pharmacy has it yet. Spoke with pharmacy to order it byron. * INR now 1.93, Warfarin dosed [place] mechanical aortic valve Diabetes mellitus * Accu-Cheks * Insulin sliding scale * Levemir 10 units at bedtime, ISS * HbA1C: 10.2 Hypertension * We will hold amlodipine 10 mg daily, labetalol 200 twice daily, metoprolol 50 daily for now until MRI results * Maintain permissive hypertension Hyperlipidemia * Continue Lipitor 40 daily Parkinson's disease * Continue home dose of carbidopa L-dopa 2 tabs 3 times daily * Entacapone 200 mg 3 times daily Depression * Continue duloxetine 60 daily * Continue Zoloft 25 daily Insomnia * Continue Ambien 10 mg daily CHF with diastolic dysfunction * Continue home dose of Lasix 40 daily Peripheral neuropathy * Continue Lyrica 50 3 times daily * Continue gabapentin 600 3 times daily Seizures * Continue Keppra 250 twice daily GERD * Continue omeprazole 20 daily Code Status: Full Code DVT PPx: [place] Diet: Consistent Carbohydrate 3 Problem List: 1. Parkinson disease 2. Headache 3. Low back pain Pain Ratin Pain Location: back, neck Pain Goal: Pain 4 or less Pain Plan: per neuro, dilaudid, gabapentin Tomorrow's Labs & Rationales: BEP, CBC
--- NOTE | 2017-09-13 10:04 | ECHOCARDIOGRAM REPORT ---
DENNY VARGAS Age: 71 : 1945 Gender: M Exam Date: 09/12/2017 10:41 Exam Location: [address] Ht (in): 73 Wt (lb): 249 BSA: 2.44 BP: 134 / 74 Ordering Physician: Kade Hackett MD Referring Physician: Kade Hackett MD Technologist: Clement Rm [facility] Room Number: [id number] Indications: STROKE Rhythm: Sinus Technical Quality: fair FINDINGS Left Ventricle Normal left ventricular size, wall thickness and systolic function with no obvious regional wall motion abnormalities. Diastolic filling pattern is consistent with imparied LV relaxation. The ejection fraction is visually estimated at 50%. Right Ventricle The right ventricle is normal in size and function. Right Atrium The right atrium is normal in size. Left Atrium The left atrium is normal in size. The interatrial septum is intact. Mitral Valve The mitral valve demonstrates mild posterior annular calcification with normal function. There is trace mitral regurgitation. Aortic Valve Normally seated and functioning mechanical aortic valve without significant stenosis. There is trace aortic regurgitation. Tricuspid Valve The tricuspid valve is normal in structure and function. There is trace tricuspid regurgitation. Pulmonary artery systolic pressure is normal. Pulmonic Valve Structurally normal pulmonic valve. There is mild pulmonic regurgitation. Pericardium Normal pericardium without effusion. No pleural effusion. Great Vessels Mildly enlarged aortic root dimension. The aortic arch and great vessels are well seen and are normal. CONCLUSIONS 1. Normal EF of 50% with impaired LV relaxation. 2. Trace mitral regurgitaiton. 3. Trace tricuspid regurgitation. 4. Normally seated and functioning mechanical aortic valve with trace aortic insufficiency. 5. Mild pulmonic regurgitation. 6. Mildly enlarged aortic root, Darrick Scruggs M.D. (Electronically Signed) Final Date: 13 September 2017 10:03 MEASUREMENTS (Male / Female) Normal Values 2D ECHO LV Diastolic Diameter PLAX 6.1 cm 4.2 - 5.9 / 3.9 - 5.3 cm LV Systolic Diameter PLAX 4.7 cm 2.1 - 4.0 cm LV Fractional Shortening PLAX 23.0 % 25 - 46 % LV Ejection Fraction 2D Teich 45.2 % IVS Diastolic Thickness 1.3 cm LVPW Diastolic Thickness 1.3 cm LV Relative Wall Thickness 0.4 LVOT Diameter 2.6 cm Aortic Root Diameter 4.6 cm LA Systolic Diameter LX 3.7 cm 3.0 - 4.0 / 2.7 - 3.8 cm LA Volume 66.0 cm 18 - 58 / 22 - 52 cm Ascending Aorta Diameter 4.9 cm DOPPLER AV Peak Velocity 257.0 cm/s AV Peak Gradient 26.4 mmHg AV Mean Velocity 165.0 cm/s AV Mean Gradient 13.0 mmHg AV Velocity Time Integral 62.8 cm LVOT Peak Velocity 79.7 cm/s LVOT Peak Gradient 2.5 mmHg LVOT Mean Velocity 49.3 cm/s LVOT Mean Gradient 1.0 mmHg LVOT Velocity Time Integral 20.3 cm LVOT Stroke Volume 107.8 cm AV Area Cont Eq vti 1.7 cm AV Area Cont Eq pk 1.6 cm MV Peak Velocity 141.0 cm/s MV Peak Gradient 8.0 mmHg MV Mean Velocity 77.6 cm/s MV Mean Gradient 3.0 mmHg Mitral E Point Velocity 100.0 cm/s Mitral A Point Velocity 132.0 cm/s Mitral E to A Ratio 0.8 MV PHT Velocity 114.0 cm/s MV Deceleration Tate 437.0 cm/s MV Pressure Half Time 78.3 ms MV Area PHT 2.8 cm MV Deceleration Time 201.0 ms TR Peak Velocity 324.0 cm/s TR Peak Gradient 42.0 mmHg Right Atrial Pressure 5.0 mmHg Pulmonary Artery Systolic Pressure 47.0 mmHg Right Ventricular Systolic Pressure 47.0 mmHg PV Peak Velocity 108.0 cm/s PV Peak Gradient 4.7 mmHg PV Mean Velocity 72.9 cm/s PV Mean Gradient 2.0 mmHg PV Velocity Time Integral 25.8 cm LV E' Lateral Velocity 11.0 cm/s Mitral E to LV E' Lateral Ratio 9.1 LV E' Septal Velocity 5.7 cm/s Mitral E to LV E' Septal Ratio 17.7
--- NOTE | 2017-09-13 12:58 | PN- Att Addend ---
Attending Addendum Attending Brief Note Mr. Escalona was interviewed and examined. His EMR was reviewed. He complains of back and right knee pain. He denies fever, chills, chest pain and palpitations. He noted he ambulated earlier today with physical therapy. He is afebrile with stable vital signs. He is in no acute distress. Chest exam anteriorly is benign. Heart sounds are distant. His abdomen is nontender. There is right-sided weakness. CBC is stable and acceptable. INR is subtherapeutic at 1.96. E lectrolytes are normal. His renal function appears to have returned to baseline. Imaging of his right knee shows possible changes in the previously noted tibial plateau fracture and also increased effusion. We are continuing physical therapy for his bland left hemisphere infarct. As his INR is subtherapeutic we should resume his warfarin therapy and monitor INRs. We are continuing his maintenance medications. We are continuing his basal insulin supplementation and his sliding scale.
[2017-09-13 15:10] VITALS: BP 104/64
--- NOTE | 2017-09-13 16:44 | PN- Neurology ---
Subjective Subjective: tremor rt upper extremity neck and back pain falls gait difficulty Review of Systems: no difficulty swallowing falls frequently no difficulty swallowing neck pain poor vision no vertigo Objective Vital Signs and I&Os Vital Signs Date Time Temp Pulse Resp B/P B/P Pulse O2 O2 Flow FiO2 Mean Ox Delivery Rate 09/13 1510 97.7 89 18 104/64 93 09/13 1417 57 140/76 09/13 0942 61 140/76 09/13 0941 61 140/76 09/13 0937 61 140/76 09/13 0701 98.1 61 18 140/76 95 09/12 2304 98.0 57 20 138/82 94 09/12 2053 56 132/86 Intake & Output 09/13 1600 09/13 0809/13 0000 09/12 1600 09/12 0000 Intake Total 120 120 700 175 50 Output Total 1350 600 500 350 Balance 120 -1230 100 -325 -300 Intake, Oral 120 120 700 175 50 Number 1 Bowel Movements Output, Urine 1350 600 500 350 Patient 245 lb 244 lb Weight Weight Bed scale Measurement Method alert no dysarthria EOM full visual [place] full no facial weakness rt upper extremity tremor and rigidity; dificulty with hand strenght sensory loss lower extremities distal areflexic Current Medications: Current Medications Sig/Leena Start time Last Medication Dose Route Stop Time Status Admin Acetaminophen 650 MG Q6P PRN 09/11 1500 AC PO Amlodipine Besylate 10 MG DAILY 09/12 09 AC 09/13 PO 0942 Aspirin 81 MG DAILY 09/12 09 AC 09/13 PO 0943 Atorvastatin Calcium 40 MG 1700 09/11 1700 AC 09/12 PO 1554 Calcium Carbonate 1,250 MG DAILY 09/12 09 AC 09/13 PO 0940 Carbidopa/Levodopa 2 TAB TID 09/11 1549 AC 09/13 PO 1418 Duloxetine HCl 60 MG DAILY 09/11 1549 AC 09/13 PO 0943 Entacapone 200 MG TID 09/11 1550 AC 09/13 PO 1418 Furosemide 40 MG DAILY 09/12 0900 DC 09/12 PO 1016 Gabapentin 600 MG Q8 09/11 2200 AC 09/13 PO 1418 Hydromorphone HCl 8 MG Q4-6 PRN PRN 09/12 1015 AC 09/13 PO 1156 Insulin Aspart 0 TIDAC 09/11 1445 AC 09/13 SC 1350 Insulin Detemir 10 UNITS BID 09/12 2099 AC 09/13 SC 0930 Labetalol HCl 300 MG TID 09/12 09 AC 09/13 PO 1417 Levetiracetam 250 MG BID 09/11 2100 AC 09/13 PO 1000 Metoprolol Succinate 50 MG DAILY 09/12 09 AC 09/13 PO 0941 Omeprazole 20 MG DAILY 09/12 09 AC 09/13 PO 0943 Pregabalin 50 MG TID 09/11 2099 AC 09/13 PO 1430 Sertraline HCl 25 MG DAILY 09/12 09 AC 09/13 PO 0939 Warfarin Sodium 4 MG COUMADIN 1700 09/12 1700 DC 09/12 PO 09/12 2359 1554 Zolpidem Tartrate 10 MG QPM 09/11 2099 AC 09/12 PO 205 Results Last 24 Hours of Lab Results: Laboratory Tests 09/13 0640 Chemistry Sodium (137 - 145 mmol/L) 138 Potassium (3.5 - 5.1 mmol/L) 4.3 Chloride (98 - 107 mmol/L) 100 Carbon Dioxide (22 - 30 mmol/L) 30 Anion Gap (5 - 16) 9 BUN (9 - 20 mg/dL) 45 H Creatinine (0.7 - 1.2 mg/dL) 2.1 H Estimated GFR (>60 ml/min) 31 L BUN/Creatinine Ratio (7 - 25 %) 21.4 Coagulation PT (9.4 - 12.5 SEC) 21.2 H INR (0.90 - 1.17) 1.93 H Hematology CBC w Diff NO MAN DIFF REQ WBC (4.8 - 10.8 /CUMM) 6.8 RBC (4.70 - 6.10 /CUMM) 4.03 L Hgb (14.0 - 18.0 G/DL) 12.0 L Hct (42 - 52 %) 35.6 L MCV (80.0 - 94.0 FL) 88.3 MCH (27.0 - 31.0 PG) 29.9 MCHC (33.0 - 37.0 G/DL) 33.8 RDW (11.5 - 14.5 %) 14.6 H Plt Count (130 - 400 /CUMM) 280 MPV (7.4 - 10.4 FL) 8.0 Gran % (42.2 - 75.2 %) 70.2 Lymphocytes % (20.5 - 51.1 %) 16.8 L Monocytes % (1.7 - 9.3 %) 10.2 H Eosinophils % (0 - 5 %) 2.2 Basophils % (0.0 - 2.0 %) 0.6 Absolute Granulocytes (1.4 - 6.5 /CUMM) 4.8 Absolute Lymphocytes (1.2 - 3.4 /CUMM) 1.1 L Absolute Monocytes (0.10 - 0.60 /CUMM) 0.7 H Absolute Eosinophils (0.0 - 0.7 /CUMM) 0.1 Absolute Basophils (0.0 - 0.2 /CUMM) 0 Recent Imaging Studies: CT HEAD There is no evidence of acute intra-axial or extra-axial hemorrhage. There is no acute mass effect or midline shift. No acute loss of white-white differentiation.. The ventricles are normal in size. Old infarct and encephalomalacia right basal ganglia noted again. The osseous structures and soft tissues are normal. The mastoid air cells and visualized portions of the paranasal sinuses are well aerated. LEFT HIP Bony osteopenia. No evidence of acute fracture or dislocation. Degenerative changes left hip joint. Atherosclerotic disease with intimal calcification of the left femoral artery and branches. IMPRESSION: No acute intracranial pathology. Stable chronic changes. No acute osseous abnormality left hip. Assessment/Plan Assessment: advanced parkinsons disease falls when getting up persistent tremor chromic pain Plan: trial or zonisamide 50 mg/day for tremor check for orthostasis PT ?rehab facility
[2017-09-13 22:00] VITALS: BP 118/70
[2017-09-14 06:47] VITALS: BP 124/70
[2017-09-14 08:02] LABS: ABSOLUTE BASOPHIL COUNT 0 /CUMM (0.0-0.2); ABSOLUTE EOSINOPHIL COUNT 0.1 /CUMM (0.0-0.7); ABSOLUTE GRANULOCYTE CT 4.2 /CUMM (1.4-6.5); ABSOLUTE LYMPH COUNT 1.2 /CUMM (1.2-3.4); ABSOLUTE MONOCYTE COUNT 0.6 /CUMM (0.10-0.60); BASOPHIL % 0.5 % (0.0-2.0); EOSINOPHIL % 2.4 % (0-5); GRANULOCYTE % 68.7 % (42.2-75.2); HEMATOCRIT 34.1 % (42-52); MEAN CORPUSCULAR HGB 30.2 PG (27.0-31.0); MEAN CORPUSCULAR VOLUME 88.8 FL (80.0-94.0); MEAN PLATELET VOLUME 7.9 FL (7.4-10.4); PLATELET COUNT 272 /CUMM (130-400); RBC DISTRIBUTION WIDTH 14.6 % (11.5-14.5); RED BLOOD CELL CT 3.84 /CUMM (4.70-6.10); WHITE BLOOD CELL COUNT 6.1 /CUMM (4.8-10.8)
[2017-09-14 08:21] LABS: PT 19.8 SEC (9.4-12.5)
--- NOTE | 2017-09-14 08:25 | PN- Housestaff ---
Subjective Follow-up For: Parkinsons Disease Headache, rule out TIA/Stroke Tremors Tele-Events Since Last Visit: AVB, 53, 0.12, 0.28, [place] Waves lead II Subjective: Patient seen and examined at bedside this morning. Continues to have headache at the frontal region that now radiates to the left behind the ear. This is changed where it was only localized to the frontal aspect prior. Patient claims headache is a 8/10. He denies any loss of vision, chest pain, palpitations or shortness of breath. Patient was able to get out of bed to chair with PT this morning, an improvement since yesterday. Tolerating PO well. Seen by neurology today. Review of Systems Constitutional: Denies: see HPI. Objective Last 24 Hrs of Vital Signs/I&O Vital Signs Date Time Temp Pulse Resp B/P B/P Pulse O2 O2 Flow FiO2 Mean Ox Delivery Rate 09/14 1418 52 124/700 09/14 0832 52 124/700 09/14 0828 52 124/70 09/14 0828 52 124/700 09/14 0647 97.6 52 20 124/70 94 Room Air 09/13 2200 98.0 58 18 118/70 96 Room Air 09/13 2051 56 118/70 Intake & Output 09/14 1600 09/14 0800 09/14 0000 Intake Total 120 620 Output Total 600 1600 Balance -480 -980 Intake, Oral 120 620 Output, Urine 600 1600 Patient 246 lb Weight Weight Bed scale Measurement Method Physical Exam General Appearance: Alert, Oriented X3, Cooperative HEENT: Atraumatic, PERRLA, EOMI, Mucous Membr. moist/pink Cardiovascular: Regular Rate, Normal S1, Normal S2 Lungs: Clear to Auscultation, Normal Air Movement Abdomen: Normal Bowel Sounds, Soft, No Tenderness Neurological: Right upper extremity tremor exaggerated strength 3/5 in right upper and lower extremity strength 4/5 in left upper and lower extremity Reflexes hypoactive Sensation intact CN2-12 intact Extremities: No Clubbing, No Cyanosis, No Edema Vascular: Normal Pulses, Pulses Symmetrical Current Medications: Current Medications Sig/Leena Start time Last Medication Dose Route Stop Time Status Admin Acetaminophen 650 MG Q6P PRN 09/11 1500 AC PO Amlodipine Besylate 10 MG DAILY 09/12 09 AC 09/14 PO 0832 Aspirin 81 MG DAILY 09/12 09 AC 09/14 PO 0830 Atorvastatin Calcium 40 MG 1700 09/11 1700 AC 09/13 PO 1713 Calcium Carbonate 1,250 MG DAILY 09/12 0900 AC 09/14 PO 0830 Carbidopa/Levodopa 2 TAB TID 09/11 1549 AC 09/14 PO 1417 Duloxetine HCl 60 MG DAILY 09/11 1549 AC 09/14 PO 0830 Entacapone 200 MG TID 09/11 1550 AC 09/14 PO 1418 Gabapentin 600 MG Q8 09/11 2200 AC 09/14 PO 1417 Hydromorphone HCl 8 MG Q4-6 PRN PRN 09/12 1015 AC 09/14 PO 1419 Insulin Aspart 0 TIDAC 09/11 1445 AC 09/14 SC 1300 Insulin Detemir 10 UNITS BID 09/12 2100 AC 09/14 SC 0848 Labetalol HCl 300 MG TID 09/12 0900 AC 09/14 PO 1418 Levetiracetam 250 MG BID 09/11 2100 AC 09/14 PO 0835 Metoprolol Succinate 50 MG DAILY 09/12 0900 AC 09/14 PO 0828 Omeprazole 20 MG DAILY 09/12 0900 AC 09/14 PO 0832 Pregabalin 50 MG TID 09/11 2100 AC 09/14 PO 1418 Sertraline HCl 25 MG DAILY 09/12 0900 AC 09/14 PO 0828 Warfarin Sodium 7.5 MG COUMADIN 1700 ONE 09/14 1700 UNVr PO 09/14 1701 Warfarin Sodium 5 MG COUMADIN 1700 ONE 09/13 2115 DC 09/13 PO 09/14 2115 2240 Zolpidem Tartrate 10 MG QPM 09/11 2100 AC 09/13 PO 205 Zonisamide 50 MG 0900 09/15 0900 DC PO Zonisamide 50 MG 0900 09/14 0900 AC 09/14 PO 0914 Last 24 Hrs of Lab/Arpan Results Last 24 Hrs of Labs/Mics: Laboratory Tests 09/14/17 06: Anion Gap 9, Estimated GFR 30 L, BUN/Creatinine Ratio 21.8, PT 19.8 H, INR 1.81 H, CBC w Diff NO MAN DIFF REQ, RBC 3.84 L, MCV 88.8, MCH 30.2, MCHC 34.0, RDW 14.6 H, MPV 7.9, Gran % 68.7, Lymphocytes % 19.0 L, Monocytes % 9.4 H, Eosinophils % 2.4, Basophils % 0.5, Absolute Granulocytes 4.2, Absolute Lymphocytes 1.2, Absolute Monocytes 0.6, Absolute Eosinophils 0.1, Absolute Basophils 0 Assessment/Plan Assessment: A/P: Patient is a 71 year old male with past medical history signfiicant of multiple CVAs last seen in January 2017 for a intracerebral hemorrhage, Parkinsons diseae, CAD, CHF, HTN, GERD, pancreatitis, spinal fractures and a bicuspid valve replacement on warfarin. Patient came to the ED for increasing frontal headache and right sided weakness. Patient able to transfer from bed to chair today with signficant improvement. Continues to have frontal headache that now radiates to the left ear. PLAN: * Patient seen by Dr. Turk today -Trial of zonisamide 50 mg a day for approximately 2 weeks to determine if tremor improves -Patient will need inpatient rehab program, for gait difficulty and fall risk * Continue home medications and diabetic regimen * INR subtherapeutic; given higher dose today; will follow up INR tomorrow and dose accordingly Code Status: Full Code DVT PPX: Warfarin Diet: Consistent Carb 3 Problem List: 1. STROKE 2. Parkinson disease Pain Ratin Pain Location: Frontal headache to left side of ear Alt Method for Pain Treatment: Ice Pack Pain Goal: Pain 7 or less Pain Plan: per pain pathway Tomorrow's Labs & Rationales: CBC BEP INR
--- NOTE | 2017-09-14 10:13 | PN- Att Addend ---
Attending Addendum Attending Brief Note Mr. Escalona was interviewed and examined. His EMR was reviewed. His primary complaints are of left posterior neck and left lower back/hip pain. He denies chest pain, palpitations, and shortness of breath. He denies dysphagia. He has remained afebrile. His vital signs are stable and acceptable. He is saturating in the mid 90s on room air. He is in negative fluid balance. He is in no acute distress. Lungs are clear. Heart has regular rate and rhythm. There is a prominent coarse right upper extremity tremor. CBCs is unchanged and essentially acceptable. Electrolytes are normal and renal function is stable at his baseline. He is still requiring supplemental short acting insulin. His INR is subtherapeutic. He has begun on a trial of zonisamide 50 mg daily. We are continuing to follow his CBCs, electrolytes, and renal function. His warfarin dosing will need to be adjusted and his INR is followed. We should consider adjusting his basal insulin dose and continue his sliding scale. In addition a trial of heat/cold applied to his left posterior neck should also be considered.
--- NOTE | 2017-09-14 15:40 | PN- Neurology ---
Subjective Subjective: Persistent tremor Objective Vital Signs and I&Os Vital Signs Date Time Temp Pulse Resp B/P B/P Pulse O2 O2 Flow FiO2 Mean Ox Delivery Rate 09/14 1418 52 124/700 09/14 0832 52 124/700 09/14 0828 52 124/70 09/14 0828 52 124/700 09/14 0647 97.6 52 20 124/70 94 Room Air 09/13 2200 98.0 58 18 118/70 96 Room Air 09/13 2051 56 118/70 Intake & Output 09/14 1600 09/14 0800 09/14 0000 09/13 1600 09/13 0809/13 0000 Intake Total 120 620 120 120 Output Total 600 1600 1350 Balance -480 -980 120 -1230 Intake, Oral 120 620 120 120 Output, Urine 600 1600 1350 Patient 246 lb 245 lb Weight Weight Bed scale Measurement Method Persistent right upper extremity tremor Physical Exam: Alert Extraocular movements full No facial weakness Rigidity right upper extremity Persistent tremor right upper extremity with difficulty fine motor movements Gait difficulty Current Medications: Current Medications Sig/Leena Start time Last Medication Dose Route Stop Time Status Admin Acetaminophen 650 MG Q6P PRN 09/11 1500 AC PO Amlodipine Besylate 10 MG DAILY 09/12 0900 AC 09/14 PO 0832 Aspirin 81 MG DAILY 09/12 0900 AC 09/14 PO 0830 Atorvastatin Calcium 40 MG 1700 09/11 1700 AC 09/13 PO 1713 Calcium Carbonate 1,250 MG DAILY 09/12 0900 AC 09/14 PO 0830 Carbidopa/Levodopa 2 TAB TID 09/11 1549 AC 09/14 PO 1417 Duloxetine HCl 60 MG DAILY 09/11 1549 AC 09/14 PO 0830 Entacapone 200 MG TID 09/11 1550 AC 09/14 PO 1418 Gabapentin 600 MG Q8 09/11 2200 AC 09/14 PO 1417 Hydromorphone HCl 8 MG Q4-6 PRN PRN 09/12 1015 AC 09/14 PO 1419 Insulin Aspart 0 TIDAC 09/11 1445 AC 09/14 SC 1300 Insulin Detemir 10 UNITS BID 09/12 2100 AC 09/14 SC 0848 Labetalol HCl 300 MG TID 09/12 0900 AC 09/14 PO 1418 Levetiracetam 250 MG BID 09/11 2100 AC 09/14 PO 0835 Metoprolol Succinate 50 MG DAILY 09/12 899 AC 09/14 PO 0828 Omeprazole 20 MG DAILY 09/12 09 AC 09/14 PO 0832 Pregabalin 50 MG TID 09/11 2099 AC 09/14 PO 1418 Sertraline HCl 25 MG DAILY 09/12 09 AC 09/14 PO 08 Warfarin Sodium 5 MG COUMADIN 1700 ONE 09/13 2114 DC 09/13 PO 09/13 Zolpidem Tartrate 10 MG QPM 09/11 2099 AC 09/13 PO 2053 Zonisamide 50 MG 09/15 09 DC PO Zonisamide 50 MG 09/14 09 AC 09/14 PO 913 Results Last 24 Hours of Lab Results: Laboratory Tests 09/14 604 Chemistry Sodium (137 - 145 mmol/L) 140 Potassium (3.5 - 5.1 mmol/L) 4.2 Chloride (98 - 107 mmol/L) 103 Carbon Dioxide (22 - 30 mmol/L) 28 Anion Gap (5 - 16) 9 BUN (9 - 20 mg/dL) 48 H Creatinine (0.7 - 1.2 mg/dL) 2.2 H Estimated GFR (>60 ml/min) 30 L BUN/Creatinine Ratio (7 - 25 %) 21.8 Coagulation PT (9.4 - 12.5 SEC) 19.8 H INR (0.90 - 1.17) 1.81 H Hematology CBC w Diff NO MAN DIFF REQ WBC (4.8 - 10.8 /CUMM) 6.1 RBC (4.70 - 6.10 /CUMM) 3.84 L Hgb (14.0 - 18.0 G/DL) 11.6 L Hct (42 - 52 %) 34.1 L MCV (80.0 - 94.0 FL) 88.8 MCH (27.0 - 31.0 PG) 30.2 MCHC (33.0 - 37.0 G/DL) 34.0 RDW (11.5 - 14.5 %) 14.6 H Plt Count (130 - 400 /CUMM) 272 MPV (7.4 - 10.4 FL) 7.9 Gran % (42.2 - 75.2 %) 68.7 Lymphocytes % (20.5 - 51.1 %) 19.0 L Monocytes % (1.7 - 9.3 %) 9.4 H Eosinophils % (0 - 5 %) 2.4 Basophils % (0.0 - 2.0 %) 0.5 Absolute Granulocytes (1.4 - 6.5 /CUMM) 4.2 Absolute Lymphocytes (1.2 - 3.4 /CUMM) 1.2 Absolute Monocytes (0.10 - 0.60 /CUMM) 0.6 Absolute Eosinophils (0.0 - 0.7 /CUMM) 0.1 Absolute Basophils (0.0 - 0.2 /CUMM) 0 Assessment/Plan Assessment: Parkinson's disease Intractable tremor right upper extremity Frequent falls Plan: Trial of zonisamide 50 mg a day for approximately 2 weeks to determine if tremor improves Patient will need inpatient rehab program, for gait difficulty and fall risk
[2017-09-14 23:34] VITALS: BP 122/64
--- NOTE | 2017-09-15 07:01 | PN- Housestaff ---
Subjective Follow-up For: Headache rule out TIA/Stroke Parkinsons Disease/Tremors Tele-Events Since Last Visit: Sb/1 degree block,. 55, [place]: 0.28 Subjective: Patient seen and examined at bedside this morning. Continues to have a headache in the frontal aspect that radiates to left ear. Pain is sharp and a 10/10. Started on IV tylenol today. Will see if patient improves. Otherwise, doing well. Tolerating PO. No chest pain, palpitations, diziness, shortness of breath reported. No changes in patients neurological deficits. Review of Systems Constitutional: Denies: see HPI. Objective Last 24 Hrs of Vital Signs/I&O Vital Signs Date Time Temp Pulse Resp B/P B/P Pulse O2 O2 Flow FiO2 Mean Ox Delivery Rate 09/15 08 54 110/60 09/15 08 54 110/60 09/15 08 54 110/60 09/15 0712 97.8 51 20 110/60 94 09/14 2334 98.5 58 18 122/64 93 Room Air 09/14 2014 61 120/66 09/14 1418 52 124/700 Intake & Output 09/15 1600 09/15 0800 09/15 0000 Intake Total 300 300 Output Total Balance 300 300 Intake, Oral 300 300 Number 2 Bowel Movements Patient 249 lb Weight Physical Exam General Appearance: Alert, Oriented X3, Cooperative, No Acute Distress HEENT: Atraumatic, PERRLA, EOMI Cardiovascular: Regular Rate, Normal S1, Normal S2 Lungs: Clear to Auscultation, Normal Air Movement Abdomen: Normal Bowel Sounds, Soft, No Tenderness Neurological: Significant right upper extremity tremor; strength 2/5 in upper right extremity Left upper extremity 5/5 strength; Left lower extremity 4/5 strength Sensation Intact Normal Speech Gait Unassessed; patient out of bed to chair as per PT Extremities: No Clubbing, No Cyanosis, No Edema, Normal Pulses, Right knee bruise in the medial aspect; no swelling Vascular: Normal Pulses, Pulses Symmetrical Current Medications: Current Medications Sig/Leena Start time Last Medication Dose Route Stop Time Status Admin Acetaminophen 1,000 MG Q6P PRN 09/15 0945 AC 09/15 N/A 1 UNIT IV 1013 Acetaminophen 650 MG Q6P PRN 09/11 1500 AC PO Amlodipine Besylate 10 MG DAILY 09/12 899 AC 09/15 PO 0805 Aspirin 81 MG DAILY 09/12 899 AC 09/15 PO 0805 Atorvastatin Calcium 40 MG 1700 09/11 1700 AC 09/14 PO 1635 Calcium Carbonate 1,250 MG DAILY 09/12 0900 AC 09/15 PO 0805 Carbidopa/Levodopa 2 TAB TID 09/11 1549 AC 09/15 PO 0806 Duloxetine HCl 60 MG DAILY 09/11 1549 AC 09/15 PO 0805 Entacapone 200 MG TID 09/11 1550 AC 09/15 PO 0805 Gabapentin 600 MG Q8 09/11 2200 AC 09/15 PO 0547 Hydromorphone HCl 8 MG Q4-6 PRN PRN 09/12 1015 AC 09/15 PO 1010 Insulin Aspart 0 TIDAC 09/11 1445 AC 09/15 SC 0806 Insulin Detemir 10 UNITS BID 09/12 2100 AC 09/15 SC 0806 Labetalol HCl 300 MG TID 09/12 0900 AC 09/15 PO 0805 Levetiracetam 250 MG BID 09/11 2100 AC 09/15 PO 0806 Metoprolol Succinate 50 MG DAILY 09/12 0900 AC 09/15 PO 0805 Omeprazole 20 MG DAILY 09/12 0900 AC 09/15 PO 0805 Pregabalin 50 MG TID 09/11 2100 AC 09/15 PO 0805 Sertraline HCl 25 MG DAILY 09/12 0900 AC 09/15 PO 0804 Warfarin Sodium 4.5 MG ONCE ONE 09/15 1115 DC PO 09/15 1116 Warfarin Sodium 7.5 MG COUMADIN 1700 ONE 09/14 1700 DC 09/14 PO 09/14 1701 1636 Warfarin Sodium 5 MG .STK-MED ONE 09/14 1628 DC PO 09/14 1629 Zolpidem Tartrate 10 MG .STK-MED ONE 09/14 1959 DC PO 09/15 1999 Zolpidem Tartrate 10 MG QPM 09/11 2100 AC 09/14 PO 2011 Zonisamide 50 MG 09/15 0900 DC PO Zonisamide 50 MG 09/14 0900 AC 09/15 PO 0805 Last 24 Hrs of Lab/Arpan Results Last 24 Hrs of Labs/Mics: Laboratory Tests 09/15/17 0616: Anion Gap 9, Estimated GFR 28 L, BUN/Creatinine Ratio 24.8, PT 22.5 H, INR 2.05 H, CBC w Diff NO MAN DIFF REQ, RBC 3.90 L, MCV 88.6, MCH 30.2, MCHC 34.1, RDW 14.7 H, MPV 7.9, Gran % 67.3, Lymphocytes % 19.7 L, Monocytes % 10.0 H, Eosinophils % 2.4, Basophils % 0.6, Absolute Granulocytes 4.3, Absolute Lymphocytes 1.3, Absolute Monocytes 0.6, Absolute Eosinophils 0.2, Absolute Basophils 0 Assessment/Plan Assessment: Patient is a 71 year old male with past medical history signfiicant of multiple CVAs last seen in January 2017 for a intracerebral hemorrhage, Parkinsons diseae, CAD, CHF, HTN, GERD, pancreatitis, spinal fractures and a bicuspid valve replacement on warfarin. Patient came to the ED for increasing frontal headache and right sided weakness. Patient continues to have increased frontal headache radiating to the left ear. Started on IV tylenol pain today. PLAN: * Patient seen by Dr. Kennedy today; will follow up recommendations * Trial of zonisamide 50 mg a day for approximately 2 weeks to determine if tremor improves as per neurology -Patient will need inpatient rehab program, for gait difficulty and fall risk * Continue home medications and diabetic regimen * INR 2.05 today; will give 4.5 mg Warfarain and continue to monitor INR and dose accordingly tomorrow * Continue to follow neurology recommendations * Finger sticks 278, [id number], 171; will consider changing insulin regimen Code Status: Full Code DVT PPX: Warfarin Diet: Consistent Carb 3 Problem List: 1. Aortic valve prosthesis present 2. Parkinson disease Pain Ratin Pain Location: Frontal head radiating to left ear Pain Goal: Pain 7 or less Pain Plan: As per pain pathway IV tylenol added today Tomorrow's Labs & Rationales: CBC BEP INR DVT/Prophylaxis: mechanical, pharmacological
[2017-09-15 07:12] VITALS: BP 110/60
[2017-09-15 08:14] LABS: PT 22.5 SEC (9.4-12.5)
[2017-09-15 08:22] LABS: ABSOLUTE BASOPHIL COUNT 0 /CUMM (0.0-0.2); ABSOLUTE EOSINOPHIL COUNT 0.2 /CUMM (0.0-0.7); ABSOLUTE GRANULOCYTE CT 4.3 /CUMM (1.4-6.5); ABSOLUTE LYMPH COUNT 1.3 /CUMM (1.2-3.4); ABSOLUTE MONOCYTE COUNT 0.6 /CUMM (0.10-0.60); BASOPHIL % 0.6 % (0.0-2.0); EOSINOPHIL % 2.4 % (0-5); GRANULOCYTE % 67.3 % (42.2-75.2); HEMATOCRIT 34.5 % (42-52); MEAN CORPUSCULAR HGB 30.2 PG (27.0-31.0); MEAN CORPUSCULAR HGB CONC 34.1 G/DL (33.0-37.0); MEAN CORPUSCULAR VOLUME 88.6 FL (80.0-94.0); MEAN PLATELET VOLUME 7.9 FL (7.4-10.4); PLATELET COUNT 291 /CUMM (130-400); RBC DISTRIBUTION WIDTH 14.7 % (11.5-14.5); WHITE BLOOD CELL COUNT 6.4 /CUMM (4.8-10.8)
--- NOTE | 2017-09-15 11:01 | PN- Att Addend ---
Attending Addendum Attending Brief Note Patient sitting in the chair still complaining of headache, Vital signs are stable no feve , No major changes on physical INR 2.05 today. Appreciate neuroogy imput and recommendations, started on new medication for tremors, monitor on it continue other treatments and PT. Intake & Output 09/15 0400 09/13 0400 Intake Total 300 300 620 620 120 120 Output Total 600 1600 1350 Balance 300 300 20 -980 120 -1230 Intake, Oral 300 300 620 620 120 120 Number 2 Bowel Movements Output, Urine 600 1600 1350 Patient 249 lb 246 lb 245 lb Weight Weight Bed scale Measurement Method Laboratory Tests 09/15/17 0616: Anion Gap 9, Estimated GFR 28 L, BUN/Creatinine Ratio 24.8, PT 22.5 H, INR 2.05 H, CBC w Diff NO MAN DIFF REQ, RBC 3.90 L, MCV 88.6, MCH 30.2, MCHC 34.1, RDW 14.7 H, MPV 7.9, Gran % 67.3, Lymphocytes % 19.7 L, Monocytes % 10.0 H, Eosinophils % 2.4, Basophils % 0.6, Absolute Granulocytes 4.3, Absolute Lymphocytes 1.3, Absolute Monocytes 0.6, Absolute Eosinophils 0.2, Absolute Basophils 0 09/14/17 0605: Anion Gap 9, Estimated GFR 30 L, BUN/Creatinine Ratio 21.8, PT 19.8 H, INR 1.81 H, CBC w Diff NO MAN DIFF REQ, RBC 3.84 L, MCV 88.8, MCH 30.2, MCHC 34.0, RDW 14.6 H, MPV 7.9, Gran % 68.7, Lymphocytes % 19.0 L, Monocytes % 9.4 H, Eosinophils % 2.4, Basophils % 0.5, Absolute Granulocytes 4.2, Absolute Lymphocytes 1.2, Absolute Monocytes 0.6, Absolute Eosinophils 0.1, Absolute Basophils 0 09/13/17 0640: Anion Gap 9, Estimated GFR 31 L, BUN/Creatinine Ratio 21.4, PT 21.2 H, INR 1.93 H, CBC w Diff NO MAN DIFF REQ, RBC 4.03 L, MCV 88.3, MCH 29.9, MCHC 33.8, RDW 14.6 H, MPV 8.0, Gran % 70.2, Lymphocytes % 16.8 L, Monocytes % 10.2 H, Eosinophils % 2.2, Basophils % 0.6, Absolute Granulocytes 4.8, Absolute Lymphocytes 1.1 L, Absolute Monocytes 0.7 H, Absolute Eosinophils 0.1, Absolute Basophils 0 Vital Signs Date Time Temp Pulse Resp B/P B/P Pulse O2 O2 Flow FiO2 Mean Ox Delivery Rate 09/15 08 54 110/60 09/15 0805 54 110/60 09/15 0805 54 110/60 09/15 0712 97.8 51 20 110/60 94 09/14 2334 98.5 58 18 122/64 93 Room Air 09/14 2013 61 120/66 09/14 1418 52 124/700
[2017-09-15 16:09] VITALS: BP 112/68
[2017-09-15 21:33] VITALS: BP 110/66
[2017-09-16 06:48] VITALS: BP 156/72
--- NOTE | 2017-09-16 07:01 | PN- Housestaff ---
Subjective Follow-up For: Headache Parkinsons Disease Tremors Tele-Events Since Last Visit: SB/1 degree AVB, 50, delta wave II Subjective: Patient seen and examined at bedside this morning. Continues to have frontal headache that has somewhat improved with IV tylenol. Patient has significantly improved with physical therapy evaluation. Bed available for rehab. Denies any chest pain, palpitations, shortness of breath over night. Review of Systems Constitutional: Denies: see HPI. Objective Last 24 Hrs of Vital Signs/I&O Vital Signs Date Time Temp Pulse Resp B/P B/P Pulse O2 O2 Flow FiO2 Mean Ox Delivery Rate 09/16 0735 48 156/72 09/16 0733 48 156/72 09/16 0732 48 156/72 09/16 0648 98.7 49 20 156/72 95 Room Air 09/15 2148 47 110/66 09/15 2133 98.8 50 20 110/66 95 09/15 1647 43 112/68 09/15 1609 97.6 56 18 112/68 95 09/15 0805 54 110/60 09/15 0805 54 110/60 09/15 0805 54 110/60 Intake & Output 09/16 0800 09/16 0000 09/15 1600 Intake Total 300 360 550 Output Total 650 Balance 300 360 -100 Intake, IV 100 Intake, Oral 300 360 450 Number 1 Bowel Movements Output, Urine 650 Patient 248 lb Weight Weight Bed scale Measurement Method Physical Exam General Appearance: Alert, Oriented X3, Cooperative, No Acute Distress Neck: Supple, No JVD Cardiovascular: Regular Rate, Normal S1, Normal S2 Lungs: Clear to Auscultation, Normal Air Movement Abdomen: Normal Bowel Sounds, Soft, No Tenderness Neurological: Normal Tone, Stutter speach Tremors significantly on right upper extremity Strength right upper extremity 3/5; strength lower extremity 4/5 Strength in left extremities 4/5 Reflexes hypoactive Extremities: No Clubbing, No Cyanosis, No Edema Vascular: Normal Pulses, Pulses Symmetrical Current Medications: Current Medications Sig/Leena Start time Last Medication Dose Route Stop Time Status Admin Acetaminophen 1,000 MG Q6P PRN 09/15 0945 AC 09/15 N/A 1 UNIT IV 2355 Acetaminophen 650 MG Q6P PRN 09/11 1500 AC PO Amlodipine Besylate 10 MG DAILY 09/12 899 AC 09/16 PO 0732 Aspirin 81 MG DAILY 09/12 899 AC 09/16 PO 0733 Atorvastatin Calcium 40 MG 1700 09/11 1700 AC 09/15 PO 1827 Calcium Carbonate 1,250 MG DAILY 09/12 0900 AC 09/16 PO 0733 Carbidopa/Levodopa 2 TAB TID 09/11 1549 AC 09/16 PO 0735 Duloxetine HCl 60 MG DAILY 09/11 1549 AC 09/16 PO 0733 Entacapone 200 MG TID 09/11 1550 AC 09/16 PO 0735 Gabapentin 600 MG Q8 09/11 2200 AC 09/16 PO 0526 Hydromorphone HCl 8 MG Q4-6 PRN PRN 09/12 1015 AC 09/16 PO 0526 Insulin Aspart 0 TIDAC 09/11 1445 AC 09/15 SC 1827 Insulin Detemir 10 UNITS BID 09/12 2100 AC 09/16 SC 0735 Labetalol HCl 300 MG TID 09/12 0900 AC 09/15 PO 0805 Levetiracetam 250 MG BID 09/11 2100 AC 09/16 PO 0735 Metoprolol Succinate 50 MG DAILY 09/12 0900 AC 09/16 PO 0735 Nystatin 1 SURAJ BID 09/15 1145 AC 09/16 TOP 0739 Omeprazole 20 MG DAILY 09/12 0900 AC 09/16 PO 0732 Pregabalin 50 MG TID 09/11 2100 AC 09/16 PO 0737 Sertraline HCl 25 MG DAILY 09/12 0900 AC 09/16 PO 0732 Warfarin Sodium 4.5 MG ONCE ONE 09/15 1115 DC 09/15 PO 09/15 1116 1256 Zolpidem Tartrate 10 MG .ST-MED ONE 09/15 1933 DC PO 09/15 193 Zolpidem Tartrate 10 MG QPM 09/11 2100 AC 09/15 PO 2009 Zonisamide 50 MG 0909/15 0900 DC PO Zonisamide 50 MG 0909/14 0900 AC 09/16 PO 0735 Last 24 Hrs of Lab/Arpan Results Last 24 Hrs of Labs/Mics: Laboratory Tests 09/16/17 0630: Sodium Pending, Potassium Pending, Chloride Pending, Carbon Dioxide Pending, Anion Gap Pending, BUN Pending, Creatinine Pending, BUN/Creatinine Ratio Pending , PT Pending, INR Pending, CBC w Diff Pending, WBC Pending, RBC Pending, Hgb Pending, Hct Pending, MCV Pending, MCH Pending, MCHC Pending, RDW Pending, Plt Count Pending, MPV Pending Assessment/Plan Assessment: A/P: Patient is a 71 year old male with past medical history of Parkinsons Disease, 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 Patient came to ED for increasing frontal headache and right sided weakness. Patient has bed available at rehab today. Will prepare for discharge as per Dr. Castellanos PLAN: * Follow up recommendations with Dr. Castellanos and Neurology recommendations * Continue new medication Zonaisamide 50mg for 2 weeks to determine if tremor improves * Improving in PT evaluations; bed available at rehabilitation * continue home medications and diabetic regimen * INR today: 2.81; continue to dose Warfarin accordingly 4mg Code Status: Full Code DVT PPx: Warfarin Problem List: 1. Parkinsons disease 2. Chronic back pain 3. Headache Pain Ratin Pain Location: Frontal headache Pain Goal: Pain 7 or less Pain Plan: per pain pathway Tomorrow's Labs & Rationales: Possible discharge DVT/Prophylaxis: mechanical, pharmacological
[2017-09-16] MEDS ORDERED: ZONISAMIDE50 M1 PO (07:40)
[2017-09-16 07:58] LABS: ABSOLUTE BASOPHIL COUNT 0 /CUMM (0.0-0.2); ABSOLUTE EOSINOPHIL COUNT 0.2 /CUMM (0.0-0.7); ABSOLUTE LYMPH COUNT 1.3 /CUMM (1.2-3.4); ABSOLUTE MONOCYTE COUNT 0.5 /CUMM (0.10-0.60); BASOPHIL % 0.5 % (0.0-2.0); MEAN CORPUSCULAR HGB CONC 33.7 G/DL (33.0-37.0); MEAN CORPUSCULAR VOLUME 89.1 FL (80.0-94.0); MEAN PLATELET VOLUME 7.9 FL (7.4-10.4); PLATELET COUNT 278 /CUMM (130-400); RBC DISTRIBUTION WIDTH 14.6 % (11.5-14.5)
[2017-09-16 08:18] LABS: PT 30.9 SEC (9.4-12.5)
--- NOTE | 2017-09-16 10:07 | PN- Att Addend ---
Attending Addendum Attending Brief Note No new complaints. Patient sitting in the chair. Vital signs are stable no fever, on physical exam he seems to have less tremors. No new changes INR therapeutic. Will start disposition plans bed seems to be available at rehab see the discharge summary , C MR Beatty Intake & Output 09/16 1600 09/16 0400 09/15 1600 09/15 0400 09/14 1600 09/14 0400 Intake Total 300 360 850 300 620 620 Output Total 626 161 4654 Balance 300 360 200 300 20 -980 Intake, IV 100 Intake, Oral 300 360 750 300 620 620 Number 1 2 Bowel Movements Output, Urine 580 647 3091 Patient 248 lb 249 lb 246 lb Weight Weight Bed scale Bed scale Measurement Method Current Medications Sig/Leena Start time Last Medication Dose Route Stop Time Status Admin Acetaminophen 1,000 MG Q6P PRN 09/15 0945 AC 09/15 N/A 1 UNIT IV 2355 Acetaminophen 650 MG Q6P PRN 09/11 1500 AC PO Amlodipine Besylate 10 MG DAILY 09/12 09 AC 09/16 PO 0732 Aspirin 81 MG DAILY 09/12 09 AC 09/16 PO 0733 Atorvastatin Calcium 40 MG 1700 09/11 1700 AC 09/15 PO 1827 Calcium Carbonate 1,250 MG DAILY 09/12 09 AC 09/16 PO 0733 Carbidopa/Levodopa 2 TAB TID 09/11 1549 AC 09/16 PO 0735 Duloxetine HCl 60 MG DAILY 09/11 1549 AC 09/16 PO 0733 Entacapone 200 MG TID 09/11 1550 AC 09/16 PO 0735 Gabapentin 600 MG Q8 09/11 2200 AC 09/16 PO 0526 Hydromorphone HCl 8 MG Q4-6 PRN PRN 09/12 1015 AC 09/16 PO 0526 Insulin Aspart 0 TIDAC 09/11 1445 AC 09/16 SC 0944 Insulin Detemir 10 UNITS BID 09/12 2100 AC 09/16 SC 0735 Labetalol HCl 300 MG TID 09/12 09 AC 09/15 PO 0805 Levetiracetam 250 MG BID 09/11 2100 AC 09/16 PO 0735 Metoprolol Succinate 50 MG DAILY 09/12 09 AC 09/16 PO 0735 Nystatin 1 SURAJ BID 09/15 1145 AC 09/16 TOP 0739 Omeprazole 20 MG DAILY 09/12 09 AC 09/16 PO 0732 Pregabalin 50 MG TID 09/11 2099 AC 09/16 PO 0737 Sertraline HCl 25 MG DAILY 09/12 899 AC 09/16 PO 0732 Warfarin Sodium 4.5 MG ONCE ONE 09/15 1115 DC 09/15 PO 09/15 1116 1256 Zolpidem Tartrate 10 MG .STK-MED ONE 09/15 193 DC PO 09/15 1933 Zolpidem Tartrate 10 MG QPM 09/11 2099 AC 09/15 PO 2009 Zonisamide 50 MG 09/14 AC 09/16 PO 0735 Laboratory Tests 09/16/17 0630: Anion Gap 10, Estimated GFR 28 L, BUN/Creatinine Ratio 23.5, PT 30.9 H, INR 2.81 H, CBC w Diff NO MAN DIFF REQ, RBC 3.70 L, MCV 89.1, MCH 30.0, MCHC 33.7, RDW 14.6 H, MPV 7.9, Gran % 67.0, Lymphocytes % 21.2, Monocytes % 8.3, Eosinophils % 3.0, Basophils % 0.5, Absolute Granulocytes 4.0, Absolute Lymphocytes 1.3, Absolute Monocytes 0.5, Absolute Eosinophils 0.2, Absolute Basophils 0 09/15/17 0616: Anion Gap 9, Estimated GFR 28 L, BUN/Creatinine Ratio 24.8, PT 22.5 H, INR 2.05 H, CBC w Diff NO MAN DIFF REQ, RBC 3.90 L, MCV 88.6, MCH 30.2, MCHC 34.1, RDW 14.7 H, MPV 7.9, Gran % 67.3, Lymphocytes % 19.7 L, Monocytes % 10.0 H, Eosinophils % 2.4, Basophils % 0.6, Absolute Granulocytes 4.3, Absolute Lymphocytes 1.3, Absolute Monocytes 0.6, Absolute Eosinophils 0.2, Absolute Basophils 0 09/14/17 0605: Anion Gap 9, Estimated GFR 30 L, BUN/Creatinine Ratio 21.8, PT 19.8 H, INR 1.81 H, CBC w Diff NO MAN DIFF REQ, RBC 3.84 L, MCV 88.8, MCH 30.2, MCHC 34.0, RDW 14.6 H, MPV 7.9, Gran % 68.7, Lymphocytes % 19.0 L, Monocytes % 9.4 H, Eosinophils % 2.4, Basophils % 0.5, Absolute Granulocytes 4.2, Absolute Lymphocytes 1.2, Absolute Monocytes 0.6, Absolute Eosinophils 0.1, Absolute Basophils 0 Vital Signs Date Time Temp Pulse Resp B/P B/P Pulse O2 O2 Flow FiO2 Mean Ox Delivery Rate 09/16 0735 48 156/72 09/16 0733 48 156/72 09/16 0732 48 156/72 09/16 0648 98.7 49 20 15672 95 Room Air 09/15 2148 47 110/66 09/15 2133 98.8 50 20 110/66 95 09/15 1647 43 112/68 09/15 1609 97.6 56 18 112/68 95
[2017-09-16] MEDS ORDERED: LEXAPRO10 M1 PO (11:24)
[2017-09-16] MEDS ORDERED: DIVALPROEX SOD250 M3 PO (11:24)
[2017-09-16] MEDS ORDERED: TRAZODONE HCL50 M1 PO (11:25)
[2017-09-16] MEDS ORDERED: LISINOPRIL10 M1 PO (11:25)
[2017-09-16 11:27] VITALS: BP 156/72
== END 2017-09-16 14:55 | DRG 65 ==
LOC: ERH 10:45 → ERHI 13:27 → 1NO 13:27 → ENRESERV 14:00 → ENTRNSPT 15:12 → EDTRNSPTSTS 15:21 → 1NO 15:35 → CMPTRNSPT 16:06 → 1NO 09-12 19:28 → ENTRNSPT 09-15 15:08 → EDTRNSPTSTS 09-15 15:19 → CMPTRNSPT 09-15 15:39 → ENPENDDIS 09-16 10:47 → 1NO 09-16 14:55
PROVIDERS: Emergency Medicine; Hospitalist; Internal Medicine; Physical Medicine & Rehabilitation Pain Medicine; Student in an Organized Health Care Education/Training Program
DX: I63.9 Cerebral infarction, unspecified (principal); G81.91 Hemiplegia, unspecified affecting right dominant side; I50.32 Chronic diastolic (congestive) heart failure; I13.0 Hypertensive heart and chronic kidney disease with heart failure and stage 1 through stage 4 chronic kidney disease, or unspecified chronic kidney disease; N18.4 Chronic kidney disease, stage 4 (severe); G20 Parkinson's disease; I25.10 Atherosclerotic heart disease of native coronary artery without angina pectoris; K21.9 Gastro-esophageal reflux disease without esophagitis; Z86.73 Personal history of transient ischemic attack (TIA), and cerebral infarction without residual deficits; Z79.01 Long term (current) use of anticoagulants; Z88.0 Allergy status to penicillin; E11.42 Type 2 diabetes mellitus with diabetic polyneuropathy; Z79.4 Long term (current) use of insulin; Z95.2 Presence of prosthetic heart valve; F41.9 Anxiety disorder, unspecified; M54.9 Dorsalgia, unspecified; Z98.1 Arthrodesis status; E55.9 Vitamin D deficiency, unspecified; R79.1 Abnormal coagulation profile; G47.00 Insomnia, unspecified; E78.5 Hyperlipidemia, unspecified; G40.909 Epilepsy, unspecified, not intractable, without status epilepticus; E11.22 Type 2 diabetes mellitus with diabetic chronic kidney disease; Z91.81 History of falling; R26.9 Unspecified abnormalities of gait and mobility; D72.829 Elevated white blood cell count, unspecified; Z96.652 Presence of left artificial knee joint
CPT/HCPCS: 1NP; 36415; 36592; 73502-LT; 73560-LT; 81001; 82436; 93005; 93010; 93306; 96372; 97110-GO; 97116-GO; 97161-GP; 97165-GO; 97530-GO; J0131; J1953; J3490

== ENCOUNTER 2017-11-16 15:53 | Inpatient (IN) | payer OTHER, MEDICARE ==
[~2017-11-16] VITALS: Ht 185.4 cm; Wt 120.2 kg
[~2017-11-16 15:53] MED LIST changes: +AMLODIPINE BESY10 M1 PO; +ASPIRIN81 M4 PO; +DICLOFENAC SOD100 GM TOP; +DIVALPROEX SOD250 M3 PO; +FERROUS SULFAT325 M3 PO; +LABETALOL HCL300 M1 PO; +LANTUS SOL100 UNIT/1 SC; +LEXAPRO10 M1 PO; +LISINOPRIL10 M1 PO; +SERTRALINE HCL25 MG PO; +ZONISAMIDE50 M1 PO
[2017-11-16 17:12] LABS: ABSOLUTE BASOPHIL COUNT 0 /CUMM (0.0-0.2); ABSOLUTE EOSINOPHIL COUNT 0.1 /CUMM (0.0-0.7); ABSOLUTE GRANULOCYTE CT 3.4 /CUMM (1.4-6.5); ABSOLUTE LYMPH COUNT 0.5 /CUMM (1.2-3.4); ABSOLUTE MONOCYTE COUNT 0.5 /CUMM (0.10-0.60); BASOPHIL % 0.5 % (0.0-2.0); EOSINOPHIL % 2.4 % (0-5); GRANULOCYTE % 74.3 % (42.2-75.2); HEMATOCRIT 26.1 % (42-52); MEAN CORPUSCULAR HGB 30.8 PG (27.0-31.0); MEAN CORPUSCULAR HGB CONC 33.5 G/DL (33.0-37.0); PLATELET COUNT 299 /CUMM (130-400); RBC DISTRIBUTION WIDTH 14.6 % (11.5-14.5); RED BLOOD CELL CT 2.84 /CUMM (4.70-6.10); WHITE BLOOD CELL COUNT 4.5 /CUMM (4.8-10.8)
[2017-11-16 17:25] LABS: PT 16.7 SEC (9.4-12.5)
--- NOTE | 2017-11-16 19:15 | CT SCAN REPORT ---
EXAMINATION: CT HEAD WITHOUT CONTRAST CT CERVICAL SPINE WITHOUT CONTRAST CLINICAL INFORMATION: Elevated INR. Fall. Slurred speech. Rule out intracranial bleed. COMPARISON: None. TECHNIQUE: Contiguous axial imaging was performed from the skullbase to vertex without intravenous administration of contrast. Multidetector helical imaging was performed through the cervical spine. The study is limited with motion artifacts. DLP: 1020.2 mGy-cm. FINDINGS: HEAD: There is no evidence of acute intracranial hemorrhage or territorial infarction. No abnormal mass effect or midline shift is seen. Thomas to white matter differentiation is well preserved. No extra-axial fluid collections are identified. Generalized parenchymal volume loss noted. There is a chronic infarct in the dorsal right basal ganglia. No evidence of hydrocephalus. Brain parenchymal attenuation is normal. The osseous structures are normal. Mild anterior left supraorbital frontal scalp soft tissue swelling noted. The mastoid air cells and visualized portions of the paranasal sinuses are well aerated. CERVICAL SPINE: No acute fracture or dislocation is identified in the cervical spine. Anterior cervical fusion hardware is intact and in place spanning from the C5-C7 levels. No hardware fracture identified. Fusion changes present from the C5-C7 levels with endplate spurring. There are corticated cystic changes along the anterior aspect of the base of the odontoid process, presumably degenerative in etiology. The tip of the odontoid process appears to be fused to the anterior arch of C1 in the midline. There is exuberant multilevel facet arthropathy throughout the upper and mid cervical spine contributing to varying degrees of foraminal encroachment. There is mild anterior subluxation at C4-C5. No compression fractures are seen. The paraspinal soft tissues are normal. The lung apices are clear. IMPRESSION: 1. No acute intracranial pathology. Mild anterior left frontal supraorbital scalp soft tissue swelling. 2. No evidence of acute cervical spine traumatic injury. Multilevel cervical spondylosis, status post anterior cervical discectomies and fusion with hardware in place spanning from the C5-C7 levels.
--- NOTE | 2017-11-16 19:49 | CT SCAN REPORT ---
EXAMINATION: CT CHEST, ABDOMEN AND PELVIS WITHOUT CONTRAST CLINICAL INFORMATION: Recently off Coumadin. Left hematoma, tenderness to palpation. Evaluate for rib fracture. Elevated INR. COMPARISON: 09/02/2017 TECHNIQUE: Multidetector volumetric imaging was performed from the thoracic inlet through the pubic symphysis without intravenous contrast. Sagittal and coronal reformatted images were obtained on the technologist's workstation. DLP: 1452.66 mGy-cm. FINDINGS: Limited evaluation of the organs without IV contrast. BATH MIXER: Bone cement L1. Diffusely decreased bone mineral density. Median sternotomy. Cardiomegaly. Anterior cervical fusion lower cervical spine. ORIF right proximal humerus. Vascular calcifications. CHEST: Lungs: Small patchy opacities within the right upper lobe with surrounding ground-glass opacity. Measurements are unable to be obtained due to the irregular and hazy margins. Moderate dependent changes. Trachea is midline and central airways are patent. No lobar consolidations. Mediastinum: Cardiomegaly. Extensive coronary artery calcifications. Dense calcifications of the aortic valve versus prosthetic valve. Median sternotomy wires. No pericardial effusion. Multiple scattered small mediastinal lymph nodes without pathological enlargement. 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 Pericardium/Pleura: No pleural effusion or pneumothorax. Chest Wall/Axilla: New 1.4 x 1.8 cm enlarged lymph node within the right axilla with surrounding fat stranding suggestive of underlying inflammation. Asymmetric gynecomastia, right greater than left, unchanged. ABDOMEN/PELVIS: Liver, Gallbladder, Biliary Tree: The liver is normal in size, shape, and attenuation. No focal hepatic lesion or biliary ductal dilatation is present. The gallbladder is unremarkable with no evidence of radiopaque gallstones, gallbladder wall thickening, or pericholecystic inflammatory changes. Pancreas: Scattered coarse calcifications within the pancreas suggestive of chronic pancreatitis. No definite focal pancreatic lesions identified although evaluation of the pancreas is limited without IV contrast. Spleen: Unremarkable. Adrenal Glands: Unremarkable. Kidneys and Ureters: Contour deformity of the left kidney midpole lateral cortex, unchanged and likely related to old scar or infarct. Limited evaluation of the renal parenchyma without IV contrast. No definite parenchymal lesions are identified. Mild symmetric bilateral perinephric stranding, similar to the prior study and nonspecific. No evidence of renal calculi. The ureters are normal in course and caliber bilaterally. Bladder: Unremarkable. Gastrointestinal Tract: Diverticulosis without CT evidence of diverticulitis predominantly involving the sigmoid colon. The appendix is unremarkable. No evidence of bowel obstruction. Abdominal Wall: Soft tissue is seen within the right inguinal canal at the level of the spermatic cord. No significant abdominal wall hernia. Lymph Nodes: No lymphadenopathy within the abdomen or pelvis by CT criteria. Vascular: Atherosclerosis and tortuosity of the abdominal aorta without evidence of aneurysm. Pelvic Viscera: Prostate calcifications. Osseous Structures: Diffusely decreased bone mineral density. Bone cement L1. Chronic-appearing compression fracture at L5. Chronic superior endplate depression at L2. Unchanged superior endplate compression T3. Old healed left posterolateral rib fractures. No evidence of acute rib fracture. IMPRESSION: 1. No CT evidence of acute traumatic injury within the chest, abdomen or pelvis. 2. Small patchy opacities within the right upper lobe of the lung with mild surrounding ground-glass opacity suggestive of an acute infectious or inflammatory process. Recommend clinical correlation and follow up to resolution, if appropriate, based upon clinical assessment. 3. Multiple other chronic, nonacute findings as above.
--- NOTE | 2017-11-16 20:00 | RADIOLOGY REPORT ---
EXAMINATION: XR HIP, LEFT CLINICAL INFORMATION: Pain. COMPARISON: None TECHNIQUE: Two views of the left hip. FINDINGS: No fracture is identified. No significant hip joint space narrowing is seen. The symphysis pubis is normal. The imaged bony pelvic ring is intact. No soft tissue abnormality is identified. Vascular calcifications noted. IMPRESSION: No acute traumatic findings of the left hip.
[2017-11-16 23:30] VITALS: BP 132/72
--- NOTE | 2017-11-16 23:42 | History & Physical ---
Jefry Valdovinos 11/16/17 2341: General Information and HPI MD Statement: I have seen and personally examined DENNY VARGAS and documented this H&P. The patient is a 71 year old M who presented with a patient stated chief complaint of [fell out of wheelchair]. Source of Information: patient Exam Limitations: no limitations History of Present Illness: 71 year old male with history of Parkinson's disease, diabetes mellitus, HTN, aortic valve replacement on warfarin with multiple strokes in the past--most recently 1 month prior to admission, presenting after suffering a fall at his residence. The patient resides at an assisted living facility and reports that his "legs gave out" while he was transferring from his wheelchair to the toilet. This was an unwitnessed fall, as his aide was not present at the time, but the patient denied LOC or head trauma. As a result of the fall, the patient reports left hip pain and lower back pain bilaterally. The patient denied dizziness, light-headedness or feeling faint prior to falling, although he does endorse a headache that had been bothering him in the days prior to the fall. Additionally he reported shortness of breath and a cough productive of yellow phlegm, although he denied any sick contacts. He is a non-smoker, denied ETOH or illicit drug use. Allergies/Medications Allergies: Coded Allergies: Penicillins (Intermediate, HIVES 05/03/15) Home Med list Amlodipine Besylate 10 MG TABLET 1 TAB PO DAILY HEART (Reported) Aspirin (Aspirin*) 81 MG TAB.CHEW 1 TAB PO DAILY stroke Atorvastatin Calcium (Lipitor) 40 MG TABLET 1 TAB PO DAILY HYPERLIPIDEMIA ( Reported) Calcium Carbonate (Oyster Shell Calcium) 500 MG CALCIUM (1,250 MG) TABLET 1 TAB PO DAILY SUPPLEMENT (Reported) Carbidopa/Levodopa (Carbidopa-Levodopa 25-100 Tab) 25 MG-100 MG TABLET 2 TAB PO TID PARKINSONS (Reported) Celecoxib (Celebrex) 200 MG CAPSULE 1 CAP PO DAILY PAIN CONTROL (Reported) Cholecalciferol (Vitamin D3) 1,000 UNIT TABLET 1 TAB PO DAILY VITAMIN SUPPORT (Reported) Diclofenac Sodium 3 % GEL..GRAM. 4 GM TOP TID .. (Reported) Docusate Sodium (Colace) 100 MG CAPSULE 1 CAP PO BID GI (Reported) Duloxetine HCl 30 MG CAPSULE.DR 60 MG PO DAILY MOOD (Reported) Entacapone (Comtan) 200 MG TABLET 1 TAB PO TID PARKINSONS (Reported) Fenofibrate,Micronized (Fenofibrate) 134 MG CAPSULE 1 CAP PO DAILY TRIGLYCERIDES (Reported) Ferrous Sulfate 325 MG (65 MG IRON) TABLET 1 TAB PO BID IRON, VITAMIN ( Reported) Folic Acid 1 MG TABLET 1 TAB PO DAILY SUPPLEMENT (Reported) Furosemide (Lasix) 40 MG TABLET 1 TAB PO DAILY WATER RETENTION (Reported) Gabapentin (Neurontin) 600 MG TABLET 1 TAB PO TID PAIN (Reported) Hydromorphone HCl (Dilaudid) 8 MG TABLET 1 TAB PO Q4 PRN Back pain (Reported) Insulin Aspart, Recombinant (Novolog Flexpen) (Unknown Strength) INSULN.PEN ( Unknown Dose) SEE SLIDING SCALE DIABETES (Reported) SLIDING SCALE: 150-200 4 UNITS 201-250 6 UNITS 251-300 8 UNITS 301-350 10 UNITS 351-400 12 UNITS OVER 400 CALL MD PER [facility] Insulin Glargine,Hum.rec.anlog (Lantus Solostar) 100 UNIT/ML (3 ML) INSULN.PEN 20 UNIT SC QPM DIABETES (Reported) Labetalol HCl 300 MG TABLET 1 TAB PO TID HEART (Reported) Levetiracetam (Keppra) 250 MG TABLET 1 TAB PO BID SEIZURES (Reported) Magnesium Oxide 400 MG TABLET 1 TAB PO DAILY SUPPLEMENT (Reported) Metoprolol Succ XL (Toprol Xl) 50 MG TAB 1 TAB PO DAILY BP (Reported) Omeprazole 20 MG CAPSULE.DR 1 CAP PO DAILY ACID REFLUX (Reported) Polyethylene Glycol 3350 (Miralax) 17 GRAM POWD.PACK GI (Reported) Polyvinyl Alcohol (Artificial Tears) 1.4 % DROPS 1 DROP OP 4 TIMES/DAY EYE ( Reported) Pregabalin (Lyrica) 50 MG CAPSULE 1 CAP PO TID PAIN (Reported) Sennosides (Senna) 8.6 MG TABLET 1 TAB PO DAILY CONSTIPATION (Reported) Sertraline HCl 25 MG TABLET 1 TAB PO DAILY MENTAL HEALTH (Reported) Warfarin Sodium (Coumadin) 2 MG TABLET 4.5 MG PO 1700 BLOOD THINNER (Reported ) Zolpidem Tartrate (Ambien) 10 MG TABLET 1 TAB PO QPM SLEEP (Reported) Zonisamide 50 MG CAPSULE 1 TAB PO DAILY parkinson tremor Past History Travel History Traveled to [place] past 21 day No Medical History Neurological: CVA, Parkinson's disease, peripheral neuropathy, stroke 4 times after morphine EENT: NONE Cardiovascular: CAD, CHF, hypertension, ST ANA LAURA VALVE Respiratory: PNA Gastrointestinal: GERD, pancreatitis, peptic ulcer disease, upper GI bleed Hepatic: NONE Renal: NONE Musculoskeletal: chronic back pain, osteoarthritis, osteoporosis, spinal fracture twice MRSA IN WOUND Psychiatric: anxiety Endocrine: diabetes, osteoporosis, vitamin D deficiency Blood Disorders: anemia Cancer(s): melanoma 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 Psychosocial History Where do you live? Home Who Do You Live With? self Services at Home: Nursing, Physical Therapy Primary Language: Armenian Smoking Status: Never Smoked Power of Seasonal Customer Service Associate/HCP? yes Name of POA/HCP: dustin Holden Functional Ability ADLs Needs Assist: dressing, eating, toileting, bathing. Ambulation: cane, wheelchair bound IADLs Independent: telephone. Needs Assist: shopping, housework, finances, food prep, transportation, medication admin. Review of Systems Review of Systems Constitutional: Denies: chills, diaphoresis, fever, weakness. Cardiovascular: Reports: peripheral edema. Denies: chest pain, orthopena, palpitations. Respiratory: Reports: cough, short of breath, sputum production. GI: Denies: abdominal pain, nausea, vomiting. Genitourinary: Reports: dysuria. Denies: hematuria. Musculoskeletal: Reports: back pain. Neurological/Psychological: Reports: headache. Exam & Diagnostic Data Last 24 Hrs of Vital Signs/I&O Vital Signs Date Time Temp Pulse Resp B/P B/P Pulse O2 O2 Flow FiO2 Mean Ox Delivery Rate 11/17 0000 Non 4.0L ReBreather 11/16 2320 Non 4.0L ReBreather 11/166 98.1 79 22 145/68 96 Nasal 4.0L Cannula 11/16 1905 97.9 70 18 163/68 97 Nasal 4.0L Cannula 11/16 1809 96 Nasal 4.0L Cannula 11/16 1617 97.6 66 18 136/63 92 Room Air Intake & Output 11/17 0800 11/17 0000 11/16 1600 Intake Total Output Total Balance Patient 109.316 kg 108.862 kg Weight Weight Reported by Patient Reported by Patient Measurement Method Physical Exam General Appearance Alert, Oriented X3, Cooperative, No Acute Distress HEENT Atraumatic, PERRLA, EOMI Cardiovascular Regular Rate, Normal S1, Normal S2 (Loud S2) Lungs Diffuse rales appreciated throughout all lung [place] Abdomen Normal Bowel Sounds, Soft, No Tenderness Neurological Strength 5/5 in LUE and LLE, 4/5 in RUE, 3/5 in RLE Extremities No Clubbing, No Cyanosis Last 24 Hrs of Labs/Arpan: Laboratory Tests 11/16/17 1638: PT 16.7 H, INR 1.53 H 11/16/17 1638: Anion Gap 5, Estimated GFR 27 L, BUN/Creatinine Ratio 20.0, Glucose 190 H, Calcium 8.8, Total Bilirubin 0.6, AST 9 L, ALT 16 L, Alkaline Phosphatase 70, Troponin I 0.04, Total Protein 5.5 L, Albumin 3.2 L, Globulin 2.3, Albumin/ Globulin Ratio 1.4, D-Dimer High Sensitivty 240, CBC w Diff NO MAN DIFF REQ, RBC 2.84 L, MCV 92.0, MCH 30.8, MCHC 33.5, RDW 14.6 H, MPV 8.0, Gran % 74.3, Lymphocytes % 10.8 L, Monocytes % 12.0 H, Eosinophils % 2.4, Basophils % 0.5, Absolute Granulocytes 3.4, Absolute Lymphocytes 0.5 L, Absolute Monocytes 0.5, Absolute Eosinophils 0.1, Absolute Basophils 0 Microbiology 11/16 2199 BLOOD: Blood Culture - RECD 11/16 2144 BLOOD: Blood Culture - RECD Assessment/Plan Assessment: 71 year old male with history of multiple prior CVA's, Parkinson's disease and aortic valve replacement on Warfarin status-post mechanical fall at home, with shortness of breath and productive cough. Patient does not usually require O2 at home, but upon presentation complained of dyspnea and needed 4L O2 on the nasal cannula, which in addition to his recent productive cough suggests his fall may have been due in part to an underlying pneumonia. CT Head showed no acute intracranial pathology, CT Spine showed no evidence of acute cervical spine traumatic injury. Hip X-ray showed no acute traumatic findings of the L hip. CT chest showed: Small patchy opacities within the right upper lobe of the lung with mild surrounding ground-glass opacity suggestive of an acute infectious or inflammatory process. Problems: 1. Fall 2. Pneumonia 3. History of CVA's 4. CKD stage III 5. Diabetes mellitus 6. Anemia Plan: -Admit the patient to general medicine -D5W-1/2 Normal saline 75mL/hour -Ceftriaxone and Azithromycin IV -Urinalysis & urine culture, strep pneumo and legionella urinary antigens -Confirm patient's home meds -Continue home dose of Coumadin and monitor INR -Fingersticks and ISS -PT consult Full code Diabetic diet ALPS DVT ppx As Ranked By This Provider Problem List: 1. Diabetes mellitus type 2 2. Parkinsons disease 3. H/O: CVA (cerebrovascular accident) 4. Chronic kidney disease 5. Pneumonia 6. H/O aortic valve replacement 7. Fall Core Measures/Misc (11/17) Acute Coronary Syndrome ACS Diagnosis: No Congestive Heart Failure Congestive Heart Failure Diagnosis No Cerebrovascular Accident CVA/TIA Diagnosis: No VTE (View Protocol) VTE Risk Factors Age>40 No Mechanical VTE Prophylaxis d/t N/A MechProphylax Ordered No VTE Pharm Prophylaxis d/t NA PharmProphylax ordered Sepsis (View protocol) Sepsis Present: No If YES complete Sepsis Event Note If YES complete Sepsis Event Note Calos Neville MD 11/17/17 0151: Core Measures/Misc (11/17) Sepsis (View protocol) If YES complete Sepsis Event Note If YES complete Sepsis Event Note Resident Review Statement Resident Statement: examined this patient, discussed with medical intern, agreed with medical intern, reviewed EMR data (avail), amended to note Other Findings: Patient is a 71-year-old male with past medical history of mechanical aortic valve on Coumadin, history of multiple strokes including hemorrhagic stroke ( 2017) with residual weakness of his right upper and lower extremities, Parkinson 's, dementia, DM, HTN, HLD, Seizure, anxiety, depression, insomnia, GERD, peptic ulcer disease, osteoarthritis, chronic back pain, CKD, diastolic heart failure with last ECHO in 2018 showing LVEF of 50% with impaired LV relaxation presenting this admission from assisted living facility after sustaining a fall. Patient lives at [facility]. Reports he was recently discharged from short term rehab facility 1 week prior to this admission. Reports that today he was trying to transfer himself from his wheelchair to the toilet and slipped on the seat and slid off as he felt his legs give out. Initially denied head trauma and LOC per notes however upon this interview reports he cannot remember. Denies chest pain, palpitations, dizziness, lightheadedness, seizure like activity. Denies weakness or numbness above baseline. Denies dysathria more than usual. Reports having a headache which he states he currently has. Patient reports he believes he was by himself for approximately 20 minutes on the ground. States he pressed his life line button for help. Patient reports over the past week he has fallen multiple times. States he feels weak especially in the legs. Also reports over the few days he has had a productive cough with yellow sputum and increased shortness of breath. Patient is not on oxygen at home. Reports chills but no fever. Reports dysuria, without hematuria, frequency, urgency, incomplete emptying or poor stream. Denies sick contacts however has been to the ED multiple times and recently was at the custodial facility. Patient's physical exam findings significant for left hip point tenderness, left paraspinal lower lumbar tenderness, abrasions over his right hand with brusing over the his arms and hands, neurological findings significant for decreased sensation and motor strength in the right greater than left (reported as chronic ). Patient in the ED had imaging including a Head CT which was negative for acute hemorrhage/infarct. CT Cervical spine was negative for acute findngs showing multilevel spondylsosis. CT Abd/Pelvis negative for acute process. CT Chest revealed a RUL opacity. Patient in the ED received Morphine 4mg IV x1, Ceftaz 1gm IV x1, Vancomycin 1gm IV x1 Patient will be admitted to the general medicine floor for management of the followin. Mechanical fall 2/2 Lower Extremity Weakness 2. Right Upper Lobe Pneumonia 3. Dysuria 4. Chronic conditions: Mechanical Aortic Valve on Coumadin, Stroke, Parkinsons, Seizure, DM, HTN, HLD, Anxiety, Depression, GERD, OA, CKD - stage 4 Plan: [facility] IV fluid hydration IV Antibiotics - patient received IV Vanc and IV Ceftaz - although he has been through multiple healthcare facilities, he remains afebrile without leukocytosis /significant leukopenia. At this time will decrease coverage to Ceftriaxone and Azithromycin. Obtain sputum culture Check for legionella and strep urine antigen Check for influenza Obtain u/a and urine culture Follow up blood cultures PT/OT consult in AM Will continue seizure medications per claim history Unable to reach assited living facility at this time. Will need to confirm home medications in the AM. INR is subtherapeutic. Will dose coumadin and continue to monitor. Check CK level Novolog SS with accuchecks Diet: Diabetic diet Code: Full code DVT PPx: nahed MERCADO MDKilbourne 11/17/17 0506: Core Measures/Misc (11/17) Sepsis (View protocol) If YES complete Sepsis Event Note If YES complete Sepsis Event Note Attending MD Review Statement Attending Statement Attending MD Statement: examined this patient, discuss w/resident/PA/PORTABLE TRACK LINE MARKER, agreed w/resident/PA/PORTABLE TRACK LINE MARKER, reviewed EMR data (avail) Attending Assessment/Plan: This patient is a 71 year old male with history of Parkinson's disease, diabetes mellitus, HTN, aortic valve replacement on warfarin with multiple strokes in the past--most recently 1 month prior to admission, presenting after suffering a fall at his residence. The patient resides at an assisted living facility and reports that his "legs gave out" while he was transferring from his wheelchair to the toilet. This was an unwitnessed fall, as his aide was not present at the time, but the patient denied LOC or head trauma. As a result of the fall, the patient reports left hip pain and lower back pain bilaterally. While in the emergency department the patient was afebrile and his vital signs are stable, his white blood cell count slightly decreased, he is anemic at 8.7, his INR is 1.53 (mechanical valve), his BUN is 48 creatinine is 2.4, hip x-ray without acute changes, head CT without acute changes, and chest CT small patchy opacities within the right upper lobe along with mild surrounding ground glass opacity suggestive of an acute infectious or inflammatory process. She will be admitted to general medicine for weakness, fall, anemia, subtherapeutic INR, renal failure and right upper lobe pneumonia. The patient was monitored and may need a neuro consult, started broad-spectrum IV antibiotic for recent exposure to healthcare systems, follow BUN and creatinine, restart Coumadin (my understanding is that his INR should be 3). Sounds like he is having difficulty at home and may need placement. Full code
--- NOTE | 2017-11-17 01:05 | ED GENERAL ADULT ---
History of Present Illness General Chief Complaint: General Adult Stated Complaint: PNEUMONIA Source: patient Exam Limitations: no limitations Vital Signs & Intake/Output Vital Signs & Intake/Output Vital Signs Date Time Temp Pulse Resp B/P B/P Pulse O2 O2 Flow FiO2 Mean Ox Delivery Rate 11/17 0000 Non 4.0L ReBreather 11/16 2320 Non 4.0L ReBreather 11/16 2236 98.1 79 22 145/68 96 Nasal 4.0L Cannula 11/16 1905 97.9 70 18 163/68 97 Nasal 4.0L Cannula 11/16 1809 96 Nasal 4.0L Cannula 11/16 1617 97.6 66 18 136/63 92 Room Air ED Intake and Output 11/17 0000 11/16 1200 Intake Total Output Total Balance Patient 241 lb Weight Weight Reported by Patient Measurement Method Allergies Coded Allergies: Penicillins (Intermediate, HIVES 05/03/15) Reconcile Medications Amlodipine Besylate 10 MG TABLET 1 TAB PO DAILY HEART (Reported) Aspirin (Aspirin*) 81 MG TAB.CHEW 1 TAB PO DAILY stroke Atorvastatin Calcium (Lipitor) 40 MG TABLET 1 TAB PO DAILY HYPERLIPIDEMIA ( Reported) Calcium Carbonate (Oyster Shell Calcium) 500 MG CALCIUM (1,250 MG) TABLET 1 TAB PO DAILY SUPPLEMENT (Reported) Carbidopa/Levodopa (Carbidopa-Levodopa 25-100 Tab) 25 MG-100 MG TABLET 2 TAB PO TID PARKINSONS (Reported) Celecoxib (Celebrex) 200 MG CAPSULE 1 CAP PO DAILY PAIN CONTROL (Reported) Cholecalciferol (Vitamin D3) 1,000 UNIT TABLET 1 TAB PO DAILY VITAMIN SUPPORT (Reported) Diclofenac Sodium 3 % GEL..GRAM. 4 GM TOP TID .. (Reported) Docusate Sodium (Colace) 100 MG CAPSULE 1 CAP PO BID GI (Reported) Duloxetine HCl 30 MG CAPSULE.DR 60 MG PO DAILY MOOD (Reported) Entacapone (Comtan) 200 MG TABLET 1 TAB PO TID PARKINSONS (Reported) Fenofibrate,Micronized (Fenofibrate) 134 MG CAPSULE 1 CAP PO DAILY TRIGLYCERIDES (Reported) Ferrous Sulfate 325 MG (65 MG IRON) TABLET 1 TAB PO BID IRON, VITAMIN ( Reported) Folic Acid 1 MG TABLET 1 TAB PO DAILY SUPPLEMENT (Reported) Furosemide (Lasix) 40 MG TABLET 1 TAB PO DAILY WATER RETENTION (Reported) Gabapentin (Neurontin) 600 MG TABLET 1 TAB PO TID PAIN (Reported) Hydromorphone HCl (Dilaudid) 8 MG TABLET 1 TAB PO Q4 PRN Back pain (Reported) Insulin Aspart, Recombinant (Novolog Flexpen) (Unknown Strength) INSULN.PEN ( Unknown Dose) SEE SLIDING SCALE DIABETES (Reported) SLIDING SCALE: 150-200 4 UNITS 201-250 6 UNITS 251-300 8 UNITS 301-350 10 UNITS 351-400 12 UNITS OVER 400 CALL MD PER [facility] Insulin Glargine,Hum.rec.anlog (Lantus Solostar) 100 UNIT/ML (3 ML) INSULN.PEN 20 UNIT SC QPM DIABETES (Reported) Labetalol HCl 300 MG TABLET 1 TAB PO TID HEART (Reported) Levetiracetam (Keppra) 250 MG TABLET 1 TAB PO BID SEIZURES (Reported) Magnesium Oxide 400 MG TABLET 1 TAB PO DAILY SUPPLEMENT (Reported) Metoprolol Succ XL (Toprol Xl) 50 MG TAB 1 TAB PO DAILY BP (Reported) Omeprazole 20 MG CAPSULE.DR 1 CAP PO DAILY ACID REFLUX (Reported) Polyethylene Glycol 3350 (Miralax) 17 GRAM POWD.PACK GI (Reported) Polyvinyl Alcohol (Artificial Tears) 1.4 % DROPS 1 DROP OP 4 TIMES/DAY EYE ( Reported) Pregabalin (Lyrica) 50 MG CAPSULE 1 CAP PO TID PAIN (Reported) Sennosides (Senna) 8.6 MG TABLET 1 TAB PO DAILY CONSTIPATION (Reported) Sertraline HCl 25 MG TABLET 1 TAB PO DAILY MENTAL HEALTH (Reported) Warfarin Sodium (Coumadin) 2 MG TABLET 4.5 MG PO 1700 BLOOD THINNER (Reported ) Zolpidem Tartrate (Ambien) 10 MG TABLET 1 TAB PO QPM SLEEP (Reported) Zonisamide 50 MG CAPSULE 1 TAB PO DAILY parkinson tremor Triage Note: PT BIB[facility] FROM [facility] S/P SLIP AND FALL IN BATHROOM.. PT STATES THAT HE HAS BEEN FALLING EVERYDAY SINCE GETTING OUT OF REHAB. PT DENIES HITTING HIS HEAD AND DENIES LOC. PT STATES THAT HE HAS PAIN IN HIS LOWER BACK AND HIS LEFT HIP AMD STATES THAT THE PAIN IS A 10/10. PT ALSO HAS AN INCREASED INR SO STAFF WANTED PT EVALUATED. Triage Nurses Notes Reviewed? yes HPI: 71 YO m with past medical history significant for Parkinson's disease, diabetes mellitus, hypertension, hyperlipidemia, insomnia, anxiety, depression, chronic back pain, diastolic heart failure, peripheral neuropathy, seizures, GERD, peptic ulcer disease, mechanical aortic valve replacement on warfarin, multiple CVA stroke 4 times, hemorrhagic stroke in 2017, osteoarthritis, osteoporosis, spine fractures, MRSA wound infections, constipation who presents to the ED with fall today and over last week or so since leaving rehab. Patient deneis cp/sob/ casarez/ap/palp prior to fall. States both his "legs gave out." No fevers. Majority of pain is in left hip. (Mary Hendrix MD) Past History Travel History Traveled to [place] past 21 day No Medical History Any Pertinent Medical History? see below for history Neurological: CVA, Parkinson's disease, peripheral neuropathy, stroke 4 times after morphine EENT: NONE Cardiovascular: CAD, CHF, hypertension, ST ANA LAURA VALVE Respiratory: PNA Gastrointestinal: GERD, pancreatitis, peptic ulcer disease, upper GI bleed Hepatic: NONE Renal: NONE Musculoskeletal: chronic back pain, osteoarthritis, osteoporosis, spinal fracture twice MRSA IN WOUND Psychiatric: anxiety Endocrine: diabetes, osteoporosis, vitamin D deficiency Blood Disorders: anemia Cancer(s): melanoma NETWORK SYSTEMS ENGINEER/Reproductive: NONE Other Medical Hx: High cholesterol History of MRSA: Yes History of VRE: No History of CDIFF: No Isolation History: Contact Tetanus Vaccine: 04/10/15 Surgical History Surgical History: knee replacement, laminectomy (L1 to L5), spinal fusion (C5 to C7), BICUSPID VALVE REPLACEMENT status post foot surgery status post hand surgery HAS STEEL PLATES R HAND Psychosocial History Where do you live Home Who do you live with Patient/Self Services at Home Nursing, Physical Therapy What is your primary language Austrian Tobacco Use: Never used Family History Family History, If Any: MOTHER FH: myocardial infarction FATHER (Myocardial infarction). Hx Contributory? No (Mary Hendrix MD) Review of Systems Review of Systems Constitutional: Denies: see HPI. EENTM: Denies: see HPI. Respiratory: Reports: short of breath (this week more sob). Skin: Denies: no symptoms. (Mary Hendrix MD) Physical Exam Physical Exam General Appearance: no apparent distress Head: atraumatic Eyes: Bilateral: PERRL, EOMI. Neck: supple Respiratory: normal breath sounds, no respiratory distress, chest tenderness over upper rigth cehst with purple/red discoloration Cardiovascular: regular rate/rhythm Gastrointestinal: soft, non-tender Extremities: normal inspection (no tenderness in elbows/upper ) Neurologic/Psych: awake, alert Comments: ecchymosis over right front chest with purple/red discoloration non ttp in all ext including humerus, elbow, wrist, hand (even over superficial abrasion on 2nd mcp on right), knees, femurs, ankles, feet +midline c/t/l ttp without crepitus AAO mild dysrthria ataxic right arm 5/5 strength LUE, LLE, RLE, 4/5 in RUE No facial assymmetry Core Measures ACS in differential dx? No CVA/TIA Diagnosis: No Sepsis Present: No Sepsis Focused Exam Completed? No (Simeon VASQUES,Mary) Progress Differential Diagnoses I considered the following diagnoses in my evaluation of the patient: TIA, stroke, acs, pna, bleeding, anemia, electrolyte disturbance, muscle atrophy , ISAAC, ICH, traumatic bleed, ext fracture, rib fx Plan of Care: Orders Procedure Date/time Status Consistent Carbohydrate 3 11/17 B Active CBC WITHOUT DIFFERENTIAL 11/17 06 Active BASIC ELECTROLYTES PLUS BUN&CR 11/17 0600 Active TRC EVALUATION (GEN) 11/17 0146 Active OXYGEN SETUP (GEN) 11/17 0146 Active PT Evaluate & Treat 11/17 0146 Active Saline Lock 11/17 0146 Active Pathway - chart 11/17 0146 Active House Staff 11/17 0146 Active Code Status 11/17 0146 Active Occupational Tx Eval & Treat 11/17 UNK Active VTE Mechanical Prophylaxis 11/17 UNK Active Vital Signs 11/17 UNK Active MISTAKE 11/17 UNK Active Intake & Output 11/17 UNK Active Heat/Cold Therapy 11/17 UNK Active Activity/Ambulation 11/17 UNK Active PASTORAL CARE CONSULT 11/16 2344 Active Weight 11/16 2325 Active Vital Signs 11/16 2325 Active Teach/Educate 11/16 2325 Active Pain Treatment and Response 11/16 2325 Active Nutritional Intake, Monitor 11/16 2325 Active Isolation 11/16 2325 Active Intake & Output 11/16 2325 Active Patient Care Conference 11/16 2325 Active Activity/Ambulation 11/16 2325 Active ED Holding Orders 11/16 2211 Active Patient Data 11/16 214 Active BLOOD CULTURE 11/16 2148 Active Admit to inpatient 11/16 214 Active Intake & Output 11/16 1807 Active Add-on Test (ER Only) 11/16 1724 Active PROTHROMBIN TIME 11/16 1634 Complete TROPONIN LEVEL 11/16 1623 Complete D-DIMER 11/16 1623 Complete COMPREHENSIVE METABOLIC PANEL 11/16 1623 Complete CBC WITHOUT DIFFERENTIAL 11/16 1623 Complete FingerStick- Glucose 11/16 1616 Active EKG 11/16 1555 Active Current Medications Sig/Leena Start time Last Medication Dose Stop Time Status Admin Polyethylene Glycol 17 GM AT BEDTIME 11/17 2100 AC (Miralax) Senna/Docusate Sodium 1 TAB AT BEDTIME 11/17 2100 AC (Senokot S) Acetaminophen 650 MG Q6P PRN 11/17 0145 AC (Tylenol) Acetaminophen 1,000 MG Q6P PRN 11/17 0145 AC (Ofirmev) Hydromorphone HCl 0.5 MG Q6-PRN PRN 11/17 0145 AC 11/17 (Dilaudid) 0259 Lidocaine 1 PAT Q24H 11/17 0145 AC (Lidoderm) Dextrose/Sodium 1,000 ML .[id number] 11/17 0115 AC 11/17 Chloride 0251 (D5W-1/2 Normal Saline 1000ML) Laboratory Tests 11/16/17 1638: PT 16.7 H, INR 1.53 H 11/16/17 1638: Anion Gap 5, Estimated GFR 27 L, BUN/Creatinine Ratio 20.0, Glucose 190 H, Calcium 8.8, Total Bilirubin 0.6, AST 9 L, ALT 16 L, Alkaline Phosphatase 70, Troponin I 0.04, Total Protein 5.5 L, Albumin 3.2 L, Globulin 2.3, Albumin/ Globulin Ratio 1.4, D-Dimer High Sensitivty 240, CBC w Diff NO MAN DIFF REQ, RBC 2.84 L, MCV 92.0, MCH 30.8, MCHC 33.5, RDW 14.6 H, MPV 8.0, Gran % 74.3, Lymphocytes % 10.8 L, Monocytes % 12.0 H, Eosinophils % 2.4, Basophils % 0.5, Absolute Granulocytes 3.4, Absolute Lymphocytes 0.5 L, Absolute Monocytes 0.5, Absolute Eosinophils 0.1, Absolute Basophils 0 Microbiology 11/160 BLOOD: Blood Culture - RECD 11/16 2144 BLOOD: Blood Culture - RECD Initial ED EKG: normal axis (unchanged from prior) Comments: 71 yo M with mulitple medical problems. HPI consistent most likely with deconditioning. On ground x 30 minutes, BL leg weakness and frequent falls. INR to 5.5 at facility, no coumadin since. CISNEROS SCAN for concern over bleeding given low Hgb- negative. No contrast due to ISAAC and decreased GFR. CT head cervical negative. OF NOTE- WAS CALLED BY [facility] TO ASSESS FOR FORIEGN BODY. THEIR READ DOES NOT MENTION FORIEGN BODY AT ANY PLACE IN DOCUMENTATION. RECALLED SYL FROM [facility] WHO AGREES THAT IS NOT IN READ AND WILL ASK GIVE DR. GAUTHIER MESSAGE IN AM. Requires admission for pna (started on broad spectrum after cultures), anemia, deconditioning. Of note, patient states his slurred speech is worse since yesterday but denies this to inpatient team. rest of neuro exam appears stable Also requiring NC, different from baseline. (Mary Hendrix MD) Departure Departure Disposition: STILL A PATIENT Condition: Stable Clinical Impression Primary Impression: Pneumonia Secondary Impressions: Anemia, Fall Referrals: Bryn Castellanos MD (PCP/Family) Departure Forms: Customer Survey General Discharge Information (Mary Hendrix MD) Resident Co-Sign Statement Statement: ED Attending supervision documentation- [] I saw and evaluated the patient. I have also reviewed all the pertinent lab results and diagnostic results. I agree with the findings and the plan of care as documented in the Resident's documentation. [x] I have reviewed the ED Record and agree with the Resident's documentation. [] Additions or exceptions (if any) to the Resident's note and plan are summarized below: [] (Nay VASQUES,Ken Guy) Critical Care Note Critical Care Note Critical Care Time: non-applicable (Mary Hendrix MD)
[2017-11-17 06:46] VITALS: BP 146/70
--- NOTE | 2017-11-17 07:27 | PN- Housestaff ---
Subjective Follow-up For: Mechanical fall Subjective: Patient was seen and examined at bedside. He states he has pain in his left shoulder, left hip pain and pain in the left lower back. He also complains of severe cough for the past one weeks. He also complained of chills which he has been having for the past one week. Review of Systems Constitutional: Reports: see HPI. Objective Last 24 Hrs of Vital Signs/I&O Vital Signs Date Time Temp Pulse Resp B/P B/P Pulse O2 O2 Flow FiO2 Mean Ox Delivery Rate 11/17 1125 Nasal 4.0L Cannula 11/17 0800 Nasal 4.0L Cannula 11/17 0646 98.2 55 20 146/70 96 Nasal 4.0L Cannula 11/17 0000 Non 4.0L ReBreather 11/16 2330 98.2 58 20 132/72 98 Nasal 4.0L Cannula 11/16 2320 Non 4.0L ReBreather 11/16 2236 98.1 79 22 145/68 96 Nasal 4.0L Cannula 11/16 1905 97.9 70 18 163/68 97 Nasal 4.0L Cannula 11/16 1809 96 Nasal 4.0L Cannula 11/16 1617 97.6 66 18 136/63 92 Room Air Intake & Output 11/17 1600 11/17 0800 11/17 0000 Intake Total 500 Output Total 300 Balance 200 Intake, IV 300 Intake, Oral 200 Output, Urine 300 Patient 260 lb 241 lb Weight Weight Bed scale Reported by Patient Measurement Method Physical Exam General Appearance: Alert, Oriented X3, Cooperative, No Acute Distress Skin: No Rashes Neck: Supple Cardiovascular: Regular Rate, Normal S1, Normal S2 Lungs: Clear to Auscultation Abdomen: Normal Bowel Sounds, Soft, No Tenderness Extremities: No Edema, Normal Pulses Assessment/Plan Assessment: Assessment: 71 year old male with history of multiple prior CVA's, Parkinson's disease and aortic valve replacement on Warfarin status-post mechanical fall at home, with shortness of breath and productive cough. Patient does not usually require O2 at home, but upon presentation complained of dyspnea and needed 4L O2 on the nasal cannula, which in addition to his recent productive cough suggests his fall may have been due in part to an underlying pneumonia. CT Head showed no acute intracranial pathology, CT Spine showed no evidence of acute cervical spine traumatic injury. Hip X-ray showed no acute traumatic findings of the L hip. CT chest showed: Small patchy opacities within the right upper lobe of the lung with mild surrounding ground-glass opacity suggestive of an acute infectious or inflammatory process. Problems: 1. Fall 2. Pneumonia 3. History of CVA's 4. CKD stage III 5. Diabetes mellitus 6. Anemia 1. Fall -Place the patient on fall precautions -He has apparently fallen 8 times during the past 1 week -Hip X-ray un-remarkable -PT consult placed -The patient would likely be discharged to [facility] 2. Pneumonia -The patient endorses of productive cough alongwith chills present for a week -He is afebrile and does not have an elevated white count -Chest X-ray shows evidence of patchy opacities in the right uppper lobe -We would monitor him off antibiotics at this time 3. Anemia -Acute drop in Hgb to 8.7 from about 12 two months ago -We will order Iron studies alongwith Vitamin B12 levels 4. Subtherapeutic INR -High dose Coumadin at 7.5 today DVT prophylaxis Full code Problem List: 1. Low back pain 2. Headache 3. Parkinson disease 4. CHF (congestive heart failure) Pain Ratin Pain Location: headache, shoulder, hip and lower back Pain Goal: Remain pain free Pain Plan: pathway Tomorrow's Labs & Rationales: cbc and bep
[2017-11-17 09:16] LABS: PT 15.1 SEC (9.4-12.5)
[2017-11-17 09:19] LABS: ABSOLUTE BASOPHIL COUNT 0 /CUMM (0.0-0.2); ABSOLUTE EOSINOPHIL COUNT 0.1 /CUMM (0.0-0.7); ABSOLUTE GRANULOCYTE CT 2.8 /CUMM (1.4-6.5); ABSOLUTE LYMPH COUNT 0.7 /CUMM (1.2-3.4); ABSOLUTE MONOCYTE COUNT 0.5 /CUMM (0.10-0.60); BASOPHIL % 0.6 % (0.0-2.0); EOSINOPHIL % 3.1 % (0-5); GRANULOCYTE % 66.7 % (42.2-75.2); MEAN CORPUSCULAR HGB CONC 33.8 G/DL (33.0-37.0); MEAN CORPUSCULAR VOLUME 91.7 FL (80.0-94.0); MEAN PLATELET VOLUME 8.2 FL (7.4-10.4); PLATELET COUNT 276 /CUMM (130-400); RBC DISTRIBUTION WIDTH 14.5 % (11.5-14.5); RED BLOOD CELL CT 2.73 /CUMM (4.70-6.10); WHITE BLOOD CELL COUNT 4.1 /CUMM (4.8-10.8)
--- NOTE | 2017-11-17 11:02 | Admission Certification ---
Admission Certification Certification Statement - As attending physician, I certify that at the time of - admission, based on clinical presentation, severity of - symptoms, need for further diagnostic testing and - therapeutic interventions, and risk of adverse outcomes - without in-hospital treatment, in my clinical assessment, - this patient requires an acute hospital stay for a minimum - of two nights or longer. I have also considered psychsocial - factors such as support system, advanced age, financial - issues, cognitive issues, and failed out-patient treatments, - past re-admission history, safety of patient, and lack of - compliance as applicable. Specific rationale supporting this admission is: Recurrent falls, deconditioning. New anemia.
--- NOTE | 2017-11-17 11:05 | PN- Att Addend ---
Attending Addendum Attending Brief Note 71-year-old male with many comorbidities. Had been at short-term rehab, went home a few days ago. Again falling unable to get up, comes to the emergency room. No findings patient is anemic. His BUN and creatinine is elevated his INR is subtherapeutic but was supratherapeutic upon discharge from rehab and the Coumadin had been on hold. His white count is normal Patient is febrile to exercise the CAT scan of the chest showed questionable infiltrate patient has no signs or symptoms of any pneumonia at this time. Will panculture the patient. Monitor off antibiotics. Get a PT evaluation. Patient probably will need to go back to residential and I think the patient may not be able to go back home. Current Medications Sig/Leena Start time Last Medication Dose Route Stop Time Status Admin Acetaminophen 650 MG Q6P PRN 11/17 144 AC PO Acetaminophen 1,000 MG Q6P PRN 11/17 144 AC IV Ceftazidime 0 .STK-MED ONE 11/16 2202 DC .ROUTE Ceftazidime 1,000 MG ONCE ONE 11/16 2114 DC 11/16 IV 11/16 Dextrose/Sodium 1,000 ML .[id number] 11/17 0115 AC 11/17 Chloride IV 0251 Hydromorphone HCl 0.5 MG Q6-PRN PRN 11/17 144 AC 11/17 IV 0259 Influenza Virus 0.5 ML ONCE ONE 11/17 899 DC Vaccine IM 11/17 0901 Insulin Aspart 0 AT BEDTIME 11/17 2100 AC SC Insulin Aspart 0 TIDAC 11/17 08 AC 11/17 SC 0908 Levetiracetam 250 MG BID 11/17 0900 AC 11/17 PO 0909 Lidocaine 1 PAT Q24H 11/17 0145 AC 11/17 EXT 0910 Morphine Sulfate 0 .STK-MED ONE 11/17 1955 DC .ROUTE Morphine Sulfate 4 MG ONCE ONE 11/16 1929 DC 11/16 IV 11/16 Polyethylene Glycol 17 GM AT BEDTIME 11/17 2100 AC PO Senna/Docusate Sodium 1 TAB AT BEDTIME 11/17 2099 AC PO Vancomycin HCl 0 .STK-MED ONE 11/16 2202 DC .ROUTE Vancomycin HCl 1,000 MG ONCE ONE 11/16 2114 DC 11/16 Sodium Chloride 250 ML IV 11/164 2200 Warfarin Sodium 4.5 MG 1700 11/17 1700 AC PO Laboratory Tests 11/17/17 0800: Urine Color YEL, Urine Clarity CLEAR, Urine pH 6.0, Ur Specific [place] 1.020, Urine Protein 30 H, Urine Ketones NEG, Urine Nitrite NEG, Urine Bilirubin NEG, Urine Urobilinogen 0.2, Ur Leukocyte Esterase NEG, Ur Microscopic SEDIMENT EXAMINED, Urine RBC RARE, Urine Hemoglobin TRACE-LYSED H, Urine Glucose 250 H 11/17/17 0700: Anion Gap 5, Estimated GFR 31 L, BUN/Creatinine Ratio 19.0, Creatine Kinase 67, PT 15.1 H, INR 1.38 H, CBC w Diff NO MAN DIFF REQ, RBC 2.73 L, MCV 91.7, MCH 31.0, MCHC 33.8, RDW 14.5, MPV 8.2, Gran % 66.7, Lymphocytes % 16.8 L, Monocytes % 12.8 H, Eosinophils % 3.1, Basophils % 0.6, Absolute Granulocytes 2.8, Absolute Lymphocytes 0.7 L, Absolute Monocytes 0.5, Absolute Eosinophils 0.1, Absolute Basophils 0 11/16/17 1638: PT 16.7 H, INR 1.53 H 11/16/17 1638: Anion Gap 5, Estimated GFR 27 L, BUN/Creatinine Ratio 20.0, Glucose 190 H, Calcium 8.8, Total Bilirubin 0.6, AST 9 L, ALT 16 L, Alkaline Phosphatase 70, Troponin I 0.04, Total Protein 5.5 L, Albumin 3.2 L, Globulin 2.3, Albumin/ Globulin Ratio 1.4, D-Dimer High Sensitivty 240, CBC w Diff NO MAN DIFF REQ, RBC 2.84 L, MCV 92.0, MCH 30.8, MCHC 33.5, RDW 14.6 H, MPV 8.0, Gran % 74.3, Lymphocytes % 10.8 L, Monocytes % 12.0 H, Eosinophils % 2.4, Basophils % 0.5, Absolute Granulocytes 3.4, Absolute Lymphocytes 0.5 L, Absolute Monocytes 0.5, Absolute Eosinophils 0.1, Absolute Basophils 0 Microbiology 11/17 0800 URINE ROUT: Legionella Antigen - COMP 11/17 0800 URINE ROUT: Streptococcus pneumoniae Antigen (M - COMP 11/17 0650 NASOPHARYN: Influenza Virus A & B Rapid Smear - COMP Microbiology Date/Time Procedure - Status Source Growth 11/17 08 Legionella Antigen - COMP URINE ROUT 11/17 0800 Streptococcus pneumoniae Antigen (M - COMP URINE ROUT 11/17 0800 Urine Culture - RECD URINE ROUT 11/17 0650 Influenza Virus A & B Rapid Smear - COMP NASOPHARYN 11/17 06 Legionella Antigen - CAN URINE ROUT Cancelled: DUPLICATE ORDER 11/17 06 Streptococcus pneumoniae Antigen (M - CAN URINE ROUT Cancelled: DUPLICATE ORDER 11/17 0425 Respiratory Culture - COLB LOWER RESP 11/17 0425 Gram Stain - COLB LOWER RESP 11/16 2200 Blood Culture - RECD BLOOD 11/16 214 Blood Culture - RECD BLOOD Vital Signs Date Time Temp Pulse Resp B/P B/P Pulse O2 O2 Flow FiO2 Mean Ox Delivery Rate 11/17 0646 98.2 55 20 146/70 96 Nasal 4.0L Cannula 11/17 0000 Non 4.0L ReBreather 11/16 2330 98.2 58 20 132/72 98 Nasal 4.0L Cannula 11/16 2320 Non 4.0L ReBreather 11/16 2236 98.1 79 22 145/68 96 Nasal 4.0L Cannula 11/16 1905 97.9 70 18 163/68 97 Nasal 4.0L Cannula 11/16 1809 96 Nasal 4.0L Cannula 11/16 1617 97.6 66 18 136/63 92 Room Air Monitor INRs
--- NOTE | 2017-11-17 13:29 | PN- Student ---
Subjective Subjective: This patient is a 71 yo M with a history of parkinsons disease, diabtes, HTN, CVA, aortic valve replacement, diastolic CHF, CKD, GERD, and peptic ulcer disease who presented to the ED for a mechanical fall and productive cough. The patient was released from rehab one week ago where he was regaining mobility with a walker s/p CVA. This last week he states he has fallen numerous times, stating he feels weak and unstable in his legs precipitating the events. Additionally, in the past week the patient has noticed dyspnea and a productive cough with yellow sputum. Associated symptoms icnclude intense chills, generalized weakness, and a headache he is considering a /10 and has remained constant throughout the week. After this most recent fall, yesterday the patient describes pain in his left hip and lower back. ROS: General: reports chills and weakness last week. denies diaphoresis HEENT: reports a constant headache over last week and change in speech becoming slurred. denies any changes in vision Respiratory: reports a productive cough and dyspnea Cardio: denies chest pain or palpitations Abdominal: denies any pain, N/V/D, or any change in bowel Extremities: reports generalized weakness, especially in lower extremities. denies edema or clubbing Objective Objective: Physical Exam: Vitals: T: 98.2, HR: 55, RR: 20, BP: 146/70 General: patient was sitting comfortably in bed, no acute distress HEENT: hearing grossly in tact Neck: trachea midline, no JVD Respiratory: no respiratory distress Cardiovascular: regular rate and rhythm Neurologic: speech mildly impaired s/p CVA Extremities: no swelling or edema, normal capillary refill Results Results: Laboratory Tests 11/17/17 0800: Urine Color YEL, Urine Clarity CLEAR, Urine pH 6.0, Ur Specific [place] 1.020, Urine Protein 30 H, Urine Ketones NEG, Urine Nitrite NEG, Urine Bilirubin NEG, Urine Urobilinogen 0.2, Ur Leukocyte Esterase NEG, Ur Microscopic SEDIMENT EXAMINED, Urine RBC RARE, Urine Hemoglobin TRACE-LYSED H, Urine Glucose 250 H 11/17/17 0700: Anion Gap 5, Estimated GFR 31 L, BUN/Creatinine Ratio 19.0, Iron 66, TIBC 330, Ferritin 139.0, Creatine Kinase 67, Vitamin B12 375, Folate > 20.0 H, PT 15.1 H, INR 1.38 H, CBC w Diff NO MAN DIFF REQ, RBC 2.73 L, MCV 91.7, MCH 31.0, MCHC 33.8, RDW 14.5, MPV 8.2, Gran % 66.7, Lymphocytes % 16.8 L, Monocytes % 12.8 H, Eosinophils % 3.1, Basophils % 0.6, Absolute Granulocytes 2.8, Absolute Lymphocytes 0.7 L, Absolute Monocytes 0.5, Absolute Eosinophils 0.1, Absolute Basophils 0 11/16/17 1638: PT 16.7 H, INR 1.53 H 11/16/17 1638: Anion Gap 5, Estimated GFR 27 L, BUN/Creatinine Ratio 20.0, Glucose 190 H, Calcium 8.8, Total Bilirubin 0.6, AST 9 L, ALT 16 L, Alkaline Phosphatase 70, Troponin I 0.04, Total Protein 5.5 L, Albumin 3.2 L, Globulin 2.3, Albumin/ Globulin Ratio 1.4, D-Dimer High Sensitivty 240, CBC w Diff NO MAN DIFF REQ, RBC 2.84 L, MCV 92.0, MCH 30.8, MCHC 33.5, RDW 14.6 H, MPV 8.0, Gran % 74.3, Lymphocytes % 10.8 L, Monocytes % 12.0 H, Eosinophils % 2.4, Basophils % 0.5, Absolute Granulocytes 3.4, Absolute Lymphocytes 0.5 L, Absolute Monocytes 0.5, Absolute Eosinophils 0.1, Absolute Basophils 0 Microbiology 11/17 0800 URINE ROUT: Legionella Antigen - COMP 11/17 08 URINE ROUT: Streptococcus pneumoniae Antigen (M - COMP 11/17 08 URINE ROUT: Urine Culture - RECD 11/17 0650 NASOPHARYN: Influenza Virus A & B Rapid Smear - COMP 11/17 06 URINE ROUT: Legionella Antigen - CAN Cancelled: DUPLICATE ORDER 11/17 06 URINE ROUT: Streptococcus pneumoniae Antigen (M - CAN Cancelled: DUPLICATE ORDER 11/17 424 LOWER RESP: Respiratory Culture - COLB 11/17 424 LOWER RESP: Gram Stain - COLB 11/160 BLOOD: Blood Culture - RES 11/16 2144 BLOOD: Blood Culture - RES Assessment/Plan Assessment: This patient is a 71 yo M with a history of parkinsons disease, diabtes, HTN, CVA, aortic valve replacement, diastolic CHF, CKD, GERD, and peptic ulcer disease who presented to the ED for a mechanical fall and productive cough. In the ED the patient recevied a CT of the chest that reported RUL patchy opacties with mild surrounding of ground glass opacities. CT of head and spine showed no pathology or injury. An xray of the left hip showed no injuries. Microbiology has shown negative results for viral influenza, strep. pneumoniae, and legionella antigens. Lower respiratory sputum cultures are still pending. Todays labs are showing a trend down from baseline in WBC (4.1), RBC (2.73), Hgb (8.5), and Hct (25). PT and INR have decreased since admission and discontinuing of coumadin. Plan: Problem list: Suspected pneumonia: Patient has not displayed clincal symptoms of pneumonia. Plan to discontinue antibiotics and monitor his symptoms. Will have another chest xray to compare to yesterdays. History of falls: Patient has a significant history of falls over the past week. He should be evaluated by PT for measurment gait and balance.
[2017-11-17 14:45] VITALS: BP 148/76
[2017-11-17 22:37] VITALS: BP 146/70
[2017-11-18 06:48] VITALS: BP 120/82
--- NOTE | 2017-11-18 07:20 | PN- Housestaff ---
Subjective Follow-up For: Mechanical fall Anemia Subjective: Patient was seen and examined at bedside. He states he is still in a lot of pain and would want stronger or more frequent pain medications. He denies feve, chills, nausea, cough. Review of Systems Constitutional: Reports: see HPI. Objective Last 24 Hrs of Vital Signs/I&O Vital Signs Date Time Temp Pulse Resp B/P B/P Pulse O2 O2 Flow FiO2 Mean Ox Delivery Rate 11/18 0925 54 120/82 11/18 0925 54 120/82 11/18 0925 54 120/82 11/18 0648 97.8 54 18 120/82 95 11/18 0000 91 Room Air 11/17 2237 98.1 62 19 146/70 91 Nasal Cannula 11/17 2135 71 148/78 11/17 1624 63 148/76 11/17 1623 63 148/76 11/17 1622 63 148/76 11/17 1548 Nasal 4.0L Cannula 11/17 1445 98.4 63 18 92 Intake & Output 11/18 1600 11/18 0800 11/18 0000 Intake Total 650 700 Output Total 700 820 Balance -700 650 -120 Intake, IV 600 300 Intake, Oral 50 400 Number 0 Bowel Movements Output, Urine 700 820 Patient 265 lb Weight Physical Exam General Appearance: Alert, Oriented X3, Cooperative, No Acute Distress Neck: Supple Cardiovascular: Regular Rate, Normal S1, Normal S2, No Murmurs Lungs: Clear to Auscultation Abdomen: Normal Bowel Sounds, Soft, No Tenderness, No Hepatospenomegaly Extremities: No Edema, Normal Pulses Assessment/Plan Assessment: 71 year old male with history of multiple prior CVA's, Parkinson's disease and aortic valve replacement on Warfarin status-post mechanical fall at home, with shortness of breath and productive cough. Patient does not usually require O2 at home, but upon presentation complained of dyspnea and needed 4L O2 on the nasal cannula, which in addition to his recent productive cough suggests his fall may have been due in part to an underlying pneumonia. CT Head showed no acute intracranial pathology, CT Spine showed no evidence of acute cervical spine traumatic injury. Hip X-ray showed no acute traumatic findings of the L hip. CT chest showed: Small patchy opacities within the right upper lobe of the lung with mild surrounding ground-glass opacity suggestive of an acute infectious or inflammatory process. Problems: 1. Fall 2. Pneumonia 3. History of CVA's 4. CKD stage III 5. Diabetes mellitus 6. Anemia 1. Fall -Place the patient on fall precautions -He has apparently fallen 8 times during the past 1 week -Hip X-ray un-remarkable -PT consult appreciated. The patient would need STR 2. Pneumonia -The patient endorses of productive cough alongwith chills present for a week -He is afebrile and does not have an elevated white count -Chest X-ray shows evidence of patchy opacities in the right uppper lobe -We would monitor him off antibiotics at this time -The patient does not report any active symptoms at this time 3. Anemia -Acute drop in Hgb to 8.7 from about 12 two months ago -Hgb 9.2 today -Iron studies and Vitamin B12 levels were within normal limits -Folate>20 4. Subtherapeutic INR -INR minimally improved to 1.44 -High dose Coumadin at 7.5 today DVT prophylaxis Full code Problem List: 1. Headache 2. Fall 3. Low back pain 4. Anemia Pain Ratin Pain Location: lower back, shoulder Pain Goal: Remain pain free Pain Plan: pathway Tomorrow's Labs & Rationales: cbc and bep
[2017-11-18 09:50] LABS: PT 15.8 SEC (9.4-12.5)
[2017-11-18 10:01] LABS: ABSOLUTE BASOPHIL COUNT 0 /CUMM (0.0-0.2); ABSOLUTE EOSINOPHIL COUNT 0.2 /CUMM (0.0-0.7); ABSOLUTE GRANULOCYTE CT 3.9 /CUMM (1.4-6.5); ABSOLUTE LYMPH COUNT 0.6 /CUMM (1.2-3.4); ABSOLUTE MONOCYTE COUNT 0.6 /CUMM (0.10-0.60); BASOPHIL % 0.5 % (0.0-2.0); EOSINOPHIL % 3.2 % (0-5); GRANULOCYTE % 72.4 % (42.2-75.2); HEMATOCRIT 27.3 % (42-52); MEAN CORPUSCULAR HGB 31.4 PG (27.0-31.0); MEAN CORPUSCULAR HGB CONC 33.7 G/DL (33.0-37.0); MEAN CORPUSCULAR VOLUME 93.3 FL (80.0-94.0); MEAN PLATELET VOLUME 8.1 FL (7.4-10.4); PLATELET COUNT 308 /CUMM (130-400); RBC DISTRIBUTION WIDTH 14.2 % (11.5-14.5); RED BLOOD CELL CT 2.92 /CUMM (4.70-6.10); WHITE BLOOD CELL COUNT 5.3 /CUMM (4.8-10.8)
--- NOTE | 2017-11-18 10:11 | PN- Att Addend ---
Attending Addendum Attending Brief Note No new complaints Vital signs are stable no fever. No changes in physical examination. His last INR was 1.44 will adjust Coumadin accordingly. Patient seen by PT and OT patient again needs short-term rehab and possibly long-term staying at the home do to his frequent falls and not being safe. 24 TOTALS 11/18 0000 11/17 0000 Intake Total 2160 Output Total 970 Balance 1190 Intake, IV 1200 Intake, Oral 960 Number 0 Bowel Movements Output, Urine 970 Patient 260 lb 241 lb Weight Weight Bed scale Reported by Patient Measurement Method Current Medications Sig/Leena Start time Last Medication Dose Route Stop Time Status Admin Acetaminophen 650 MG Q6P PRN 11/17 0145 AC PO Acetaminophen 1,000 MG Q6P PRN 11/17 0145 AC IV Amlodipine Besylate 10 MG DAILY 11/17 1341 AC 11/18 PO 0925 Aspirin 81 MG DAILY 11/17 1342 AC 11/18 PO 0926 Atorvastatin Calcium 40 MG 1700 11/17 1700 AC 11/17 PO 1622 Calcium Carbonate 500 MG DAILY 11/17 1342 AC 11/18 PO 0925 Carbidopa/Levodopa 2 TAB TID 11/17 1400 AC 11/18 PO 0929 Cholecalciferol 1,000 IU DAILY 11/17 1343 AC 11/18 PO 0925 Cyanocobalamin 1,000 MCG DAILY 11/17 1341 AC 11/18 PO 0925 Dextrose/Sodium 1,000 ML .[id number] 11/17 0115 AC 11/18 Chloride IV 0415 Duloxetine HCl 60 MG DAILY 11/17 1344 AC 11/18 PO 0926 Entacapone 200 MG TID 11/17 1400 AC 11/17 PO 2132 Ferrous Sulfate 325 MG BID 11/17 1344 AC 11/17 PO 2137 Folic Acid 1 MG DAILY 11/17 1345 AC 11/18 PO 0926 Furosemide 40 MG DAILY 11/17 1345 AC 11/18 PO 0926 Gabapentin 600 MG BID 11/17 2100 AC 11/18 PO 0926 Gabapentin 600 MG Q8 11/17 1400 DC PO Hydromorphone HCl 8 MG Q6P PRN 11/17 1615 AC 11/18 PO 0949 Hydromorphone HCl 0.5 MG Q6-PRN PRN 11/17 0145 DC 11/17 IV 1234 Influenza Virus 0 .STK-MED ONE 11/17 1233 DC Vaccine IM Insulin Aspart 0 AT BEDTIME 11/17 2100 AC SC Insulin Aspart 0 TIDAC 11/17 0800 AC 11/18 SC 0930 Labetalol HCl 300 MG TID 11/17 1400 AC 11/18 PO 0925 Levetiracetam 250 MG BID 11/17 0900 AC 11/18 PO 0926 Lidocaine 1 PAT Q24H 11/18 0900 AC 11/18 EXT 0928 Lidocaine 1 PAT Q24H 11/17 0145 DC 11/17 EXT 0910 Metoprolol Succinate 50 MG DAILY 11/17 1347 AC 11/18 PO 0925 Morphine Sulfate 2 MG Q4P PRN 11/17 1615 AC IV Non-Formulary 0 SEE ADMIN CRITERIA 11/17 1400 CAN Medication ANY Omeprazole 20 MG DAILY AC 11/17 1347 AC 11/18 PO 0609 Patient Medication 1 ED ONE ONE 11/17 1345 DC Teaching ED 11/17 1346 Polyethylene Glycol 17 GM AT BEDTIME 11/17 2100 AC PO Pregabalin 0 .STK-MED ONE 11/18 0915 DC PO Pregabalin 0 .STK-MED ONE 11/17 2107 DC PO Pregabalin 50 MG TID 11/17 1400 AC 11/18 PO 0928 Senna/Docusate Sodium 1 TAB AT BEDTIME 11/17 2100 AC 11/17 PO 2136 Sertraline HCl 25 MG DAILY 11/17 1348 AC 11/18 PO 0926 Warfarin Sodium 4.5 MG 1700 11/17 1700 DC PO Warfarin Sodium 7.5 MG 1700 11/17 1700 AC 11/17 PO 1622 Zolpidem Tartrate 0 .STK-MED ONE 11/17 2102 DC PO Zolpidem Tartrate 10 MG QPM 11/17 2100 AC 11/17 PO 2133 Zonisamide 50 MG DAILY 11/17 1430 AC 11/18 PO 0927 Laboratory Tests 11/18/17 0755: Sodium Pending, Potassium Pending, Chloride Pending, Carbon Dioxide Pending, Anion Gap Pending, BUN Pending, Creatinine Pending, BUN/Creatinine Ratio Pending , PT 15.8 H, INR 1.44 H, CBC w Diff Pending, WBC Pending, RBC Pending, Hgb Pending, Hct Pending, MCV Pending, MCH Pending, MCHC Pending, RDW Pending, Plt Count Pending, MPV Pending 11/17/17 0800: Urine Color YEL, Urine Clarity CLEAR, Urine pH 6.0, Ur Specific [place] 1.020, Urine Protein 30 H, Urine Ketones NEG, Urine Nitrite NEG, Urine Bilirubin NEG, Urine Urobilinogen 0.2, Ur Leukocyte Esterase NEG, Ur Microscopic SEDIMENT EXAMINED, Urine RBC RARE, Urine Hemoglobin TRACE-LYSED H, Urine Glucose 250 H 11/17/17 0700: Anion Gap 5, Estimated GFR 31 L, BUN/Creatinine Ratio 19.0, Iron 66, TIBC 330, Ferritin 139.0, Creatine Kinase 67, Vitamin B12 375, Folate > 20.0 H, PT 15.1 H, INR 1.38 H, CBC w Diff NO MAN DIFF REQ, RBC 2.73 L, MCV 91.7, MCH 31.0, MCHC 33.8, RDW 14.5, MPV 8.2, Gran % 66.7, Lymphocytes % 16.8 L, Monocytes % 12.8 H, Eosinophils % 3.1, Basophils % 0.6, Absolute Granulocytes 2.8, Absolute Lymphocytes 0.7 L, Absolute Monocytes 0.5, Absolute Eosinophils 0.1, Absolute Basophils 0 11/16/17 1638: PT 16.7 H, INR 1.53 H 11/16/17 1638: Anion Gap 5, Estimated GFR 27 L, BUN/Creatinine Ratio 20.0, Glucose 190 H, Calcium 8.8, Total Bilirubin 0.6, AST 9 L, ALT 16 L, Alkaline Phosphatase 70, Troponin I 0.04, Total Protein 5.5 L, Albumin 3.2 L, Globulin 2.3, Albumin/ Globulin Ratio 1.4, D-Dimer High Sensitivty 240, CBC w Diff NO MAN DIFF REQ, RBC 2.84 L, MCV 92.0, MCH 30.8, MCHC 33.5, RDW 14.6 H, MPV 8.0, Gran % 74.3, Lymphocytes % 10.8 L, Monocytes % 12.0 H, Eosinophils % 2.4, Basophils % 0.5, Absolute Granulocytes 3.4, Absolute Lymphocytes 0.5 L, Absolute Monocytes 0.5, Absolute Eosinophils 0.1, Absolute Basophils 0 Microbiology 11/17 08 URINE ROUT: Legionella Antigen - COMP 11/18 799 URINE ROUT: Streptococcus pneumoniae Antigen (M - COMP 11/17 0650 NASOPHARYN: Influenza Virus A & B Rapid Smear - COMP Vital Signs Date Time Temp Pulse Resp B/P B/P Pulse O2 O2 Flow FiO2 Mean Ox Delivery Rate 11/18 924 54 120/82 11/18 0925 54 120/82 11/18 09 54 120/82 11/18 0648 97.8 54 18 120/82 95 11/18 0000 91 Room Air 11/17 2237 98.1 62 19 146/70 91 Nasal Cannula 11/17 2135 71 148/78 11/17 1624 63 148/76 11/17 1623 63 148/76 11/17 1622 63 148/76 11/17 1548 Nasal 4.0L Cannula 11/17 1445 98.4 63 18 148/76 92 11/17 1125 Nasal 4.0L Cannula His carbidopa/levodopa was restarted.
[2017-11-18 14:26] VITALS: BP 110/80
--- NOTE | 2017-11-18 14:59 | Discharge Summary ---
Visit Information Visit Dates Admission Date: 11/16/17 Discharge Date: 11/19/2017 Hospital Course Course Attending Physician: Bryn Castellanos MD Primary Care Physician: Emanuel VASQUES,[place] Hospital Course: This is 71-year-old male with past medical history significant for Parkinson's disease, diabetes mellitus, hypertension, hyperlipidemia, insomnia, anxiety, depression, chronic back pain, diastolic heart failure, peripheral neuropathy, seizures, GERD, peptic ulcer disease, mechanical aortic valve replacement on warfarin, multiple CVA stroke 4 times, hemorrhagic stroke in 2017, osteoarthritis, osteoporosis, spine fractures, MRSA wound infections, constipation was brought in by ambulance from [facility] for evaluation of lower extremity weakness status post multiple falls Patient lives at [facility]. Reports he was recently discharged from short term rehab facility 1 week prior to this admission. Reports that he was trying to transfer himself from his wheelchair to the toilet and slipped on the seat and slid off as he felt his legs give out. Initially denied head trauma and LOC per notes however upon this interview reports he cannot remember. Denies chest pain, palpitations, dizziness, lightheadedness, seizure like activity. Denies weakness or numbness above baseline.Patient reports over the past week he has fallen multiple times. States he feels weak especially in the legs. Vitals afebrile, heart rate 55, respiratory rate 18, blood pressure 118/50, saturating at 98 on room air Labs WBC 4.5, hemoglobin 8.7, hematocrit 26, platelets 299. BEP normal limits, creatinine 2.4 baseline is 2.[address] which was negative for acute hemorrhage/infarct. CT Cervical spine was negative for acute findngs showing multilevel spondylsosis. CT Abd/Pelvis negative for acute process. CT Chest revealed a RUL opacity. Status post fall secondary to generalised weakness from worsening of parkinson disease Patient was brought in by ambulance after mechanical fall secondary to lower extremity weakness from parkinson disease. [place] that his legs gave up, leading to fall. Denied head trauma, loss of consciousness. Hip x-ray showed no fractures. He was evaluated by physical therapist in the hospital, advised short-term rehab. Right upper lobe opacity Patient was given 1 dose of IV Vanco and IV ceftaz in the emergency room given x -ray findings suggestive of opacity. However given afebrile status, normal WBC count later antibiotics was discontinued. Urine Legionella and strep antigen were negative. Blood cultures were negative. He was monitored off from antibiotics Diabetes mellitus Accu-Cheks Insulin sliding scale Levemir 10 units twice daily Hypertension Continued home medications amlodipine 10 mg daily, labetalol 200 twice daily, metoprolol 50 daily Hyperlipidemia Continued Lipitor 40 daily Parkinson's disease Continued home dose of carbidopa L-dopa 2 tabs 3 times daily Entacapone 200 mg 3 times daily Zonasimide 50 mg daily for Parkinson's tremors Depression Continued duloxetine 60 daily Insomnia Continued Ambien 10 mg daily CHF with diastolic dysfunction Continued home dose of Lasix 40 daily Peripheral neuropathy Continued Lyrica 50 3 times daily Continued gabapentin 600 2 times daily Seizures Continued Keppra 250 twice daily GERD Continued omeprazole 20 daily Subtherapeutic INR [place] mechanical aortic valve takes warfarin 4.5 mg Dosed warfarin daily based on INR Chronic kidney disease Patient has stage IV CKD with baseline creatinine 2.3. Stroke He was continued on aspirin 81, Plavix 75, statin 40 daily. DVT prophylaxis warfarin Regular diet Pain pathway Tylenol, patient takes Dilaudid 8 mg every 6 hours Full code Allergies: Coded Allergies: Penicillins (Intermediate, HIVES 05/03/15) Significant Procedures: hip xry No fracture is identified. No significant hip joint space narrowing is seen. The symphysis pubis is normal. The imaged bony pelvic ring is intact. No soft tissue abnormality is identified. Vascular calcifications noted. IMPRESSION: No acute traumatic findings of the left hip. head/spine ct IMPRESSION: 1. No acute intracranial pathology. Mild anterior left frontal supraorbital scalp soft tissue swelling. 2. No evidence of acute cervical spine traumatic injury. Multilevel cervical spondylosis, status post anterior cervical discectomies and fusion with hardware in place spanning from the C5-C7 levels. abd/chest ct IMPRESSION: 1. No CT evidence of acute traumatic injury within the chest, abdomen or pelvis. 2. Small patchy opacities within the right upper lobe of the lung with mild surrounding ground-glass opacity suggestive of an acute infectious or inflammatory process. Recommend clinical correlation and follow up to resolution, if appropriate, based upon clinical assessment. 3. Multiple other chronic, nonacute findings as above. Disposition Summary Disposition Principal Diagnosis: Lower extremity weakness sec to worsening parkinsons Additional Diagnosis: Multiple falls Subtherapeutic INR Discharge Disposition: SNF Discharge Instructions General Discharge Information Code Status: Full Code Patient's Diet: As tolerated Patient's Activity: As tolerated Follow-Up Instructions/Appts: follow-up PCP in 1 week after discharge Medications at Discharge Discharge Medications: Continue taking these medications: Fenofibrate,Micronized (Fenofibrate) 134 MG CAPSULE 1 Capsule ORAL DAILY Comments: NOT GIVEN IN HOSPITAL Folic Acid (Folic Acid) 1 MG TABLET 1 Tablet ORAL DAILY Comments: NOT GIVEN IN HOSPITAL Metoprolol Succ XL (Toprol Xl) 50 MG TAB 1 Tablet ORAL DAILY Comments: Last Taken: 09/16/17 Time: 7AM Zolpidem Tartrate (Ambien) 10 MG TABLET 1 Tablet ORAL Every night Comments: Last Taken: 09/15/17 Time: 8PM Furosemide (Lasix) 40 MG TABLET 1 Tablet ORAL DAILY Comments: NOT GIVEN IN HOSPITAL Atorvastatin Calcium (Lipitor) 40 MG TABLET 1 Tablet ORAL DAILY Comments: Last Taken: 09/15/17 Time: 6PM Entacapone (Comtan) 200 MG TABLET 1 Tablet ORAL THREE TIMES DAILY Comments: Last Taken: 09/16/17 Time: 2PM Duloxetine HCl (Duloxetine HCl) 30 MG CAPSULE. 60 Milligram ORAL DAILY Comments: Last Taken: 09/16/17 Time: 7AM Celecoxib (Celebrex) 200 MG CAPSULE 1 Capsule ORAL DAILY Comments: NOT GIVEN IN HOSPITAL Omeprazole (Omeprazole) 20 MG CAPSULE.DR 1 Capsule ORAL DAILY Comments: Last Taken: 09/16/17 Time: 7AM Pregabalin (Lyrica) 50 MG CAPSULE 1 Capsule ORAL THREE TIMES DAILY Comments: Last Taken: 09/16/17 Time: 2PM Docusate Sodium (Colace) 100 MG CAPSULE 1 Capsule ORAL TWICE DAILY Comments: NOT GIVEN IN HOSPITAL Sennosides (Senna) 8.6 MG TABLET 1 Tablet ORAL DAILY Comments: NOT GIVEN IN HOSPITAL Polyethylene Glycol 3350 (Miralax) 17 GRAM POWD.PACK Packet ORAL DAILY Comments: NOT GIVEN IN HOSPITAL Magnesium Oxide (Magnesium Oxide) 400 MG TABLET 1 Tablet ORAL DAILY Comments: NOT GIVEN IN HOSPITAL Insulin Aspart, Recombinant (Novolog Flexpen) (Unknown Strength) INSULN.PEN Unknown Dose SEE SLIDING SCALE Instructions: SLIDING SCALE: 150-200 4 UNITS 201-250 6 UNITS 251-300 8 UNITS 301-350 10 UNITS 351-400 12 UNITS OVER 400 CALL MD PER [facility] Comments: NOT GIVEN IN HOSPITAL. PT ON NOVOLOG SLIDING SCALE Polyvinyl Alcohol (Artificial Tears) 1.4 % DROPS 1 DROP OPHTHALMIC 4 TIMES A DAY Comments: NOT GIVEN IN HOSPITAL Gabapentin (Neurontin) 600 MG TABLET 1 Tablet ORAL THREE TIMES DAILY Comments: Last Taken: 09/16/17 Time: 2PM Carbidopa/Levodopa (Carbidopa-Levodopa 25-100 Tab) 25 MG-100 MG TABLET 2 Tablet ORAL THREE TIMES DAILY Comments: Last Taken: 09/16/17 Time: 2PM Warfarin Sodium (Coumadin) 2 MG TABLET 4.5 Milligram ORAL 5 PM Comments: Last Taken: 09/15/17 Time: 1PM PT GIVEN 4.5MG Calcium Carbonate (Oyster Shell Calcium) 500 MG CALCIUM (1,250 MG) TABLET 1 Tablet ORAL DAILY Comments: Last Taken: 09/16/17 Time: 7AM Hydromorphone HCl (Dilaudid) 8 MG TABLET 1 Tablet ORAL Every 4 hours as needed for Back pain Qty = 30 Comments: Last Taken: 09/16/17 Time: 5AM Amlodipine Besylate (Amlodipine Besylate) 10 MG TABLET 1 Tablet ORAL DAILY Qty = 28 Comments: Last Taken: 09/16/17 Time: 7AM Cholecalciferol (Vitamin D3) 1,000 UNIT TABLET 1 Tablet ORAL DAILY Comments: NOT GIVEN IN HOSPITAL Diclofenac Sodium (Diclofenac Sodium) 3 % GEL..GRAM. 4 Gram On the skin THREE TIMES DAILY Qty = 300 Comments: NOT GIVEN IN HOSPITAL Ferrous Sulfate (Ferrous Sulfate) 325 MG (65 MG IRON) TABLET 1 Tablet ORAL TWICE DAILY Comments: NOT GIVEN IN HOSPITAL Insulin Glargine,Hum.rec.anlog (Lantus Solostar) 100 UNIT/ML (3 ML) INSULN.PEN 20 Unit SC Every night Comments: Last Taken: 09/16/17 Time: 7AM PT GIVEN LEVEMIR Labetalol HCl (Labetalol HCl) 300 MG TABLET 1 Tablet ORAL THREE TIMES DAILY Qty = 84 Comments: Last Taken: 09/15/17 Time: 0805 Levetiracetam (Keppra) 250 MG TABLET 1 Tablet ORAL TWICE DAILY Qty = 56 Comments: Last Taken: 09/16/17 Time: 7AM Sertraline HCl (Sertraline HCl) 25 MG TABLET 1 Tablet ORAL DAILY Comments: Last Taken: 09/16/17 Time: 2PM Aspirin (Aspirin*) 81 MG TAB.CHEW 1 Tablet ORAL DAILY Qty = 30 Comments: Last Taken: 09/16/17 Time: 7AM Zonisamide (Zonisamide) 50 MG CAPSULE 1 Tablet ORAL DAILY Qty = 30 Comments: Last Taken: 09/16/17 Time: 7AM Copies To: Emanuel VASQUES,[place]
[2017-11-18 22:08] VITALS: BP 150/100
[2017-11-19 06:43] VITALS: BP 150/74
--- NOTE | 2017-11-19 07:48 | PN- Housestaff ---
Subjective Follow-up For: Fall Anemia Subjective: Patient was seen and examined at bedside. He reports no improvement in his pain. He complains of itching in his eyes. Denies fever, chills, nausea, vomiting. Review of Systems Constitutional: Reports: see HPI. Objective Last 24 Hrs of Vital Signs/I&O Vital Signs Date Time Temp Pulse Resp B/P B/P Pulse O2 O2 Flow FiO2 Mean Ox Delivery Rate 11/19 0643 97.9 66 20 150/74 94 Room Air 11/18 2208 98.2 54 18 150/100 91 Room Air 11/18 2116 150/100 11/18 1600 Room Air 11/18 1448 50 130/68 11/18 1426 98.1 55 20 110/80 95 Room Air 11/18 0925 54 120/82 11/18 0925 54 120/82 11/18 0925 54 120/82 Intake & Output 11/19 1600 11/19 0800 11/19 0000 Intake Total 720 1185 Output Total 575 680 Balance 145 505 Intake, IV 600 525 Intake, Oral 120 660 Output, Urine 575 680 Physical Exam General Appearance: Alert, Oriented X3, Cooperative, No Acute Distress Skin: No Rashes, No Breakdown Neck: Supple Cardiovascular: Regular Rate, Normal S1, Normal S2, No Murmurs Lungs: Clear to Auscultation, Normal Air Movement Abdomen: Normal Bowel Sounds, Soft, No Tenderness Neurological: slurred speech Extremities: No Edema, Normal Pulses Assessment/Plan Assessment: 71 year old male with history of multiple prior CVA's, Parkinson's disease and aortic valve replacement on Warfarin status-post mechanical fall at home, with shortness of breath and productive cough. Patient does not usually require O2 at home, but upon presentation complained of dyspnea and needed 4L O2 on the nasal cannula on admission, which in addition to his recent productive cough suggests his fall may have been due in part to an underlying pneumonia. The patient is saturating well on room air at this time. CT Head showed no acute intracranial pathology, CT Spine showed no evidence of acute cervical spine traumatic injury. Hip X-ray showed no acute traumatic findings of the L hip. CT chest showed: Small patchy opacities within the right upper lobe of the lung with mild surrounding ground-glass opacity suggestive of an acute infectious or inflammatory process. Problems: 1. Fall 2. Pneumonia ? 3. History of CVA's 4. CKD stage III 5. Diabetes mellitus 6. Anemia 1. Fall -Patient continues to be on fall precautions -He has apparently fallen 8 times during the past 1 week -Hip X-ray un-remarkable -PT consult appreciated. The patient would need STR 2. Pneumonia -The patient endorses of productive cough alongwith chills present for a week -He is afebrile and does not have an elevated white count -Chest X-ray shows evidence of patchy opacities in the right uppper lobe -We would monitor him off antibiotics at this time -The patient does not report any active symptoms at this time -He continues to do well off antibiotics 3. Anemia -Acute drop in Hgb to 8.7 from about 12 two months ago -Hgb 9.2 today -Iron studies and Vitamin B12 levels were within normal limits -Folate>20 4. Subtherapeutic INR -INR minimally improved to 1.44 -High dose Coumadin at 7.5 today DVT prophylaxis Full code Problem List: 1. Anemia 2. Fall Pain Ratin Pain Location: lower back Pain Goal: Remain pain free Pain Plan: pathway Tomorrow's Labs & Rationales: cbc and bep
[2017-11-19 10:19] LABS: PT 27.2 SEC (9.4-12.5)
--- NOTE | 2017-11-19 10:19 | PN- Att Addend ---
Attending Addendum Attending Brief Note No new issues. Vital signs are stable no fever. No major changes in physical examination. Accepted back at the [facility] [place] at first and probably consider long-term staying they are due to the frequent falls which might be related to his Parkinson's disease more than deconditioning.. Intake & Output 11/19 04011/18 1600 11/18 0400 11/17 1600 11/17 0400 Intake Total 720 1185 9052 523 6723 Output Total 575 680 875 820 550 Balance 145 505 760 -120 910 Intake, IV 952 960 6745 300 900 Intake, Oral 120 660 510 400 560 Number 0 0 Bowel Movements Output, Urine 575 680 875 820 550 Patient 265 lb 260 lb 241 lb Weight Weight Bed scale Reported by Patient Measurement Method Laboratory Tests 11/19/17 0903: Sodium Pending, Potassium Pending, Chloride Pending, Carbon Dioxide Pending, Anion Gap Pending, BUN Pending, Creatinine Pending, BUN/Creatinine Ratio Pending , PT Pending, INR Pending, CBC w Diff Pending, WBC Pending, RBC Pending, Hgb Pending, Hct Pending, MCV Pending, MCH Pending, MCHC Pending, RDW Pending, Plt Count Pending, MPV Pending 11/18/17 0755: Anion Gap 6, Estimated GFR 37 L, BUN/Creatinine Ratio 16.7, PT 15.8 H, INR 1.44 H, CBC w Diff NO MAN DIFF REQ, RBC 2.92 L, MCV 93.3, MCH 31.4 H, MCHC 33.7, RDW 14.2, MPV 8.1, Gran % 72.4, Lymphocytes % 12.1 L, Monocytes % 11.8 H , Eosinophils % 3.2, Basophils % 0.5, Absolute Granulocytes 3.9, Absolute Lymphocytes 0.6 L, Absolute Monocytes 0.6, Absolute Eosinophils 0.2, Absolute Basophils 0 11/17/17 0800: Urine Color YEL, Urine Clarity CLEAR, Urine pH 6.0, Ur Specific Arnett 1.020, Urine Protein 30 H, Urine Ketones NEG, Urine Nitrite NEG, Urine Bilirubin NEG, Urine Urobilinogen 0.2, Ur Leukocyte Esterase NEG, Ur Microscopic SEDIMENT EXAMINED, Urine RBC RARE, Urine Hemoglobin TRACE-LYSED H, Urine Glucose 250 H 11/17/17 0700: Anion Gap 5, Estimated GFR 31 L, BUN/Creatinine Ratio 19.0, Iron 66, TIBC 330, Ferritin 139.0, Creatine Kinase 67, Vitamin B12 375, Folate > 20.0 H, PT 15.1 H, INR 1.38 H, CBC w Diff NO MAN DIFF REQ, RBC 2.73 L, MCV 91.7, MCH 31.0, MCHC 33.8, RDW 14.5, MPV 8.2, Gran % 66.7, Lymphocytes % 16.8 L, Monocytes % 12.8 H, Eosinophils % 3.1, Basophils % 0.6, Absolute Granulocytes 2.8, Absolute Lymphocytes 0.7 L, Absolute Monocytes 0.5, Absolute Eosinophils 0.1, Absolute Basophils 0 11/16/17 1638: PT 16.7 H, INR 1.53 H 11/16/17 1638: Anion Gap 5, Estimated GFR 27 L, BUN/Creatinine Ratio 20.0, Glucose 190 H, Calcium 8.8, Total Bilirubin 0.6, AST 9 L, ALT 16 L, Alkaline Phosphatase 70, Troponin I 0.04, Total Protein 5.5 L, Albumin 3.2 L, Globulin 2.3, Albumin/ Globulin Ratio 1.4, D-Dimer High Sensitivty 240, CBC w Diff NO MAN DIFF REQ, RBC 2.84 L, MCV 92.0, MCH 30.8, MCHC 33.5, RDW 14.6 H, MPV 8.0, Gran % 74.3, Lymphocytes % 10.8 L, Monocytes % 12.0 H, Eosinophils % 2.4, Basophils % 0.5, Absolute Granulocytes 3.4, Absolute Lymphocytes 0.5 L, Absolute Monocytes 0.5, Absolute Eosinophils 0.1, Absolute Basophils 0 Microbiology 11/18 799 URINE ROUT: Legionella Antigen - COMP 11/18 799 URINE ROUT: Streptococcus pneumoniae Antigen (M - COMP 11/18 799 URINE ROUT: Urine Culture - RES 11/17 649 NASOPHARYN: Influenza Virus A & B Rapid Smear - COMP 11/17 599 URINE ROUT: Legionella Antigen - CAN Cancelled: DUPLICATE ORDER 11/17 599 URINE ROUT: Streptococcus pneumoniae Antigen (M - CAN Cancelled: DUPLICATE ORDER 11/17 424 LOWER RESP: Respiratory Culture - CAN Cancelled: SPECIMEN NOT RECEIVED IN LABORATORY 11/17 424 LOWER RESP: Gram Stain - CAN Cancelled: SPECIMEN NOT RECEIVED IN LABORATORY 11/16 2199 BLOOD: Blood Culture - RES 11/16 2144 BLOOD: Blood Culture - RES Microbiology 11/18 799 URINE ROUT: Legionella Antigen - COMP 11/17 08 URINE ROUT: Streptococcus pneumoniae Antigen (M - COMP 11/18 799 URINE ROUT: Urine Culture - RES 11/17 0650 NASOPHARYN: Influenza Virus A & B Rapid Smear - COMP 11/17 599 URINE ROUT: Legionella Antigen - CAN Cancelled: DUPLICATE ORDER 11/17 599 URINE ROUT: Streptococcus pneumoniae Antigen (M - CAN Cancelled: DUPLICATE ORDER 11/17 424 LOWER RESP: Respiratory Culture - CAN Cancelled: SPECIMEN NOT RECEIVED IN LABORATORY 11/17 424 LOWER RESP: Gram Stain - CAN Cancelled: SPECIMEN NOT RECEIVED IN LABORATORY 11/16 2199 BLOOD: Blood Culture - RES 11/16 2144 BLOOD: Blood Culture - RES Vital Signs Date Time Temp Pulse Resp B/P B/P Pulse O2 O2 Flow FiO2 Mean Ox Delivery Rate 11/19 0836 66 150/74 11/19 0800 Room Air 11/19 0643 97.9 66 20 150/74 94 Room Air 11/18 2208 98.2 54 18 150/100 91 Room Air 11/18 2116 150/100 11/18 1600 Room Air 11/18 1448 50 130/68 11/18 1426 98.1 55 20 110/80 95 Room Air Follow INRs and anticoagulation.
[2017-11-19 10:39] LABS: ABSOLUTE BASOPHIL COUNT 0 /CUMM (0.0-0.2); ABSOLUTE EOSINOPHIL COUNT 0.2 /CUMM (0.0-0.7); ABSOLUTE GRANULOCYTE CT 3.5 /CUMM (1.4-6.5); ABSOLUTE LYMPH COUNT 0.7 /CUMM (1.2-3.4); ABSOLUTE MONOCYTE COUNT 0.7 /CUMM (0.10-0.60); BASOPHIL % 0.5 % (0.0-2.0); EOSINOPHIL % 3.6 % (0-5); HEMATOCRIT 26.8 % (42-52); MEAN CORPUSCULAR HGB 30.7 PG (27.0-31.0); MEAN CORPUSCULAR HGB CONC 33.2 G/DL (33.0-37.0); MEAN CORPUSCULAR VOLUME 92.5 FL (80.0-94.0); MEAN PLATELET VOLUME 7.7 FL (7.4-10.4); PLATELET COUNT 299 /CUMM (130-400); RBC DISTRIBUTION WIDTH 14.2 % (11.5-14.5); WHITE BLOOD CELL COUNT 5.1 /CUMM (4.8-10.8)
--- NOTE | 2017-11-19 10:40 | Patient Discharge Instructions ---
Discharge Instructions General Discharge Information You were seen/treated for: Fall and Anemia Special Instructions: 1. Please inform your PCP about your admission to [facility] within a week of discharge. 2. Please continue taking your home medications according to instructions Diet Continue normal diet: Yes Activity Activity Self Limited: Yes Acute Coronary Syndrome Inclusion Criteria At DC or during hospital stay patient has or had the following: ACS DIAGNOSIS No Discharge Core Measures Meds if any: Prescribed or Continued at Discharge Meds if any: NOT Prescribed or Continued at Discharge Congestive Heart Failure Inclusion Criteria At DC or during hospital stay patient has or had the following: CHF DIAGNOSIS No Discharge Core Measures Meds if any: Prescribed or Continued at Discharge Meds if any: NOT Prescribed or Continued at Discharge Cerebrovascular accident Inclusion Criteria At DC or during hospital stay patient has or had the following: CVA/TIA Diagnosis No Discharge Core Measures Meds if any: Prescribed or Continued at Discharge Meds if any: NOT Prescribed or Continued at Discharge Venous thromboembolism Inclusion Criteria VTE Diagnosis No VTE Type NONE VTE Confirmed by (Test) NONE Discharge Core Measures - Per Current guidelines, there needs to be overlap - treatment for the first 5 days of Warfarin therapy. - If discharged on Warfarin prior to 5 days of - overlap therapy, the patient will need to be - assessed for post discharge needs including - *Post discharge parental anticoagulation - *Warfarin and/or parental anticoagulation education - *Follow up date to check INR post discharge At least 5 days overlap therapy as Inpatient No Meds if any: Prescribed or Continued at Discharge Note: Overlap Therapy is Warfarin and Anticoagulant Meds if any: NOT Prescribed or Continued at Discharge
[2017-11-19 11:06] VITALS: BP 150/70
== END 2017-11-19 12:59 | DRG 57 ==
LOC: ERH 15:53 → ERHI 21:47 → 2NA 21:47 → ENRESERV 22:26 → 2NA 23:17 → ENPENDDIS 11-19 11:32 → 2NA 11-19 12:59
PROVIDERS: Emergency Medicine; Hospitalist; Student in an Organized Health Care Education/Training Program
DX: G20 Parkinson's disease (principal); I13.0 Hypertensive heart and chronic kidney disease with heart failure and stage 1 through stage 4 chronic kidney disease, or unspecified chronic kidney disease; I69.351 Hemiplegia and hemiparesis following cerebral infarction affecting right dominant side; E11.40 Type 2 diabetes mellitus with diabetic neuropathy, unspecified; Z79.4 Long term (current) use of insulin; I50.9 Heart failure, unspecified; N18.3 Chronic kidney disease, stage 3 (moderate); E11.22 Type 2 diabetes mellitus with diabetic chronic kidney disease; E55.9 Vitamin D deficiency, unspecified; R53.1 Weakness; Z79.01 Long term (current) use of anticoagulants; Z95.2 Presence of prosthetic heart valve; W18.11XA Fall from or off toilet without subsequent striking against object, initial encounter; Z91.81 History of falling; Y92.091 Bathroom in other non-institutional residence as the place of occurrence of the external cause; Z88.0 Allergy status to penicillin; Z98.1 Arthrodesis status; R79.1 Abnormal coagulation profile; D64.9 Anemia, unspecified
CPT/HCPCS: 2NAP; 36592; 73502-LT; 74176; 81001; 82436; 87040; 87070; 87086; 87449; 87450; 87804; 87804-59; 93005; 93010; 97110-GO; 97162-GP; 97166-GO; 97530-GO; J0713; J1953; J3370; J3490; Q2036